=== PATIENT | female | born 1985 | race Caucasian/White ===

== ENCOUNTER → 2024-02-08 | Emergency (ER) | payer OTHER ==
[~2024-02-08] MED LIST: D10W 250 ML IV ONE; FUROSEMIDE 40 MG/4 ML VIAL ONE
--- OUTSIDE RECORDS SUMMARY | 2024-02-08 09:44 | XMS REPORT | Continuity of Care Document ---
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 20:00: 00 11-16 19:05 :54 No 1EA medication :reminder- vancomycin level MISC|dose: 1.0 EA|route:N OT APPLICABLE |frequency :ONE TIME [facility] ([facility]) vancomycin- NS IVPB 1 GM/250 ML SOLR vancomycin- NS IVPB 1 GM/250 ML SOLR 11-14 21:00: 00 11-16 07:25 :56 No 1g medication :vancomyci n-NS IVPB 1 GM/250 ML SOLR|dose: 1.0 g|route:IN TRAVENOUS| frequency: EVERY 24 HOURS [facility] ([facility]) vancomycin- NS IVPB 1 GM/250 ML SOLR vancomycin- NS IVPB 1 GM/250 ML SOLR 11-14 21:00: 00 11-16 07:25 :56 No 1g medication :vancomyci n-NS IVPB 1 GM/250 ML SOLR|dose: 1.0 g|route:IN TRAVENOUS| frequency: EVERY 24 HOURS [facility] vancomycin INJ 500 MG SOLR vancomycin INJ 500 MG SOLR 11-14 21:00: 00 11-14 21:00 :00 No 750mg medication :vancomyci n INJ 500 MG SOLR|dose: 750.0 mg|route:I NTRAVENOUS |frequency :EVERY 24 HOURS [facility] NS SOLN NS SOLN 11-14 21:00: 00 11-14 08:34 :24 No 250mL medication :NS SOLN|dose: 250.0 mL|route:I NTRAVENOUS |frequency :EVERY 24 HOURS [facility]) vancomycin INJ 500 MG SOLR vancomycin INJ 500 MG SOLR 11-14 21:00: 00 11-14 21:00 :00 No 750mg medication :vancomyci n INJ 500 MG SOLR|dose: 750.0 mg|route:I NTRAVENOUS |frequency :EVERY 24 HOURS [facility]) NS SOLN NS SOLN 11-14 21:00: 00 11-14 08:34 :24 No 250mL medication :NS SOLN|dose: 250.0 mL|route:I NTRAVENOUS |frequency :EVERY 24 HOURS [facility]) vancomycin- NS IVPB 1 GM/250 ML SOLR vancomycin- NS IVPB 1 GM/250 ML SOLR 11-14 09:00: 00 11-14 09:00 :00 No 1g medication :vancomyci n-NS IVPB 1 GM/250 ML SOLR|dose: 1.0 g|route:IN TRAVENOUS| frequency: EVERY 12 HOURS [facility] vancomycin- NS IVPB 1 GM/250 ML SOLR vancomycin- NS IVPB 1 GM/250 ML SOLR 11-14 09:00: 00 11-14 09:00 :00 No 1g medication :vancomyci n-NS IVPB 1 GM/250 ML SOLR|dose: 1.0 g|route:IN TRAVENOUS| frequency: EVERY 12 HOURS [facility]) NS SOLN NS SOLN 11-14 03:00: 00 12-13 03:00 :00 No 500mL medication :NS SOLN|dose: 500.0 mL|route:I NTRAVENOUS |frequency :EVERY 3 AM [facility]) NS SOLN NS SOLN 11-14 03:00: 00 11-23 14:40 :00 No 500mL medication :NS SOLN|dose: 500.0 mL|route:I NTRAVENOUS |frequency :EVERY 3 AM [facility]) CLARIFICATI ON: HT/WT/ALLER GY MISC CLARIFICATI ON: HT/WT/ALLER GY MISC 11-14 01:00: 00 11-14 02:23 :47 No 1EA medication :CLARIFICA TION: HT/WT/LUZ MARIA RGY MISC|dose: 1.0 EA|route:N OT APPLICABLE |frequency :EVERY 4 HOURS [facility] CLARIFICATI ON: HT/WT/ALLER GY MISC CLARIFICATI ON: HT/WT/ALLER GY MISC 11-14 01:00: 00 11-14 02:23 :47 No 1EA medication :CLARIFICA TION: HT/WT/LUZ MARIA RGY MISC|dose: 1.0 EA|route:N OT APPLICABLE |frequency :EVERY 4 HOURS [facility] LR SOLN LR SOLN 11-14 00:35: 00 11-16 21:51 :40 No 1000mL medication :LR SOLN|dose: 1000.0 mL|route:I NTRAVENOUS |frequency :CONT [facility]) LR SOLN LR SOLN 11-14 00:35: 00 11-16 21:51 :40 No 1000mL medication :LR SOLN|dose: 1000.0 mL|route:I NTRAVENOUS |frequency :CONT [facility] ([facility]) acetaminoph en 325 MG TABS acetaminoph en 325 MG TABS 11-14 00:33: 00 12-14 00:32 :00 No 650mg medication :acetamino phen 325 MG TABS|dose: 650.0 mg|route:O RAL|freque ncy:EVERY 4 HOURS NEEDED [facility] ([facility]) NS FLUSH SOLN NS FLUSH SOLN 11-14 00:33: 00 12-14 00:32 :00 No 10mL medication :NS FLUSH SOLN|dose: 10.0 mL|route:I NTRAVENOUS |frequency : NEEDED [facility] ([facility]) acetaminoph en 325 MG TABS acetaminoph en 325 MG TABS 11-14 00:33: 00 11-23 14:40 :00 No 650mg medication :acetamino phen 325 MG TABS|dose: 650.0 mg|route:O RAL|freque ncy:EVERY 4 HOURS NEEDED [facility]) NS FLUSH SOLN NS FLUSH SOLN 11-14 00:33: 00 11-23 14:40 :00 No 10mL medication :NS FLUSH SOLN|dose: 10.0 mL|route:I NTRAVENOUS |frequency : NEEDED [facility] ([facility]) LR SOLN LR SOLN 2020-11 22:17: 00 11-13 22:17 :00 No 1000mL medication :LR SOLN|dose: 1000.0 mL|route:I NTRAVENOUS |frequency :ONE TIME [facility] ([facility]) LR SOLN LR SOLN 2020-11 22:17: 00 11-13 22:17 :00 No 1000mL medication :LR SOLN|dose: 1000.0 mL|route:I NTRAVENOUS |frequency :ONE TIME [facility] ([facility]) vancomycin INJ 1 GM SOLR vancomycin INJ 1 GM SOLR 2020-11 22:00: 00 11-14 01:52 :42 No 1.25g medication :vancomyci n INJ 1 GM SOLR|dose: 1.25 g|route:IN TRAVENOUS| frequency: ONE TIME [facility] [facility] NS SOLN NS SOLN 2020-11 22:00: 00 11-14 01:52 :42 No 250mL medication :NS SOLN|dose: 250.0 mL|route:I NTRAVENOUS |frequency :ONE TIME [facility]) vancomycin INJ 1 GM SOLR vancomycin INJ 1 GM SOLR 2020-11 22:00: 00 11-14 01:52 :42 No 1.25g medication :vancomyci n INJ 1 GM SOLR|dose: 1.25 g|route:IN TRAVENOUS| frequency: ONE TIME [facility]) NS SOLN NS SOLN 2020-11 22:00: 00 11-14 01:52 :42 No 250mL medication :NS SOLN|dose: 250.0 mL|route:I NTRAVENOUS |frequency :ONE TIME [facility]) NS SOLN NS SOLN 2020-11 21:12: 00 11-13 21:12 :00 No 1000mL medication :NS SOLN|dose: 1000.0 mL|route:I NTRAVENOUS |frequency :ONE TIME [facility]) levoFLOXaci n-D5W IVPB 500 MG/100ML SOLN levoFLOXaci n-D5W IVPB 500 MG/100ML SOLN 2020-11 21:12: 00 11-13 21:12 :00 No 500mg medication :levoFLOXa staci-D5W IVPB 500 MG/100ML SOLN|dose: 500.0 mg|route:I NTRAVENOUS |frequency :ONE TIME [facility] [facility] NS SOLN NS SOLN 2020-11 21:12: 00 11-13 21:12 :00 No 1000mL medication :NS SOLN|dose: 1000.0 mL|route:I NTRAVENOUS |frequency :ONE TIME [facility] ([facility]) levoFLOXaci n-D5W IVPB 500 MG/100ML SOLN levoFLOXaci n-D5W IVPB 500 MG/100ML SOLN 2020-11 21:12: 00 11-13 21:12 :00 No 500mg medication :levoFLOXa staci-D5W IVPB 500 MG/100ML SOLN|dose: 500.0 mg|route:I NTRAVENOUS |frequency :ONE TIME [facility] ([facility]) NS SOLN NS SOLN 2020-11 19:31: 00 11-13 19:31 :00 No 1000mL medication :NS SOLN|dose: 1000.0 mL|route:I NTRAVENOUS |frequency :ONE TIME [facility] ([facility]) NS SOLN NS SOLN 2020-11 19:31: 00 11-13 19:31 :00 No 1000mL medication :NS SOLN|dose: 1000.0 mL|route:I NTRAVENOUS |frequency :ONE TIME [facility] ([facility]) HYDROcodone -acetaminop hen (NORCO 5) 5-325 mg tablet 1 tablet 07-10 16:57: 52 Yes 1{tbl} 1 tablet, Oral, Q6HPRN, Starting Tue07/10/20 at 1157, Until Discontinu ed, Routine, Pain (scale 4-6), Pain (scale 7-10) [facility] glycerin/mi neral oil (AGLO ENEMA) (COMPOUNDED ) Enem 225 mL 07-10 14:01: 05 Yes 225mL 225 mL, Rectal, Q8HPRN, Starting Tue07/10/20 at 0901, Until Discontinu ed, Routine, If no BM after suppositry , Q8 PRN [facility] bisacodyL (DULCOLAX) suppository 10 mg 07-10 14:00: 00 Yes 10mg 10 mg, Rectal, DAILY, First dose on Tue07/10/20 at 0900, Until Discontinu ed, Routine [facility] ondansetron (ZOFRAN) tablet 4 mg 07-10 13:39: 41 Yes 4mg 4 mg, Oral, Q8HPRN, Starting Rosie 07/10/20 at 0839, Until Discontinu ed, Routine, Nausea and Vomiting (N/V) [facility] -acetaminop hen 5-325 mg tablet 07-10 00:00: 07-18 04:59 :00 No 4647 1{tbl} Take 1 tablet by mouth every 6 (six) hours as needed for Pain (scale 7-10) for up to 7 days. Indication s: acute pain [facility] HYDROcodone -acetaminop hen 5-325 mg tablet 07-10 00:00: 00 07-18 04:59 :00 No 4647 1{tbl} Take 1 tablet by mouth every 6 (six) hours as needed for Pain (scale 7-10) for up to 7 days. Indication s: acute pain [facility] HYDROcodone -acetaminop hen (NORCO) 5-325 mg tablet 07-10 00:00: 07-18 04:59 :00 No 4647 1{tbl} Take 1 tablet by mouth every 6 (six) hours as needed for Pain (scale 7-10) for up to 7 days. Indication s: acute pain [facility] HYDROcodone -acetaminop hen 5-325 mg tablet 07-10 00:00: 07-18 04:59 :00 No 4647 1{tbl} Take 1 tablet by mouth every 6 (six) hours as needed for Pain (scale 7-10) for up to 7 days. Indication s: acute pain [facility] HYDROcodone -acetaminop hen (NORCO) 5-325 mg tablet 07-10 00:00: 00 07-18 04:59 :00 No 4647 1{tbl} Take 1 tablet by mouth every 6 (six) hours as needed for Pain (scale 7-10) for up to 7 days. Indication s: acute pain [facility] HYDROcodone -acetaminop hen (NORCO) 5-325 mg tablet 07-10 00:00: 07-18 04:59 :00 No 4647 1{tbl} Take 1 tablet by mouth every 6 (six) hours as needed for Pain (scale 7-10) for up to 7 days. Indication s: acute pain [facility] HYDROcodone -acetaminop hen 5-325 mg tablet 07-10 00:00: 00 07-18 04:59 :00 No 4647 1{tbl} Take 1 tablet by mouth every 6 (six) hours as needed for Pain (scale 7-10) for up to 7 days. Indication s: acute pain [facility] HYDROcodone -acetaminop hen (NORCO) 5-325 mg tablet 07-10 00:00: 07-18 04:59 :00 No 4647 1{tbl} Take 1 tablet by mouth every 6 (six) hours as needed for Pain (scale 7-10) for up to 7 days. Indication s: acute pain [facility] HYDROcodone -acetaminop hen 5-325 mg tablet 07-10 00:00: 07-18 04:59 :00 No 4647 1{tbl} Take 1 tablet by mouth every 6 (six) hours as needed for Pain (scale 7-10) for up to 7 days. Indication s: acute pain [facility] HYDROcodone -acetaminop hen (NORCO) 5-325 mg tablet 07-10 00:00: 07-18 04:59 :00 No 4647 1{tbl} Take 1 tablet by mouth every 6 (six) hours as needed for Pain (scale 7-10) for up to 7 days. Indication s: acute pain [facility] HYDROcodone -acetaminop hen 5-325 mg tablet 07-10 00:00: 07-18 04:59 :00 No 4647 1{tbl} Take 1 tablet by mouth every 6 (six) hours as needed for Pain (scale 7-10) for up to 7 days. Indication s: acute pain [facility] HYDROcodone -acetaminop hen (NORCO) 5-325 mg tablet 07-10 00:00: 07-18 04:59 :00 No 4647 1{tbl} Take 1 tablet by mouth every 6 (six) hours as needed for Pain (scale 7-10) for up to 7 days. Indication s: acute pain [facility] HYDROcodone -acetaminop hen 5-325 mg tablet 07-10 00:00: 00 07-18 04:59 :00 No 4647 1{tbl} Take 1 tablet by mouth every 6 (six) hours as needed for Pain (scale 7-10) for up to 7 days. Indication s: acute pain [facility] HYDROcodone -acetaminop hen (NORCO) 5-325 mg tablet 07-10 00:00: 00 07-18 04:59 :00 No 4647 1{tbl} Take 1 tablet by mouth every 6 (six) hours as needed for Pain (scale 7-10) for up to 7 days. Indication s: acute pain [facility] HYDROcodone -acetaminop hen 5-325 mg tablet 07-10 00:00: 07-18 04:59 :00 No 4647 1{tbl} Take 1 tablet by mouth every 6 (six) hours as needed for Pain (scale 7-10) for up to 7 days. Indication s: acute pain [facility] HYDROcodone -acetaminop hen (NORCO) 5-325 mg tablet 07-10 00:00: 07-18 04:59 :00 No 4647 1{tbl} Take 1 tablet by mouth every 6 (six) hours as needed for Pain (scale 7-10) for up to 7 days. Indication s: acute pain [facility] HYDROcodone -acetaminop hen 5-325 mg tablet 07-10 00:00: 07-18 04:59 :00 No 4647 1{tbl} Take 1 tablet by mouth every 6 (six) hours as needed for Pain (scale 7-10) for up to 7 days. Indication s: acute pain [facility] HYDROcodone -acetaminop hen (NORCO) 5-325 mg tablet 07-10 00:00: 07-18 04:59 :00 No 4647 1{tbl} Take 1 tablet by mouth every 6 (six) hours as needed for Pain (scale 7-10) for up to 7 days. Indication s: acute pain [facility] HYDROcodone -acetaminop hen 5-325 mg tablet 07-10 00:00: 00 07-18 04:59 :00 No 4647 1{tbl} Take 1 tablet by mouth every 6 (six) hours as needed for Pain (scale 7-10) for up to 7 days. Indication s: acute pain [facility] HYDROcodone -acetaminop hen (NORCO) 5-325 mg tablet 07-10 00:00: 00 07-18 04:59 :00 No 4647 1{tbl} Take 1 tablet by mouth every 6 (six) hours as needed for Pain (scale 7-10) for up to 7 days. Indication s: acute pain [facility] morpHINE injection 2 mg 07-09 14:03: 04 07-10 13:40 :12 No 2mg 2 mg, Slow IV Push, Q3HPRN, Starting Tue07/09/20 at 0903, Until Rosie 07/10/20 at 0840, Routine, Pain (scale 7-10), For breakthrou gh [facility] magnesium sulfate in water 2 gram/50 mL (4 %) infusion 2 g 07-08 13:00: 00 07-08 13:15 :00 No 2g 2 g, IV Piggyback, ONCE, 1 dose, Tue07/08/20 at 0800, Routine [facility] acetaminoph en (TYLENOL) tablet 1,000 mg 07-08 03:00: 00 Yes 1000mg 1,000 mg, Oral, Q8H, First dose (after last modificati on) on Tue07/07/20 at 2200, Until Discontinu ed, Routine [facility] enoxaparin (LOVENOX) injection 40 mg 07-08 02:00: 00 Yes 40mg 40 mg, Subcutaneo us, Q24H, First dose on Tue07/07/20 at 2100, Until Discontinu ed, Routine [facility] celecoxib (CELEBREX) capsule 100 mg 07-08 01:00: 00 Yes 100mg 100 mg, Oral, BID MEALS, First dose on Tue07/07/20 at 1999, Until Discontinu ed, Routine [facility] D5W 0.45% NaCl (1/2NS) 1 L + KCL 20 mEq 07-07 23:12: 00 07-10 13:57 :50 No IV Infusion, at 20 mL/hr, CONTINUOUS , Starting Tue07/07/20 at 1815, Until Rosie 07/10/20 at 0857, Routine [facility] HYDROcodone -acetaminop hen (NORCO 5) 5-325 mg tablet 1 tablet 07-07 18:45: 00 07-07 18:38 :00 No 1{tbl} 1 tablet, Oral, ONCE, 1 dose, Tue07/07/20 at 1345, Routine, PACU [facility] FENTanyl PF (SUBLIMAZE (PF)) injection 25 mcg 07-07 18:31: 41 07-07 18:54 :00 No 25ug 25 mcg, Slow IV Push, Q5MIN PRN, 4 doses, Starting Tue07/07/20 at 1331, Until Tue07/07/20 at 1354, Routine, Pain (scale 4-6), PACU [facility] KCL (KLOR-CON M20) tablet 40 mEq 07-07 01:00: 00 07-07 01:24 :00 No 40meq 40 mEq, Oral, BID, 1 dose, First dose (after last modificati on) on Tue07/06/20 at 1999, Routine [facility] KCL (KLOR-CON M20) tablet 40 mEq 07-05 01:00: 00 07-07 00:52 :02 No 40meq 40 mEq, Oral, BID, First dose on Tue07/04/20 at 1999, Until Discontinu ed, Routine [facility] magnesium sulfate in water 2 gram/50 mL (4 %) infusion 2 g 07-04 12:15: 00 07-04 14:52 :00 No 2g 2 g, IV Piggyback, ONCE, 1 dose, 07/04/20 at 0715, Routine [facility] morpHINE 30 mg/30 mL (fixed dose) MANAGER INTEL injection 07-03 21:15: 00 07-09 13:30 :57 No [facility] morpHINE 2 mg/mL LOAD & RESCUE INJECTION SYRG 07-03 20:07: 23 07-09 13:30 :57 No Slow IV Push, Routine [facility] iohexol (OMNIPAQUE 350 BULK-150 mL) injection 120 mL 07-03 17:55: 00 07-03 17:55 :00 No 120mL 120 mL, Intravenou s, ONCE, 1 dose, Rosie 07/03/20 at 1315, Routine [facility] ondansetron (ZOFRAN (PF)) injection 4 mg 07-03 00:55: 42 07-10 13:40 :12 No 4mg 4 mg, Slow IV Push, Q6HPRN, Starting Tue07/02/20 at 1955, Until Rosie 07/10/20 at 0840, Routine, Nausea and Vomiting (N/V) [facility] D5W 0.45% NaCl (1/2NS) IV infusion 1,000 mL 07-02 00:15: 00 07-07 22:54 :51 No 1000mL at 100 mL/hr, 1,000 mL, IV Infusion, CONTINUOUS , Starting Tue07/01/20 at 1915, Until Tue07/07/20 at 1754, Routine [facility] lidocaine 1% (PF) (XYLOCAINE) injection 20 mL 07-01 14:30: 00 07-01 14:30 :00 No 20mL 20 mL, Subcutaneo us, ONCE, 1 dose, Tue07/01/20 at 0930, Routine [facility] docusate (COLACE) capsule 100 mg 07-01 14:00: 00 Yes 100mg 100 mg, Oral, DAILY, First dose on Tue07/01/20 at 0900, Until Discontinu ed, Routine [facility] foLIC acid (FOLATE) tablet 1 mg 07-01 14:00: 00 07-01 20:31 :54 No 1mg 1 mg, Oral, DAILY, First dose on Tue07/01/20 at 0900, Until Discontinu ed, Routine [facility] thiamine (VITAMIN B1) tablet 100 mg 07-01 14:00: 00 07-01 20:31 :54 No 100mg 100 mg, Oral, DAILY, First dose on Tue07/01/20 at 0900, Until Discontinu ed, Routine [facility] FENTanyl PF (SUBLIMAZE (PF)) injection 25 mcg 07-01 09:15: 00 07-01 09:00 :00 No 25ug 25 mcg, Slow IV Push, ONCE, 1 dose, Tue07/01/20 at 0415, Routine [facility] morpHINE injection 2 mg 07-01 07:18: 39 07-03 20:09 :58 No 2mg 2 mg, Slow IV Push, Q4HPRN, Starting Tue07/01/20 at 0218, Until Tue07/03/20 at 1509, Routine, Pain (scale 7-10) [facility] HYDROcodone -acetaminop hen (NORCO 5) 5-325 mg tablet 1 tablet 07-01 07:18: 30 07-10 16:58 :27 No 1{tbl} 1 tablet, Oral, Q6HPRN, Starting Tue07/01/20 at 0218, Until Tue07/10/20 at 1158, Routine, Pain (scale 4-6) [facility] FENTanyl PF (SUBLIMAZE (PF)) injection 25 mcg 07-01 06:15: 00 07-01 06:30 :00 No 25ug 25 mcg, Slow IV Push, ONCE, 1 dose, Tue07/01/20 at 0115, Routine [facility] Gentamicin 12-13 08:34: 00 No 180mg Daily [facility] Oxacillin 12-13 08:34: 00 No 2g Every 6 Hours [facility] Rifampin 12-13 08:34: 00 No 300mg Daily [facility] Bupropion Hcl 07-20 13:42: 00 No 150mg Twice A Day [facility] BUPROPION HCL (WELLBUTRIN ORAL) 04-08 02:31: 51 Yes Take by mouth. [facility] TRAZODONE HCL (TRAZODONE ORAL) 04-08 02:31: 51 Yes Take by mouth. [facility] BUPROPION HCL (WELLBUTRIN ORAL) 04-08 02:31: 51 Yes Take by mouth. [facility] TRAZODONE HCL (TRAZODONE ORAL) 04-08 02:31: 51 Yes Take by mouth. [facility] BUPROPION HCL (WELLBUTRIN ORAL) 04-08 02:31: 51 Yes Take by mouth. [facility] TRAZODONE HCL (TRAZODONE ORAL) 04-08 02:31: 51 Yes Take by mouth. [facility] BUPROPION HCL (WELLBUTRIN ORAL) 04-08 02:31: 51 Yes Take by mouth. [facility] TRAZODONE HCL (TRAZODONE ORAL) 04-08 02:31: 51 Yes Take by mouth. [facility] BUPROPION HCL (WELLBUTRIN ORAL) 04-08 02:31: 51 Yes Take by mouth. [facility] TRAZODONE HCL (TRAZODONE ORAL) 04-08 02:31: 51 Yes Take by mouth. [facility] BUPROPION HCL (WELLBUTRIN ORAL) 04-08 02:31: 51 Yes Take by mouth. [facility] TRAZODONE HCL (TRAZODONE ORAL) 04-08 02:31: 51 Yes Take by mouth. [facility] [facility] BU[facility]ION HCL (WELLBUTRIN ORAL) 04-08 02:31: 51 Yes Take by mouth. [facility] TRAZODONE HCL (TRAZODONE ORAL) 04-08 02:31: 51 Yes Take by mouth. [facility] BUPROPION HCL (WELLBUTRIN ORAL) 04-07 21:31: 51 Yes Take by mouth. [facility] TRAZODONE HCL (TRAZODONE ORAL) 04-07 21:31: 51 Yes Take by mouth. [facility] BUPROPION HCL (WELLBUTRIN ORAL) 04-07 21:31: 51 Yes Take by mouth. [facility] TRAZODONE HCL (TRAZODONE ORAL) 04-07 21:31: 51 Yes Take by mouth. [facility] Cyclobenzap rine Oral Cyclobenzap rine Oral Yes 10mg 3xD orally 3 times per day as needed. (for muscle spasms) [facility] Vital Signs Vital Name Observation Time Observation Value Comments S ource Systolic blood pressure 2024-02-02 18:35:00 180 mm[Hg] Charisma Seybo ld - External Diastolic blood pressure 2024-02-02 18:35:00 90 mm[Hg] Charismabrooke Kramero ld - External Heart rate 2024-02-02 18:35:00 92 /min Alondra vega sohailrogers - External Body temperature 2024-02-02 18:35:00 36.28 Elizabeth Charismabrooke Howell - External Respiratory rate 2024-02-02 18:35:00 20 /min Charisma Kramerold - External Body height 2024-02-02 18:35:00 157.5 cm Silvana adorno Seybold - External Body weight 2024-02-02 18:35:00 67.586 kg Silvana tila Castleybold - External BMI 2024-02-02 18:35:00 27.25 kg/m2 Silvana tila Castleybold - External Oxygen saturation in Arterial blood by Pulse oximetry 2024-02-02 18:35:00 98 /min Charisma Williamso ld - External Systolic blood pressure 2024-01-19 01:00:00 133 mm[Hg] [facility] Diastolic blood pressure 2024-01-19 01:00:00 93 mm[Hg] [facility] Heart rate 2024-01-19 01:00:00 88 /min General acute hospital Respiratory rate 2024-01-19 01:00:00 18 /min [facility] Oxygen saturation in Arterial blood by Pulse oximetry 2024-01-19 01:00:00 98 /min [facility] Body temperature 2024-01-18 19:21:00 36.78 Elizabeth [facility] Diastolic blood pressure 2022-08-23 10:14:21 102 mm[Hg] [facility] Heart rate 2022-08-23 10:14:21 102 /min [facility] Respiratory rate 2022-08-23 10:14:21 20 /min [facility]) Systolic blood pressure 2022-08-23 10:14:21 174 mm[Hg] [facility] Diastolic blood pressure 2022-08-23 10:14:21 102 mm[Hg] [facility] Heart rate 2022-08-23 10:14:21 102 /min [facility] Respiratory rate 2022-08-23 10:14:21 20 /min [facility]) Systolic blood pressure 2022-08-23 10:14:21 174 mm[Hg] [facility] Diastolic blood pressure 2021-11-23 10:55:00 69 mm[Hg] [facility] Heart rate 2021-11-23 10:55:00 81 /min [facility] Oral temperature 2021-11-23 10:55:00 97.5 [degF] [facility]) Respiratory rate 2021-11-23 10:55:00 18 /min [facility]) Systolic blood pressure 2021-11-23 10:55:00 107 mm[Hg] [facility] Diastolic blood pressure 2021-11-20 04:11:00 93 mm[Hg] [facility] Heart rate 2021-11-20 04:11:00 95 /min [facility] Oral temperature 2021-11-20 04:11:00 98 [degF] [facility]) Respiratory rate 2021-11-20 04:11:00 18 /min [facility]) Systolic blood pressure 2021-11-20 04:11:00 135 mm[Hg] [facility] Body height 2021-11-14 02:02:08 157.48 cm [facility]) Body mass index (BMI) [Ratio] 2021-11-14 02:02:08 23.409 kg/m2 [facility] Body weight Measured 2021-11-14 02:02:08 58.06 kg [facility]) Diastolic blood pressure 2021-11-23 10:55:00 69 mm[Hg] [facility] Heart rate 2021-11-23 10:55:00 81 /min [facility]) Oral temperature 2021-11-23 10:55:00 97.5 [degF] [facility]) Respiratory rate 2021-11-23 10:55:00 18 /min [facility]) Systolic blood pressure 2021-11-23 10:55:00 107 mm[Hg] [facility] Diastolic blood pressure 2021-11-20 04:11:00 93 mm[Hg] [facility] Heart rate 2021-11-20 04:11:00 95 /min [facility]) Oral temperature 2021-11-20 04:11:00 98 [degF] [facility]) Respiratory rate 2021-11-20 04:11:00 18 /min [facility]) Systolic blood pressure 2021-11-20 04:11:00 135 mm[Hg] [facility] Body height 2021-11-14 02:02:08 157.48 cm [facility]) Body mass index (BMI) [Ratio] 2021-11-14 02:02:08 23.409 kg/m2 [facility]) Body weight Measured 2021-11-14 02:02:08 58.06 kg [facility]) Body temperature 2020-08-07 18:32:00 36.28 [facility] Body weight 2020-08-07 18:32:00 63.504 kg [facility] BMI 2020-08-07 18:32:00 24.03 kg/m2 [facility] Height 2020-07-14 05:45:00 137.16 CM Weight 2020-07-14 05:45:00 68.03 KG Systolic blood pressure 2020-07-10 12:55:00 133 mm[Hg] [facility] Diastolic blood pressure 2020-07-10 12:55:00 89 mm[Hg] [facility] Heart rate 2020-07-10 12:55:00 93 /min [facility] acute hospital Body temperature 2020-07-10 12:55:00 36.11 [facility] Respiratory rate 2020-07-10 12:55:00 16 /min [facility] Oxygen saturation in Arterial blood by Pulse oximetry 2020-07-10 12:55:00 97 /min [facility] Body height 2020-07-01 04:55:33 162.6 cm [facility] Body weight 2020-07-01 04:51:01 63.504 kg [facility] BMI 2020-07-01 04:51:01 24.03 kg/m2 [facility] Body Temperature 2020-07-14 05:45:00 97.3 [degF] [facility] (LUF/OMERO/SA) Pulse Rate 2020-07-14 05:45:00 78 /min [facility] [place] [facility] Respiratory Rate 2020-07-14 05:45:00 18 /min [facility] (LUF/OMERO/SA) O2% BldC Oximetry 2020-07-14 05:45:00 100 % [facility] (LUF/OMERO/SA) BP Systolic 2020-07-14 05:45:00 104 mm[Hg] [facility] (LUF/OMERO/SA) BP Diastolic 2020-07-14 05:45:00 70 mm[Hg] [facility] ([facility]OMERO/SA) Height 2020-07-14 05:45:00 54 [in_i] [facility] or[facility] ([facility]/SA) Weight 2020-07-14 05:45:00 150 [lb_av] [facility] ([facility]) BMI (Body Mass Index) 2020-07-14 05:45:00 36.2 kg/m2 [facility] ([facility]) Body Temperature 2019-09-25 17:16:00 98.0 [degF] [employer] Heart Rate 2019-09-25 17:16:00 78 /min [facility] Respiratory rate 2019-09-25 17:16:00 19 /min [employer] BP Systolic 2019-09-25 17:16:00 138 mm[Hg] [facility] Diastolic 2019-09-25 17:16:00 84 mm[Hg] [facility] [employer] Heart Rate 2019-09-25 14:33:00 80 /min [facility] Respiratory rate 2019-09-25 14:33:00 18 /min [employer] BP Systolic 2019-09-25 14:33:00 143 mm[Hg] [facility] Diastolic 2019-09-25 14:33:00 88 mm[Hg] [facility] [employer] Procedures Procedure Date / Time Performed Performing Clinician Source TROPONIN I 2024-01-18 23:22:00 Nadir Troncoso [facility] D-DIMER 2024-01-18 21:23:00 Nadir Troncoso [facility] XR CHEST 2 VW 2024-01-18 20:26:00 Nadir Troncoso [facility] POCT TEST 2024-01-18 20:07:00 Chase Troncoso [facility] MAGNESIUM 2024-01-18 20:01:00 Nadir Troncoso [facility] TROPONIN I 2024-01-18 20:01:00 Nadir Troncoso [facility] COMP. METABOLIC PANEL (70033) 2024-01-18 20:01:00 Nadir Troncoso [facility] CBC WITH DIFF 2024-01-18 20:01:00 Nadir Troncoso [facility] URINALYSIS 2024-01-18 20:01:00 Nadir Troncoso [facility] N-TERMINAL PRO-BNP 2024-01-18 20:01:00 Keke Troncoso [facility] CONSENT/REFUSAL FOR DIAGNOSIS AND TREATMENT 2024-01-18 19:07:21 Doctor Unassigned, [place] [facility] CONSENT/REFUSAL FOR DIAGNOSIS AND TREATMENT 2024-01-17 00:35:30 Doctor Unassigned, [place] [facility] CBC W Auto Differential panel - Blood 2021-11-21 03:00:00 [facility]) Comprehensive metabolic 2000 panel - Serum or P 2021-11-21 03:00:00 [facility]) Choriogonadotropin.beta subunit ( test 2021-11-20 09:22:00 [facility]) Choriogonadotropin [Moles/volume] in Semen 2021-11-20 07:52:00 [facility]) Basic metabolic 2000 panel - Serum or Plasma 2021-11-18 03:00:00 [facility]) CBC W Auto Differential panel - Blood 2021-11-18 03:00:00 [facility]) Bacteria identified in Blood by Culture 2021-11-18 03:00:00 [facility]) Bacteria identified in Blood by Culture 2021-11-17 12:44:00 [facility]) Basic metabolic 2000 panel - Serum or Plasma 2021-11-17 03:00:00 [facility]) CBC W Auto Differential panel - Blood 2021-11-17 03:00:00 [facility]) Bacteria identified in Blood by Culture 2021-11-16 16:06:00 [facility]) Basic metabolic 2000 panel - Serum or Plasma 2021-11-16 03:00:00 [facility]) Magnesium [Mass/volume] in Serum or Plasma 2021-11-16 03:00:00 [facility]) CBC W Auto Differential panel - Blood 2021-11-16 03:00:00 [facility]) XR ANKLE 3+ VW LEFT 2020-08-07 18:23:07 Carter Meredith Red [facility] XR PELVIS 3+ VW 2020-08-07 18:23:07 Rick Meredith on [facility] EXTERNAL PROVIDER RECORDS 2020-07-31 05:01:00 Do ctor Unassigned, [place] [facility] EXTERNAL PROVIDER RECORDS 2020-07-17 05:01:00 Do ctor Unassigned, [place] [facility] PHOSPHORUS 2020-07-10 10:38:00 Betarbet, [facility] MAGNESIUM 2020-07-10 10:38:00 Betarbet, [facility] BASIC METABOLIC PANEL (NA, K, CL, CO2, GLUCOSE, BUN, CREATININE, CA) 2020-07-10 10:38:00 Betaericet [facility] CBC WITH DIFF 2020-07-10 10:38:00 BetarbetErnestina [facility] PHOSPHORUS 2020-07-09 10:23:00 Betarbet [facility] MAGNESIUM 2020-07-09 10:23:00 Betarbet [facility] BASIC METABOLIC PANEL (NA, K, CL, CO2, GLUCOSE, BUN, CREATININE, CA) 2020-07-09 10:23[facility] 2020-07-09 10:23:00 BetarbetErnestina [facility] PHOSPHORUS 2020-07-08 09:56:00 Betarbet [facility] MAGNESIUM 2020-07-08 09:56:00 Betarbet [facility] BASIC METABOLIC PANEL (NA, K, CL, CO2, GLUCOSE, BUN, CREATININE, CA) 2020-07-08 09:56:00 Betachencho [facility] CBC WITH DIFF 2020-07-08 09:56:00 BetarbErnestina borja [facility] CT PELVIS WO CONTRAST 2020-07-08 01:18:16 Zuhair Guzmán [facility] BASIC METABOLIC PANEL (NA, K, CL, CO2, GLUCOSE, BUN, CREATININE, CA) 2020-07-07 23:00:00 Betachencho [facility] CBC WITHOUT DIFF 2020-07-07 22:59:00 Betachencho [facility] XR ANKLE 3+ VW LEFT 2020-07-07 21:12:00 Isael Guzmán [facility] XR PELVIS 3+ VW 2020-07-07 19:34:00 Rick Meredith [facility] FL TIME OR (NON-REPORTABLE) 2020-07-07 18:12:00 Carter Meredith [facility] PELVIS CLOSED REDUCTION WITH PERCUTANEOUS PINNING 2020-07-07 14:22:00 Oscar Doshi [facility] PHOSPHORUS 2020-07-07 11:34:00 Betarbet [facility] MAGNESIUM 2020-07-07 11:34:00 Betarbet [facility] BASIC METABOLIC PANEL (NA, K, CL, CO2, GLUCOSE, BUN, CREATININE, CA) 2020-07-07 11:34:00 Alex [facility] COVID-19 (ID NOW RAPID TESTING) 2020-07-06 19:08:00 Surekha Cuba [facility] PHOSPHORUS 2020-07-06 09:37:00 Betarbet [facility] MAGNESIUM 2020-07-06 09:37:00 Betarbet, [facility] BASIC METABOLIC PANEL (NA, K, CL, CO2, GLUCOSE, BUN, CREATININE, CA) 2020-07-06 09:37:00 Betachencho [facility] CBC WITH DIFF 2020-07-06 09:37:00 BetarbetErnsetina [facility] PHOSPHORUS 2020-07-05 09:47:00 Betarbet [facility] LIPASE 2020-07-05 09:47:00 Betarbet, [facility] MAGNESIUM 2020-07-05 09:47:00 Betarbet, [facility] BASIC METABOLIC PANEL (NA, K, CL, CO2, GLUCOSE, BUN, CREATININE, CA) 2020-07-05 09:47:00 Perone, Sheyla Rayo [facility] CBC WITH DIFF 2020-07-05 09:47:00 Perone, Nadia saldana [facility] CBC WITH DIFF 2020-07-04 09:02:00 Perone, Nadia saldana [facility] PHOSPHORUS 2020-07-04 09:00:00 Betarbet, [facility] LIPASE 2020-07-04 09:00:00 Betarbet, [facility] MAGNESIUM 2020-07-04 09:00:00 Betarbet, [facility] BASIC METABOLIC PANEL (NA, K, CL, CO2, GLUCOSE, BUN, CREATININE, CA) 2020-07-04 09:00:00 [facility] PEL[facility] W WO CONTRAST 2020-07-03 18:00:27 Luana Perales [facility] CBC WITH DIFF 2020-07-03 08:58:00 Perone, Nadia saldana [facility] LIPASE 2020-07-03 08:42:00 Betarbet, [facility] BASIC METABOLIC PANEL (NA, K, CL, CO2, GLUCOSE, BUN, CREATININE, CA) 2020-07-03 08:42:00 Sona, Sheyla Rayo [facility] TEST, URINE 2020-07-03 07:04:00 Dennis Bill [facility] ABORH CONFIRMATION 2020-07-03 04:05:00 Jameel Rodrigues [facility] ANTIGEN TYPING PATIENT 2020-07-03 03:40:00 Carter Haji [facility] PANEL IDENTIFICATION 2020-07-03 03:40:00 Carter Meredith [facility] ELUTION IDENTIFICATION 2020-07-03 03:40:00 Coffm an, Carter [facility] HB ABO GROUPING 2020-07-03 03:40:00 Rick Meredith [facility] SLIM POLYSPECIFIC RESULT 2020-07-03 03:40:00 Susu tomaCarter [facility] SLIM MONOSPECIFIC IGG RESULT 2020-07-03 03:40:00 Viri, Carter [facility] SLIM MONOSPECIFIC C3 RESULT 2020-07-03 03:40:00 C Carter mccloud [facility] LIPASE 2020-07-02 11:12:00 [facility]EL (NA, K, CL, CO2, GLUCOSE, BUN, CREATININE, CA) 2020-07-02 11:12:00 Sheyla Magallanes [facility] CBC WITH DIFF 2020-07-02 11:12:00 Nadia Magallanes [facility] CT LUMBAR SPINE WO CONTRAST 2020-07-01 23:53:00 Keira White [facility] CT PELVIS WO CONTRAST 2020-07-01 23:53:00 Prabhjot Chowdhury [facility] CT THORACIC SPINE WO CONTRAST 2020-07-01 23:53:00 Keira White [facility] CT ANKLE LEFT WO CONTRAST 2020-07-01 23:53:00 Will Otoole [facility] XR PELVIS 3+ VW 2020-07-01 23:41:14 Oscar Doshi [facility] CBC WITH DIFF 2020-07-01 20:21:00 Geetha red [facility] LIPASE 2020-07-01 20:17:00 Geetha red [facility] HEPATIC FUNCTION PANEL (77249) (ALB,T.PRO,BILI T,BU/BC,ALT,AST,ALK PHOS) 2020-07-01 20:17:00 Geetha Carrasquillo [facility] EXTRA TUBE LT. GREEN 2020-07-01 20:17:00 Violeta Hernández [facility] ECHO ROUTINE W/DOPPLER COLOR 2020-07-01 17:45:42 Mariah Geiger [facility] XR ANKLE 3+ VW LEFT 2020-07-01 17:31:00 Isael Guzmán [facility] XR FEMUR 2 VW LEFT 2020-07-01 15:30:00 Will Otoole [facility] HEPATIC FUNCTION PANEL (47316) (ALB,T.PRO,BILI T,BU/BC,ALT,AST,ALK PHOS) 2020-07-01 07:15:00 Sona, Sheyla [facility] BASIC METABOLIC PANEL (NA, K, CL, CO2, GLUCOSE, BUN, CREATININE, CA) 2020-07-01 07:15:00 Perone, Sheyla [facility] CBC WITH DIFF 2020-07-01 07:15:00 Perone, Nadia saldana [facility] PROTHROMBIN TIME / INR 2020-07-01 07:15:00 Sheyla Loredo [facility] XR PELVIS <3 VW 2020-07-01 06:43:00 Glory Chowdhury [facility] COVID-19 (ID NOW RAPID TESTING) 2020-07-01 06:29:00 Sheyla Magallanes [facility] XR CHEST 1 VW 2020-07-01 05:56:00 Tonny [facility] CT THORAX W CONTRAST 2020-07-01 05:55:53 [facility] HEAD WO CONTRAST 2020-07-01 05:55:47 Tonny [facility] CT CERVICAL SPINE WO CONTRAST 2020-07-01 05:55:[facility] PEL[facility] W CONTRAST 2020-07-01 05:55:36 [facility] CT MAXILLOFACIAL/MANDIBLE WO CONTRAST 2020-07-01 05:34:29 [facility] Encounters Start Date/Time End Date/Time Encounter Type Admission Type Attending Clinicians Care Facility Care Department Encounter ID Source 2021-10-12 13:03:01 Outpatient [email or web address].[email or web address] [facility] [id number] [facility] 2020-06-30 23:49:00 Inpatient EFRAIN AGUILAR [facility] STR [id number] [facility] 2020-03-31 18:45:00 Inpatient MARYAM FRANCISCO [id number] [facility] 2024-04-25 08:40:00 2024-04-25 08:40:00 Outpatient WEI CARROLL CHARISMA RODRIGES [id number] [facility] 2024-02-10 11:30:00 2024-02-10 11:30:00 Outpatient JON ALATORRE [facility] [id number] [facility] 2024-02-09 12:00:00 2024-02-09 12:00:00 Outpatient JESSIE RIVAS CHARISMA RODRIGES [id number] [facility] 2024-02-02 14:00:00 2024-02-02 14:00:00 Outpatient JONATHANRAQUEL [id number] [facility] 2024-01-18 13:24:00 2024-01-18 20:03:00 Emergency Nadir [facility]cos[facility] 1..840.114 350.1.13.10 4.2.7.2.686 [id number] [facility] 2024-01-18 13:24:00 2024-01-18 20:03:00 Emergency X JAMIA ODILIAJENNA [facility] ERT [id number] [facility] 2024-01-16 20:00:00 2024-01-16 20:01:00 Emergency X ZURDO LEA [facility] ERT [id number] [facility] 2024-01-16 20:00:00 2024-01-16 20:01:00 Emergency Lea Valentin [facility] 1..840.114 350.1.13.10 4.2.7.2.686 [id number] [facility] 2023-11-05 18:20:00 2023-11-06 02:02:00 Emergency Department Patient Visit [facility] 2.16.840.1. [id number] 2023-11-05 12:20:00 2023-11-05 20:02:00 Outpatient Encounter 1 DIANE [facility] [id number]. [id number] [facility] 2023-11-04 01:15:00 2023-11-04 02:06:00 Emergency Department Patient Visit [facility] 2.16.840.1. [id number] 2023-11-03 19:15:00 2023-11-03 20:06:00 Outpatient Encounter 1 SHAMEKA CANTRELLLIZ [facility] 2.16.840.1. [id number] [facility] 2022-08-23 15:13:00 2022-08-23 15:46:00 Emergency Department Patient Visit [facility] 2.16.840.1. [id number] 2022-08-23 10:13:00 2022-08-23 10:46:00 Outpatient Encounter 1 AUNDREA KOWALSKI [facility] 2.16.840.1. [id number] [facility] 2021-11-17 15:00:00 2021-11-23 20:40:00 Hospital Admission [facility] [id number] [facility] 2021-11-17 09:00:00 2021-11-23 14:40:00 Hospital Ad[facility] [id number] [facility] 2021-11-17 09:00:00 2021-11-23 14:40:00 Inpatient 1 CHRIS SOSA [facility] TEL [id number] [facility] 2021-11-13 19:19:00 2021-11-13 19:19:00 Emergency ARTHUR MATUTE QER [id number] [facility] 2021-05-15 09:27:00 2021-05-15 09:27:00 Emergency AKIN CANTRELL QER [id number] [facility] 2021-03-23 19:36:00 2021-03-23 19:36:00 Emergency ARTHUR MATUTE QER [id number] [facility] 2020-09-04 11:30:00 2020-09-04 11:30:00 Outpatient OSCAR HI [facility] [id number] [facility] 2020-09-02 00:00:00 2020-09-02 00:00:00 Abstract Guerda Charles [facility] 1.2.840.114 350.1.13.10 4.2.7.2.686 [id number] [facility] 2020-08-07 12:47:40 2020-08-18 18:50:47 Office Visit Oscar Doshi [facility] 1.2.840.114 350.1.13.10 4.2.7.2.686 [id number] [facility] 2020-08-07 12:56:20 2020-08-07 23:59:00 Hospital Encounter Oscar Doshi [facility] 1.2.840.114 350.1.13.10 4.2.7.2.686 [id number] [facility] 2020-08-07 08:40:00 2020-08-07 08:40:00 Outpatient OSCAR HI [facility] [id number] [facility] 2020-07-31 00:00:00 2020-07-31 00:00:00 Orders Only Doctor Unassigned, [place] [facility] 1.2.840.114 350.1.13.10 4.2.7.2.686 [id number] [facility] 2020-07-17 00:00:00 2020-07-17 00:00:00 Orders Only Doctor Unassigned, [place] [facility] 1.2.840.114 350.1.13.10 4.2.7.2.686 [id number] [facility] 2020-07-16 00:00:00 2020-07-16 00:00:00 Abstract ViriCarter [facility] 1.2.840.114 350.1.13.10 4.2.7.2.686 [id number] [facility] 2020-07-14 05:27:00 2020-07-14 08:43:00 PAIN IN RIGHT HIP 1 JOSEE PLUMMERER [facility], [address], [place] [address] [facility] [id number] [facility] (YEN/NEDRA V/SA) 2020-07-14 00:00:00 2020-07-14 00:00:00 Transition of Care Rosibel Garnicasilvia Gossza 1.2.840.114 350.1.13.10 4.2.7.2.686 [id number] [facility] 2020-07-14 00:00:00 2020-07-14 00:00:00 Telephone GiovanyOscar packer [facility] 1.2.840.114 350.1.13.10 4.2.7.2.686 [id number] [facility] 2020-07-11 00:00:00 2020-07-11 00:00:00 Transition of Care Rosibel Garnica [place] 1.2.840.114 350.1.13.10 4.2.7.2.686 [id number] [facility] 2020-06-30 23:49:00 2020-07-10 16:55:00 Inpatient T EFRAIN HERNÁNDEZ [facility] STR [id number] [facility] 2020-06-30 23:49:00 2020-07-10 16:55:00 Hospital Encounter Oscar Rodrigues Joshua Miranda [facility] 1.2.840.114 350.1.13.10 4.2.7.2.686 [id number] [facility] 2020-06-30 14:23:00 2020-06-30 14:23:00 Emergency GUERDA ORELLANA [facility] QER [id number] [facility] 2020-03-31 08:42:00 2020-03-31 08:42:00 Emergency [facility] [id number] [facility] 2020-03-25 12:30:00 2020-03-25 12:30:00 Emergency HOMERO PARRA [facility] QER [id number] [facility] 2020-01-03 13:57:00 2020-01-03 13:57:00 Emergency MEGHANA AUNDREA [facility] QER [id number] [facility] 2019-11-27 06:25:00 2019-11-27 06:25:00 Emergency ALLA LONNIE [facility] QER [id number] [facility] 2019-09-25 14:58:00 2019-09-25 17:36:00 Departed Emergency Room [facility] Elizabeth [id number] [address] [place] [address] 2013-04-07 21:19:36 2013-04-08 07:59:00 Emergency X [facility] ERT [id number] [facility] Results Test Description Test Time Test Comments Results Result Co mments Source [facility]MINAL DPT-RAN1032-14-06 21:49:34* Test Item Value Reference Range Interpretation Comme nts NT-proBNP (test code = 55513-0) 805 pg/mL <=125 H SYED (test code = SYED) Positive: Heart Failure Likely Lab Interpretation (test code = 31927-6) Abnormal [facility] CenterD-Wfmjt1205-16-16 21:49:13* Test Item Value Reference Range Interpretation Comments D-DIMER (test code = 3853625125) 0.42 See_Comment [Automated message] The system which generated this result transmitted reference range: <0.50 ?g/mL (FEU). The reference range was not used to interpret this result as normal/abnormal. SYED (test code = SYED) This test may be used in conjunction with a clinical pretest probability (PTP) assessment model to exclude venous thromboembolism (VTE) in patients suspected of deep venous thrombosis (DVT) and pulmonary embolism (PE) A D-Dimer value less than 0.50 ?g/ml (FEU) has a negative predicative value of 96 to 100% (95% CI)and 97 to 100% (95% CI) as an aid in the diagnosis of deep vein thrombosis (DVT) and pulmonary embolism when there is low or moderate pretest probability of PE or DVT. D-Dimer values are expressed in initial fibrinogen equivalent units (FEU)" The assay results should be used with other information, including the clinical context, in forming a diagnosis. Lab Interpretation (test code = 61435-3) Normal [facility] CenterTROPONIN [id number] 20:54:45* Test Item Value Reference Range Interpretation Comme nts TROPONIN I (test code = 2195529371) 0.004 ng/mL <=0.034 SYED (test code = SYED) Reference (Normal) Range (defined by the 99th percentile reference limit): <= 0.034 ng/mL Note: Cardiac troponin begins to rise 3-4 hours after the onset of ischemia. Repeat in 4-6 hours if the sample was drawn within 3-4 hours of the onset of the symptom and found normal. Diagnosis of myocardial injury is made with acute changes in cTn concentrations with at least one serial sample above the 99th percentile upper reference limit (URL), taken together with the patient's clinical presentation. Biotin has been reported to cause a negative bias, interpret results relative to patient's use of biotin. Lab Interpretation (test code = 54481-0) Normal [facility] CenterXR CHEST 2 [id number] 20:50:16PROCEDURE: XR CHEST 2 VW 01/18/2024 2:20 PM CLINICAL INDICATION: CP COMPARISON: Radiograph of 06/30/2020 TECHNIQUE: PA and lateral views of the chest FINDINGS: Left chest wall cardiac pacer leads overlying right atrium and rightventricle. Aortic valve prosthesis is again noted. There is no pleuraleffusion. ?No pneumothorax. The cardiac size is within normal limits. No aggressive osseous lesion.[facility] CenterMagnesium2024-03-06 20:42:42* Test Item Value Reference Range Interpretation Comme nts MAGNESIUM (test code = 6222378866) 1.9 mg/dL 1.7-2.4 Lab Interpretation (test cod e = 76624-4) Normal [facility] CenterCOMP. METABOLIC PANEL (27543)2024-01-18 20:42:42* Test Item Value Reference Range Interpretation Comme nts NA (test code = 5527723720) 138 mmol/L 135-145 K (test code = 7244897614) 4.5 mmol/L 3.5-5.0 Slight hemolysis CL (test code = 3127589047) 110 mmol/L 98-108 H CO2 TOTAL (test code = 2633507902) 19 mmol/L 23-31 L AGAP (test code = 4165392071) 9 2-16 BUN (test code = 9085308251) 17 mg/dL 7-23 Slight hemolysis GLUCOSE (test code = 2092383509) 101 mg/dL 70-110 CREATININE (test code = 2160-0) 0.92 mg/dL 0.50-1.04 TOTAL BILI (test code = 2270122276) 0.6 mg/dL 0.1-1.1 CALCIUM (test code = 3762545955) 9.0 mg/dL 8.6-10.6 T PROTEIN (test code = 1234107212) 8.1 g/dL 6.3-8.2 ALBUMIN (test code = 4886551552) 4.1 g/dL 3.5-5.0 ALK PHOS (test code = 4946177333) 123 U/L 34-122 H Slight hemolysis ALTv (test code = 1742-6) 104 U/L 5-35 H AST(SGOT) (test code = 2529155965) 105 U/L 13-40 H Slight hemolysis eGFR (test code = 60204-1) 81.4 mL/min/1.73m2 CKD-EPI eGFR (2020). Assuming creatinine has been stable day-to-day for at least three months, the eGFR indicates Category G2 (60 - 89 mL/min/1.73 m2) Lab Interpretation (test code = 80557-5) Abnormal [facility] WITH [id number] 20:18:18* Test Item Value Reference Range Interpretation Comme nts WBC (test code = 6690-2) 8.01 4.30-11.10 RBC (test code = 789-8) 4.46 3.93-5.25 HGB (test code = 718-7) 14.6 g/dL 11.6-15.0 HCT (test code = 4544-3) 44.4 % 35.7-45.2 MCV (test code = 787-2) 99.6 fL 80.6-95.5 H MCH (test code = 785-6) 32.7 pg 25.9-32.8 MCHC (test code = 786-4) 32.9 g/dL 31.6-35.1 RDW-SD (test code = 57144-4) 47.5 fL 39.0-49.9 RDW-CV (test code = 788-0) 12.8 % 12.0-15.5 PLT (test code = 777-3) 168 166-358 MPV (test code = 81135-2) 10.7 fL 9.5-12.9 NRBC/100 WBC (test code = 3383851018) 0.0 0.0-10.0 NRBC x10^3 (test code = 7279712879) See_Comment [Automated Send the Trenda ge] The system which generated this result transmitted reference range: 10*3/?L. The reference range was not used to interpret this result as normal/abnormal. GRAN MAT (NEUT) % (test code = 770-8) 52.5 % IMM GRAN % (test code = 5290294040) 0.10 % LYMPH % (test code = 736-9) 37.0 % MONO % (test code = 5905-5) 7.9 % EOS % (test code = 713-8) 2.1 % BASO % (test code = 706-2) 0.4 % GRAN MAT x10^3(ANC) (test code = 2766047889) 4.21 10*3/uL 1.88-7.09 IMM GRAN x10^3 (test code = 6352577525) 0.00-0.06 LYMPH x10^3 (test code = 731-0) 2.96 10*3/uL 1.32-3.29 MONO x10^3 (test code = 742-7) 0.63 10*3/uL 0.33-0.92 EOS x10^3 (test code = 711-2) 0.17 10*3/uL 0.03-0.39 BASO x10^3 (test code = 704-7) 0.03 10*3/uL 0.01-0.07 Lab Interpretation (test code = 73742-8) Abnormal [facility] CenterPOCT [id number] 20:07:00* Test Item Value Reference Range Interpretation Comme nts POCT PREG (test code = 1605) Negative On board controls acceptable with C Line (test code = 3574) Yes POCT PREG LOT # (test code = 3575) [id number] POCT PREG TEST DATE ( test code = 3576) 02/19/2025 Lab Interpretation (test cod e = 17232-6) [facility] [id number] 20:20:00 [facility] 1985 [facility] [place], [place] [address]KNSOXKPPPO IMAGING REPORTPatient Name: CRISTIAN FEBRUARY NDate of Service: 78-35-3827Dqa: 38 Sex: F Order #: [id number]: [facility] 1985 X-Ray Number: [id number] Record Number: [id number] Hospital Number: [id number] Physician: KAILASH CONTRERAS SOrdering Physician: KAILASH CONTRERAS SPROCEDURE: CTA CHESTINDICATIONS: DX STATES CHEST PAINCHART STATES C/P, WEAKNESS, SOB, SWEATS,NAUSEATED , RAPID HEARTBEATPMHX PACEMAKERPER PATIENT PROTOCAL ISOVUE [id number] 1.5PSV CAFEXAM: CT Angiography Chest With Intravenous Contrast MIPS post processingand 3D reconstruction was performed.COMPARISON: No relevant prior studies available.FINDINGS:PULMONARY ARTERIES: Unremarkable. No pulmonary embolism.AORTA: No acute findings. No thoracic aortic aneurysm.LUNGS AND PLEURAL SPACES: Calcified granuloma in the left lung. Small leftpleural effusion. Bilateral atelectasis with subtle tiny subcentimeterbilateral pulmonary nodules some of which are ill-defined with peripheralground-glass attenuation. Nodules measureup to 6 mm, for example in theright upper lobe series 7, image 107. Post sternotomy changes. Nopneumothorax.HEART: Unremarkable. No cardiomegaly. No significant pericardial effusion.No evidence of RVdysfunction.BONES/JOINTS: Age- indeterminate superior endplate compression deformitiesnoted at T3 and T4. No dislocation.SOFT TISSUES: Unremarkable.LYMPH NODES: Unremarkable. No enlarged lymph nodes.LIVER: Hepatic steatosis noted.GALLBLADDER AND BILE DUCTS: Post cholecystectomy. No significant biliaryductal dilatation.ADRENALS: Thickening of the adrenal gland.STOMACH AND BOWEL: Colonic diverticulosis.TUBES, LINES AND DEVICES: Left pectoral cardiac pacing device.IMPRESSION:1. No evidence of PE.2. Small left pleural effusion.3. Bilateral pulmonary ill-defined nodules, may reflectinfectious/inflammatory etiologies however neoplastic can not be entirelyexcluded. Recommend short attention on follow-up establish stabilityand/or ensure resolution.This document has been electronically signed by: Kali Baird MD on11/05/2023 20:19:33Legally authenticated by NICHELLE DRAKE 2023-11-05 15:18:00ISTAT CHEM [id number] 18:24:00* Test Item Value Reference Range Interpretation Comme nts ISTATNA (test code = ISTATNA) 144 MMOL/L 137-145 ISTATK (test code = ISTATK) 3.3 MMOL/L 3.6-5.0 L ISTATCL (test code = ISTATCL) 111 MMOL/L 98-107 H ISTIONCA (test code = ISTIONCA) 0.93 MMOL/L 1.12-1.32 L ISTCO2 (test code = ISTCO2) 16 MMOL/L 22-30 L ISTATGLU (test code = ISTATGLU) 76 MG/DL 65-110 ISTATBUN (test code = ISTATBUN) 34.0 MG/DL 7.0-20.0 H ISTCREA (test code = ISTCREA) 1.5 MG/DL 0.7-1.5 ISTATHCT (test code = ISTATHCT) 26 %PCV 37.0-52.0 L ISTATHGB (test code = ISTATHGB) 8.8 G/DL 12.0-18.0 L Notified Nurse/M D of results outside of Reference Ranges ISTANGAP (test code = ISTANGAP) 21 MMOL/L Notified Nurse/M D of results outside of Reference Ranges ISTAT CHEM [id number] 18:24:00* Test Item Value Reference Range Interpretation Comme nts Sodium [Moles/volume] in Art erial blood (test code = 91570-5) 144 MMOL/L 137.0-145.0 N Potassium [Moles/volume] in Arterial blood (test code = 31057-6) 3.3 MMOL/L 3.6-5.0 L Chloride [Moles/volume] in Arterial blood (test code = 92613-8) 111 MMOL/L 98.0-107.0 H Calcium.ionized [Mass/volume ] in Arterial blood (test code = 38521-9) 0.93 MMOL/L 1.12-1.32 L Carbon dioxide, total [Moles/volume] in Blood (test code = 17679-8) 16 MMOL/L 22.0-30.0 L Glucose [Mass/volume] in Art erial blood (test code = 38365-7) 76 MG/DL 65.0-110.0 N Urea nitrogen [Mass/volume] in Arterial blood (test code = 67864-2) 34.0 MG/DL 7.0-20.0 H Creatinine [Mass/volume] in Blood (test code = 48850-0) 1.5 MG/DL 0.7-1.5 N Hematocrit [Volume Fraction] of Arterial blood (test code = 35911-4) 26 %PCV 37.0-52.0 L Hemoglobin [Mass/volume] in Arterial cord blood (test code = 57926-9) 8.8 G/DL 12.0-18.0 L Anion gap in Blood (test cod e = 35536-7) 21 MMOL/L N [facility])TROPONIN [id number] 18:06:00* Test Item Value Reference Range Interpretation Comme [facility] TROPER (test code = TROPER) 0.01 NG/ML 0.0-0.08 INTERPRETIVE DATA A POC TROPONIN OF </= 0.08 NG/ML IS CONSIDERED NEGATIVE Troponin T.cardiac [Mass/volume] in [id number] 18:06:00* Test Item Value Reference Range Interpretation Comme [facility] Troponin T.cardiac [Mass/vol ume] in Blood (test code = 90062-3) 0.01 NG/ML 0.0-0.08 N [facility])CTA Chest [id number] 15:18:00ORDER 1500: CTA CHEST (LOINC: 80687-0)ORDER DATE: November 05, 2023 9:18:00 PM [facility])Fibrin D-dimer FEU [Mass/volume] in Platelet [id number] 15:05:00* Test Item Value Reference Range Interpretation Comme [facility] Fibrin D-dimer FEU [Mass/volume] in Platelet poor plasma (test code = 91350-4) 1015 ng/mL (FEU) 0.0-500.0 H [facility])PROBRAIN NATRIURETIC [id number] 15:04:00* Test Item Value Reference Range Interpretation Comme [facility] NT-PROBNP (test code = PROBNP) 1070 pg/mL Exclusion for he art failure for patients of all ages is 300 pg/mL. Inclusion for heart failure for patients age <50 is 450 pg/mL; for patients age 50-75 is 900 pg/mL; for patients age >75 is 1800 pg/mL. Natriuretic peptide B [Mass/volume] in Serum [id number] 15:04:00* Test Item Value Reference Range Interpretation Comme [facility] Natriuretic peptide B [Mass/volume] in Serum or Plasma (test code = 38228-9) 1070 pg/mL [facility])URINE DRUG [id number] 15:00:00* Test Item Value Reference Range Interpretation Comme [facility] AMPHET (test code = BAMP) POSITIVE NEGATIVE A This is an uncon firmed screening. Result are to be used for medical purposes (treatment) only. Not intended for non-medical purposes. Cut-off concentration for a positive result for each drug: Amphetamine - 1,000 ng/ml Barbiturate - 200 ng/ml Benzodiazepine - 200 ng/ml Cannabinoids - 50 ng/ml Cocaine - 300 ng/ml Opiates - 300 ng/ml PCP - 25 ng/ml BARBITURATES (test code = BBAR) NEGATIVE NEGATIVE BENZO (test code = BBENZ) NEGATIVE NEGATIVE CANNABS (test code = BCANN) NEGATIVE NEGATIVE COCAINE (test code = BCOC) NEGATIVE NEGATIVE OPIATES (test code = BOPI) NEGATIVE NEGATIVE PCP (test code = BMTPCP) NEGATIVE NEGATIVE [id number] 15:00:00* Test Item Value Reference Range Interpretation Comme [facility] LIPASE (test code = LIPA) 182 U/L 23-300 Drugs of abuse 5 panel - Urine by Screen [id number] 15:00:00 PositiveNegativeNegativeNegativeNegativeNegativeNegative[facility]ner [facility])Lipase [Enzymatic activity/volume] in Serum [id number] 15:00:00* Test Item Value Reference Range Interpretation Comme [facility] Lipase [Enzymatic activity/v olume] in Serum or Plasma (test code = 3040-3) 182 U/L 23.0-300.0 [facility])D-DIMER [id number] 14:58:00* Test Item Value Reference Range Interpretation Comme nts D-DIMER QUANTITATIVE (test code = DDIMER) 1015 ng/mL (FEU) 0-500 H VALUES OF QUANTITATIVE D-DIMER LESS THAN 499 ng/mL HAVE BEEN REPORTED TO BE ASSOCIATED WITH A LOW PROBABILITY OF DEEP VEIN THROMBOSIS/PULMONARY EMBOLISM. THIS TEST ALONE SHOULD NOT BE USED TO RULE OUT DVT/PE. [id number] 14:54:00* Test Item Value Reference Range Interpretation Comme nts MG (test code = MG) 1.4 mg/dL 1.6-2.3 L Magnesium [Mass/volume] in Serum or Tcuogj4331-43-97 14:53:00* Test Item Value Reference Range Interpretation Comme [facility] Magnesium [Mass/volume] in S vick or Plasma (test code = 11860-5) 1.4 mg/dL 1.6-2.3 L [facility])INFLUENZA [id number] 14:39:00* Test Item Value Reference Range Interpretation Comme [facility] FLU A (test code = FLU A) NEGATIVE NEGATIVE FLU B (test code = FLU B) NEGATIVE NEGATIVE FLU INTERNAL POSITIVE CNTRL (test code = FLU IPC) PASS PASS INFLUENZA LOT # (test code = FLULOT) [id number] INFLUENZA EXPIRATION DATE (t est code = FLUEXP) [id number] STREP A PCR (MOLECULAR)2023-11-05 14:39:00* Test Item Value Reference Range Interpretation Comme [facility] STREP GROUP A PCR (MOLECULAR ) (test code = STREPPCR) NEGATIVE NEGATIVE Influenza virus A+B Ag [Presence] in Nose by [id number] 14:39:00* Test Item Value Reference Range Interpretation Comme [facility] Reagent Lot number (test cod e = 78301-6) [id number] 1 N Expiration date (test code = 05026-5) [id number] 1 N [facility])Streptococcus pyogenes DNA [Presence] in Throat 2023-11-05 14:39:00NegativeSumner Regional Medical Center)[id number] 14:28:00* Test Item Value Reference Range Interpretation Comme [facility] WBC (test code = WBC) 4.9 K/UL 3.5-10.9 RBC (test code = RBC) 3.40 M/UL 4.0-5.0 L HGB (test code = HGB) 10.3 G/DL 11.5-15.5 L HCT (test code = HCT) 30.9 % 34-46 L MCV (test code = MCV) 90.9 FL 80-98 MCH (test code = MCH) 30.3 PG 28-32 MCHC (test code = MCHC) 33.3 G/DL 32.5-36.5 RDW (test code = RDW) 14.9 % 11.5-14.5 H PLT (test code = PLT) 137 K/UL 150-450 L MPV (test code = MPV) 11.3 FL 7.4-10.4 H MANDIFF (test code = MANDIFF) NO SCAN (test code = SCAN) NO NEUT% (test code = NEUT%) 70.9 % 40-75 LYMPH% (test code = LYMPH%) 10.1 % 24-44 L MONO% (test code = MONO%) 18.6 % 0-13 H EOS% (test code = EOS%) 0.0 % 0-4 BASO % (test code = BASO%) 0.0 % 0-2 IG (test code = IG) 0 % 0-1 IG% (test code = IG%) 0.4 % 0-1 IG% = Metamyeloc ytes, Myelocytes, and Promyelocytes. (Immature neutrophils not including "bands".) > 3% IG indicates risk of sepsis NRBC% (test code = NRBC%) 0 /100 WBC ABS NEUT (test code = NEUT) 3.5 K/UL 1.2-7.2 CBC W Auto Differential panel - [id number] 14:28:00* Test Item Value Reference Range Interpretation Comme nts Leukocytes other [Identifier ] in Blood by Automated count (test code = 67056-3) 4.9 K/UL 3.5-10.9 N Erythrocytes [#/volume] in B lood (test code = 47545-4) 3.4 M/UL 4.0-5.0 L Hemoglobin A/Hemoglobin.tota l in Blood (test code = 4546-8) 10.3 G/DL 11.5-15.5 L Hematocrit [Volume Fraction] of Blood (test code = 50034-6) 30.9 % 34.0-46.0 L Erythrocyte mean corpuscular volume [Entitic volume] (test code = 47394-3) 90.9 FL 80.0-98.0 N Erythrocyte mean corpuscular hemoglobin [Entitic mass] (test code = 11943-8) 30.3 PG 28.0-32.0 N Erythrocyte mean corpuscular hemoglobin concentration [Mass/volume] (test code = 15342-8) 33.3 G/DL 32.5-36.5 N Erythrocyte distribution wid th [Ratio] (test code = 91425-9) 14.9 % 11.5-14.5 H Platelets panel - Blood by Automated count (test code = 13032-5) 137 K/UL 150.0-450.0 L Platelet mean volume [Entiti c volume] in Blood by Automated count (test code = 31633-7) 11.3 FL 7.4-10.4 H Neutrophils.segmented/100 leukocytes in Blood (test code = 88228-8) 70.9 % 40.0-75.0 N Lymphocytes Variant/100 leuk ocytes in Blood (test code = 59196-1) 10.1 % 24.0-44.0 L Lymphocytes+Monocytes/100 leukocytes in Blood (test code = 4662-3) 18.6 % 0.0-13.0 H Eosinophils [#/volume] in Bl ood (test code = 61137-0) 0.0 % 0.0-4.0 N Basophils [#/volume] in Bloo d (test code = 91281-3) 0.0 % 0.0-2.0 N Immature granulocytes/100 leukocytes in Blood (test code = 85483-7) 0.4 % 0.0-1.0 N Nucleated erythrocytes [#/vo lume] in Blood (test code = 10730-3) 0 /100 WBC N Neutrophils [#/volume] in Bl ood (test code = 86837-8) 3.5 K/UL 1.2-7.2 N [facility] CenterIST[facility] [id number] 13:50:00* Test Item Value Reference Range Interpretation Comme nts ISTAT HCG (test code = ISHCG) <5.0 IU/L A value of less than or equal to <5 IU/L is considered NEGATIVE A value between 5 IU/L and 25 IU/L is considered INDETERMINATE A value of >25 IU/L is considered POSITIVE Choriogonadotropin.beta subunit [Presence] in W3234-48-54 13:50:00* Test Item Value Reference Range Interpretation Comme nts Choriogonadotropin.beta subu nit [Presence] in Specimen (test code = 74055-8) <5.0 N [facility] [id number] 13:32:00 [facility] : 1985 Sex: F[address] [address]RXZJRNFSZQ IMAGING REPORTPatient Name: CRISTIAN FEBRUARYDate of Service: 00-59-2528Uqv: 38 Sex: F Order #: [id number] Room: QERDOB: 1985 X-Ray Number: [id number] Record Number: [id number] Hospital Number: [id number] Physician: ,Ordering Physician: MARIANGEL TRINHHISTORY:Chest Pain without Trauma/InjuryEXAM:CHEST 1 VIEW PORTABLEFindings: Single view chest without comparison exam shows the cardiacsilhouette is normal in size. There is no pulmonaryvascular congestion. There are bibasilar reticular markings without focallung consolidation seen. There is no pleural effusionor pneumothorax seen. Visualized osseous structures show no acute findings.Surgical changes are seen of the mediastinumwith st ernotomy wires. Cardiac generator is seen with distal leads in theright atrium and ventricle.Impression:1. Chronic lung findings without superimposed focal infiltrate.2. No radiographically evident acute cardiopulmonary process. 1331 CTLegally authen ticated by BLANCA KONG 2023-11-05 12:32:00TRMANUEL HENDERSONFU9339-25-84 13:18:00* Test Item Value Reference Range Interpretation Comme nts TROPER (test code = TROPER) 0.00 NG/ML 0.0-0.08 INTERPRETIVE DATA A POC TROPONIN OF </= 0.08 NG/ML IS CONSIDERED NEGATIVE Troponin T.cardiac [Mass/volume] in [id number] 13:18:00* Test Item Value Reference Range Interpretation Comme nts Troponin T.cardiac [Mass/vol ume] in Blood (test code = 07972-7) 0.0 NG/ML 0.0-0.08 N [facility])Portable XR Chest Views [id number] 12:32:00ORDER 500: CHEST 1 VIEW PORTABLE (LOINC: 28010-6)ORDER DATE: November 05, 2023 6:32:00 PM [facility])CHEST 1 VIEW [id number] 21:31:00 [facility] 1985 Sex: F[address] [address]YZDLLIANSA IMAGING REPORTPatient Name: FebruaryDate of Service: 53-42-0822Hpm: 38 Sex: F Order #: [id number] Room: ERSDOB: 1985 X-Ray Number: [id number] Record Number: [id number] Hospital Number: [id number] Physician: ,Ordering Physician: KAILASH CONTRERASHISTORY:Chest Pain without Trauma/InjuryEXAM:CHEST 1 VIEW PORTABLEFindings: Single view chest without comparison exam shows the cardiacsilhouette is normal in size. There is no pulmonaryvascular congestion. There are bibasilar reticular markings without focallung consolidation seen. There is no pleural effusionor pneumothorax seen. Visualized osseous structures show no acute findings.Impression:1. Chronic lung findings without superimposed focal infiltrate.2. No radiographically evident acute cardiopulmonary process. 2128 CTLegally authenticated by BLANCA KONG 2023-11-03 19:27:00Portable XR Chest Views AP 2023-11-03 19:27:00ORDER 700: CHEST 1 VIEW PORTABLE (LOINC: 10039-6)ORDER DATE: November 04, 2023 1:27:00 AM [facility])WHOLE BLOOD GLUCOSE 2021-11-23 06:40:00* Test Item Value Reference Range Interpretation Comme [facility] WHOLE BLOOD GLUCOSE (test code = POC GLU) 125 MG/DL 70-99 H Fasting glucose normal <100 MG/DL- [employer] recommendation Glucose mean value [Mass/volume] in Blood Zrluw2708-09-45 06:40:00* Test Item Value Reference Range Interpretation Comme [facility] Glucose mean value [Mass/vol ume] in Blood Estimated from glycated hemoglobin (test code = 95030-3) 125 MG/DL 70.0-99.0 H [facility])[id number] 04:28:00* Test Item Value Reference Range Interpretation Comme nts SODIUM (test code = NA) 133 MMOL/L 137-145 L K+ (test code = KSERUM) 4.8 MMOL/L 3.5-5.1 CHLORIDE (test code = CL) 101 MMOL/L 98-107 CO2 (test code = CO2) 28 MMOL/L 22-30 BUN (test code = BUN) 25 MG/DL 7-17 H CREA (test code = CREA) 1.2 MG/DL 0.7-1.2 GLUCOSE (test code = GLUCOSE) 64 MG/DL 70-99 L Fasting glucos e normal <100 MG/DL- [employer] recommendation CALCIUM (test code = CABLOOD) 8.8 MG/DL 8.4-10.2 TOTPROT (test code = TOTPROT) 8.2 G/DL 6.3-8.2 ALBUMIN (test code = ALBSERUM) 3.5 G/DL 3.5-5.0 BILITOT (test code = BILITOT) 0.9 MG/DL 0.2-1.3 AST (test code = AST) 51 U/L 15-46 H PHOSALK (test code = PHOSALK) 167 U/L 38-126 H ALTV (test code = ALTV) 38 U/L 13-69 GFR (test code = GFR) 54 mL/min/1.73m2 A GFR of >90 mL/min/1.73m2 is considered normal. The GFR calculation on patients over 70 years of age is not validated by the manager battery and may not represent the patients true renal function. Comprehensive metabolic 2000 panel - Serum or [id number] 04:28:00* Test Item Value Reference Range Interpretation Comme nts Sodium [Moles/volume] in Blood (test code = 2947-0) 133 MMOL/L 137.0-145.0 L Potassium [Moles/volume] in Blood (test code = 6298-4) 4.8 MMOL/L 3.5-5.1 N Chloride [Moles/volume] in Blood (test code = 2069-3) 101 MMOL/L 98.0-107.0 N Carbon dioxide, total [Moles/volume] in Blood (test code = 23385-3) 28 MMOL/L 22.0-30.0 N Urea nitrogen [Mass/volume] in Serum or Plasma (test code = 3094-0) 25 MG/DL 7.0-17.0 H Creatinine [Mass/volume] in Blood (test code = 72845-9) 1.2 MG/DL 0.7-1.2 N Glucose [Mass/volume] in Blood (test code = 2339-0) 64 MG/DL 70.0-99.0 L Calcium [Mass/volume] in Serum or Plasma (test code = 54420-0) 8.8 MG/DL 8.4-10.2 N Protein [Mass/volume] in Serum or Plasma (test code = 2885-2) 8.2 G/DL 6.3-8.2 N Albumin [Presence] in Serum or Plasma (test code = 10061-1) 3.5 G/DL 3.5-5.0 N Bilirubin direct and total panel [Mass/volume] - Serum or Plasma (test code = 13726-1) 0.9 MG/DL 0.2-1.3 N Aspartate aminotransferase [Enzymatic activity/volume] in Serum or Plasma (test code = 1920-8) 51 U/L 15.0-46.0 H Alkaline phosphatase [Enzymatic activity/volume] in Serum or Plasma (test code = 6768-6) 167 U/L 38.0-126.0 H ALTV (test code = ALTV) 38 U/L 13.0-69.0 N Estimated or measured glomerular filtration rate less than 50 percent [- Reported] (test code = 48739-9) 54 mL/min/1.73m2 [id number]00* Test Item Value Reference Range Interpretation Comme nts WBC (test code = WBC) 10.7 K/UL 3.5-10.9 RBC (test code = RBC) 4.18 M/UL 4.0-5.0 HGB (test code = HGB) 13.1 G/DL 11.5-15.5 HCT (test code = HCT) 42.4 % 34-46 MCV (test code = MCV) 101.4 FL 80-98 H MCH (test code = MCH) 31.3 PG 28-32 MCHC (test code = MCHC) 30.9 G/DL 32.5-36.5 L RDW (test code = RDW) 13.6 % 11.5-14.5 PLT (test code = PLT) 408 K/UL 150-450 MPV (test code = MPV) 8.4 FL 7.4-10.4 MANDIFF (test code = MANDIFF) NO SCAN (test code = SCAN) NO NEUT% (test code = NEUT%) 53.9 % 40-75 LYMPH% (test code = LYMPH%) 36.8 % 24-44 MONO% (test code = MONO%) 5.4 % 0-13 EOS% (test code = EOS%) 1.9 % 0-4 BASO % (test code = BASO%) 0.6 % 0-2 IG (test code = IG) 0 % 0-1 IG% (test code = IG%) 1.4 % 0-1 H IG% = Metamyeloc ytes, Myelocytes, and Promyelocytes. (Immature neutrophils not including "bands".) > 3% IG indicates risk of sepsis NRBC% (test code = NRBC%) 0 /100 WBC ABS NEUT (test code = NEUT) 5.8 K/UL 1.2-7.2 CBC W Auto Differential panel - [id number] 04:06:00* Test Item Value Reference Range Interpretation Comme nts Leukocytes other [Identifier ] in Blood by Automated count (test code = 12868-5) 10.7 K/UL 3.5-10.9 N Erythrocytes [#/volume] in B lood (test code = 66943-3) 4.18 M/UL 4.0-5.0 N Hemoglobin A/Hemoglobin.tota l in Blood (test code = 4546-8) 13.1 G/DL 11.5-15.5 N Hematocrit [Volume Fraction] of Blood (test code = 93230-8) 42.4 % 34.0-46.0 N Erythrocyte mean corpuscular volume [Entitic volume] (test code = 96701-7) 101.4 FL 80.0-98.0 H Erythrocyte mean corpuscular hemoglobin [Entitic mass] (test code = 38443-4) 31.3 PG 28.0-32.0 N Erythrocyte mean corpuscular hemoglobin concentration [Mass/volume] (test code = 04513-6) 30.9 G/DL 32.5-36.5 L Erythrocyte distribution wid th [Ratio] (test code = 69964-9) 13.6 % 11.5-14.5 N Platelets panel - Blood by Automated count (test code = 92402-7) 408 K/UL 150.0-450.0 N Platelet mean volume [Entiti c volume] in Blood by Automated count (test code = 74116-5) 8.4 FL 7.4-10.4 N CBC W Reflex Manual Differen tial panel - Blood (test code = 86647-4) NO N Shirt Finisher review of resul ts (test code = 65216-6) NO N Neutrophils.segmented/100 leukocytes in Blood (test code = 34048-6) 53.9 % 40.0-75.0 N Lymphocytes Variant/100 leuk ocytes in Blood (test code = 19028-4) 36.8 % 24.0-44.0 N Lymphocytes+Monocytes/100 leukocytes in Blood (test code = 4662-3) 5.4 % 0.0-13.0 N Eosinophils [#/volume] in Bl ood (test code = 14034-8) 1.9 % 0.0-4.0 N Basophils [#/volume] in Bloo d (test code = 82664-3) 0.6 % 0.0-2.0 N IG (test code = IG) 0 % 0.0-1.0 N IG% (test code = IG%) 1.4 % 0.0-1.0 H NRBC% (test code = NRBC%) 0 /100 WBC N Neutrophils [#/volume] in Bl ood (test code = 54365-1) 5.8 K/UL 1.2-7.2 N [facility] ([place])BLOOD [id number] 07:57:00* Test Item Value Reference Range Interpretation Comme nts Report Text (test code = Report Text) CAT 2021-11-18 645 Report Text7 (test code = Report Text7) BLOOD CULTURES HELD FOR 5 DAYS BEFORE FINAL Report Text8 (test code = Report Text8) Report Text9 (test code = Report Text9) [employer] SUGGESTS THAT Report Text10 (test code = Report Text10) MOST CASES OF BACTEREMIA ARE DETECTED BY USING Report Text11 (test code = Report Text11) THREE SETS OF SEPARATELY COLLECTED BLOOD CULTURES. Report Text12 (test code = Report Text12) CAT 2021-11-18 646 Report Text13 (test code = Report Text13) CONVERSELY, A SINGLE BLOOD CULTURE MAY MISS Report Text14 (test code = Report Text14) INTERMITTENTLY OCCURRING BACTEREMIA AND MAKE Report Text15 (test code = Report Text15) IT DIFFICULT TO INTERPRET THE CLINICAL Report Text16 (test code = Report Text16) SIGNIFICANCE OF CERTAIN ISOLATED ORGANISMS. Report Text17 (test code = Report Text17) Report Text18 (test code = Report Text18) [facility] 2021-11-18 647 Report Text19 (test code = Report Text19) COLLECTION SITE UNSPECIFIED Report Text20 (test code = Report Text20) 2021-11-18 1324 Report Text21 (test code = Report Text21) NO GROWTH WITHIN 1 DAY Report Text22 (test code = Report Text22) PRELIMINARY REPORT Report Text23 (test code = Report Text23) Report Text24 (test code = Report Text24) 2021-11-19 1333 Report Text25 (test code = Report Text25) NO GROWTH WITHIN 2 DAYS Report Text26 (test code = Report Text26) PRELIMINARY REPORT Report Text27 (test code = Report Text27) Report Text28 (test code = Report Text28) [facility] 2021-11-22 757 Report Text29 (test code = Report Text29) NO GROWTH WITHIN 5 DAYS Report Text30 (test code = Report Text30) FINAL REPORT [id number] 04:30:00* Test Item Value Reference Range Interpretation Comme nts SODIUM (test code = NA) 136 MMOL/L 137-145 L K+ (test code = KSERUM) 4.6 MMOL/L 3.5-5.1 CHLORIDE (test code = CL) 105 MMOL/L 98-107 CO2 (test code = CO2) 27 MMOL/L 22-30 BUN (test code = BUN) 21 MG/DL 7-17 H CREA (test code = CREA) 0.9 MG/DL 0.7-1.2 GLUCOSE (test code = GLUCOSE) 99 MG/DL 70-99 Fasting glucos e normal <100 MG/DL- [employer] recommendation CALCIUM (test code = CABLOOD) 9.0 MG/DL 8.4-10.2 TOTPROT (test code = TOTPROT) 7.8 G/DL 6.3-8.2 ALBUMIN (test code = ALBSERUM) 3.3 G/DL 3.5-5.0 L BILITOT (test code = BILITOT) 0.9 MG/DL 0.2-1.3 AST (test code = AST) 43 U/L 15-46 PHOSALK (test code = PHOSALK) 181 U/L 38-126 H ALTV (test code = ALTV) 37 U/L 13-69 GFR (test code = GFR) 75 mL/min/1.73m2 A GFR of >90 mL/min/1.73m2 is considered normal. The GFR calculation on patients over 70 years of age is not validated by the manager battery and may not represent the patients true renal function. Comprehensive metabolic 2000 panel - Serum or [id number] 04:30:00* Test Item Value Reference Range Interpretation Comme nts Sodium [Moles/volume] in Blood (test code = 2947-0) 136 MMOL/L 137.0-145.0 L Potassium [Moles/volume] in Blood (test code = 6298-4) 4.6 MMOL/L 3.5-5.1 N Chloride [Moles/volume] in Blood (test code = 2069-3) 105 MMOL/L 98.0-107.0 N Carbon dioxide, total [Moles/volume] in Blood (test code = 11858-1) 27 MMOL/L 22.0-30.0 N Urea nitrogen [Mass/volume] in Serum or Plasma (test code = 3094-0) 21 MG/DL 7.0-17.0 H Creatinine [Mass/volume] in Blood (test code = 46928-6) 0.9 MG/DL 0.7-1.2 N Glucose [Mass/volume] in Blood (test code = 2339-0) 99 MG/DL 70.0-99.0 N Calcium [Mass/volume] in Serum or Plasma (test code = 54109-4) 9.0 MG/DL 8.4-10.2 N Protein [Mass/volume] in Serum or Plasma (test code = 2885-2) 7.8 G/DL 6.3-8.2 N Albumin [Presence] in Serum or Plasma (test code = 75259-2) 3.3 G/DL 3.5-5.0 L Bilirubin direct and total panel [Mass/volume] - Serum or Plasma (test code = 73160-2) 0.9 MG/DL 0.2-1.3 N Aspartate aminotransferase [Enzymatic activity/volume] in Serum or Plasma (test code = 1920-8) 43 U/L 15.0-46.0 N Alkaline phosphatase [Enzymatic activity/volume] in Serum or Plasma (test code = 6768-6) 181 U/L 38.0-126.0 H ALTV (test code = ALTV) 37 U/L 13.0-69.0 N Estimated or measured glomerular filtration rate less than 50 percent [- Reported] (test code = 16951-4) 75 mL/min/1.73m2 N [facility])[id number] 03:53:00* Test Item Value Reference Range Interpretation Comme nts WBC (test code = WBC) 8.2 K/UL 3.5-10.9 RBC (test code = RBC) 3.91 M/UL 4.0-5.0 L HGB (test code = HGB) 12.8 G/DL 11.5-15.5 HCT (test code = HCT) 41.1 % 34-46 MCV (test code = MCV) 105.1 FL 80-98 H MCH (test code = MCH) 32.7 PG 28-32 H MCHC (test code = MCHC) 31.1 G/DL 32.5-36.5 L RDW (test code = RDW) 13.6 % 11.5-14.5 PLT (test code = PLT) 327 K/UL 150-450 MPV (test code = MPV) 8.5 FL 7.4-10.4 MANDIFF (test code = MANDIFF) NO SCAN (test code = SCAN) NO NEUT% (test code = NEUT%) 50.3 % 40-75 LYMPH% (test code = LYMPH%) 37.6 % 24-44 MONO% (test code = MONO%) 7.8 % 0-13 EOS% (test code = EOS%) 2.1 % 0-4 BASO % (test code = BASO%) 0.7 % 0-2 IG (test code = IG) 0 % 0-1 IG% (test code = IG%) 1.5 % 0-1 H IG% = Metamyeloc ytes, Myelocytes, and Promyelocytes. (Immature neutrophils not including "bands".) > 3% IG indicates risk of sepsis NRBC% (test code = NRBC%) 0 /100 WBC ABS NEUT (test code = NEUT) 4.1 K/UL 1.2-7.2 CBC W Auto Differential panel - [id number] 03:53:00* Test Item Value Reference Range Interpretation Comme nts Leukocytes other [Identifier ] in Blood by Automated count (test code = 43765-6) 8.2 K/UL 3.5-10.9 N Erythrocytes [#/volume] in B lood (test code = 21076-7) 3.91 M/UL 4.0-5.0 L Hemoglobin A/Hemoglobin.tota l in Blood (test code = 4546-8) 12.8 G/DL 11.5-15.5 N Hematocrit [Volume Fraction] of Blood (test code = 25568-4) 41.1 % 34.0-46.0 N Erythrocyte mean corpuscular volume [Entitic volume] (test code = 54819-1) 105.1 FL 80.0-98.0 H Erythrocyte mean corpuscular hemoglobin [Entitic mass] (test code = 73420-4) 32.7 PG 28.0-32.0 H Erythrocyte mean corpuscular hemoglobin concentration [Mass/volume] (test code = 23254-4) 31.1 G/DL 32.5-36.5 L Erythrocyte distribution wid th [Ratio] (test code = 08472-8) 13.6 % 11.5-14.5 N Platelets panel - Blood by Automated count (test code = 98761-2) 327 K/UL 150.0-450.0 N Platelet mean volume [Entiti c volume] in Blood by Automated count (test code = 67205-9) 8.5 FL 7.4-10.4 N CBC W Reflex Manual Differen tial panel - Blood (test code = 91118-9) NO N Shirt Finisher review of resul ts (test code = 77719-8) NO N Neutrophils.segmented/100 leukocytes in Blood (test code = 58368-1) 50.3 % 40.0-75.0 N Lymphocytes Variant/100 leuk ocytes in Blood (test code = 00096-5) 37.6 % 24.0-44.0 N Lymphocytes+Monocytes/100 leukocytes in Blood (test code = 4662-3) 7.8 % 0.0-13.0 N Eosinophils [#/volume] in Bl ood (test code = 92552-2) 2.1 % 0.0-4.0 N Basophils [#/volume] in Bloo d (test code = 99217-4) 0.7 % 0.0-2.0 N IG (test code = IG) 0 % 0.0-1.0 N IG% (test code = IG%) 1.5 % 0.0-1.0 H NRBC% (test code = NRBC%) 0 /100 WBC N Neutrophils [#/volume] in Bl ood (test code = 91560-4) 4.1 K/UL 1.2-7.2 N [facility])TRANSESOPHAGEAL [id number] 16:16:00 [facility] 1985 [facility] REPORTName: February NStudy Date: 11/20/2021 01:55 PMMRN: [id number] Patient Location: 2NW\\S\\251\\S\\AHR: 95DOB: 1985 (M/d/yyyy) Gender: FemaleAge: 36 yrs Ethnicity: WHeight: 62 in Weight: 128 lbBSA: 1.6 [id number] For Study: R/O EndocarditisHistory: ProstheticTricuspid Valve, PPM, Fever, HypotensionProcedureA completetwo- dimensional transthoracic echocardiogram was performed (2D,M-mode, Doppler and color flow Doppler).Left VentricleThe left ventricle is normal in size. There is no thrombus. There is noventricularseptal defect visualized. There is mild concentric leftventricular hypertrophy. Ejection Fraction =55-60%. The transmitralspectral Doppler flow pattern is suggestive of restrictive physiology. Theleft ventricular wall motion is normal.Right VentricleThe right ventricle is normal size.AtriaThe interatrial septum is intact with no evidence for an atrial septaldefect. The left atrial size is normal.Mitral ValveThe mitral valve is normal in structure and function.Tricuspid ValveThere is a moderatesize vegetation or mass on the tricuspid valve. Rightventricular systolic pressure is 30-35mmHg. There is severe tricuspidregurgitation. 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 One of thebioprosthetic valve leaflets have degenerated and flailed associated withthe endocarditic vegetation with resul tant severe TR.Aortic ValveThe aortic valve is normal in structure and function.VesselsThe aortic root is normal size.PericardiumThere is no pericardial effusion.Interpretation SummaryThere is a bioprosthetic tricuspid valve.There is severe tricuspid regurgitation.There is a moderate size vegetation or mass on the tricuspid valve.One of the bioprosthetic valve leaflets have degenerated and flailedassociated with the endocarditic vegetationwith resultant severe TR. Reading Physician: Electronically signed Lisette Garcia MD 11/21/2021 04:16by: PMOrdering Physician: Lisette Garcia MDReferring Physician: Lisette Garcia MDPerformed By: ChinaPatti 2021-11-21 15:18:00* Test Item Value Reference Range Interpretation Comme nts EKG (test code = EKGW) HEART RATE: 92 bpm RR Interval: 652 ms Atrial Rate: 92 ms P-R Interval: 213 ms P Duration: 193 ms P Horizontal [place]: -20 deg P Front [place]: 38 deg Q Onset: 504 ms QRSD Interval: 154 ms QT Interval: 417 ms QTcB: 516 ms QTcF: 481 ms QRS Horizontal [place]: 236 deg QRS [place]: -60 deg I-40 Horizontal [place]: 144 deg I-40 Front [place]: -74 deg T-40 Horizontal [place]: 244 deg T-40 Front [place]: -58 deg T Horizontal [place]: 36 deg T Wave [place]: 114 deg S-T Horizontal [place]: 74 deg S-T Front [place]: 121 deg ECG Severity: - ABNORMAL ECG - ECG Impression: Atrial-sensed ventricular-paced rhythm [id number] 15:18:00 [facility] 1985 Sex: FHEART RATE: 92 bpmRR Interval: 652 msAtrial Rate: 92 msP-R Interval: 213 msP Duration: 193msP Horizontal [place]: -20 degP Front [place]: 38 degQ Onset: 504 msQRSD Interval: 154 msQT Interval: 417 msQTcB: 516 msQTcF: 481 msQRS Horizontal [place]: 236 degQRS [place]: -60 degI-40 Horizontal [place]: 144 degI-40 Front [place]: -74 degT-40 Horizontal [place]: 244 degT-40 Front [place]: -58 degT Horizontal [place]: 36degT Wave [place]: 114 degS-T Horizontal [place]: 74 degS-T Front [place]: 121 degECG Severity: - ABNORMAL ECG -ECG Impression: Atrial-sensed ventricular-[facility] rhythmB[facility] 2021-11-21 09:13:00* Test Item Value Reference Range Interpretation Comme nts WBC (test code = WBC) 7.6 K/UL 3.5-10.9 RBC (test code = RBC) 4.67 M/UL 4.0-5.0 HGB (test code = HGB) 15.0 G/DL 11.5-15.5 HCT (test code = HCT) 49.4 % 34-46 H MCV (test code = MCV) 105.8 FL 80-98 H MCH (test code = MCH) 32.1 PG 28-32 H MCHC (test code = MCHC) 30.4 G/DL 32.5-36.5 L RDW (test code = RDW) 13.5 % 11.5-14.5 PLT (test code = PLT) 295 K/UL 150-450 MPV (test code = MPV) 8.5 FL 7.4-10.4 MANDIFF (test code = MANDIFF) NO SCAN (test code = SCAN) NO NEUT% (test code = NEUT%) 52.2 % 40-75 LYMPH% (test code = LYMPH%) 36.8 % 24-44 MONO% (test code = MONO%) 7.1 % 0-13 EOS% (test code = EOS%) 1.8 % 0-4 BASO % (test code = BASO%) 0.9 % 0-2 IG (test code = IG) 0 % 0-1 IG% (test code = IG%) 1.2 % 0-1 H IG% = Metamyeloc ytes, Myelocytes, and Promyelocytes. (Immature neutrophils not including "bands".) > 3% IG indicates risk of sepsis NRBC% (test code = NRBC%) 0 /100 WBC ABS NEUT (test code = NEUT) 4.0 K/UL 1.2-7.2 CBC W Auto Differential panel - [id number] 09:13:00* Test Item Value Reference Range Interpretation Comme nts Leukocytes other [Identifier ] in Blood by Automated count (test code = 82816-4) 7.6 K/UL 3.5-10.9 N Erythrocytes [#/volume] in B lood (test code = 62955-2) 4.67 M/UL 4.0-5.0 N Hemoglobin A/Hemoglobin.tota l in Blood (test code = 4546-8) 15.0 G/DL 11.5-15.5 N Hematocrit [Volume Fraction] of Blood (test code = 56097-6) 49.4 % 34.0-46.0 H Erythrocyte mean corpuscular volume [Entitic volume] (test code = 66023-8) 105.8 FL 80.0-98.0 H Erythrocyte mean corpuscular hemoglobin [Entitic mass] (test code = 06771-3) 32.1 PG 28.0-32.0 H Erythrocyte mean corpuscular hemoglobin concentration [Mass/volume] (test code = 23897-3) 30.4 G/DL 32.5-36.5 L Erythrocyte distribution wid th [Ratio] (test code = 43027-2) 13.5 % 11.5-14.5 N Platelets panel - Blood by Automated count (test code = 41130-2) 295 K/UL 150.0-450.0 N Platelet mean volume [Entiti c volume] in Blood by Automated count (test code = 82980-0) 8.5 FL 7.4-10.4 N CBC W Reflex Manual Differen tial panel - Blood (test code = 87833-6) NO N Shirt Finisher review of resul ts (test code = 66826-7) NO N Neutrophils.segmented/100 leukocytes in Blood (test code = 23844-4) 52.2 % 40.0-75.0 N Lymphocytes Variant/100 leuk ocytes in Blood (test code = 92955-4) 36.8 % 24.0-44.0 N Lymphocytes+Monocytes/100 leukocytes in Blood (test code = 4662-3) 7.1 % 0.0-13.0 N Eosinophils [#/volume] in Bl ood (test code = 25186-0) 1.8 % 0.0-4.0 N Basophils [#/volume] in Bloo d (test code = 26853-3) 0.9 % 0.0-2.0 N IG (test code = IG) 0 % 0.0-1.0 N IG% (test code = IG%) 1.2 % 0.0-1.0 H NRBC% (test code = NRBC%) 0 /100 WBC N Neutrophils [#/volume] in Bl ood (test code = 44589-5) 4.0 K/UL 1.2-7.2 N [facility])[id number] 05:21:00* Test Item Value Reference Range Interpretation Comme nts SODIUM (test code = NA) 134 MMOL/L 137-145 L K+ (test code = KSERUM) 4.6 MMOL/L 3.5-5.1 CHLORIDE (test code = CL) 105 MMOL/L 98-107 CO2 (test code = CO2) 23 MMOL/L 22-30 BUN (test code = BUN) 22 MG/DL 7-17 H CREA (test code = CREA) 0.9 MG/DL 0.7-1.2 GLUCOSE (test code = GLUCOSE) 82 MG/DL 70-99 Fasting glucos e normal <100 MG/DL- [employer] recommendation CALCIUM (test code = CABLOOD) 8.1 MG/DL 8.4-10.2 L TOTPROT (test code = TOTPROT) 7.5 G/DL 6.3-8.2 ALBUMIN (test code = ALBSERUM) 3.2 G/DL 3.5-5.0 L BILITOT (test code = BILITOT) 1.1 MG/DL 0.2-1.3 AST (test code = AST) 48 U/L 15-46 H PHOSALK (test code = PHOSALK) 175 U/L 38-126 H ALTV (test code = ALTV) 38 U/L 13-69 GFR (test code = GFR) 75 mL/min/1.73m2 A GFR of >90 mL/min/1.73m2 is considered normal. The GFR calculation on patients over 70 years of age is not validated by the manager battery and may not represent the patients true renal function. Comprehensive metabolic 2000 panel - Serum or [id number] 05:21:00* Test Item Value Reference Range Interpretation Comme nts Sodium [Moles/volume] in Blood (test code = 2947-0) 134 MMOL/L 137.0-145.0 L Potassium [Moles/volume] in Blood (test code = 6298-4) 4.6 MMOL/L 3.5-5.1 N Chloride [Moles/volume] in Blood (test code = 2069-3) 105 MMOL/L 98.0-107.0 N Carbon dioxide, total [Moles/volume] in Blood (test code = 75702-3) 23 MMOL/L 22.0-30.0 N Urea nitrogen [Mass/volume] in Serum or Plasma (test code = 3094-0) 22 MG/DL 7.0-17.0 H Creatinine [Mass/volume] in Blood (test code = 19713-5) 0.9 MG/DL 0.7-1.2 N Glucose [Mass/volume] in Blood (test code = 2339-0) 82 MG/DL 70.0-99.0 N Calcium [Mass/volume] in Serum or Plasma (test code = 01993-0) 8.1 MG/DL 8.4-10.2 L Protein [Mass/volume] in Serum or Plasma (test code = 2885-2) 7.5 G/DL 6.3-8.2 N Albumin [Presence] in Serum or Plasma (test code = 52905-9) 3.2 G/DL 3.5-5.0 L Bilirubin direct and total panel [Mass/volume] - Serum or Plasma (test code = 92536-2) 1.1 MG/DL 0.2-1.3 N Aspartate aminotransferase [Enzymatic activity/volume] in Serum or Plasma (test code = 1920-8) 48 U/L 15.0-46.0 H Alkaline phosphatase [Enzymatic activity/volume] in Serum or Plasma (test code = 6768-6) 175 U/L 38.0-126.0 H ALTV (test code = ALTV) 38 U/L 13.0-69.0 N Estimated or measured glomerular filtration rate less than 50 percent [- Reported] (test code = 38278-1) 75 mL/min/1.73m2 N [facility] ([place])B-HCG, [id number] 10:23:00* Test Item Value Reference Range Interpretation Comme nts HCG (test code = HCG) <2.39 MIU/ML A value of less than or equal to </= 4.83 mIU/ml is considered NEGATIVE. A value between 4.84 mIU/ml and 24.99 mIU/ml is considered INDETERMINATE and should be repeated in 48 hours if necessary. A value of 25.0 mIU/ml or greater is considered POSITIVE. Updated: 03/21/2010 Choriogonadotropin [Moles/volume] in [id number] 10:23:00* Test Item Value Reference Range Interpretation Comme nts Choriogonadotropin [Moles/vo lume] in Semen (test code = 2105-5) <2.39 N [facility])COVID SYMPTOMATIC ER [id number] 08:36:00* Test Item Value Reference Range Interpretation Comme nts CORONAVIRUS (COVID-19)BY PCR (test code = MLX37QQA) NEGATIVE SARS-CoV-2 (COVID-19) N gene [Presence] in [id number] 08:36:00Negative [facility])BMP, BASIC METABOLIC [id number] 07:27:00* Test Item Value Reference Range Interpretation Comme nts SODIUM (test code = NA) 137 MMOL/L 137-145 K+ (test code = KSERUM) 4.3 MMOL/L 3.5-5.1 CHLORIDE (test code = CL) 105 MMOL/L 98-107 CO2 (test code = CO2) 24 MMOL/L 22-30 BUN (test code = BUN) 31 MG/DL 7-17 H CREA (test code = CREA) 1.1 MG/DL 0.7-1.2 GLUCOSE (test code = GLUCOSE) 104 MG/DL 70-99 H Fasting glucos e normal <100 MG/DL- [employer] recommendation CALCIUM (test code = CABLOOD) 8.5 MG/DL 8.4-10.2 GFR (test code = GFR) 59 mL/min/1.73m2 A GFR of >90 mL/min/1.73m2 is considered normal. The GFR calculation on patients over 70 years of age is not validated by the manager battery and may not represent the patients true renal function. [id number] 07:27:00* Test Item Value Reference Range Interpretation Comme nts MG (test code = MG) 2.1 mg/dL 1.6-2.3 Basic metabolic 2000 panel - Serum or [id number] 07:27:00* Test Item Value Reference Range Interpretation Comme nts Sodium [Moles/volume] in Blood (test code = 2947-0) 137 MMOL/L 137.0-145.0 N Potassium [Moles/volume] in Blood (test code = 6298-4) 4.3 MMOL/L 3.5-5.1 N Chloride [Moles/volume] in Blood (test code = 2069-3) 105 MMOL/L 98.0-107.0 N Carbon dioxide, total [Moles/volume] in Blood (test code = 01810-0) 24 MMOL/L 22.0-30.0 N Urea nitrogen [Mass/volume] in Serum or Plasma (test code = 3094-0) 31 MG/DL 7.0-17.0 H Creatinine [Mass/volume] in Blood (test code = 09751-2) 1.1 MG/DL 0.7-1.2 N Glucose [Mass/volume] in Blood (test code = 2339-0) 104 MG/DL 70.0-99.0 H Calcium [Mass/volume] in Serum or Plasma (test code = 95667-3) 8.5 MG/DL 8.4-10.2 N Estimated or measured glomerular filtration rate less than 50 percent [- Reported] (test code = 76003-5) 59 mL/min/1.73m2 N [facility])Magnesium [Mass/volume] in Serum or [id number] 07:27:00* Test Item Value Reference Range Interpretation Comme nts Magnesium [Mass/volume] in S vick or Plasma (test code = 14311-5) 2.1 mg/dL 1.6-2.3 N [facility])[id number] 07:05:00* Test Item Value Reference Range Interpretation Comme nts WBC (test code = WBC) 9.1 K/UL 3.5-10.9 RBC (test code = RBC) 4.39 M/UL 4.0-5.0 HGB (test code = HGB) 14.5 G/DL 11.5-15.5 HCT (test code = HCT) 45.8 % 34-46 MCV (test code = MCV) 104.3 FL 80-98 H MCH (test code = MCH) 33.0 PG 28-32 H MCHC (test code = MCHC) 31.7 G/DL 32.5-36.5 L RDW (test code = RDW) 13.0 % 11.5-14.5 PLT (test code = PLT) 312 K/UL 150-450 MPV (test code = MPV) 9.0 FL 7.4-10.4 MANDIFF (test code = MANDIFF) NO SCAN (test code = SCAN) NO NEUT% (test code = NEUT%) 54.8 % 40-75 LYMPH% (test code = LYMPH%) 31.3 % 24-44 MONO% (test code = MONO%) 8.5 % 0-13 EOS% (test code = EOS%) 3.5 % 0-4 BASO % (test code = BASO%) 0.8 % 0-2 IG (test code = IG) 0 % 0-1 IG% (test code = IG%) 1.1 % 0-1 H IG% = Metamyeloc ytes, Myelocytes, and Promyelocytes. (Immature neutrophils not including "bands".) > 3% IG indicates risk of sepsis NRBC% (test code = NRBC%) 0 /100 WBC ABS NEUT (test code = NEUT) 5.0 K/UL 1.2-7.2 CBC W Auto Differential panel - [id number] 07:05:00* Test Item Value Reference Range Interpretation Comme nts Leukocytes other [Identifier ] in Blood by Automated count (test code = 31287-8) 9.1 K/UL 3.5-10.9 N Erythrocytes [#/volume] in B lood (test code = 35389-4) 4.39 M/UL 4.0-5.0 N Hemoglobin A/Hemoglobin.tota l in Blood (test code = 4546-8) 14.5 G/DL 11.5-15.5 N Hematocrit [Volume Fraction] of Blood (test code = 85062-8) 45.8 % 34.0-46.0 N Erythrocyte mean corpuscular volume [Entitic volume] (test code = 03550-8) 104.3 FL 80.0-98.0 H Erythrocyte mean corpuscular hemoglobin [Entitic mass] (test code = 07574-5) 33.0 PG 28.0-32.0 H Erythrocyte mean corpuscular hemoglobin concentration [Mass/volume] (test code = 17508-9) 31.7 G/DL 32.5-36.5 L Erythrocyte distribution wid th [Ratio] (test code = 46844-9) 13.0 % 11.5-14.5 N Platelets panel - Blood by Automated count (test code = 91758-7) 312 K/UL 150.0-450.0 N Platelet mean volume [Entiti c volume] in Blood by Automated count (test code = 57412-2) 9.0 FL 7.4-10.4 N CBC W Reflex Manual Differen tial panel - Blood (test code = 35558-8) NO N Shirt Finisher review of resul ts (test code = 63254-2) NO N Neutrophils.segmented/100 leukocytes in Blood (test code = 22606-3) 54.8 % 40.0-75.0 N Lymphocytes Variant/100 leuk ocytes in Blood (test code = 65806-1) 31.3 % 24.0-44.0 N Lymphocytes+Monocytes/100 leukocytes in Blood (test code = 4662-3) 8.5 % 0.0-13.0 N Eosinophils [#/volume] in Bl ood (test code = 43749-0) 3.5 % 0.0-4.0 N Basophils [#/volume] in Bloo d (test code = 15001-4) 0.8 % 0.0-2.0 N IG (test code = IG) 0 % 0.0-1.0 N IG% (test code = IG%) 1.1 % 0.0-1.0 H NRBC% (test code = NRBC%) 0 /100 WBC N Neutrophils [#/volume] in Bl ood (test code = 31536-2) 5.0 K/UL 1.2-7.2 N [facility] ([place])FIBRINOGEN [id number] 05:50:00* Test Item Value Reference Range Interpretation Comme nts FIBRINOG (test code = FIBRINOG) 732 MG/DL 200-393 H Fibrinogen in Platelet poor [id number] 05:50:00* Test Item Value Reference Range Interpretation Comme nts Fibrinogen in Platelet poor plasma (test code = 89039-7) 732 MG/DL 200.0-393.0 H [facility] [id number] 03:05:00* Test Item Value Reference Range Interpretation Comme nts HIV 1/2 ANTIBODY (test code = AHIV) NEGATIVE NEGATIVE This test is used for SCREENING purposes only. All reactive results are prelimenary and confirmation results will follow. HIV 1+2 Ab [Units/volume] in [id number] 03:05:00NegativeSt[facility] Medical CenterBMP, BASIC METABOLIC [id number] 00:55:00* Test Item Value Reference Range Interpretation Comme nts SODIUM (test code = NA) 139 MMOL/L 137-145 K+ (test code = KSERUM) 4.2 MMOL/L 3.5-5.1 CHLORIDE (test code = CL) 104 MMOL/L 98-107 CO2 (test code = CO2) 27 MMOL/L 22-30 BUN (test code = BUN) 19 MG/DL 7-17 H CREA (test code = CREA) 1.0 MG/DL 0.7-1.2 GLUCOSE (test code = GLUCOSE) 98 MG/DL 70-99 Fasting glucos e normal <100 MG/DL- [employer] recommendation CALCIUM (test code = CABLOOD) 8.5 MG/DL 8.4-10.2 GFR (test code = GFR) 66 mL/min/1.73m2 A GFR of >90 mL/min/1.73m2 is considered normal. The GFR calculation on patients over 70 years of age is not validated by the manager battery and may not represent the patients true renal function. Basic metabolic 2000 panel - Serum or [id number] 00:55:00* Test Item Value Reference Range Interpretation Comme nts Sodium [Moles/volume] in Blood (test code = 2947-0) 139 MMOL/L 137.0-145.0 N Potassium [Moles/volume] in Blood (test code = 6298-4) 4.2 MMOL/L 3.5-5.1 N Chloride [Moles/volume] in Blood (test code = 2069-3) 104 MMOL/L 98.0-107.0 N Carbon dioxide, total [Moles/volume] in Blood (test code = 32951-8) 27 MMOL/L 22.0-30.0 N Urea nitrogen [Mass/volume] in Serum or Plasma (test code = 3094-0) 19 MG/DL 7.0-17.0 H Creatinine [Mass/volume] in Blood (test code = 04422-9) 1.0 MG/DL 0.7-1.2 N Glucose [Mass/volume] in Blood (test code = 2339-0) 98 MG/DL 70.0-99.0 N Calcium [Mass/volume] in Serum or Plasma (test code = 06593-2) 8.5 MG/DL 8.4-10.2 N Estimated or measured glomerular filtration rate less than 50 percent [- Reported] (test code = 37360-1) 66 mL/min/1.73m2 N [facility] CenterLIVER [id number] 00:46:00* Test Item Value Reference Range Interpretation Comme nts TOTPROT (test code = TOTPROT) 7.8 G/DL 6.3-8.2 ALBUMIN (test code = ALBSERUM) 3.5 G/DL 3.5-5.0 BILITOT (test code = BILITOT) 2.1 MG/DL 0.2-1.3 H BILIDIR (test code = BILIDIR) 1.7 MG/DL 0.0-0.4 H AST (test code = AST) 49 U/L 15-46 H PHOSALK (test code = PHOSALK) 220 U/L 38-126 H ALTV (test code = ALTV) 42 U/L 13-69 Hepatic function 2000 panel - Serum or [id number] 00:46:00* Test Item Value Reference Range Interpretation Comme nts Protein [Mass/volume] in Ser um or Plasma (test code = 2885-2) 7.8 G/DL 6.3-8.2 N Albumin [Presence] in Serum or Plasma (test code = 90237-9) 3.5 G/DL 3.5-5.0 N Bilirubin direct and total p jeanette [Mass/volume] - Serum or Plasma (test code = 32198-1) 2.1 MG/DL 0.2-1.3 H Bilirubin.direct [Mass/volum e] in Serum or Plasma (test code = 1968-7) 1.7 MG/DL 0.0-0.4 H Aspartate aminotransferase [Enzymatic activity/volume] in Serum or Plasma (test code = 1920-8) 49 U/L 15.0-46.0 H Alkaline phosphatase [Enzyma tic activity/volume] in Serum or Plasma (test code = 6768-6) 220 U/L 38.0-126.0 H ALTV (test code = ALTV) 42 U/L 13.0-69.0 N [facility])PROTHROMBIN TIME WITH [id number] 00:10:00* Test Item Value Reference Range Interpretation Comme nts PROTHROMBIN TIME (test code = PT) 11.1 SECONDS 10.1-12.7 INR Usual Range = 2 to 3 for prevention of deep vein thrombosis (DVT) INR (test code = INR) 0.9 INR in Platelet poor plasma or blood by [id number] 00:10:00* Test Item Value Reference Range Interpretation Comme nts INR in Platelet poor plasma or blood by Coagulation assay (test code = 68770-7) 11.1 SECONDS 10.1-12.7 N INR in Blood by Coagulation assay (test code = 57169-2) 0.9 1 N [facility])[id number] 23:15:00* Test Item Value Reference Range Interpretation Comme nts PTT (test code = PTT) 34.4 SECONDS 25.0-36.5 HEPARIN THERAPEU TIC RANGE 57-92 SECONDS Activated partial thromboplastin time (aPTT) [id number] 23:15:00* Test Item Value Reference Range Interpretation Comme nts Activated partial thrombopla stin time (aPTT) in Platelet poor plasma by Coagulation assay (test code = 63942-7) 34.4 SECONDS 25.0-36.5 [facility])[id number] 22:57:00* Test Item Value Reference Range Interpretation Comme nts WBC (test code = WBC) 8.1 K/UL 3.5-10.9 RBC (test code = RBC) 4.52 M/UL 4.0-5.0 HGB (test code = HGB) 14.6 G/DL 11.5-15.5 HCT (test code = HCT) 45.3 % 34-46 MCV (test code = MCV) 100.2 FL 80-98 H MCH (test code = MCH) 32.3 PG 28-32 H MCHC (test code = MCHC) 32.2 G/DL 32.5-36.5 L RDW (test code = RDW) 12.9 % 11.5-14.5 PLT (test code = PLT) 228 K/UL 150-450 MPV (test code = MPV) 9.1 FL 7.4-10.4 MANDIFF (test code = MANDIFF) NO SCAN (test code = SCAN) NO NEUT% (test code = NEUT%) 54.3 % 40-75 LYMPH% (test code = LYMPH%) 33.6 % 24-44 MONO% (test code = MONO%) 8.6 % 0-13 EOS% (test code = EOS%) 2.5 % 0-4 BASO % (test code = BASO%) 0.5 % 0-2 IG (test code = IG) 0 % 0-1 IG% (test code = IG%) 0.5 % 0-1 IG% = Metamyeloc ytes, Myelocytes, and Promyelocytes. (Immature neutrophils not including "bands".) > 3% IG indicates risk of sepsis NRBC% (test code = NRBC%) 0 /100 WBC ABS NEUT (test code = NEUT) 4.4 K/UL 1.2-7.2 CBC W Auto Differential panel - [id number] 22:57:00* Test Item Value Reference Range Interpretation Comme nts Leukocytes other [Identifier ] in Blood by Automated count (test code = 49696-1) 8.1 K/UL 3.5-10.9 N Erythrocytes [#/volume] in B lood (test code = 58446-6) 4.52 M/UL 4.0-5.0 N Hemoglobin A/Hemoglobin.tota l in Blood (test code = 4546-8) 14.6 G/DL 11.5-15.5 N Hematocrit [Volume Fraction] of Blood (test code = 71705-2) 45.3 % 34.0-46.0 N Erythrocyte mean corpuscular volume [Entitic volume] (test code = 98102-6) 100.2 FL 80.0-98.0 H Erythrocyte mean corpuscular hemoglobin [Entitic mass] (test code = 60084-0) 32.3 PG 28.0-32.0 H Erythrocyte mean corpuscular hemoglobin concentration [Mass/volume] (test code = 48059-4) 32.2 G/DL 32.5-36.5 L Erythrocyte distribution wid th [Ratio] (test code = 20820-1) 12.9 % 11.5-14.5 N Platelets panel - Blood by Automated count (test code = 29005-5) 228 K/UL 150.0-450.0 N Platelet mean volume [Entiti c volume] in Blood by Automated count (test code = 76447-7) 9.1 FL 7.4-10.4 N CBC W Reflex Manual Differen tial panel - Blood (test code = 02102-3) NO N Shirt Finisher review of resul ts (test code = 21978-7) NO N Neutrophils.segmented/100 leukocytes in Blood (test code = 32738-8) 54.3 % 40.0-75.0 N Lymphocytes Variant/100 leuk ocytes in Blood (test code = 82854-2) 33.6 % 24.0-44.0 N Lymphocytes+Monocytes/100 leukocytes in Blood (test code = 4662-3) 8.6 % 0.0-13.0 N Eosinophils [#/volume] in Bl ood (test code = 55270-3) 2.5 % 0.0-4.0 N Basophils [#/volume] in Bloo d (test code = 25166-5) 0.5 % 0.0-2.0 N IG (test code = IG) 0 % 0.0-1.0 N IG% (test code = IG%) 0.5 % 0.0-1.0 N NRBC% (test code = NRBC%) 0 /100 WBC N Neutrophils [#/volume] in Bl ood (test code = 87716-5) 4.4 K/UL 1.2-7.2 N [facility] ([place])US ABDOMEN [id number] 18:29:00 [facility] : 1985 Sex: F[address] [id number] IMAGING REPORTPatient Name: CRISTIAN FEBRUARY NDate of Service: 27-72-0198Wxz: 36 Sex: F Order #: [id number] [facility] 2NWDOB: 1985 X-Ray Number: [id number] Record Number: [id number] Hospital Number: [id number] Physician: CHRIS SOSA Physician: PUNEET LOGANAbdominal ultrasound 11/17/2021History: Abdominal pain, hypertension, elevated labsComparison: CT abdomen and pelvis of 06/30/2020The gallbladder has been removed.The liver, duplex imaging of main portal vein flow, pancreas, aorta, IVCand spleen are within normal limits.Common bile duct measures 5 mm in diameter. The spleen measures 12 cm inlength.Right kidney measures 9.6 cm in length and the left 10.3 cm. There isquestion of mild pelvocaliectasis on the right without overthydronephrosis. A focus of decreased echogenicity in the mid left kidneymeasures up to 1.8 cm and may be due to a cyst.Impression:Renal findingsas discussed.Prior cholecystectomy.No other acute process.Electronically Signed By: Timoteo Venegas M.D., 11/17/2021 6:27 PMLegally authenticated by RUBI VIEIRA 2021-11-17 18:27:35Abdomen [id number] 18:29:00ORDER 3500: US ABDOMEN COMPLETE (LOINC: 11058-5)ORDER DATE: November 17, 2021 1:57:00 PM [facility])Abdomen [id number] 18:29:00ORDER 3500: US ABDOMEN COMPLETE (LOINC: 95149-0)ORDER DATE: November 17, 2021 1:57:00 PM [facility]) BLOOD [id number] 10:24:00* Test Item Value Reference Range Interpretation Comme nts Report Text (test code = Report Text) [facility] 2021-11-132036 Report Text7 (test code = Report Text7) BLOOD CULTURES HELD FOR 5 DAYS BEFORE FINAL Report Text8 (test code = Report Text8) Report Text9 (test code = Report Text9) [employer] SUGGESTS THAT Report Text10 (test code = Report Text10) MOST CASES OF BACTEREMIA ARE DETECTED BY USING Report Text11 (test code = Report Text11) THREE SETS OF SEPARATELY COLLECTED BLOOD CULTURES. Report Text12 (test code = Report Text12) [facility] 2021-11-132037 Report Text13 (test code = Report Text13) CONVERSELY, A SINGLE BLOOD CULTURE MAY MISS Report Text14 (test code = Report Text14) INTERMITTENTLY OCCURRING BACTEREMIA AND MAKE Report Text15 (test code = Report Text15) IT DIFFICULT TO INTERPRET THE CLINICAL Report Text16 (test code = Report Text16) SIGNIFICANCE OF CERTAIN ISOLATED ORGANISMS. Report Text17 (test code = Report Text17) Report Text18 (test code = Report Text18) [facility] 2021-11-132038 Report Text19 (test code = Report Text19) COLLECTION SITE UNSPECIFIED Report Text20 (test code = Report Text20) [facility] 2021-11-14 647 Report Text21 (test code = Report Text21) NO GROWTH WITHIN 1 DAY Report Text22 (test code = Report Text22) PRELIMINARY REPORT Report Text23 (test code = Report Text23) Report Text24 (test code = Report Text24) 2021-11-14 1300 Report Text25 (test code = Report Text25) POSITIVE BLOOD CULTURE GRAM STAIN RESULT Report Text26 (test code = Report Text26) GRAM POSITIVE COCCI SEEN ON SMEAR Report Text27 (test code = Report Text27) PRELIMINARY REPORT; Report Text28 (test code = Report Text28) CALLED TO/READ BACK BY:bunny Report Text29 (test code = Report Text29) 2021-11-15 1123 Report Text30 (test code = Report Text30) Report Text31 (test code = Report Text31) 2 BLOOD CULTURE BOTTLES WERE COLLECTED. Report Text32 (test code = Report Text32) BOTH BOTTLES ARE POSITIVE FOR GROWTH Report Text33 (test code = Report Text33) Report Text34 (test code = Report Text34) 2021-11-15 1124 Report Text35 (test code = Report Text35) CATALASE POSITIVE Report Text36 (test code = Report Text36) COAGULASE POSITIVE Report Text37 (test code = Report Text37) GRAM POSITIVE COCCI ISOLATED Report Text38 (test code = Report Text38) (PROBABLE STAPHYLOCOCCUS AUREUS) Report Text39 (test code = Report Text39) PRELIMINARY REPORT Report Text40 (test code = Report Text40) [facility] 2021-11-16 1023 Report Text41 (test code = Report Text41) STAPHYLOCOCCUS AUREUS ISOLATED Report Text42 (test code = Report Text42) [facility] 2021-11-16 1024 Report Text43 (test code = Report Text43) SEE SENSITIVITY FOR BLOOD CULT #[id number] Report Text44 (test code = Report Text44) ORDER #300, COLLECTED 11/13/2021 Report Text45 (test code = Report Text45) FINAL REPORT Bacteria identified in Blood by [id number] 10:24:00* Test Item Value Reference Range Interpretation Comme nts Staphylococcus aureus (test code = 6637612) Antibiotic: Amox/K Clav | MARIA LUZ: <= 0.0 | Systemic: S | Comments: S Staphylococcus aureus (test code = 5330393) Antibiotic: Ampicillin | MARIA LUZ: > 8.0 | Systemic: R | Comments: R Staphylococcus aureus (test code = 3389408) Antibiotic: Amp/Sulbactam | MARIA LUZ: <= 0.0 | Systemic: S | Comments: S Staphylococcus aureus (test code = 3479101) Antibiotic: Azithromycin | MARIA LUZ: <= 2.0 | Systemic: S | Comments: S Staphylococcus aureus (test code = 9450172) Antibiotic: Cefoxitin Screen | MARIA LUZ: <= 4.0 | Systemic: NEG | Comments: Staphylococcus aureus (test code = 9143982) Antibiotic: Levofloxacin | MARIA LUZ: <= 1.0 | Systemic: S | Comments: S Staphylococcus aureus (test code = 3306614) Antibiotic: Linezolid | MARIA LUZ: <= 2.0 | Systemic: S | Comments: S Staphylococcus aureus (test code = 8207346) Antibiotic: Cefazolin | MARIA LUZ: <= 8.0 | Systemic: S | Comments: S Staphylococcus aureus (test code = 4808930) Antibiotic: Chloramphenicol | MARIA LUZ: <= 8.0 | Systemic: S | Comments: S Staphylococcus aureus (test code = 7257910) Antibiotic: Ciprofloxacin | MARIA LUZ: <= 1.0 | Systemic: S | Comments: S Staphylococcus aureus (test code = 2333501) Antibiotic: Clindamycin | MARIA LUZ: <= 0.25 | Systemic: S | Comments: S Staphylococcus aureus (test code = 1754795) Antibiotic: Erythromycin | MARIA LUZ: <= 0.5 | Systemic: S | Comments: S Staphylococcus aureus (test code = 1346695) Antibiotic: Gentamicin | MARIA LUZ: <= 4.0 | Systemic: S | Comments: S Staphylococcus aureus (test code = 8225387) Antibiotic: Oxacillin | MARIA LUZ: 1.0 | Systemic: S | Comments: S Staphylococcus aureus (test code = 5423499) Antibiotic: Penicillin | MARIA LUZ: > 8.0 | Systemic: R | Comments: R Staphylococcus aureus (test code = 4321608) Antibiotic: Tetracycline | MARIA LUZ: <= 4.0 | Systemic: S | Comments: S Staphylococcus aureus (test code = 7090424) Antibiotic: Trimeth/Sulfa | MARIA LUZ: 0.5 | Systemic: S | Comments: S Staphylococcus aureus (test code = 0721629) Antibiotic: Vancomycin | MARIA LUZ: 1.0 | Systemic: S | Comments: S [facility] [id number] 10:22:00* Test Item Value Reference Range Interpretation Comme nts CULTBLD1 (test code = CULTBLD1) CULTBLD1 (test code = [id number]) [facility] 2021-11-132036 BLOOD CULTURES HELD FOR 5 DAYS BEFORE FINAL [place] [employer] SUGGESTS THAT MOST CASES OF BACTEREMIA ARE DETECTED BY USING THREE SETS OF SEPARATELY COLLECTED BLOOD CULTURES. [facility] 2021-11-132037 CONVERSELY, A SINGLE BLOOD CULTURE MAY MISS INTERMITTENTLY OCCURRING BACTEREMIA AND MAKE IT DIFFICULT TO INTERPRET THECLINICAL SIGNIFICANCE OF CERTAIN ISOLATED ORGANISMS. [facility] 2021-11-132038 COLLECTION SITE UNSPECIFIED [facility] 2021-11-14 647 NO GROWTH WITHIN 1 DAY PRELIMINARY REPORT 2021-11-14 1211 POSITIVE BLOOD CULTURE GRAM STAIN RESULT GRAM POSITIVE COCCI SEEN ON SMEAR PRELIMINARY REPORT; CALLED TO/READ BACK BY:[place] [employer] 2021-11-14 1549 POSITIVE FOR STAPHYLOCOCCUS AUREUS BY VERIGENE NUCLEIC ACID TEST. CONVENTIONAL ID/MARIA LUZ TO FOLLOW. CALLED TO/READ BACK BY:RADHA Shaw 2NW 1549 2021-11-151121 2 BLOOD CULTURE BOTTLES WERE COLLECTED. BOTH BOTTLES ARE POSITIVE FOR GROWTH 2021-11-15 1123 CATALASE POSITIVE COAGULASE POSITIVE GRAM POSITIVE COCCI ISOLATED (PROBABLE STAPHYLOCOCCUS AUREUS) PRELIMINARY REPORT 2021-11-15 1124 ID AND/OR SENSITIVITY TO FOLLOW PRELIMINARY REPORT ECHO COMPLETE W/DOPPLER 2021-11-16 09:15:00 [facility] 1985 [facility]IO[facility] REPORTName: CRISTIAN February Study Date: 11/15/2021 10:38 AMN: [id number] Patient Location: 2NW\\S\\251\\S\\AHR: 100DOB:1985 (M/d/yyyy) Gender: FemaleAge: 36 yrsHeight: 62 in Weight: 150 lbBSA: 1.7 h0Yfarwu For Study: R/O EndocarditisHistory: HTN, Prosthetic Tricuspid Valve, PPM, Substance AbuseProceduresA complete two- dimensional transthoracic echocardiogram was performed (2D,M-mode, Doppler and color flow Doppler).MMode/2D Measurements & CalculationsRVDd: 2.1 cm LVIDd: 3.9 cmIVSd: 1.3 cm LVIDs: 2.9 cmIVSs: 1.4 cm LVPWd: 1.3 cmLVPWs: 1.5 cm FS: 25.5 % % IVS thick: 4.1 %EDV(Teich): 66.4 mlESV(Teich): 32.6 mlEF(Teich): 50.9 % CO(Teich): 3.4 l/min MV excursion: 1.5 cmSV(Teich): 33.8 ml MV E-F slope: 7.6 cm/sec Ao root diam: 2.8 cm LVOT diam: 2.0 cmAo root area: 6.3 cm2 LVOT area: 3.1 cm2ACS: 1.8 cmLA dimension: 3.4 cm LVLd ap4: 6.2 cm CO(MOD-sp4): 3.2 l/minEDV(MOD-sp4): 55.0 ml SV(MOD-sp4): 32.0 mlLVLs ap4: 5.5 cmESV(MOD-sp4): 23.0 mlEF(MOD-sp4): 58.2 %__ LAV(MOD-sp2): 27.0 mlLAV(MOD-sp4): 17.0 ml LA Area (A2C): 11.6 cm2 LA Volume: 22.0 mlLA Area (A4C): 9.8 cm2 LA Volume index: 16.0 ml/m2Time MeasurementsMM R-R int: 0.60 sec LVET: 0.25 secMM HR: 100.0 BPMDoppler Measurements & CalculationsMV E max rudy: 131.9 cm/sec MV P1/2t max rudy: 134.1 cm/secMV A max rudy: 41.8 cm/sec MV P1/2t: 46.9 msecMV E/A: 3.2MVA(P1/2t): 4.7 cm2MV dec slope: 837.3 cm/sec2MV dec time: 0.15 secLat Peak E' Rudy: 8.2 cm/secMed Peak E' Rudy: 6.2 cm/secLat E/e': 16.1Med E/e': 21.4 Ao V2 max: 149.2 cm/sec LV V1 max P.0 mmHgAo max P.9 mmHg LV V1 mean P.0 mmHgAo V2 mean: 98.0 cm/sec LV V1 max: 111.6 cm/secAo mean P.5 mmHg LV V1 mean: 63.0 cm/secAo V2 VTI: 23.8 cm LV V1 VTI: 19.3 cmAVA(I,D): 2.5 cm2AVA(V,D): 2.3 cm2AVA/BSA Index: 1.5 cm2/m2AV Dimensionless Index: 0.75 MR max rudy: 499.0 cm/sec SV(LVOT): 59.9 mlMR max P.6 mmHg TR max rudy: 230.8 cm/sec RAP systole: 10.0 mmHgTR max P.0 mmHgRVSP(TR): 32.0 mmHg MV P1/2t- pr_phl: 46.9 msecLeft VentricleThe left ventricle is normal in size. There is no thrombus. There is noventricular septal defect visualized. There is mild concentric leftventricular hypertrophy. Ejection Fraction = 55-60%. The transmitralspectral Doppler flow pattern is suggestive of restrictive physiology. Theleft ventricular wall motion is normal.Right VentricleThe right ventricle is normal size.AtriaThe left atrial size is normal. The interatrial septum is intact with noevidence for an atrial septal defect.Mitral ValveThe mitral valve is normal in structure and function.Tricuspid ValveA tricuspid valve vegetation cannot be excluded. Right ventricular systolicpressure is 30- 35mmHg. There is severe tricuspid regurgitation. There is abioprosthetic tricuspid valve.Aortic ValveThe aortic valve is normal in structure and function.Great VesselsThe aortic root is normal size.Pericardium/PleuralThere is no pericardial effusion.Interpretation SummaryWould consider a transesophageal echocardiogram if clinically indicated.There is mild concentric left ventricular hypertrophy.Ejection Fraction = 55-60%.The transmitral spectral Doppler flow pattern is suggestive of restrictivephysiology.There is a bioprosthetic tricuspid valve.A tricuspid valve vegetation cannot be excluded.There is severe tricuspid regurgitation.Right ventricular systolic pressure is 30-35mmHg. Reading Physician: Electronically signed Arsen Alvarez MD 11/16/2021y: 09:15 AMOrdering Physician: Arthur MatuteReferring Physician: Vilma Sosaformed By: Yulia Atkinson 2021-11-16 08:31:00* Test Item Value Reference Range Interpretation Comme nts WBC (test code = WBC) 7.7 K/UL 3.5-10.9 RBC (test code = RBC) 4.16 M/UL 4.0-5.0 HGB (test code = HGB) 13.3 G/DL 11.5-15.5 HCT (test code = HCT) 40.0 % 34-46 MCV (test code = MCV) 96.2 FL 80-98 MCH (test code = MCH) 32.0 PG 28-32 MCHC (test code = MCHC) 33.3 G/DL 32.5-36.5 RDW (test code = RDW) 12.8 % 11.5-14.5 PLT (test code = PLT) 141 K/UL 150-450 L MPV (test code = MPV) 10.1 FL 7.4-10.4 MANDIFF (test code = MANDIFF) NO SCAN (test code = SCAN) NO NEUT% (test code = NEUT%) 65.3 % 40-75 LYMPH% (test code = LYMPH%) 23.5 % 24-44 L MONO% (test code = MONO%) 8.1 % 0-13 EOS% (test code = EOS%) 1.7 % 0-4 BASO % (test code = BASO%) 0.4 % 0-2 IG (test code = IG) 0 % 0-1 IG% (test code = IG%) 1.0 % 0-1 IG% = Metamyeloc ytes, Myelocytes, and Promyelocytes. (Immature neutrophils not including "bands".) > 3% IG indicates risk of sepsis NRBC% (test code = NRBC%) 0 /100 WBC ABS NEUT (test code = NEUT) 5.1 K/UL 1.2-7.2 CBC W Auto Differential panel - [id number] 08:31:00* Test Item Value Reference Range Interpretation Comme nts Leukocytes other [Identifier ] in Blood by Automated count (test code = 95775-1) 7.7 K/UL 3.5-10.9 N Erythrocytes [#/volume] in B lood (test code = 83877-0) 4.16 M/UL 4.0-5.0 N Hemoglobin A/Hemoglobin.tota l in Blood (test code = 4546-8) 13.3 G/DL 11.5-15.5 N Hematocrit [Volume Fraction] of Blood (test code = 22447-9) 40.0 % 34.0-46.0 N Erythrocyte mean corpuscular volume [Entitic volume] (test code = 84583-2) 96.2 FL 80.0-98.0 N Erythrocyte mean corpuscular hemoglobin [Entitic mass] (test code = 90775-9) 32.0 PG 28.0-32.0 N Erythrocyte mean corpuscular hemoglobin concentration [Mass/volume] (test code = 85853-7) 33.3 G/DL 32.5-36.5 N Erythrocyte distribution wid th [Ratio] (test code = 08658-9) 12.8 % 11.5-14.5 N Platelets panel - Blood by Automated count (test code = 22532-9) 141 K/UL 150.0-450.0 L Platelet mean volume [Entiti c volume] in Blood by Automated count (test code = 82675-7) 10.1 FL 7.4-10.4 N CBC W Reflex Manual Differen tial panel - Blood (test code = 62683-7) NO N Shirt Finisher review of resul ts (test code = 95144-2) NO N Neutrophils.segmented/100 leukocytes in Blood (test code = 66555-7) 65.3 % 40.0-75.0 N Lymphocytes Variant/100 leuk ocytes in Blood (test code = 11334-0) 23.5 % 24.0-44.0 L Lymphocytes+Monocytes/100 leukocytes in Blood (test code = 4662-3) 8.1 % 0.0-13.0 N Eosinophils [#/volume] in Bl ood (test code = 34424-0) 1.7 % 0.0-4.0 N Basophils [#/volume] in Bloo d (test code = 85054-7) 0.4 % 0.0-2.0 N IG (test code = IG) 0 % 0.0-1.0 N IG% (test code = IG%) 1.0 % 0.0-1.0 N NRBC% (test code = NRBC%) 0 /100 WBC N Neutrophils [#/volume] in Bl ood (test code = 41166-2) 5.1 K/UL 1.2-7.2 N [facility])VANCOMYCIN [id number] 23:44:00* Test Item Value Reference Range Interpretation Comme nts VANCTROU (test code = VANCTROU) <5.00 UG/ML 10-20 L In very rare matias es heterophile antibodies may interfere with reagent causing erroneously low results. Any Vancomycin level result that is inconsistent with the clinical presentation should be confirmed with an alternate test method. Vancomycin [Mass/volume] in Serum or Plasma --[id number] 23:44:00* Test Item Value Reference Range Interpretation Comme nts Vancomycin [Mass/volume] in Serum or Plasma --trough (test code = 4092-3) <5.00 10.0-20.0 L [facility])CHEST 1 VIEW [id number] 11:56:00 [facility] 1985 [facility] [place] [address] [id number] IMAGING REPORTPatient Name: February NDate of Service: 01-49-1362Rml: 36 Sex: F Order #: [id number] [facility]: [facility] 2NWDOB: 1985 X-Ray Number: [id number] Record Number: [id number] Hospital Number: [id number] Physician: CHRIS SOSA Physician: KATHRYN VIDAL -CHEST 1 VIEW PORTABLE 11/15/2021 10:33 AM:History: repeat . Hypertension. Muscle weakness. Heart valve replacement.Cough.Comparison: 11/13/2021Technique: 1 view chestFindings:The cardiomediastinal silhouette is normal.Median sternotomy wires alongwith a heart valve prosthesis and left subclavian pacemaker unchanged.Thelungs are clear without infiltrate, effusion, or pneumothorax. The bonesare intact.Impression:No acute cardiopulmonary process.Electronically Signed By: Surekha Singleton M.D., 11/15/2021 11:53 AMLegally authenticated by ARELI IRBY 2021-11-15 11:53:58 Chest X-ray AP portable single [id number] 11:56:00ORDER 2700: CHEST 1 VIEW PORTABLE (LOINC: 84770-7)ORDER DATE: November 15, 2021 4:02:00 PM [facility])Chest X-ray AP portable single [id number] 11:56:00ORDER 2700: CHEST 1 VIEW PORTABLE (LOINC: 39502-2)ORDER DATE: November 15, 2021 4:02:00 PM [facility] [facility])CULTURE, [id number] 10:21:00* Test Item Value Reference Range Interpretation Comme nts Report Text (test code = Report Text) 2021-11-14 758 Report Text7 (test code = Report Text7) NO GROWTH WITHIN 24 HOURS Report Text8 (test code = Report Text8) PRELIMINARY REPORT Report Text9 (test code = Report Text9) Report Text10 (test code = Report Text10) 2021-11-15 1021 Report Text11 (test code = Report Text11) NO GROWTH WITHIN 48 HOURS Report Text12 (test code = Report Text12) FINAL REPORT [id number] 12:36:00* Test Item Value Reference Range Interpretation Comme nts CREA (test code = CREA) 1.0 MG/DL 0.7-1.2 GFR (test code = GFR) 66 mL/min/1.73m2 A GFR of >90 mL/min/1.73m2 is considered normal. The GFR calculation on patients over 70 years of age is not validated by the manager battery and may not represent the patients true renal function. Creatinine [Mass/volume] in [id number] 12:36:00* Test Item Value Reference Range Interpretation Comme nts Creatinine [Mass/volume] in Blood (test code = 93386-0) 1.0 MG/DL 0.7-1.2 N Estimated or measured glomerular filtration rate less than 50 percent [- Reported] (test code = 57605-2) 66 mL/min/1.73m2 N [facility] ([place])[id number] 23:24:00* Test Item Value Reference Range Interpretation Comme nts GLUCOSE (test code = URGLU) NEGATIVE MG/DL NEG-100 BILIRUBN (test code = URBILI) SMALL NEGATIVE KETONE (test code = URKET) TRACE MG/DL NEGATIVE BLOOD (test code = URBLD) SMALL UR PH (test code = URPH) 5.5 5.0-7.5 PROTEIN (test code = URPRO) 30 MG/DL NEGATIVE NITRITES (test code = URNIT) NEGATIVE NEGATIVE UROBILINGEN (test code = URURO) 4.0 EU/DL 0.2-1.0 H LEUKOCYT (test code = URLEU) MODERATE NEGATIVE UA COLOR (test code = UA COLOR) DARK YELLOW YELLOW CLARITY (test code = CLARITY) CLOUDY CLEAR SP GRAV (test code = URSPGRAV) 1.016 1.000-1.025 UAMICRO (test code = UAMICRO) YES WBC (test code = URWBC) 33 /HPF 0-5 H RBC (test code = URRBC) 2 /HPF 0-2 CASTS (test code = CAST) 10 /LPF 0-3 H UR EPI (test code = EPI) 8 /LPF BACTERIA (test code = BACTERIA) NONE NONE added microscopicUrinalysis panel - Urine by [id number] 23:02:00* Test Item Value Reference Range Interpretation Comme nts Bilirubin [Presence] in Urin e by Confirmatory method (test code = 28595-0) SMALL NEG N Ketones [Presence] in Urine (test code = 34655-1) TRACE NEG N Blood [Presence] in Urine by Visual (test code = 02903-1) SMALL N pH of Urine (test code = 2756-5) 5.5 1 5.0-7.5 N Protein [Presence] in Urine (test code = 2887-8) 30 MG/DL NEGATIVE N Urobilinogen [Presence] in U rine (test code = 56799-4) 4.0 EU/DL 0.2-1.0 H Leukocytes [#/volume] in Uri ne by Test strip (test code = 21620-5) MODERATE NEGATIVE N Color of Urine by Auto (test code = 91887-4) DARK YELLOW YELLOW N Clarity of Urine (test code = 11081-6) CLOUDY CLEAR N Specific gravity of Urine (t est code = 2965-2) 1.016 1 1.0-1.025 N Urinalysis dipstick W Reflex Microscopic panel - Urine (test code = 50610-2) YES N Leukocytes [Presence] in Uri ne sediment by Light microscopy (test code = 52710-5) 33 /HPF 0.0-5.0 H Erythrocytes [Presence] in U rine sediment by Light microscopy (test code = 53961-9) 2 /HPF 0.0-2.0 N Casts [Presence] in Urine by Automated (test code = 37547-9) 10 /LPF 0.0-3.0 H Epithelial cells [Presence] in Urine sediment by Light microscopy (test code = 15175-0) 8 /LPF N Bacteria [#/volume] in Urine by Automated count (test code = 86082-6) NONE NONE N [facility] ([place])[id number] 22:45:00* Test Item Value Reference Range Interpretation Comme [facility] PROCALCITONIN (test code = PROCAL) 9.35 ng/mL 0.0-0.5 H 0 - 0.5 ng/mL- L ow risk for progression to severe sepsis and/or septic shock. PCT >0.5 is considered elevated. 2.0 - 10 ng/mL- High risk for progression to severe sepsis and/or septic shock. >/= 10 ng/mL - Severe sepsis or septic shock. High risk of Mortality. PCT levels <0.5 ng/mL do not exclude an infection. Procalcitonin [Mass/volume] in Serum or [id number] 22:45:00* Test Item Value Reference Range Interpretation Comme nts Procalcitonin [Mass/volume] in Serum or Plasma (test code = 61555-9) 9.35 ng/mL 0.0-0.5 H [facility] [id number] 21:22:00 [facility] : 1985 Sex: F[address] [address]YUZFOUUNTR IMAGING REPORTPatient Name: FEBRUARY NDate of Service: [id number]: 36 Sex: F Order #: [id number] Room: QERDOB: 1985 X-Ray Number: [id number] Record Number: [id number] Hospital Number: [id number] Physician: Giacomo MATUTEing Physician: ARTHUR MATUTEPROCEDURE: CHEST 1 VIEW PORTABLEINDICATIONS: DX: Fever, Weakness, Hypotensive, HTNHX: HTN, SubstanceAbusePSV: SMN1 view chest x-ray.Comparison: CR - CHEST 1 VIEW PORTABLE - 08/21/2019 04:56 AM CDTFindings:Median sternotomy wires, valvuloplasty, and left chest wall bipolarpacemaker apparatus are again noted, similar to previous.Heart size is normal.Perihilar interstitial changes or pulmonary edema bilaterally.No peripheral consolidation.14 mm nodule projects over the right lung base. This is new compared toprevious exam.Old bilateral rib fractures. No acute rib fracture.Impression:Perihilar pneumonitis or pulmonary edema.Stable postoperative findings and pacemaker position.14 mm rounded density at the right lung base. This may reflect a nippleshadow or a long nodule. Recommend CT chest or repeat chest x-ray withnipple markers.This document has been electronically signed by: Lina Lara MD on11/13/2021 21:21:20Legally authenticated by MARCO MILLS 2021-11-13 19:20:00Chest X-ray AP portable single [id number] 21:22:00 ORDER 1100: CHEST 1 VIEW PORTABLE (LOINC: 18015-9)ORDER DATE: November 14, 2021 1:20:00 AM [facility])Chest X-ray AP portable single view 2021-11-13 21:22:00ORDER 1100: CHEST 1 VIEW PORTABLE (LOINC: 02029-7)ORDER DATE: November 14, 2021 1:20:00 AM [facility])[id number] 20:55:00 * Test Item Value Reference Range Interpretation Comme nts WBC (test code = WBC) 13.5 K/UL 3.5-10.9 H RBC (test code = RBC) 4.37 M/UL 4.0-5.0 HGB (test code = HGB) 14.2 G/DL 11.5-15.5 HCT (test code = HCT) 42.9 % 34-46 MCV (test code = MCV) 98.2 FL 80-98 H MCH (test code = MCH) 32.5 PG 28-32 H MCHC (test code = MCHC) 33.1 G/DL 32.5-36.5 RDW (test code = RDW) 12.9 % 11.5-14.5 PLT (test code = PLT) 112 K/UL 150-450 L MPV (test code = MPV) 9.9 FL 7.4-10.4 MANDIFF (test code = MANDIFF) NO SCAN (test code = SCAN) NO NEUT% (test code = NEUT%) 84.9 % 40-75 H LYMPH% (test code = LYMPH%) 9.5 % 24-44 L MONO% (test code = MONO%) 4.5 % 0-13 EOS% (test code = EOS%) 0.4 % 0-4 BASO % (test code = BASO%) 0.3 % 0-2 IG (test code = IG) 0 % 0-1 IG% (test code = IG%) 0.4 % 0-1 IG% = Metamyeloc ytes, Myelocytes, and Promyelocytes. (Immature neutrophils not including "bands".) > 3% IG indicates risk of sepsis NRBC% (test code = NRBC%) 0 /100 WBC ABS NEUT (test code = NEUT) 11.5 K/UL 1.2-7.2 H CBC W Auto Differential panel - [id number] 20:55:00* Test Item Value Reference Range Interpretation Comme nts Leukocytes other [Identifier ] in Blood by Automated count (test code = 16877-4) 13.5 K/UL 3.5-10.9 H Erythrocytes [#/volume] in B lood (test code = 08540-6) 4.37 M/UL 4.0-5.0 N Hemoglobin A/Hemoglobin.tota l in Blood (test code = 4546-8) 14.2 G/DL 11.5-15.5 N Hematocrit [Volume Fraction] of Blood (test code = 41153-3) 42.9 % 34.0-46.0 N Erythrocyte mean corpuscular volume [Entitic volume] (test code = 26569-9) 98.2 FL 80.0-98.0 H Erythrocyte mean corpuscular hemoglobin [Entitic mass] (test code = 90685-9) 32.5 PG 28.0-32.0 H Erythrocyte mean corpuscular hemoglobin concentration [Mass/volume] (test code = 73942-3) 33.1 G/DL 32.5-36.5 N Erythrocyte distribution wid th [Ratio] (test code = 26624-7) 12.9 % 11.5-14.5 N Platelets panel - Blood by Automated count (test code = 91852-2) 112 K/UL 150.0-450.0 L Platelet mean volume [Entiti c volume] in Blood by Automated count (test code = 52047-4) 9.9 FL 7.4-10.4 N CBC W Reflex Manual Differen tial panel - Blood (test code = 19331-9) NO N Shirt Finisher review of resul ts (test code = 80913-9) NO N Neutrophils.segmented/100 leukocytes in Blood (test code = 79575-6) 84.9 % 40.0-75.0 H Lymphocytes Variant/100 leuk ocytes in Blood (test code = 86710-6) 9.5 % 24.0-44.0 L Lymphocytes+Monocytes/100 leukocytes in Blood (test code = 4662-3) 4.5 % 0.0-13.0 N Eosinophils [#/volume] in Bl ood (test code = 45974-9) 0.4 % 0.0-4.0 N Basophils [#/volume] in Bloo d (test code = 23237-8) 0.3 % 0.0-2.0 N IG (test code = IG) 0 % 0.0-1.0 N IG% (test code = IG%) 0.4 % 0.0-1.0 N NRBC% (test code = NRBC%) 0 /100 WBC N Neutrophils [#/volume] in Bl ood (test code = 91516-8) 11.5 K/UL 1.2-7.2 H [facility])BLOOD GAS [id number] 20:24:00* Test Item Value Reference Range Interpretation Comme nts SITE (test code = SITE) RB See_Comment [Automated messa ge] The system which generated this result transmitted reference range: -SITE. The reference range was not used to interpret this result as normal/abnormal. ALLENS (test code = ALLENS) NA O2 EQUIP (test code = O2 EQUIP) NA O2-DEVICE L/M (test code = L/M) ROOM AIR L/M FIO2 (test code = FIO2) 21 % PH (test code = BGPH) 7.43 7.35-7.45 PCO2 (test code = PCO2) 28 MMHG 34.0-45.0 L PO2 (test code = PO2) 103 MMHG 92-100 H HCO3 (test code = HCO3) 18.6 mmol/L 22.0-26.0 L BE (test code = BE) -4.3 mmol/L -2.0-2.0 L THB (test code = THB) 14.5 G/DL 12-16 % 02 HB (test code = ABGSAT) 95.8 % 96.0-100.0 L %COHB (test code = BGCO) 2.5 % See_Comment H [Automated messa ge] The system which generated this result transmitted reference range: -1.5. The reference range was not used to interpret this result as normal/abnormal. % MET HB (test code = %MET HB) 1.3 % 0.4-1.5 CAO2 (test code = CAO2) 19.6 VOL% 15.7-21.6 PF/RATIO (test code = PF/RATIO) 490.0 BG LAB ARTERIAL [id number] 20:24:00* Test Item Value Reference Range Interpretation Comme [facility] SITE (test code = SITE) RB See_Comment [Automated messa ge] The system which generated this result transmitted reference range: -SITE. The reference range was not used to interpret this result as normal/abnormal. ALLENS (test code = ALLENS) NA BGLAC (test code = BGLAC) 7.0 mg/dL 5.0-18.0 BG LAB ARTERIAL [id number] 20:24:00* Test Item Value Reference Range Interpretation Comme [facility] SAMPLE SITE: (test code = SITE) RB N VIELKA TEST: (test code = ALLENS) NA N BG LAB ARTERIAL LACTATE (aureliano t code = BGLAC) 7.0 mg/dL 5.0-18.0 N [facility] ([place])BLOOD GAS [id number] 20:24:00* Test Item Value Reference Range Interpretation Comme [facility] SAMPLE SITE: (test code = SITE) RB N ALLENSemaj TEST: (test code = ALLENS) NA N O2 EQUIPMENT: (test code = O2 EQUIP) NA O2 N L/M (test code = L/M) ROOM AIR N FIO2 (test code = FIO2) 21 % N BLOOD GAS PH (test code = BGPH) 7.43 1 7.35-7.45 N PCO2 (test code = PCO2) 28 MMHG 34.0-45.0 L PO2 (test code = PO2) 103 MMHG 92.0-100.0 H HCO3 (test code = HCO3) 18.6 mmol/L 22.0-26.0 L BE (test code = BE) -4.3 mmol/L See_Comment L [Au tomated message] The system which generated this result transmitted reference range: -2.0. The reference range was not used to interpret this result as normal/abnormal. THB (test code = THB) 14.5 G/DL 12.0-16.0 N ABGSAT (test code = ABGSAT) 95.8 % 96.0-100.0 L CARBON MONOXIDE (test code = BGCO) 2.5 % H %MET HB (test code = %MET HB) 1.3 % 0.4-1.5 N CAO2 (test code = CAO2) 19.6 VOL% 15.7-21.6 N PF/RATIO (test code = PF/RATIO) 490.0 1 N [facility])INFLUENZA [id number] 20:16:00* Test Item Value Reference Range Interpretation Comme nts FLU A (test code = FLU A) NEGATIVE NEGATIVE FLU B (test code = FLU B) NEGATIVE NEGATIVE FLU INTERNAL POSITIVE CNTRL (test code = FLU IPC) PASS PASS INFLUENZA LOT # (test code = FLULOT) [id number] INFLUENZA EXPIRATION DATE (t est code = FLUEXP) 03-01-23 Influenza virus A+B Ag [Presence] in Nose by [id number] 20:16:00* Test Item Value Reference Range Interpretation Comme nts FLU INTERNAL POSITIVE CNTRL (test code = FLU IPC) PASS PASS N INFLUENZA LOT # (test code = FLULOT) [id number] 1 N INFLUENZA EXPIRATION DATE (t est code = FLUEXP) 03-01-23 [facility])ISTAT CHEM [id number] 20:15:00* Test Item Value Reference Range Interpretation Comme nts ISTATNA (test code = ISTATNA) 136 MMOL/L 137-145 L ISTATK (test code = ISTATK) 3.5 MMOL/L 3.6-5.0 L ISTATCL (test code = ISTATCL) 104 MMOL/L 98-107 ISTIONCA (test code = ISTIONCA) 1.00 MMOL/L 1.12-1.32 L ISTCO2 (test code = ISTCO2) 22 MMOL/L 22-30 ISTATGLU (test code = ISTATGLU) 80 MG/DL 65-110 ISTATBUN (test code = ISTATBUN) 31.0 MG/DL 7.0-20.0 H ISTCREA (test code = ISTCREA) 1.2 MG/DL 0.7-1.5 ISTATHCT (test code = ISTATHCT) 45 %PCV 37.0-52.0 ISTATHGB (test code = ISTATHGB) 15.3 G/DL 12.0-18.0 Notified Nurse/M D of results outside of Reference Ranges ISTANGAP (test code = ISTANGAP) 15 MMOL/L Notified Nurse/M D of results outside of Reference Ranges ISTAT CHEM [id number] 20:15:00* Test Item Value Reference Range Interpretation Comme nts Sodium [Moles/volume] in Art erial blood (test code = 70803-6) 136 MMOL/L 137.0-145.0 L Potassium [Moles/volume] in Arterial blood (test code = 13457-6) 3.5 MMOL/L 3.6-5.0 L Chloride [Moles/volume] in Arterial blood (test code = 21165-7) 104 MMOL/L 98.0-107.0 N Calcium.ionized [Mass/volume ] in Arterial blood (test code = 44836-7) 1.0 MMOL/L 1.12-1.32 L ISTCO2 (test code = ISTCO2) 22 MMOL/L 22.0-30.0 N Glucose [Mass/volume] in Art erial blood (test code = 83110-5) 80 MG/DL 65.0-110.0 N Urea nitrogen [Mass/volume] in Arterial blood (test code = 43079-2) 31.0 MG/DL 7.0-20.0 H Creatinine [Mass/volume] in Blood (test code = 34351-5) 1.2 MG/DL 0.7-1.5 N Hematocrit [Volume Fraction] of Arterial blood (test code = 12626-7) 45 %PCV 37.0-52.0 N Hemoglobin [Mass/volume] in Arterial cord blood (test code = 13842-8) 15.3 G/DL 12.0-18.0 N ISTANGAP (test code = ISTANGAP) 15 MMOL/L N [facility] ([place])COVID SYMPTOMATIC ER [id number] 19:50:00* Test Item Value Reference Range Interpretation Comme nts CORONAVIRUS (COVID-19)BY PCR (test code = UEE17QLL) NEGATIVE SARS-CoV-2 (COVID-19) N gene [Presence] in [id number] 19:50:00Negative [facility] ([place])XR ANKLE 3+ VW [id number] 18:46:25Stable ankle and pelvic fractures with bilateral sacroiliac joint screw andleft superior pubic ramus screw fixation. EXAM: XR ANKLE 3+ VW LEFT, EXAM: XR PELVIS 3+ VW HISTORY: need gravity stress viewout of splint, Also AP, Lateral, mortise COMPARISON: June 2020 FINDINGS: Imaging of the ankle demonstrates interval splint removal. There isredemonstration of a trimalleolar fracture with minimal resorption alongthe medial and lateral malleoli fracture margins. A lateral talar processavulsion fracture is seen. Calcaneal enthesophyte formation is seen. Soft tissue swelling and osteopenia are present. A small effusion is noted. Images of the pelvis demonstrate left superior pubic ramus and bilat eralsacroiliac joint screw fixation. Healing fractures through the left pubicrami and left hemisacrum are seen with a stable appearance and unchangedcortical fragment displacement at the superior pubic ramus fractures. Tuballigation clips are redemonstrated. [facility], Radiant Results Inft User - 08/07/2020 1:47 PM CDTEXAM:XR ANKLE 3+ VW LEFT,EXAM:XR PELVIS 3+ VWHISTORY:need gravity stress view out ofsplint, Also AP, Lateral, mortise COMPARISON:June 2020FINDINGS: Imaging of the ankle demonstratesinterval splint removal. There isredemonstration of a trimalleolar fracture with minimal resorptionalongthe medial and lateral malleoli fracture margins. A lateral talar processavulsion fracture is seen. Calcaneal enthesophyte formation is seen. Soft tissue swelling and osteopenia are present. A small effusion is noted.Images of the pelvis demonstrate left superior pubic ramus and bilateralsacroiliac joint screw fixation. Healing fractures through the left pubicrami and left hemisacrum are seen with a stable appearance and unchangedcortical fragment displacement at the superior pubic ramus fractures. Tuballigation clips are redemonstrated.IMPRESSIONStable ankle and pelvic fractures with bilateral sacroiliac joint screw andleft superior pubic ramus screw fixation.[facility] CenterXR [facility]+ [id number] 18:46:25Stable ankle and pelvic fractures with bilateral sacroiliac joint screw andleft superior pubic ramus screw fixation. EXAM: XR ANKLE 3+ VW LEFT, EXAM: XR PELVIS 3+ VW HISTORY: need gravity stress viewout of splint, Also AP, Lateral, mortise COMPARISON: June 2020 FINDINGS: Imaging of the ankle demonstrates interval splint removal. There isredemonstration of a trimalleolar fracture with minimal resorption alongthe medial and lateral malleoli fracture margins. A lateral talar processavulsion fracture is seen. Calcaneal enthesophyte formation is seen. Soft tissue swelling and osteopenia are present. A small effusion is noted. Images of the pelvis demonstrate left superior pubic ramus and bilateralsacroiliac joint screw fixation. Healing fractures through the left pubicrami and left hemisacrum are seen with a stable appearance and unchangedcortical fragment displacement at the superior pubic ramus fractures. Tuballigation clips are redemonstrated. [facility], Radiant Results Inft User - 08/07/2020 1:47 PM CDTEXAM:XR ANKLE 3+ VW LEFT,EXAM:XR PELVIS 3+ VWHISTORY:need gravity stress view out ofsplint, Also AP, Lateral, mortise COMPARISON:June 2020FINDINGS: Imaging of the ankle demonstratesinterval splint removal. There isredemonstration of a trimalleolar fracture with minimal resorptionalongthe medial and lateral malleoli fracture margins. A lateral talar processavulsion fracture is seen. Calcaneal enthesophyte formation is seen. Soft tissue swelling and osteopenia are present. A small effusion is noted.Images of the pelvis demonstrate left superior pubic ramus and bilateralsacroiliac joint screw fixation. Healing fractures through the left pubicrami and left hemisacrum are seen with a stable appearance and unchangedcortical fragment displacement at the superior pubic ramus fractures. Tuballigation clips are redemonstrated.IMPRESSIONStable ankle and pelvic fractures with bilateral sacroiliac joint screw andleft superior pubic ramus screw fixation.[facility] CenterCT PELVIS W/O CONTRAST 2020-07-14 07:38:26fall, h/o pelvic and hip fractureEXAM: CT Pelvis WITHOUT contrastINDICATION: Fracture of pelvisCOMPARISON: None.TECHNIQUE: Pelvis were scanned utilizing a multidetector helical scanner fromthe iliac crest to the pubic symphysis without administration of IV contrast.Coronal and sagittal reformations were obtained. Routine protocol was performed.IV CONTRAST: NoneORAL CONTRAST: WaterCOMPLICATIONS: NoneRADIATION DOSE:Total DLP: 307.6 mGy*cmEstimated effective dose: (DLP x 0.015 x size factor) mSvCTDIvol has been reviewed. It is below the limits set by the RadiationProtocol Committee (RPC).FINDINGS:Acute displaced fracture of theinferior pubic ramus. There is medial apexangulation with the tip lying positioned posterior to thepubic symphysis.Acute displaced and comminuted periprosthetic fracture of the left superiorpubic ramus with 1.6 cm fragment within the pelvis superior to the bladder andposterior to the left pubic body, within the left internal obturator muscle. Noevidence of hardware fracture.Acute comminuted and mildly displaced periprosthetic left sacral ala fracturewith fracture lucency extending into the second and third left sacral foramina.The two screws fusing the bilateral SI joints appear intact.Acuteminimally displaced fracture of the the median and bilateral lateralcrests at S1.Nondisplaced fracture of the left lateral S5 vertebral body extending into theleft transverse process.Urinary bladder is decompressed.Pubic symphysis is not widened. SI joints appear intact.Tubal ligation clips.IMPRESSION:1. Acute displaced comminuted periprosthetic fracture of the obturator ring.Medial apex angulation of the inferior pubic ramus into the pelvis with the tiplocated posterior to the pubic symphysis.CT cystogram is recommended to excludeurinary bladder injury. Trace fluid in the pelvis.2. Acute comminuted displaced left periprosthetic left sacral ala fractureextends into the second and third left sacral foramina.3. Additional minimally displaced and nondisplaced fractures of the sacrum asabove.4. No sizeable hematoma identified. Vascular injury not excluded by this exam.Results were discussed with Dr. Isaacs on 07/14/2020 at 7:15AM.This final report was electronically signed by Dr Lula Pink 07/14/2020 7:32 AMDictated By: LULA PINKDate: 07/14/2020 07:32 [id number] 11:19:00* Test Item Value Reference Range Interpretation Comme nts PHOSPHORUS (test code = 5366487450) 4.3 mg/dL 2.5-5 Lab Interpretation (test cod e = 63074-7) Normal [facility] CenterMAGNESIUM2020-08-27 11:19:00* Test Item Value Reference Range Interpretation Comme nts MAGNESIUM (test code = 1129538471) 1.8 mg/dL 1.7-2.4 Lab Interpretation (test cod e = 86510-5) Normal [facility] (NA, K, CL, CO2, GLUCOSE, BUN, CREATININE, CA)2020-07-10 11:19:00* Test Item Value Reference Range Interpretation Comme nts NA (test code = 8527153364) 135 mmol/L 135-145 K (test code = 6585138767) 4.0 mmol/L 3.5-5 CL (test code = 5577693205) 104 mmol/L 98-108 CO2 TOTAL (test code = 3847304241) 28 mmol/L 23-31 AGAP (test code = 3617637419) 2-16 BUN (test code = 8730500551) 16 mg/dL 7-23 GLUCOSE (test code = 6664121493) 68 mg/dL 70-110 L CREATININE (test code = 4520221097) 0.74 mg/dL 0.5-1.04 CALCIUM (test code = 0142034312) 8.3 mg/dL 8.6-10.6 L eGFR Calculation (Non-) (test code = 2629662408) mL/min/1.73m2 eGFR Calculation () (test code = 3689991298) mL/min/1.73m2 SYED (test code = SYED) Association of Glomerular Filtration Rate (GFR) and Staging of Kidney Disease* + --+ --+ ------+| GFR (mL/min/1.73 m2) ?| With Kidney Damage ?| ?Without Kidney Damage+ --------+ --------+ +| ?>90 ?| ?Stage one ?| ? Normal ?+ ---+ ---+ -------+| ?60-89 ?| ?Stage two ?| ? Decreased GFR ? + --+ --+ ------+| ?30-59 ?| ?Stage three ?| ? Stage three ? + --+ --+ ------+| ?15-29 ?| ?Stage four ? | ? Stage four ?+ ---+ ---+ -------+| ?<15 (or dialysis) ? ?| ?Stage five ? | ? Stage five ?+ ---+ ---+ -------+ *Each stage assumes the associated GFR level has been in effect for at least three months. ?Stages 1 to 5, with or without kidney disease, indicate chronic kidney disease. Notes: Determination of stages one and two (with eGFR >59mL/min/1.73 m2) requires estimation of kidney damage for at least three months as defined by structural or functional abnormalities of the kidney, manifested by either:Pathological abnormalities or Markers of kidney damage (including abnormalities in the composition of the blood or urine or abnormalities in imaging tests). Lab Interpretation (test code = 34623-5) Abnormal [facility] WITH [id number] 10:51:00* Test Item Value Reference Range Interpretation Comme nts WBC (test code = 6690-2) See_Comment [[employer]] The system which generated this result transmitted reference range: 4.30 - 11.10 10*3/?L. The reference range was not used to interpret this result as normal/abnormal. RBC (test code = 789-8) See_Comment L [[employer]] The system which generated this result transmitted reference range: 3.93 - 5.25 10*6/?L. The reference range was not used to interpret this result as normal/abnormal. HGB (test code = 718-7) 8.8 g/dL 11.6-15 L HCT (test code = 4544-3) 27.6 % 35.7-45.2 L MCV (test code = 787-2) 101.8 fL 80.6-95.5 H MCH (test code = 785-6) 32.5 pg 25.9-32.8 MCHC (test code = 786-4) 31.9 g/dL 31.6-35.1 RDW-SD (test code = 53729-8) 53.7 fL 39-49.9 H RDW-CV (test code = 788-0) 14.5 % 12-15.5 PLT (test code = 777-3) See_Comment [Automated messa ge] The system which generated this result transmitted reference range: 166 - 358 10*3/?L. The reference range was not used to interpret this result as normal/abnormal. MPV (test code = 87994-4) 8.5 fL 9.5-12.9 L NRBC/100 WBC (test code = 5482613726) See_Comment [Automated [employer] ssage] The system which generated this result transmitted reference range: 0.0 - 10.0 /100 WBCs. The reference range was not used to interpret this result as normal/abnormal. NRBC x10^3 (test code = 4332116881) <0.01 See_Comment [Automated messa ge] The system which generated this result transmitted reference range: 10*3/?L. The reference range was not used to interpret this result as normal/abnormal. GRAN MAT (NEUT) % (test code = 770-8) 57.4 % IMM GRAN % (test code = 6566397894) 0.40 % LYMPH % (test code = 736-9) 32.1 % MONO % (test code = 5905-5) 7.2 % EOS % (test code = 713-8) 2.5 % BASO % (test code = 706-2) 0.4 % GRAN MAT x10^3(ANC) (test code = 1925882266) 4.07 10*3/uL 1.88-7.09 IMM GRAN x10^3 (test code = 6431736586) 0.03 10*3/uL 0-0.06 LYMPH x10^3 (test code = 731-0) 2.28 10*3/uL 1.32-3.29 MONO x10^3 (test code = 742-7) 0.51 10*3/uL 0.33-0.92 EOS x10^3 (test code = 711-2) 0.18 10*3/uL 0.03-0.39 BASO x10^3 (test code = 704-7) 0.03 10*3/uL 0.01-0.07 Lab Interpretation (test code = 71427-3) [facility]* Test Item Value Reference Range Interpretation Comme nts MAGNESIUM (test code = 8062349575) 2.0 mg/dL 1.7-2.4 Lab Interpretation (test cod e = 36890-6) [facility] (NA, K, CL, CO2, GLUCOSE, BUN, CREATININE, CA)2020-07-09 11:23:00* Test Item Value Reference Range Interpretation Comme nts NA (test code = 0066690090) 137 mmol/L 135-145 K (test code = 3083804813) 3.6 mmol/L 3.5-5 CL (test code = 2728076719) 103 mmol/L 98-108 CO2 TOTAL (test code = 4703902947) 30 mmol/L 23-31 AGAP (test code = 5178978956) 2-16 BUN (test code = 0690100375) 16 mg/dL 7-23 GLUCOSE (test code = 8727570095) 81 mg/dL 70-110 CREATININE (test code = 7867728049) 0.84 mg/dL 0.5-1.04 CALCIUM (test code = 8916900264) 8.4 mg/dL 8.6-10.6 L eGFR Calculation (Non-) (test code = 9794560059) mL/min/1.73m2 eGFR Calculation () (test code = 1967092901) mL/min/1.73m2 SYED (test code = SYED) Association of Glomerular Filtration Rate (GFR) and Staging of Kidney Disease* + --+ --+ ------+| GFR (mL/min/1.73 m2) ?| With Kidney Damage ?| ?Without Kidney Damage+ --------+ --------+ +| ?>90 ?| ?Stage one ?| ? Normal ?+ ---+ ---+ -------+| ?60-89 ?| ?Stage two ?| ? Decreased GFR ? + --+ --+ ------+| ?30-59 ?| ?Stage three ?| ? Stage three ? + --+ --+ ------+| ?15-29 ?| ?Stage four ? | ? Stage four ?+ ---+ ---+ -------+| ?<15 (or dialysis) ? ?| ?Stage five ? | ? Stage five ?+ ---+ ---+ -------+ *Each stage assumes the associated GFR level has been in effect for at least three months. ?Stages 1 to 5, with or without kidney disease, indicate chronic kidney disease. Notes: Determination of stages one and two (with eGFR >59mL/min/1.73 m2) requires estimation of kidney damage for at least three months as defined by structural or functional abnormalities of the kidney, manifested by either:Pathological abnormalities or Markers of kidney damage (including abnormalities in the composition of the blood or urine or abnormalities in imaging tests). Lab Interpretation (test code = 82087-5) [facility] 11:23:00* Test Item Value Reference Range Interpretation Comme nts PHOSPHORUS (test code = 7883131067) 4.3 mg/dL 2.5-5 Lab Interpretation (test cod e = 32263-8) Normal [facility] WITH [id number] 10:52:00* Test Item Value Reference Range Interpretation Comme nts WBC (test code = 6690-2) See_Comment [[employer]ated [employer]] The system which generated this result transmitted reference range: 4.30 - 11.10 10*3/?L. The reference range was not used to interpret this result as normal/abnormal. RBC (test code = 789-8) See_Comment L [[employer]ated [employer]] The system which generated this result transmitted reference range: 3.93 - 5.25 10*6/?L. The reference range was not used to interpret this result as normal/abnormal. HGB (test code = 718-7) 8.1 g/dL 11.6-15 L HCT (test code = 4544-3) 25.1 % 35.7-45.2 L MCV (test code = 787-2) 102.0 fL 80.6-95.5 H MCH (test code = 785-6) 32.9 pg 25.9-32.8 H MCHC (test code = 786-4) 32.3 g/dL 31.6-35.1 RDW-SD (test code = 10457-3) 54.0 fL 39-49.9 H RDW-CV (test code = 788-0) 14.6 % 12-15.5 PLT (test code = 777-3) See_Comment [Automated messa ge] The system which generated this result transmitted reference range: 166 - 358 10*3/?L. The reference range was not used to interpret this result as normal/abnormal. MPV (test code = 15060-4) 8.8 fL 9.5-12.9 L NRBC/100 WBC (test code = 1198519880) See_Comment [Automated [employer] ssage] The system which generated this result transmitted reference range: 0.0 - 10.0 /100 WBCs. The reference range was not used to interpret this result as normal/abnormal. NRBC x10^3 (test code = 2258741294) <0.01 See_Comment [Automated [employer]] The system which generated this result transmitted reference range: 10*3/?L. The reference range was not used to interpret this result as normal/abnormal. GRAN MAT (NEUT) % (test code = 770-8) 60.7 % IMM GRAN % (test code = 0185792476) 0.40 % LYMPH % (test code = 736-9) 28.8 % MONO % (test code = 5905-5) 7.7 % EOS % (test code = 713-8) 2.1 % BASO % (test code = 706-2) 0.3 % GRAN MAT x10^3(ANC) (test code = 3584279049) 5.44 10*3/uL 1.88-7.09 IMM GRAN x10^3 (test code = 3990050359) 0.04 10*3/uL 0-0.06 LYMPH x10^3 (test code = 731-0) 2.58 10*3/uL 1.32-3.29 MONO x10^3 (test code = 742-7) 0.69 10*3/uL 0.33-0.92 EOS x10^3 (test code = 711-2) 0.19 10*3/uL 0.03-0.39 BASO x10^3 (test code = 704-7) 0.03 10*3/uL 0.01-0.07 Lab Interpretation (test code = 44110-8) [facility] VW [id number] 13:25:47 Unchanged bimalleolar fractures. EXAM: XR ANKLE 3+ VW LEFT HISTORY: post reduction COMPARISON: 07/01/2020 FINDINGS: The overlying splint obscures osseous and soft tissue detail. The medialand lateral malleolus fractures are unchanged in healing and alignment.Soft tissue swelling is noted. [facility], Radiant Results Inft User - 07/08/2020 8:26 AM CDTEXAM:XR ANKLE 3+ VW LEFTHISTORY:post reduction COMPARISON:07/01/2020FINDINGS: The overlying splint obscures osseous and soft tissue detail. The medialand lateral malleolus fractures are unchanged in healing and alignment.Soft tissue swelling is noted.IMPRESSIONUnchanged bimalleolar fractures.[facility] Center[facility] 2020-07-08 13:18:17Interval internal fixation of left-sided pelvic fractures without hardwarecomplication. EXAM: CT PELVIS WO CONTRAST HISTORY: Pelvic fx, known or suspected s/p surgery TECHNIQUE: Axial CT images of the pelvis were obtained without IV contrast. [place] coronal reformatted images were created. COMPARISON: Radiographs of 07/07/2020, CT 07/03/2020 FINDINGS: A comminuted fracture of the left sacral ala is unchanged. Screw fixationof the sacroiliac joints is seen without hardware complication.Uncomplicated screw fixation of the left superior pubic ramus andacetabulum is seen. There is unchanged alignment of the left inferior pubicramus fracture. Diffuse subcutaneous edema is noted. Perivesical hematoma is grossly unchanged. Pelvic free fluid is alsounchanged. Slight asymmetric enlargement of the left pelvic sidewall issuggestive of hematoma, grossly unchanged from the comparison exam. Tubal ligation clips are noted. A Muñoz catheter is in place. Foci of air in the pelvis and surrounding soft tissues are likelypostsurgical. [facility], Radiant Results Inft User - 07/08/2020 8:19 AM CDTEXAM:CT PELVIS WO CONTRASTHISTORY:Pelvic fx, known or suspected s/p surgery TECHNIQUE:Axial CT images of the pelvis were obtained without IV contrast. [place] coronal reformatted images were created.COMPARISON:Radiographs of 07/07/2020, CT 07/03/2020FINDINGS: A comminuted fracture of the left sacral ala isunchanged. Screw fixationof the sacroiliac joints is seen without hardware complication.Uncomplicated screw fixation of the left superior pubic ramus andacetabulum is seen. There is unchanged alignment of the left inferior pubicramus fracture.Diffuse subcutaneous edema is noted.Perivesical hematomais grossly unchanged. Pelvic free fluid is alsounchanged. Slight asymmetric enlargement of the leftpelvic sidewall issuggestive of hematoma, grossly unchanged from the comparison exam.Tubal ligationclips are noted. A Muñoz catheter is in place.Foci of air in the pelvis and surrounding soft tissues are likelypostsurgical.IMPRESSIONInterval internal fixation of left-sided pelvic fractures withouthardwarecomplication.[facility] [id number] 10:31:00* Test Item Value Reference Range Interpretation Comme nts PHOSPHORUS (test code = 4211644579) 4.5 mg/dL 2.5-5 Lab Interpretation (test cod e = 24335-7) [facility]2020-[facility]25 10:31:00* Test Item Value Reference Range Interpretation Comme nts MAGNESIUM (test code = 5391669909) 1.8 mg/dL 1.7-2.4 Lab Interpretation (test cod e = 86940-7) [facility] (NA, K, CL, CO2, GLUCOSE, BUN, CREATININE, CA)2020-07-08 10:31:00* Test Item Value Reference Range Interpretation Comme nts NA (test code = 9281733607) 133 mmol/L 135-145 L K (test code = 1415270748) 4.5 mmol/L 3.5-5 CL (test code = 9686600560) 100 mmol/L 98-108 CO2 TOTAL (test code = 1809361832) 31 mmol/L 23-31 AGAP (test code = 7896691984) 2-16 BUN (test code = 0171056024) 18 mg/dL 7-23 GLUCOSE (test code = 7030310926) 133 mg/dL 70-110 H CREATININE (test code = 9118145040) 0.82 mg/dL 0.5-1.04 CALCIUM (test code = 8506009984) 8.2 mg/dL 8.6-10.6 L eGFR Calculation (Non-) (test code = 3041480134) mL/min/1.73m2 eGFR Calculation () (test code = 3918910110) mL/min/1.73m2 SYED (test code = SYED) Association of Glomerular Filtration Rate (GFR) and Staging of Kidney Disease* + --+ --+ ------+| GFR (mL/min/1.73 m2) ?| With Kidney Damage ?| ?Without Kidney Damage+ --------+ --------+ +| ?>90 ?| ?Stage one ?| ? Normal ?+ ---+ ---+ -------+| ?60-89 ?| ?Stage two ?| ? Decreased GFR ? + --+ --+ ------+| ?30-59 ?| ?Stage three ?| ? Stage three ? + --+ --+ ------+| ?15-29 ?| ?Stage four ? | ? Stage four ?+ ---+ ---+ -------+| ?<15 (or dialysis) ? ?| ?Stage five ? | ? Stage five ?+ ---+ ---+ -------+ *Each stage assumes the associated GFR level has been in effect for at least three months. ?Stages 1 to 5, with or without kidney disease, indicate chronic kidney disease. Notes: Determination of stages one and two (with eGFR >59mL/min/1.73 m2) requires estimation of kidney damage for at least three months as defined by structural or functional abnormalities of the kidney, manifested by either:Pathological abnormalities or Markers of kidney damage (including abnormalities in the composition of the blood or urine or abnormalities in imaging tests). Lab Interpretation (test code = 27824-1) Abnormal [facility] WITH [id number] 10:07:00* Test Item Value Reference Range Interpretation Comme nts WBC (test code = 6690-2) See_Comment H [Automated [employer]] The system which generated this result transmitted reference range: 4.30 - 11.10 10*3/?L. The reference range was not used to interpret this result as normal/abnormal. RBC (test code = 789-8) See_Comment L [Automated [employer]] The system which generated this result transmitted reference range: 3.93 - 5.25 10*6/?L. The reference range was not used to interpret this result as normal/abnormal. HGB (test code = 718-7) 8.6 g/dL 11.6-15 L HCT (test code = 4544-3) 25.4 % 35.7-45.2 L MCV (test code = 787-2) 99.6 fL 80.6-95.5 H MCH (test code = 785-6) 33.7 pg 25.9-32.8 H MCHC (test code = 786-4) 33.9 g/dL 31.6-35.1 RDW-SD (test code = 31136-2) 51.5 fL 39-49.9 H RDW-CV (test code = 788-0) 14.4 % 12-15.5 PLT (test code = 777-3) See_Comment [Automated [employer]] The system which generated this result transmitted reference range: 166 - 358 10*3/?L. The reference range was not used to interpret this result as normal/abnormal. MPV (test code = 24084-0) 9.0 fL 9.5-12.9 L NRBC/100 WBC (test code = 1682653575) See_Comment [Automated [employer] ssage] The system which generated this result transmitted reference range: 0.0 - 10.0 /100 WBCs. The reference range was not used to interpret this result as normal/abnormal. NRBC x10^3 (test code = 4080057563) <0.01 See_Comment [Automated [employer]] The system which generated this result transmitted reference range: 10*3/?L. The reference range was not used to interpret this result as normal/abnormal. GRAN MAT (NEUT) % (test code = 770-8) 78.1 % IMM GRAN % (test code = 9831541020) 0.70 % LYMPH % (test code = 736-9) 13.7 % MONO % (test code = 5905-5) 7.2 % EOS % (test code = 713-8) 0.1 % BASO % (test code = 706-2) 0.2 % GRAN MAT x10^3(ANC) (test code = 9808611983) 9.50 10*3/uL 1.88-7.09 H IMM GRAN x10^3 (test code = 8410091664) 0.08 10*3/uL 0-0.06 H LYMPH x10^3 (test code = 731-0) 1.67 10*3/uL 1.32-3.29 MONO x10^3 (test code = 742-7) 0.88 10*3/uL 0.33-0.92 EOS x10^3 (test code = 711-2) <0.03 0.03-0.39 L BASO x10^3 (test code = 704-7) <0.03 0.01-0.07 Lab Interpretation (test code = 62863-4) Abnormal [facility] METABOLIC PANEL (NA, K, CL, CO2, GLUCOSE, BUN, CREATININE, CA)2020-07-07 23:21:00* Test Item Value Reference Range Interpretation Comme nts NA (test code = 4229703136) 131 mmol/L 135-145 L K (test code = 4058239311) 4.1 mmol/L 3.5-5 CL (test code = 4898070231) 99 mmol/L 98-108 CO2 TOTAL (test code = 8894867457) 29 mmol/L 23-31 AGAP (test code = 3704537554) 2-16 BUN (test code = 4473192187) 11 mg/dL 7-23 GLUCOSE (test code = 0802640591) 139 mg/dL 70-110 H CREATININE (test code = 4136090294) 0.74 mg/dL 0.5-1.04 CALCIUM (test code = 2104993925) 8.4 mg/dL 8.6-10.6 L eGFR Calculation (Non-) (test code = 8965795434) mL/min/1.73m2 eGFR Calculation () (test code = 6382234453) mL/min/1.73m2 SYED (test code = SYED) Association of Glomerular Filtration Rate (GFR) and Staging of Kidney Disease* + --+ --+ ------+| GFR (mL/min/1.73 m2) ?| With Kidney Damage ?| ?Without Kidney Damage+ --------+ --------+ +| ?>90 ?| ?Stage one ?| ? Normal ?+ ---+ ---+ -------+| ?60-89 ?| ?Stage two ?| ? Decreased GFR ? + --+ --+ ------+| ?30-59 ?| ?Stage three ?| ? Stage three ? + --+ --+ ------+| ?15-29 ?| ?Stage four ? | ? Stage four ?+ ---+ ---+ -------+| ?<15 (or dialysis) ? ?| ?Stage five ? | ? Stage five ?+ ---+ ---+ -------+ *Each stage assumes the associated GFR level has been in effect for at least three months. ?Stages 1 to 5, with or without kidney disease, indicate chronic kidney disease. Notes: Determination of stages one and two (with eGFR >59mL/min/1.73 m2) requires estimation of kidney damage for at least three months as defined by structural or functional abnormalities of the kidney, manifested by either:Pathological abnormalities or Markers of kidney damage (including abnormalities in the composition of the blood or urine or abnormalities in imaging tests). Lab Interpretation (test code = 51378-2) Abnormal [facility] WITHOUT [id number] 23:13:00* Test Item Value Reference Range Interpretation Comme nts WBC (test code = 6690-2) See_Comment H [Automated message] The system which generated this result transmitted reference range: 4.30 - 11.10 10*3/?L. The reference range was not used to interpret this result as normal/abnormal. RBC (test code = 789-8) See_Comment L [Automated message] The system which generated this result transmitted reference range: 3.93 - 5.25 10*6/?L. The reference range was not used to interpret this result as normal/abnormal. HGB (test code = 718-7) 9.3 g/dL 11.6-15 L HCT (test code = 4544-3) 28.5 % 35.7-45.2 L MCH (test code = 785-6) 32.9 pg 25.9-32.8 H MCV (test code = 787-2) 100.7 fL 80.6-95.5 H MCHC (test code = 786-4) 32.6 g/dL 31.6-35.1 PLT (test code = 777-3) See_Comment [Automated message] The system which generated this result transmitted reference range: 166 - 358 10*3/?L. The reference range was not used to interpret this result as normal/abnormal. MPV (test code = 99133-6) 9.2 fL 9.5-12.9 L RDW-CV (test code = 788-0) 14.3 % 12-15.5 RDW-SD (test code = 73127-3) 51.5 fL 39-49.9 H NRBC x10^3 (test code = 9712227340) <0.01 See_Comment [Automated [employer]] The system which generated this result transmitted reference range: 10*3/?L. The reference range was not used to interpret this result as normal/abnormal. NRBC/100 WBC (test code = 6950685837) See_Comment [Automated [employer]] The system which generated this result transmitted reference range: 0.0 - 10.0 /100 WBCs. The reference range was not used to interpret this result as normal/abnormal. IPF % (test code = 6692010419) Lab Interpretation (test code = 98878-1) [facility] ([facility]-RE[facility]2020-07-07 21:21:43 These images do not require a Radiology diagnostic report.[facility] [id number] 20:19:03Internal fixation of pelvic fractures without an acute hardwarecomplication. EXAM: XR PELVIS 3+ VW HISTORY: s/p surgery COMPARISON: 07/01/2020 FINDINGS: Interval screw fixation of the sacroiliac joints is seen with anatomicalignment. Screw fixation of the left superior pubic ramus and acetabulumis seen with improved alignment of the fracture. No hardware complicationis identified. Tubal ligation clips are noted. A Muñoz catheter is inplace. A staple projects over the left lateral hip soft tissues. [facility], Radiant Results Inft User - 07/07/2020 3:20 PM CDTEXAM:XR PELVIS 3+ VWHISTORY:s/p surgery COMPARISON:07/01/2020FINDINGS: Interval screw fixation of the sacroiliac joints is seen with anatomicalignment. Screw fixation of the left superior pubic ramus and acetabulumis seen with improved alignment of the fracture. No hardware complicationis identified. Tubal ligation clips are noted. A Muñoz catheter is inplace. A staple projects over the left lateral hip soft tissues.IMPRESSIONInternal fixation of pelvic fractures without an acute hardwarecomplication.[facility]US2020-[facility] 12:10:00* Test Item Value Reference Range Interpretation Comme nts PHOSPHORUS (test code = 3774388900) 3.9 mg/dL 2.5-5 Lab Interpretation (test cod e = 54460-8) [facility] 12:10:00* Test Item Value Reference Range Interpretation Comme nts MAGNESIUM (test code = 1542705235) 1.9 mg/dL 1.7-2.4 Lab Interpretation (test cod e = 85764-0) [facility] (NA, K, CL, CO2, GLUCOSE, BUN, CREATININE, CA)2020-07-07 12:10:00* Test Item Value Reference Range Interpretation Comme nts NA (test code = 1424027852) 133 mmol/L 135-145 L K (test code = 4907563813) 4.3 mmol/L 3.5-5 CL (test code = 6075598890) 99 mmol/L 98-108 CO2 TOTAL (test code = 9054412274) 26 mmol/L 23-31 AGAP (test code = 2932488598) 2-16 BUN (test code = 6722447226) 7 mg/dL 7-23 GLUCOSE (test code = 1598235482) 64 mg/dL 70-110 L CREATININE (test code = 2432035005) 0.71 mg/dL 0.5-1.04 CALCIUM (test code = 1024091190) 9.1 mg/dL 8.6-10.6 eGFR Calculation (Non-) (test code = 3806783611) mL/min/1.73m2 eGFR Calculation () (test code = 4175625586) mL/min/1.73m2 SYED (test code = SYED) Association of Glomerular Filtration Rate (GFR) and Staging of Kidney Disease* + --+ --+ ------+| GFR (mL/min/1.73 m2) ?| With Kidney Damage ?| ?Without Kidney Damage+ --------+ --------+ +| ?>90 ?| ?Stage one ?| ? Normal ?+ ---+ ---+ -------+| ?60-89 ?| ?Stage two ?| ? Decreased GFR ? + --+ --+ ------+| ?30-59 ?| ?Stage three ?| ? Stage three ? + --+ --+ ------+| ?15-29 ?| ?Stage four ? | ? Stage four ?+ ---+ ---+ -------+| ?<15 (or dialysis) ? ?| ?Stage five ? | ? Stage five ?+ ---+ ---+ -------+ *Each stage assumes the associated GFR level has been in effect for at least three months. ?Stages 1 to 5, with or without kidney disease, indicate chronic kidney disease. Notes: Determination of stages one and two (with eGFR >59mL/min/1.73 m2) requires estimation of kidney damage for at least three months as defined by structural or functional abnormalities of the kidney, manifested by either:Pathological abnormalities or Markers of kidney damage (including abnormalities in the composition of the blood or urine or abnormalities in imaging tests). Lab Interpretation (test code = 78766-6) [facility]normal [facility] CenterCOVID[facility] (ID NOW RAPID TESTING)2020-07-06 19:44:00* Test Item Value Reference Range Interpretation Comme nts SARS-CoV-2 Rapid ID NOW (test code = 43873-1) Not Detected Not Detected SYED (test code = SYED) ID NOW COVID-19 As say is an isothermal nucleic acid amplification test intended for the qualitative detection of nucleic acid from SARS-CoV-2 viral RNA in nasopharyngeal (ACCESS COORDINATOR) specimens. It is used under Emergency Use Authorization (EUA) by FDA. The limit of detection (LOD) of the assay is 125 Genome Equivalents/mL. A positive result is indicative of the presence of SARS-CoV-2 RNA. ?Clinical correlation with patient history and other diagnostic information is necessary to determine patient infection status. A negative (Not Detected) result does not preclude SARS-CoV-2 infection. In patients with clinical symptoms and other tests that are consistent with SARS-CoV-2 infection, negative results should be treated as presumptive negative and a new specimen should be tested with alternative PCR molecular test. Invalid: Please collect a new specimen for repeat patient testing if clinically indicated. Lab Interpretation (test code = 98088-6) Normal [facility]2020-08-23 11:07:00* Test Item Value Reference Range Interpretation Comme nts PHOSPHORUS (test code = 4497817532) 3.9 mg/dL 2.5-5 Lab Interpretation (test cod e = 61849-5) Normal [facility]2020-[facility]-23 11:07:00* Test Item Value Reference Range Interpretation Comme nts MAGNESIUM (test code = 7644302725) 1.8 mg/dL 1.7-2.4 Lab Interpretation (test cod e = 27424-3) Normal [facility] (NA, K, CL, CO2, GLUCOSE, BUN, CREATININE, CA)2020-07-06 11:07:00* Test Item Value Reference Range Interpretation Comme nts NA (test code = 2303137317) 132 mmol/L 135-145 L K (test code = 9012933654) 3.8 mmol/L 3.5-5 CL (test code = 3210750171) 100 mmol/L 98-108 CO2 TOTAL (test code = 0920469383) 27 mmol/L 23-31 AGAP (test code = 5469850052) 2-16 BUN (test code = 3022162760) 10 mg/dL 7-23 GLUCOSE (test code = 6380445280) 67 mg/dL 70-110 L CREATININE (test code = 3292608737) 0.66 mg/dL 0.5-1.04 CALCIUM (test code = 0904529317) 8.3 mg/dL 8.6-10.6 L eGFR Calculation (Non-) (test code = 8575482317) mL/min/1.73m2 eGFR Calculation () (test code = 4783472031) mL/min/1.73m2 SYED (test code = SYED) Association of Glomerular Filtration Rate (GFR) and Staging of Kidney Disease* + --+ --+ ------+| GFR (mL/min/1.73 m2) ?| With Kidney Damage ?| ?Without Kidney Damage+ --------+ --------+ +| ?>90 ?| ?Stage one ?| ? Normal ?+ ---+ ---+ -------+| ?60-89 ?| ?Stage two ?| ? Decreased GFR ? + --+ --+ ------+| ?30-59 ?| ?Stage three ?| ? Stage three ? + --+ --+ ------+| ?15-29 ?| ?Stage four ? | ? Stage four ?+ ---+ ---+ -------+| ?<15 (or dialysis) ? ?| ?Stage five ? | ? Stage five ?+ ---+ ---+ -------+ *Each stage assumes the associated GFR level has been in effect for at least three months. ?Stages 1 to 5, with or without kidney disease, indicate chronic kidney disease. Notes: Determination of stages one and two (with eGFR >59mL/min/1.73 m2) requires estimation of kidney damage for at least three months as defined by structural or functional abnormalities of the kidney, manifested by either:Pathological abnormalities or Markers of kidney damage (including abnormalities in the composition of the blood or urine or abnormalities in imaging tests). Lab Interpretation (test code = 62201-5) Abnormal [facility] WITH [id number] 10:37:00* Test Item Value Reference Range Interpretation Comme nts WBC (test code = 6690-2) See_Comment H [[employer]] The system which generated this result transmitted reference range: 4.30 - 11.10 10*3/?L. The reference range was not used to interpret this result as normal/abnormal. RBC (test code = 789-8) See_Comment L [[employer]] The system which generated this result transmitted reference range: 3.93 - 5.25 10*6/?L. The reference range was not used to interpret this result as normal/abnormal. HGB (test code = 718-7) 10.0 g/dL 11.6-15 L HCT (test code = 4544-3) 30.3 % 35.7-45.2 L MCV (test code = 787-2) 100.0 fL 80.6-95.5 H MCH (test code = 785-6) 33.0 pg 25.9-32.8 H MCHC (test code = 786-4) 33.0 g/dL 31.6-35.1 RDW-SD (test code = 47849-5) 49.5 fL 39-49.9 RDW-CV (test code = 788-0) 13.9 % 12-15.5 PLT (test code = 777-3) See_Comment [Automated messa ge] The system which generated this result transmitted reference range: 166 - 358 10*3/?L. The reference range was not used to interpret this result as normal/abnormal. MPV (test code = 27803-5) 9.5 fL 9.5-12.9 NRBC/100 WBC (test code = 2295735513) See_Comment [Automated [employer] ssage] The system which generated this result transmitted reference range: 0.0 - 10.0 /100 WBCs. The reference range was not used to interpret this result as normal/abnormal. NRBC x10^3 (test code = 1694791223) <0.01 See_Comment [Automated messa ge] The system which generated this result transmitted reference range: 10*3/?L. The reference range was not used to interpret this result as normal/abnormal. GRAN MAT (NEUT) % (test code = 770-8) 63.4 % IMM GRAN % (test code = 7231311529) 0.60 % LYMPH % (test code = 736-9) 23.0 % MONO % (test code = 5905-5) 10.2 % EOS % (test code = 713-8) 2.5 % BASO % (test code = 706-2) 0.3 % GRAN MAT x10^3(ANC) (test code = 8359117347) 7.41 10*3/uL 1.88-7.09 H IMM GRAN x10^3 (test code = 6315975501) 0.07 10*3/uL 0-0.06 H LYMPH x10^3 (test code = 731-0) 2.68 10*3/uL 1.32-3.29 MONO x10^3 (test code = 742-7) 1.19 10*3/uL 0.33-0.92 H EOS x10^3 (test code = 711-2) 0.29 10*3/uL 0.03-0.39 BASO x10^3 (test code = 704-7) 0.03 10*3/uL 0.01-0.07 Lab Interpretation (test code = 27482-4) Abnormal [facility] METABOLIC PANEL (NA, K, CL, CO2, GLUCOSE, BUN, CREATININE, CA)2020-07-05 10:29:00* Test Item Value Reference Range Interpretation Comme nts NA (test code = 1620663635) 131 mmol/L 135-145 L K (test code = 1334869375) 3.9 mmol/L 3.5-5 CL (test code = 4395698302) 99 mmol/L 98-108 CO2 TOTAL (test code = 5500661313) 27 mmol/L 23-31 AGAP (test code = 5634898013) 2-16 BUN (test code = 5659076634) 9 mg/dL 7-23 GLUCOSE (test code = 0699733279) 63 mg/dL 70-110 L CREATININE (test code = 6028518104) 0.67 mg/dL 0.5-1.04 CALCIUM (test code = 8594276602) 8.4 mg/dL 8.6-10.6 L eGFR Calculation (Non-) (test code = 8923690942) mL/min/1.73m2 eGFR Calculation () (test code = 1309501646) mL/min/1.73m2 SYED (test code = SYED) Association of Glomerular Filtration Rate (GFR) and Staging of Kidney Disease* + --+ --+ ------+| GFR (mL/min/1.73 m2) ?| With Kidney Damage ?| ?Without Kidney Damage+ --------+ --------+ +| ?>90 ?| ?Stage one ?| ? Normal ?+ ---+ ---+ -------+| ?60-89 ?| ?Stage two ?| ? Decreased GFR ? + --+ --+ ------+| ?30-59 ?| ?Stage three ?| ? Stage three ? + --+ --+ ------+| ?15-29 ?| ?Stage four ? | ? Stage four ?+ ---+ ---+ -------+| ?<15 (or dialysis) ? ?| ?Stage five ? | ? Stage five ?+ ---+ ---+ -------+ *Each stage assumes the associated GFR level has been in effect for at least three months. ?Stages 1 to 5, with or without kidney disease, indicate chronic kidney disease. Notes: Determination of stages one and two (with eGFR >59mL/min/1.73 m2) requires estimation of kidney damage for at least three months as defined by structural or functional abnormalities of the kidney, manifested by either:Pathological abnormalities or Markers of kidney damage (including abnormalities in the composition of the blood or urine or abnormalities in imaging tests). Lab Interpretation (test code = 87203-6) [facility]* Test Item Value Reference Range Interpretation Comme nts PHOSPHORUS (test code = 7897644413) 3.7 mg/dL 2.5-5 Lab Interpretation (test cod e = 21375-5) [facility] 10:29:00* Test Item Value Reference Range Interpretation Comme nts MAGNESIUM (test code = 6602172627) 1.8 mg/dL 1.7-2.4 Lab Interpretation (test cod e = 82626-1) [facility] 10:29:[facility]* Test Item Value Reference Range Interpretation Comme nts LIPASE (test code = 6782396903) 146 U/L 0-220 Lab Interpretation (test cod e = 85895-5) [facility] [id number] 10:00:00* Test Item Value Reference Range Interpretation Comme nts WBC (test code = 6690-2) See_Comment H [Automated messa ge] The system which generated this result transmitted reference range: 4.30 - 11.10 10*3/?L. The reference range was not used to interpret this result as normal/abnormal. RBC (test code = 789-8) See_Comment L [Automated messa ge] The system which generated this result transmitted reference range: 3.93 - 5.25 10*6/?L. The reference range was not used to interpret this result as normal/abnormal. HGB (test code = 718-7) 10.3 g/dL 11.6-15 L HCT (test code = 4544-3) 31.1 % 35.7-45.2 L MCV (test code = 787-2) 101.3 fL 80.6-95.5 H MCH (test code = 785-6) 33.6 pg 25.9-32.8 H MCHC (test code = 786-4) 33.1 g/dL 31.6-35.1 RDW-SD (test code = 99537-6) 49.5 fL 39-49.9 RDW-CV (test code = 788-0) 13.5 % 12-15.5 PLT (test code = 777-3) See_Comment L [Automated messa ge] The system which generated this result transmitted reference range: 166 - 358 10*3/?L. The reference range was not used to interpret this result as normal/abnormal. MPV (test code = 01298-5) 9.1 fL 9.5-12.9 L NRBC/100 WBC (test code = 5507575833) See_Comment [Automated [employer] ssage] The system which generated this result transmitted reference range: 0.0 - 10.0 /100 WBCs. The reference range was not used to interpret this result as normal/abnormal. NRBC x10^3 (test code = 1078525844) <0.01 See_Comment [Automated messa ge] The system which generated this result transmitted reference range: 10*3/?L. The reference range was not used to interpret this result as normal/abnormal. GRAN MAT (NEUT) % (test code = 770-8) 62.6 % IMM GRAN % (test code = 9233011285) 0.40 % LYMPH % (test code = 736-9) 24.8 % MONO % (test code = 5905-5) 9.6 % EOS % (test code = 713-8) 2.3 % BASO % (test code = 706-2) 0.3 % GRAN MAT x10^3(ANC) (test code = 3525265924) 7.00 10*3/uL 1.88-7.09 IMM GRAN x10^3 (test code = 8507104653) 0.05 10*3/uL 0-0.06 LYMPH x10^3 (test code = 731-0) 2.77 10*3/uL 1.32-3.29 MONO x10^3 (test code = 742-7) 1.07 10*3/uL 0.33-0.92 H EOS x10^3 (test code = 711-2) 0.26 10*3/uL 0.03-0.39 BASO x10^3 (test code = 704-7) 0.03 10*3/uL 0.01-0.07 Lab Interpretation (test code = 92141-3) [facility] WO [id number] 14:09:24Distal pancreatic body/proximal pancreatic tail laceration, lessconspicuous than prior examination.Involvement of the pancreatic ductcannot definitely be identified. Further evaluation with MRCP isrecommended to evaluate for pancreatic ductal injury. Left-sided pelvic fractures with enlarging space of Retzius and perivesicalhematoma. No findings to suggest bladder injury. If there is clinicalconcern, consider further evaluation with CT urogram. Preliminary Report Dictated by Resident: Tanya Santacruz MD., have reviewed this study and [facility].EXAM: CT ABDOMEN PELVIS W WO CONTRAST HISTORY: Traumatic laceration of the pancreas, concern for pancreaticinjury with duct involvement. COMPARISON: CT abdomen and pelvis CT thorax dated 06/30/2020. DOSE: DLP-639.81 mGy-cm TECHNIQUE AND FINDINGS: Contiguous axial imaging from the level of the lungbases through the pubic symphysis was performed before and after theuncomplicated administration of 120 mL of intravenous Omnipaque contrastmaterial. ?Coronal and sagittal reconstructions were obtained. Auto mA and/or iterative reconstruction were used to reduce radiationdose. FINDINGS: LOWER THORAX: Trace left pleural effusion Cardiomegaly with right atrialdilatation and concentric left ventricu lar hypertrophy. Pacemaker leadsterminate in the right atrium and right ventricle. Post atrial valverepair. LIVER: No focal hepatic lesions. ?Normal contour. GALLBLADDER AND BILIARY TREE: The CBD is dilated measuring up to 1 cm, maybe related to reservoir phenomenon from prior cholecystectomy. SPLEEN: No splenomegaly. PANCREAS: The distal body/proximal tail pancreatic lacerations isill-defined and and currently less conspicuous than prior examination. Nosignificant change adjacent hyperattenuating fluid within the anteriorpararenal space and lesser sac as well as adjacent to the gastrohepaticl igament. The pancreatic duct is visible in the body and neck however isnot well identified at the tail. Therefore, involvement of the pancreaticduct cannot definitely be identified. ADRENAL GLANDS: No adrenal nodules. KIDNEYS: Normal enhancement of the kidneys. No findings to suggest a renalinjury.No hydronephrosis, stones, or masses. PERITONEUM AND RETROPERITONEUM: No free air. Hemoperitoneum. LYMPH NODES: No lymphadenopathy. GI TRACT: No dilation or wall thickening. No findings to suggest bowelinjury. Normal appendix. PELVIS/BLADDER: Mild diffuse bladder wall thickening, likely reactive related tosurrounding hematoma. Perivesical hematoma is redemonstrated without interval in the space ofRetzius hematoma. Changes of bilateral tubal ligation VESSELS: No aortic injury. BONES AND SOFT TISSUES: No suspicious lytic or sclerotic bony lesions.Left-sided Anterior abdominal wall contusions areredemonstrated.Left- sided pelvic fractures involving the left sacral alar, pubic rami andparasymphys eal bone are redemonstrated. Nondisplaced right 11th ribposterior fracture. Displaced L2 left transverse process fracture. [facility], Radiant Results Inft User - 07/04/2020 9:10 AM CDTEXAM: CT ABDOMEN PELVIS W WO CONTRASTHISTORY: Traumatic laceration of the pancreas, concern for pancreaticinjury with duct involvement.COMPARISON: CT abdomen and pelvis CT thorax dated 06/30/2020.DOSE: DLP-639.81 mGy-cmTECHNIQUE AND FINDINGS: Contiguous axial imaging from the level of the lungbases through the pubic symphysis was performed before and after theuncomplicated administration of 120 mL of intravenous Omnipaque contrastmaterial. Coronal and sagittal reconstructions were obtained. Auto mA and/or iterative reconstruction were used to reduce radiationdose.FINDINGS:LOWER THORAX: Trace left pleural effusion Cardiomegaly with right atrialdilatation and concentric left ventricular hypertrophy. Pacemaker leadsterminate in the right atrium and right ventricle. Post atrial valverepair.LIVER: No focal hepatic l esions. Normal contour.GALLBLADDER AND BILIARY TREE: The CBD is dilated measuring up to 1 cm, mayberelated to reservoir phenomenon from prior cholecystectomy.SPLEEN: No splenomegaly.PANCREAS: The distal body/proximal tail pancreatic lacerations isill-defined and and currently less conspicuous than prior examination. Nosignificant change adjacent hyperattenuating fluid within the anteriorpararenal space and lesser sac as well as adjacent to the gastrohepaticligament. The pancreatic duct is visible in the body and neck however isnot well identified at the tail. Therefore, involvement of the gross creaticduct cannot definitely be identified. ADRENAL GLANDS: No adrenal nodules.KIDNEYS: Normal enhancement of the kidneys. No findings to suggest a renalinjury.No hydronephrosis, stones, or masses.PERITONEUM AND RETROPERITONEUM: No free air. Hemoperitoneum. LYMPH NODES: No lymphadenopathy.GI TRACT: No dilation or wall thickening. No findings to suggest bowelinjury. Normal appendix.PELVIS/BLADDER: Mild diffuse bladder wall thickening, likely reactive related tosurrounding hematoma.Perivesical hematoma is redemonstrated without interval in the space ofRetzius hematoma.Changes of bilateral tubal ligationVESSELS: No aortic injury.BONES AND SOFT TISSUES: No suspicious lytic or sclerotic bony lesions.Left-sided Anterior abdominal wall contusions are redemonstrated.Left-sided pelvic fractures involving the left sacral alar, pubic rami andparasymphyseal bone are redemonstrated. Nondisplaced right 11th ribposterior fracture. Displaced L2 left transverse process fracture.IMPRESSIONDistal pancreatic body/proximal pancreatic tail laceration, lessconspicuous than prior examination. Involvement of the pancreatic ductcannot definitely be identified. Further evaluation with MRCP isrecommended toevaluate for pancreatic ductal injury.Left-sided pelvic fractures with enlarging space of Retzius and perivesicalhematoma. No findings to suggest bladder injury. If there is clinicalconcern, considerfurther evaluation with CT urogram.Preliminary Report Dictated by Resident: Christiane Etienne, Tanya Pedro MD., have reviewed this study and agree with theabove report.[facility] (NA, K, CL, CO2, GLUCOSE, BUN, CREATININE, CA)2020-07-04 09:31:00* Test Item Value Reference Range Interpretation Comme nts NA (test code = 2673548466) 133 mmol/L 135-145 L K (test code = 2806016658) 3.2 mmol/L 3.5-5 L CL (test code = 0690301832) 105 mmol/L 98-108 CO2 TOTAL (test code = 2647389702) 23 mmol/L 23-31 AGAP (test code = 1643825097) 2-16 BUN (test code = 4444590392) 10 mg/dL 7-23 GLUCOSE (test code = 6732558008) 59 mg/dL 70-110 L CREATININE (test code = 4845439521) 0.67 mg/dL 0.5-1.04 CALCIUM (test code = 0469220696) 7.5 mg/dL 8.6-10.6 L eGFR Calculation (Non-) (test code = 6426748372) mL/min/1.73m2 eGFR Calculation () (test code = 6715849629) mL/min/1.73m2 SYED (test code = SYED) Association of Glomerular Filtration Rate (GFR) and Staging of Kidney Disease* + --+ --+ ------+| GFR (mL/min/1.73 m2) ?| With Kidney Damage ?| ?Without Kidney Damage+ --------+ --------+ +| ?>90 ?| ?Stage one ?| ? Normal ?+ ---+ ---+ -------+| ?60-89 ?| ?Stage two ?| ? Decreased GFR ? + --+ --+ ------+| ?30-59 ?| ?Stage three ?| ? Stage three ? + --+ --+ ------+| ?15-29 ?| ?Stage four ? | ? Stage four ?+ ---+ ---+ -------+| ?<15 (or dialysis) ? ?| ?Stage five ? | ? Stage five ?+ ---+ ---+ -------+ *Each stage assumes the associated GFR level has been in effect for at least three months. ?Stages 1 to 5, with or without kidney disease, indicate chronic kidney disease. Notes: Determination of stages one and two (with eGFR >59mL/min/1.73 m2) requires estimation of kidney damage for at least three months as defined by structural or functional abnormalities of the kidney, manifested by either:Pathological abnormalities or Markers of kidney damage (including abnormalities in the composition of the blood or urine or abnormalities in imaging tests). Lab Interpretation (test code = 28497-8) [facility]2020-[facility] 09:31:00* Test Item Value Reference Range Interpretation Comme nts PHOSPHORUS (test code = 6085709071) 3.4 mg/dL 2.5-5 Lab Interpretation (test cod e = 11146-5) [facility]2020-08[facility]21 09:31:00* Test Item Value Reference Range Interpretation Comme nts MAGNESIUM (test code = 3529274078) 1.5 mg/dL 1.7-2.4 L Lab Interpretation (test cod e = 82032-0) [facility]normal [facility] 09:31:00* Test Item Value Reference Range Interpretation Comme nts LIPASE (test code = 1062564367) 109 U/L 0-220 Lab Interpretation (test cod e = 60983-9) Normal [facility] WITH [id number] 09:14:00* Test Item Value Reference Range Interpretation Comme nts WBC (test code = 6690-2) See_Comment [Automated messa ge] The system which generated this result transmitted reference range: 4.30 - 11.10 10*3/?L. The reference range was not used to interpret this result as normal/abnormal. RBC (test code = 789-8) See_Comment L [Automated messa ge] The system which generated this result transmitted reference range: 3.93 - 5.25 10*6/?L. The reference range was not used to interpret this result as normal/abnormal. HGB (test code = 718-7) 10.2 g/dL 11.6-15 L HCT (test code = 4544-3) 31.4 % 35.7-45.2 L MCV (test code = 787-2) 101.3 fL 80.6-95.5 H MCH (test code = 785-6) 32.9 pg 25.9-32.8 H MCHC (test code = 786-4) 32.5 g/dL 31.6-35.1 RDW-SD (test code = 23705-8) 50.3 fL 39-49.9 H RDW-CV (test code = 788-0) 13.7 % 12-15.5 PLT (test code = 777-3) See_Comment L [Automated messa ge] The system which generated this result transmitted reference range: 166 - 358 10*3/?L. The reference range was not used to interpret this result as normal/abnormal. MPV (test code = 75343-6) 9.3 fL 9.5-12.9 L NRBC/100 WBC (test code = 4048084427) See_Comment [[employer]ated [employer]] The system which generated this result transmitted reference range: 0.0 - 10.0 /100 WBCs. The reference range was not used to interpret this result as normal/abnormal. NRBC x10^3 (test code = 8328847350) <0.01 See_Comment [Automated messa ge] The system which generated this result transmitted reference range: 10*3/?L. The reference range was not used to interpret this result as normal/abnormal. GRAN MAT (NEUT) % (test code = 770-8) 56.4 % IMM GRAN % (test code = 2363095638) 0.50 % LYMPH % (test code = 736-9) 30.2 % MONO % (test code = 5905-5) 8.6 % EOS % (test code = 713-8) 3.9 % BASO % (test code = 706-2) 0.4 % GRAN MAT x10^3(ANC) (test code = 5827138296) 4.65 10*3/uL 1.88-7.09 IMM GRAN x10^3 (test code = 0925576796) 0.04 10*3/uL 0-0.06 LYMPH x10^3 (test code = 731-0) 2.49 10*3/uL 1.32-3.29 MONO x10^3 (test code = 742-7) 0.71 10*3/uL 0.33-0.92 EOS x10^3 (test code = 711-2) 0.32 10*3/uL 0.03-0.39 BASO x10^3 (test code = 704-7) 0.03 10*3/uL 0.01-0.07 Lab Interpretation (test code = 79488-0) Abnormal [facility] CenterANTIGEN TYPING [id number] 11:30:47* Test Item Value Reference Range Interpretation Comme nts ANTIGEN ID (test code = 1688) Fya Antigen Negative Performed at [facility] Laboratory Services - [place] [address]Toll Free: [phone] No. [id number] [facility] [id number] 11:27:31* Test Item Value Reference Range Interpretation Comme nts ANTIBODY ID (test code = 245) Negative Eluate negative with all cells testedPerformed at [facility] - [place] [address]Toll Free: [phone] No. [id number] [facility] [id number] 11:27:30* Test Item Value Reference Range Interpretation Comme nts ANTIBODY ID (test code = 245) Negative Eluate negative with all cells testedPerformed at [facility] - [place] [address]Toll Free: [phone] No. [id number] [facility] MONOSPECIFIC C3 [id number] 11:24:22 * Test Item Value Reference Range Interpretation Comme nts SLIM C3 (test code = 1421) Negative Performed at [facility] Laboratory [facility] - [place] [address]Toll Free: [phone] No. [id number] [facility] POLYSPECIFIC [id number] 11:23:39* Test Item Value Reference Range Interpretation Comme nts SLIM POLY (test code = 1610) Positive 2+ Performed at [facility] Laboratory Services - [place] [address]Toll Free: [phone] No. [id number] [facility] MONOSPECIFIC IGG [id number] 11:23:39 * Test Item Value Reference Range Interpretation Comme nts SLIM IGG (test code = 1422) Positive 2+ Performed at [facility] Laboratory Services - [place] [address]Toll Free: [phone] No. [id number] [facility] CenterPANEL [id number] 11:22:46* Test Item Value Reference Range Interpretation Comme nts ANTIBODY ID (test code = 245) Anti-Fya Performed at [facility] Laboratory Services - [facility] Blood [address] Free: [phone] No. [id number] [facility] CenterLIPASE2020-08-[facility] 11:10:00* Test Item Value Reference Range Interpretation Comme nts LIPASE (test code = 3409623265) 71 U/L 0-220 Lab Interpretation (test cod e = 59901-5) Normal [facility] CenterType and Screen - ONCE [id number] 09:59:40* Test Item Value Reference Range Interpretation Comme nts ABO & RH (test code = 20) A POSITIVE Performed at [facility] Laboratory Services - [address] Free: [phone] No. [id number] IAT (test code = 1185) Positive Performed at [facility] Laboratory Services - [address] Free: [phone] No. [id number] [facility] CenterCBC WITH [id number] 09:10:00* Test Item Value Reference Range Interpretation Comme nts WBC (test code = 6690-2) See_Comment [Automated messa ge] The system which generated this result transmitted reference range: 4.30 - 11.10 10*3/?L. The reference range was not used to interpret this result as normal/abnormal. RBC (test code = 789-8) See_Comment L [Automated messa ge] The system which generated this result transmitted reference range: 3.93 - 5.25 10*6/?L. The reference range was not used to interpret this result as normal/abnormal. HGB (test code = 718-7) 10.8 g/dL 11.6-15 L HCT (test code = 4544-3) 33.7 % 35.7-45.2 L MCV (test code = 787-2) 101.5 fL 80.6-95.5 H MCH (test code = 785-6) 32.5 pg 25.9-32.8 MCHC (test code = 786-4) 32.0 g/dL 31.6-35.1 RDW-SD (test code = 97847-4) 51.6 fL 39-49.9 H RDW-CV (test code = 788-0) 13.7 % 12-15.5 PLT (test code = 777-3) See_Comment L [Automated messa ge] The system which generated this result transmitted reference range: 166 - 358 10*3/?L. The reference range was not used to interpret this result as normal/abnormal. MPV (test code = 29554-1) 9.3 fL 9.5-12.9 L NRBC/100 WBC (test code = 9604721859) See_Comment [Automated me ssage] The system which generated this result transmitted reference range: 0.0 - 10.0 /100 WBCs. The reference range was not used to interpret this result as normal/abnormal. NRBC x10^3 (test code = 2824149743) <0.01 See_Comment [Automated messa ge] The system which generated this result transmitted reference range: 10*3/?L. The reference range was not used to interpret this result as normal/abnormal. GRAN MAT (NEUT) % (test code = 770-8) 54.0 % IMM GRAN % (test code = 7449585158) 0.40 % LYMPH % (test code = 736-9) 34.9 % MONO % (test code = 5905-5) 7.4 % EOS % (test code = 713-8) 2.9 % BASO % (test code = 706-2) 0.4 % GRAN MAT x10^3(ANC) (test code = 2834817657) 5.43 10*3/uL 1.88-7.09 IMM GRAN x10^3 (test code = 2134269833) 0.04 10*3/uL 0-0.06 LYMPH x10^3 (test code = 731-0) 3.50 10*3/uL 1.32-3.29 H MONO x10^3 (test code = 742-7) 0.74 10*3/uL 0.33-0.92 EOS x10^3 (test code = 711-2) 0.29 10*3/uL 0.03-0.39 BASO x10^3 (test code = 704-7) 0.04 10*3/uL 0.01-0.07 Lab Interpretation (test code = 30232-7) Abnormal [facility] METABOLIC PANEL (NA, K, CL, CO2, GLUCOSE, BUN, CREATININE, CA)2020-07-03 09:09:00* Test Item Value Reference Range Interpretation Comme nts NA (test code = 3313097639) 133 mmol/L 135-145 L K (test code = 9441430813) 4.5 mmol/L 3.5-5 CL (test code = 2732435019) 103 mmol/L 98-108 CO2 TOTAL (test code = 7247369160) 27 mmol/L 23-31 AGAP (test code = 3978593880) 2-16 BUN (test code = 5522323294) 15 mg/dL 7-23 GLUCOSE (test code = 8762090505) 73 mg/dL 70-110 CREATININE (test code = 2428070150) 0.77 mg/dL 0.5-1.04 CALCIUM (test code = 9663254234) 8.5 mg/dL 8.6-10.6 L eGFR Calculation (Non-) (test code = 4373071866) mL/min/1.73m2 eGFR Calculation () (test code = 8800395850) mL/min/1.73m2 SYED (test code = SYED) Association of Glomerular Filtration Rate (GFR) and Staging of Kidney Disease* + --+ --+ ------+| GFR (mL/min/1.73 m2) ?| With Kidney Damage ?| ?Without Kidney Damage+ --------+ --------+ +| ?>90 ?| ?Stage one ?| ? Normal ?+ ---+ ---+ -------+| ?60-89 ?| ?Stage two ?| ? Decreased GFR ? + --+ --+ ------+| ?30-59 ?| ?Stage three ?| ? Stage three ? + --+ --+ ------+| ?15-29 ?| ?Stage four ? | ? Stage four ?+ ---+ ---+ -------+| ?<15 (or dialysis) ? ?| ?Stage five ? | ? Stage five ?+ ---+ ---+ -------+ *Each stage assumes the associated GFR level has been in effect for at least three months. ?Stages 1 to 5, with or without kidney disease, indicate chronic kidney disease. Notes: Determination of stages one and two (with eGFR >59mL/min/1.73 m2) requires estimation of kidney damage for at least three months as defined by structural or functional abnormalities of the kidney, manifested by either:Pathological abnormalities or Markers of kidney damage (including abnormalities in the composition of the blood or urine or abnormalities in imaging tests). Lab Interpretation (test code = 59305-5) [facility]normal [facility] [id number] 08:21:20* Test Item Value Reference Range Interpretation Comme nts ABO & RH (test code = 20) A Positive Performed at [facility] Laboratory Services - [facility] Blood [address] [address]Ayxq Free: [phone] No. [id number] [facility] TEST, [id number] 07:34:00* Test Item Value Reference Range Interpretation Comme nts PREG URINE (test code = 2077110990) Negative SYED (test code = SYED) Less than 20 IU/L. ?If low titer or ectopic is suspected, resubmit specimen in 48-72 hours. [facility] CenterCT [facility] WO [id number] 16:48:07 Bimalleolar fractures with questionable involvement of the posteriormalleolus with borderline widening of the medial clear space. 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 Preliminary Report Dictated by Resident: Barbara Rae MD., have reviewed this study and agree with the abovereport.CT ANKLE LEFT WO CONTRAST HISTORY: 35 years-old; Female; Fracture, ankle COMPARISON: Ankle radiograph 07/01/2020. TECHNIQUE: CT imaging of the left ankle is obtained in 1.25 mm intervalswithout IV contrast. Sagittal and coronal reconstructions are generated andreviewed. BONE: A nondisplaced comminuted fracture of the medial malleolus is seen. About 3mm depression of the medial tibial plafondis noted. A punctate osseousfragment is seen in the medial clear space, which is borderline widenedupto 5 mm. A lateral malleolar fracture is also noted with minimal lateraldisplacement. A punctate fracture fragment is seen just posterior to thelateral talar dome. A band of sclerosis is seen at the posterior malleolus. A well-corticated fracture fragment is seen at the lateral aspect of thetalus, likely a remote avulsion fragment. An approximately 2.5 cm lucency with ill-defined borders is present in thecalcaneus, demonstrating fat attenuation. Posterior and plantar calcanealenthesophytes are seen. The subtalar and midfoot joint spaces and alignment are normal. SOFT TISSUES: Prominent soft tissue edema is present about the ankle. Mild subcutaneoussoft tissue edema is noted in the distal lower leg. No large fluid collection is noted. No tendon entrapment is detected. No intramuscular hypodensity is seen. [facility], Radiant Results Inft User - 07/02/2020 11:49 AM CDTCT ANKLE LEFT WO CONTRASTHISTORY: 35 years-old; Female; Fracture, ankle COMPARISON: Ankle radiograph 07/01/2020.TECHNIQUE: CTimaging of the left ankle is obtained in 1.25 mm intervalswithout IV contrast. Sagittal and coronalreconstructions are generated andreviewed.BONE:A nondisplaced comminuted fracture of the medial malleolus is seen. About 3mm depression of the medial tibial plafond is noted. A punctate osseousfragment is seen in the medial clear space, which is borderline widened upto 5 mm. A lateral malleolar fracture is also noted with minimal lateraldisplacement. A punctate fracture fragment is seen just posterior to thelateral talar dome. A band of sclerosis is seen at the posterior malleolus.A well-corticated fracture fragment is seen at the lateral aspect of thetalus, likely a remote avulsion fragment.An approximately 2.5 cm lucency with ill- defined borders is present in thecalcaneus, demonstrating fat attenuation. Posterior and plantar calcanealenthesophytes are seen.The subtalar and midfoot joint spaces and alignment are normal.SOFT TISSUES:Prominent soft tissue edema is present about the ankle. Mild subcutaneoussoft tissue edema is noted in the distal lower leg. No large fluid collection isnoted.No tendon entrapment is detected. No intramuscular hypodensity is seen. IMPRESSIONBimalleolarfractures with questionable involvement of the posteriormalleolus with borderline widening of the medial clear space. 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 Space of Retzius hematoma, stable in size to slightly enlarged compared toprior. Unchanged pelvic free fluid in the right paracolic gutter. Preliminary Report Dictated by Resident: Barbara Velázquez MD., have reviewed this study and agree with the abovereport.CT PELVIS WO CONTRAST HISTORY: 35 years- old; Female; Pelvic fx, known or suspected Please [email or web address] recons COMPARISON: Pelvic radiographs 07/01/2020. TECHNIQUE: CT imaging of the pelvis is obtained in 2.5 mm intervals withoutIV contrast. Sagittal, coronal, and 3-D reconstructions are generated andreviewed. BONE: Multilevel comminuted left sacral alar fracture is noted, verticallyoriented. The fracture extends into the left S1 neural foramen. Mildlydisplaced left superior and inferior pubic rami fractures are seen,extending into the parasymphyseal region. No additional pelvic fracture isidentified. SOFT TISSUES: A hyperdense fluid collection is stable in size to slightly enlarged in thespace of Retzius. A smallamount of pelvic free fluid is similar to priorin the right paracolic gutter. Asymmetric edema is noted in the left obturator and piriformis musclebellies with scattered hypodensities, likely posttraumatic. Nonspecific scattered subcutaneous fat stranding is noted within thebilateral buttock areas.A punctate hyperdensity is noted in the umbilicus, likely a foreign body. [facility], Radiant Results Inft User - 07/02/2020 11:35 AM CDTCT PELVIS WO CONTRASTHISTORY: 35 years-old; Female; Pelvic fx, knownor suspected Please [id number] reconsCOMPARISON: Pelvic radiographs 07/01/2020.TECHNIQUE: CT imaging of the pelvis is obtained in 2.5 mm intervals withoutIV contrast. Sagittal, coronal, and 3-D reconstructions are generated andreviewed.BONE:Multilevel comminuted left sacral alar fracture is noted, vert icallyoriented. The fracture extends into the left S1 neural foramen. Mildlydisplaced left superiorand inferior pubic rami fractures are seen,extending into the parasymphyseal region. No additional pelvic fracture isidentified.SOFT TISSUES:A hyperdense fluid collection is stable in size to slightly enlarged in thespace of Retzius. A small amount of pelvic free fluid is similar to priorin the right paracolic gutter.Asymmetric edema is noted in the left obturator and piriformis musclebellies with scattered hypodensities, likely posttraumatic.Nonspecific scattered subcutaneous fat stranding is noted within thebilateral buttock areas.A punctate hyperdensity is noted in the umbilicus, likely a foreign body. IMPRESSIONComminuted left sacral ala, superior and inferior pubic rami fractures,unchanged compared to the prior.Space of Retzius hematoma, stable in size to slightly enlarged compared toprior. Unchanged pelvic free fluid in the right paracolic gutter.Preliminary Report Dictated by Resi dent: Barbara Velázquez MD., have reviewed this study and agree with the abovereport.[facility] CenterLIPASE2020-08-[facility] 14:24:00 * Test Item Value Reference Range Interpretation Comme nts LIPASE (test code = 0350313989) 64 U/L 0-220 Lab Interpretation (test cod e = 17820-9) Normal [facility] CenterXR PELVIS 3+ [id number] 13:08:08Left lateral compression pelvic ring fracture with intra-articularextension into the symphysis pubis. Preliminary Report Dictated by Resident: Barbara Gutierrez MD., have reviewed this study and agree with the abovereport.XR PELVIS 3+ VW HISTORY: 35 years-old Female unstable pelvic ring injury Inlet/outlet APfilms COMPARISON: Pelvic radiograph 07/01/2020 FINDINGS: Radiographs ofthe pelvis demonstrate fractures of the left hemisacrum andleft superior pubic ramus with intra-articular extension into the pubicsymphysis. No dislocation is identified. Bilateral SI joints are intact. Nosoft tissue abnormality is seen. Essure coils are noted. [facility], Radiant Results Inft User - 07/02/2020 8:09 AM CDTXR PELVIS 3+ VWHISTORY: 35 years-old Female unstable pelvic ring injury Inlet/outlet APfilmsCOMPARISON: Pelvic radiograph 07/01/2020FINDINGS:Radiographs of the pelvis demonstrate fractures of the left hemisacrum andleft superior pubic ramus with intra-articular extension into the pubicsymphysis. No dislocation is identified. Bilateral SI joints are intact. Nosoft tissue abnormality is seen. Essure coils are noted.IMPRESSIONLeft lateral compression pelvic ring fracture with intra-articularextension into the symphysis pubis.Preliminary Report Dictated by Resident: Barbara Piper MD., have reviewed this study and agree with the abovereport. [facility] (NA, K, CL, CO2, GLUCOSE, BUN, CREATININE, CA)2020-07-02 11:53:00* Test Item Value Reference Range Interpretation Comme nts NA (test code = 3988607767) 132 mmol/L 135-145 L K (test code = 3021306839) 3.9 mmol/L 3.5-5 CL (test code = 1939988488) 104 mmol/L 98-108 CO2 TOTAL (test code = 3536397675) 23 mmol/L 23-31 AGAP (test code = 2433439625) 2-16 BUN (test code = 8504834020) 12 mg/dL 7-23 GLUCOSE (test code = 9971247124) 87 mg/dL 70-110 CREATININE (test code = 4284376198) 0.72 mg/dL 0.5-1.04 CALCIUM (test code = 6259308328) 8.7 mg/dL 8.6-10.6 eGFR Calculation (Non-) (test code = 9866796810) mL/min/1.73m2 eGFR Calculation () (test code = 3586529123) mL/min/1.73m2 SYED (test code = SYED) Association of Glomerular Filtration Rate (GFR) and Staging of Kidney Disease* + --+ --+ ------+| GFR (mL/min/1.73 m2) ?| With Kidney Damage ?| ?Without Kidney Damage+ --------+ --------+ +| ?>90 ?| ?Stage one ?| ? Normal ?+ ---+ ---+ -------+| ?60-89 ?| ?Stage two ?| ? Decreased GFR ? + --+ --+ ------+| ?30-59 ?| ?Stage three ?| ? Stage three ? + --+ --+ ------+| ?15-29 ?| ?Stage four ? | ? Stage four ?+ ---+ ---+ -------+| ?<15 (or dialysis) ? ?| ?Stage five ? | ? Stage five ?+ ---+ ---+ -------+ *Each stage assumes the associated GFR level has been in effect for at least three months. ?Stages 1 to 5, with or without kidney disease, indicate chronic kidney disease. Notes: Determination of stages one and two (with eGFR >59mL/min/1.73 m2) requires estimation of kidney damage for at least three months as defined by structural or functional abnormalities of the kidney, manifested by either:Pathological abnormalities or Markers of kidney damage (including abnormalities in the composition of the blood or urine or abnormalities in imaging tests). Lab Interpretation (test code = 29509-4) Abnormal [facility] WITH [id number] 11:49:00* Test Item Value Reference Range Interpretation Comme nts WBC (test code = 6690-2) See_Comment [[employer]] The system which generated this result transmitted reference range: 4.30 - 11.10 10*3/?L. The reference range was not used to interpret this result as normal/abnormal. RBC (test code = 789-8) See_Comment L [[employer]] The system which generated this result transmitted reference range: 3.93 - 5.25 10*6/?L. The reference range was not used to interpret this result as normal/abnormal. HGB (test code = 718-7) 11.7 g/dL 11.6-15 HCT (test code = 4544-3) 35.5 % 35.7-45.2 L MCV (test code = 787-2) 99.4 fL 80.6-95.5 H MCH (test code = 785-6) 32.8 pg 25.9-32.8 MCHC (test code = 786-4) 33.0 g/dL 31.6-35.1 RDW-SD (test code = 99231-1) 51.8 fL 39-49.9 H RDW-CV (test code = 788-0) 14.0 % 12-15.5 PLT (test code = 777-3) See_Comment L [Automated [employer]] The system which generated this result transmitted reference range: 166 - 358 10*3/?L. The reference range was not used to interpret this result as normal/abnormal. MPV (test code = 22753-7) 9.6 fL 9.5-12.9 IPF % (test code = 1461525393) 2.4 % 1.3-7.7 Platelet count measured by fluorescence method. NRBC/100 WBC (test code = 0742693662) See_Comment [Automated [employer] ssage] The system which generated this result transmitted reference range: 0.0 - 10.0 /100 WBCs. The reference range was not used to interpret this result as normal/abnormal. NRBC x10^3 (test code = 3603260549) <0.01 See_Comment [Automated [employer]] The system which generated this result transmitted reference range: 10*3/?L. The reference range was not used to interpret this result as normal/abnormal. GRAN MAT (NEUT) % (test code = 770-8) 60.1 % IMM GRAN % (test code = 3110252271) 0.40 % LYMPH % (test code = 736-9) 29.4 % MONO % (test code = 5905-5) 7.1 % EOS % (test code = 713-8) 2.6 % BASO % (test code = 706-2) 0.4 % GRAN MAT x10^3(ANC) (test code = 9117468059) 5.62 10*3/uL 1.88-7.09 IMM GRAN x10^3 (test code = 3722028291) 0.04 10*3/uL 0-0.06 LYMPH x10^3 (test code = 731-0) 2.75 10*3/uL 1.32-3.29 MONO x10^3 (test code = 742-7) 0.66 10*3/uL 0.33-0.92 EOS x10^3 (test code = 711-2) 0.24 10*3/uL 0.03-0.39 BASO x10^3 (test code = 704-7) 0.04 10*3/uL 0.01-0.07 Lab Interpretation (test code = 80993-6) Abnormal [facility]CT L[facility]BAR SPINE WO [id number] 04:51:23 There is lumbarization of S1.Mild anterior L1 vertebral body compression deformity. Left L2 transverse process fracture.Comminuted fractures of the left anterior sacrum. CT LUMBAR SPINE WO CONTRAST HISTORY: trauma TECHNIQUE: ?Contiguous thin section axial images were obtained of thelumbar spine. ?Sa gittal and coronal reformatted images were generated.Images were reviewed in bone detail. COMPARISON: None. [facility], Radiant Results Inft User - 07/01/2020 11:52 PM CDTCT LUMBAR SPINE WO CONTRASTHISTORY: trauma TECHNIQUE: Contiguous thin section axial images were obtained of thelumbar spine. Sagittal and coronal reformatted images were generated.Images were reviewed in bone detail. COMPARISON: None.IMPRESSIONThere is lumbarization of S1.Mild anterior L1 vertebral body compression deformity. Left L2 transverse process fracture.Comminuted fractures of the left anterior sacrum.[facility] THORACIC SPINE WO [id number] 01:35:23No acute fracture or traumatic malalignment of the thoracic spine. CT THORACIC SPINE WO CONTRAST HISTORY: trauma TECHNIQUE: ? Contiguous thin section axial images were obtained of the thoracic spine.Sagittal and coronal reformatted images were generated. Images werereviewed in bone detail. ? COMPARISON: None. FINDINGS: Anatomic alignment of the thoracic spine. ?T4 and T5 vertebral body superior endplate Schmorl's nodes. ?No acute fracture or traumatic malalignment of the thoracic spine isidentified.Fracture of the left L2 transverse process.Right T11 rib fracture with callus formation. [facility],Radiant Results Inft User - 07/01/2020 8:36 PM CDTCT THORACIC SPINE WO CONTRASTHISTORY: trauma TECHNIQUE: Contiguous thin section axial images were obtained of the thoracic spine. Sagittal and coronal reformatted images were generated. Images werereviewed in bone detail. COMPARISON: None.FINDINGS: Anatomic alignment of the thoracic spine. T4 and T5 vertebral body superior endplate Schmorl's nodes. No acute fracture or traumatic malalignment of the thoracic spine isidentified.Fracture of the left L2 transverse process.Right T11 rib fracture with callus formation.IMPRESSIONNo acute fracture or traumatic malalignment of the thoracic spine.[facility] CenterLIPASE2020-[facility] 23:16:00* Test Item Value Reference Range Interpretation Comme nts LIPASE (test code = 3453552514) 103 U/L 0-220 Lab Interpretation (test cod e = 09732-5) Normal [facility] CenterHEPATIC FUNCTION PANEL (05182) (ALB,T.PRO,BILI T,BU/BC,ALT,AST,ALK PHOS)2020-07-01 23:16:00* Test Item Value Reference Range Interpretation Comme nts TOTAL BILI (test code = 1699367244) 2.0 mg/dL 0.1-1.1 H BILI UNCON (test code = 2566262973) 1.4 mg/dL 0.1-1.1 H BILI CONJ (test code = 0216473966) 0.0 mg/dL 0-0.3 T PROTEIN (test code = 1535234309) 7.7 g/dL 6.3-8.2 ALBUMIN (test code = 5521393469) 3.5 g/dL 3.5-5 ALK PHOS (test code = 8652936712) 175 U/L 34-122 H ALTv (test code = 1742-6) 152 U/L 5-35 H AST(SGOT) (test code = 6963766575) 197 U/L 13-40 H Lab Interpretation (test cod e = 55651-4) Abnormal [facility] CenterCBC WITH [id number] 20:54:00* Test Item Value Reference Range Interpretation Comme nts WBC (test code = 6690-2) See_Comment [Automated [employer]] The system which generated this result transmitted reference range: 4.30 - 11.10 10*3/?L. The reference range was not used to interpret this result as normal/abnormal. RBC (test code = 789-8) See_Comment L [Automated messa ge] The system which generated this result transmitted reference range: 3.93 - 5.25 10*6/?L. The reference range was not used to interpret this result as normal/abnormal. HGB (test code = 718-7) 11.8 g/dL 11.6-15 HCT (test code = 4544-3) 37.6 % 35.7-45.2 MCV (test code = 787-2) 101.1 fL 80.6-95.5 H MCH (test code = 785-6) 31.7 pg 25.9-32.8 MCHC (test code = 786-4) 31.4 g/dL 31.6-35.1 L RDW-SD (test code = 83061-5) 53.0 fL 39-49.9 H RDW-CV (test code = 788-0) 14.3 % 12-15.5 PLT (test code = 777-3) See_Comment L [Automated messa ge] The system which generated this result transmitted reference range: 166 - 358 10*3/?L. The reference range was not used to interpret this result as normal/abnormal. MPV (test code = 81306-6) 9.4 fL 9.5-12.9 L NRBC/100 WBC (test code = 7774547950) See_Comment [[employer]ated [employer] ssage] The system which generated this result transmitted reference range: 0.0 - 10.0 /100 WBCs. The reference range was not used to interpret this result as normal/abnormal. NRBC x10^3 (test code = 9952643345) <0.01 See_Comment [Automated messa ge] The system which generated this result transmitted reference range: 10*3/?L. The reference range was not used to interpret this result as normal/abnormal. GRAN MAT (NEUT) % (test code = 770-8) 62.6 % IMM GRAN % (test code = 7666282131) 0.40 % LYMPH % (test code = 736-9) 29.0 % MONO % (test code = 5905-5) 5.9 % EOS % (test code = 713-8) 1.8 % BASO % (test code = 706-2) 0.3 % GRAN MAT x10^3(ANC) (test code = 9993058111) 6.17 10*3/uL 1.88-7.09 IMM GRAN x10^3 (test code = 2306792169) 0.04 10*3/uL 0-0.06 LYMPH x10^3 (test code = 731-0) 2.86 10*3/uL 1.32-3.29 MONO x10^3 (test code = 742-7) 0.58 10*3/uL 0.33-0.92 EOS x10^3 (test code = 711-2) 0.18 10*3/uL 0.03-0.39 BASO x10^3 (test code = 704-7) 0.03 10*3/uL 0.01-0.07 Lab Interpretation (test code = 63140-9) Abnormal [facility] CenterXR [facility]LE 3+ VW [id number] 17:46:23 Trimalleolar fractures. Borderline medial clear space widening may suggest ligamentous injury. EXAM: XR ANKLE 3+ VW LEFT HISTORY: Ankle pain COMPARISON: None. FINDINGS: Minimally displaced fractures of the medial and lateral malleoli are seen.Additional avulsion fractures of the medial and lateral malleoli may beacute or chronic. A nondisplaced fracture of the posterior malleolus issuspected. Thedistal Achilles tendon is thickened with fragmentedenthesophytes. Soft tissue swelling is seen about the ankle. There isborderline medial clear space widening. [facility], Radiant Results Inft User - 07/01/2020 12:47 PM CDTEXAM:XR ANKLE 3+ VW LEFTHISTORY:Ankle pain COMPARISON:None.FINDINGS: Minimally displaced fractures of the medial and lateral malleoli are seen.Additional avulsion fractures of the medial and lateral malleoli may beacute or chronic. A nondisplaced fracture of the posterior malleolusissuspected. The distal Achilles tendon is thickened with fragmentedenthesophytes. Soft tissue swelling is seen about the ankle. There isborderline medial clear space widening.IMPRESSIONTrimalleolar f ractures.Borderline medial clear space widening may suggest ligamentous injury. [facility] P[facility] W [id number] 16:24:06Pancreatic lacerations involving the body and proximal tail with suspectedduct involvement concerning for AAST grade 3 injury. Moderate retroperitoneal hematoma extending to the peritoneal compartment. Moderate thickening of the distal duodenum/proximal jejunal wall isconcerning for potential bowelinjury. Normal bowel enhancement. Noevidence of active contrast extravasation. Comminuted fracturesof the left sacral area and left-sided pubic rami withassociated space of Retzius hematoma. No active contrast extravasation. Nodefinite bladder injury or rupture. Consider dedicated urogram ifclinically indicated. Displaced L2 transverse process fracture and nondisplaced fracture of [id number] rib. Indeterminate partially visualized 0.9 cm right breast nodularity abuttingthe chest wall,probably a lymph node. This is better visualized on CTchest. Consider breast ultrasound or mammography. Ventral abdominal wall bruising. Preliminary Report Dictated by Resident: Simba Santacruz MD., have reviewed this study and agree with theabove report.EXAM: CT ABDOMEN PELVIS W CONTRAST - ?OUTSIDE CONSULTATION HISTORY: trauma COMPARISON: None. TECHNIQUE: CT ofthe abdomen and pelvis with contrast acquired at [facility] on 06[facility]30[facility]2020. Submitted images are labeled withthe patients name age and MRN. Images were loaded to the PACS archive andreviewed on a PACS workstation. FINDINGS: LOWER THORAX: Pacer lead terminates in the right atrium and rightventricle. Partially visualized tricuspid prosthetic valve with sternotomychanges. Left pleural effusion. ?Bibasilar dependent subsegmentalatelectasis. See separately dictated CT chest reportfor thoracic findings. LIVER: No focal hepatic lesions identified. No evidence of liver injury.Normal contour. GALLBLADDER AND BILIARY TREE: Mild central intrahepatic and extra hepaticbiliary ductal dilatation can been expected finding in the postcholecystectomy setting. CBD measures approximately 8 cm in transversedimension at the artem hepatis. SPLEEN: No splenomegaly. No radiographically apparent splenic injury. PANCREAS: Pancreatic lacerations involving the body and proximal tail(3:30, 31) with possible duct involvement 3:28-31. Moderate amount ofhyperattenuating fluid seen in the retroperitoneum posterior to thepancreas and extending superiorly into the lesser sac and gastric hepaticligament (5:36). ADRENAL GLANDS: No adrenal nodules. KIDNEYS: A linear hypodensity in the posterior medial cortex of theinterpolar region of the left kidney probably represents some scarringrather than acute liver injury (3:34; 6:60). No subcapsular hematoma. Noextension to the collecting system is noted. No hydronephrosis, stones ormasses. Hyperattenuating fluid/hemoperitoneum extending along. Margin of theanterior perinephric fascia does not appear to extend into the perinephricspace. PERITONEUMAND RETROPERITONEUM: Hemoperitoneum with hyperdense fluidcollecting in the space of Retzius, bilateral retroperitoneum (especiallyon the left in the region of the pancreatic body/tail), right paracolicgutter and pouch of Marlon. Hazy ventral and left upper quadrantmesentery. No free air. LYMPH NODES: Prominent lymph nodes do not meet CT size criteria. GI TRACT: No dilation or abnormal wall thickening. Moderate thickening ofthe distal duodenum/proximal jejunal wall is concerning for potential bowelinjury. Normal bowel enhancement. Subtle haziness in the ventral mesentery.No definite mesenteric hematoma or active contrast extravasation. PELVIS/BLADDER: Urinary bladder is partially decompressed and containssmall amount of layering excreted contrast. No evidence of rupture. Bloodproducts areseen within the space of Retzius anterior to the bladder(likely related to pelvic fractures). No definite evidence of urinarybladder rupture. Changes of prior bilateral tubal ligation. Hyperdense fluid is noted within the pouch of Marlon VESSELS: No evidence of aortic injury. No active contrast ext ravasation. BONES AND SOFT TISSUES: Comminuted fracture of the left sacral alarextending to the left S2 foramen. Comminuted fracture of the left superiorand inferior pubic ramus extending to the leftparasymphyseal region.Thesacroiliac joints and pubic symphysis are intact. Displaced fracture of the left transverse process of L2. Nondisplacedfracture deformity of right 11th posterior rib. Indeterminate 0.9 cm right breast nodularity is partially visualized(possibly a lymph node on 3:1). Bruising within the left mid and lower quadrant subcutaneous tissues. Smallamount of stranding is also seenwithin the subcutaneous tissues overlyingbilateral hips. [facility], Radiant Results Inft User - 07/01/2020 11:25 AM CDTEXAM: CT ABDOMEN PELVIS W CONTRAST - OUTSIDE CONSULTATIONHISTORY: trauma COMPARISON: None.TECHNIQUE: CT of the abdomen and pelvis with contrast acquired at [facility] on 06/30/2020. Submitted images are labeled withthe patients name age and MRN. Images were loaded to the PACS archive andreviewed on a PACS workstation.FINDINGS:LOWER THORAX: Pacer lead terminates in the right atrium and rightventricle. Partially visualized tricuspid prosthetic valve with sternotomychanges. Left pleural effusion. Bibasilar dependent subsegmentalatelectasis. See separately dictated CT chest report for thoracic findings.LIVER: No focal hepatic lesions identified. No evidence of liver injury.Normal contour.GALLBLADDER AND BILIARY TREE: Mild central intrahepatic and extra hepaticbiliary ductal dilatation can been expected finding in the postcholecystectomy setting. CBD measures approximately 8 cm in transversedimension at the artem hepatis.SPLEEN: No splenomegaly. No radiographically apparent splenic injury. PANCREAS: Pancreatic lacerations involving the body and proximal tail(3:30, 31) with possible duct involvement 3:28-31. Moderate amount ofhyperattenuating fluid seenin the retroperitoneum posterior to thepancreas and extending superiorly into the lesser sac and gastric hepaticligament (5:36).ADRENAL GLANDS: No adrenal nodules.KIDNEYS: A linear hypodensity in theposterior medial cortex of theinterpolar region of the left kidney probably represents some scarringrather than acute liver injury (3:34; 6:60). No subcapsular hematoma. Noextension to the collectingsystem is noted. No hydronephrosis, stones ormasses.Hyperattenuating fluid/hemoperitoneum extendingalong. Margin of theanterior perinephric fascia does not appear to extend into the perinephricspace.PERITONEUM AND RETROPERITONEUM: Hemoperitoneum with hyperdense fluidcollecting in the space of Retzius, bilateral retroperitoneum (especiallyon the left in the region of the pancreatic body/tail), right paracolicgutter and pouch of Marlon. Hazy ventral and left upper quadrantmesentery. No free air. LYMPH NODES: Prominent lymph nodes do not meet CT size criteria.GI TRACT: No dilation or abnormal wall thickening. Moderate thickening ofthe distal duodenum/proximal jejunal wall is concerning for potential bowelinjury. Normal bowel enhancement. Subtle haziness in the ventral mesentery.No definite m esenteric hematoma or active contrast extravasation.PELVIS/BLADDER: Urinary bladder is partially decompressed and containssmall amount of layering excreted contrast. No evidence of rupture. Bloodproducts are seen within the space of Retzius anterior to the bladder(likely related to pelvic fractures). No definite evidence of urinarybladder rupture.Changes of prior bilateral tubal ligation.Hyperdense fluid is noted within the pouch of DouglasVESSELS: No evidence of aortic injury. No active contrast extravasation.BONES AND SOFT TISSUES: Comminuted fracture of the left sacral alarextending to theleft S2 foramen. Comminuted fracture of the left superiorand inferior pubic ramus extending to the left parasymphyseal region.Thesacroiliac joints and pubic symphysis are intact.Displaced fracture ofthe left transverse process of L2. Nondisplacedfracture deformity of right 11th posterior rib. Indeterminate 0.9 cm right breast nodularity is partially visualized(possibly a lymph node on 3:1). Bruising within the left mid and lower quadrant subcutaneous tissues. Smallamount of stranding is also seen within the subcutaneous tissues overlyingbilateral hips. IMPRESSIONPancreatic lacerations involving the body and proximal tail with suspectedduct involvement concerning for AAST grade 3 injury.Moderate retroperitoneal hematoma extending to the peritoneal compartment.Moderate thickening of the distal duodenum/proximal jejunal wall isconcerning for potential bowel injury. Normal bowel enhancement. Noevidence of active contrast extravasation.Comminuted fractures of the left sacral area and left-sided pubic rami withassociated space of Retzius hematoma. No active contrast extravasation. Nodefinite bladder injury or rupture. Consider dedicated urogram ifclinically indicated.Displaced L2 transverse process fracture and nondisplaced fracture of rightposterior 11th rib.Indeterminate partially v isualized 0.9 cm right breast nodularity abuttingthe chest wall, probably a lymph node. This is better visualized on CTchest. Consider breast ultrasound or mammography.Ventral abdominal wall bruising.Preliminary Report Dictated by Resident: Simba Pastor MD., havereviewed this study and agree with theabove report.[facility] 2 VW [id number] 16:07:22Traction pin placement in the distal femur. EXAM: XR FEMUR 2 VW LEFT HISTORY: s/p traction pin placement COMPARISON:None. FINDINGS: A traction pin has been placed in the distal femur. [facility], Radinora arrieta Inft User - 07/01/2020 11:08 AM CDTEXAM:XR FEMUR 2 VW LEFTHISTORY:s/p traction pin placement COMPARISON:None.FINDINGS: A traction pin has been placed in the distal femur.IMPRESSIONTraction pin placement in the distal femur. [facility] CenterCT CERV[facility] SPINE WO [id number] 14:11:291. No acute intracranial hemorrhage or mass effect. 2. Fracture of the anterior nasal septum noted.No other acute facial bonefracture identified. 3. No acute fracture or traumatic malalignment of the cervical spine. Preliminary Report Dictated by Resident: Carla Hunter MD., have reviewed this study and agree with the abovereport.CT MAXILLOFACIAL/MANDIBLE WO CONTRAST, CT HEADWO CONTRAST, CT CERVICAL SPINE WO CONTRAST HISTORY: trauma COMPARISON: None available. ? TECHNIQUE:Routine unenhanced brain CT. ?Routine CT of the maxillofacialbones was obtained. Routine unenhancedCT of the cervical spine. ? FINDINGS: CT HEAD The ventricles and sulci are normal in caliber and configuration. Nohydrocephalus, midline shift or pathological extra-axial fluid collectionis present. The basal cisterns are unremarkable. There is no acute intracranial hemorrhage or significant mass effect. Noparenchymal attenuation abnormality. The marshall-white matter differentiationis preserved. Themastoid air cells and paranasal air sinuses are clear. The calvariumand central skull base are unremarkable. CT FACE The nasal bones and frontal processes of the maxilla are intact. Fractureof the anterior nasal septum noted. The zygomatic arches, fitch of the maxillary sinuses and pterygoid platesare intact. Bony orbits are intact. The eye globes, extraocular muscles and opticsheath complexes are symmetric. Clear intraorbital fat planes. The mandible and temporomandibular joints are intact. Few missingmandibular molars are noted. The dentition is otherwise unremarkable. The paranasal sinusesand mastoid air cells are clear. CT CERVICAL SPINE Vertebral bodies are normal in height and alignment. No acute fracture orsubluxation. Normal alignment of atlantoaxial joint and craniocervical junction. Disc spaces are preserved. Bulky anteriorly bridging osteophytes are notedat C5-C6 and C6-C7. The prevertebral soft tissues are unremarkable. The visualized lungs are clear. [facility], Radiant Results Inft User - 07/01/2020 9:12 AM CDTCT MAXILLOFACIAL/MANDIBLE WO CONTRAST, CT HEAD WO CONTRAST, CT CERVICAL SPINE WO CONTRASTHISTORY: trauma COMPARISON: None available. TECHNIQUE: Routine unenhanced brain CT. Routine CT of the maxillofacialbones was obtained. Routine unenhanced CT of the cervical spine. FINDINGS:CT HEADThe ventricles and sulci are normal in caliber and configuration. Nohydrocephalus, midline shift or pathological extra-axial fluid collectionis present. The basal cisterns are unremarkable.There is no acute intracranial hemorrhage or significant mass effect. Noparenchymal attenuation abnormality. The marshall-white matter differentiationis preserved.The mastoid air cells and paranasal air sinuses are clear. The calvariumand central skull base are unremarkable.CT FACEThe nasal bones and frontal processes of the maxilla are intact. Fractureof the anterior nasal septum noted.The zygomatic arches, fitch of the maxillary sinuses and pterygoid platesare intact.Bony orbits are intact. The eye globes, extraocular muscles and opticsheath complexes are symmetric. Clear intraorbital fat planes.The mandible and temporomandibular joints are intact. Few missingmandibular molars are noted. The dentition is otherwise unremarkable.The paranasal sinuses and mastoid air cells are clear.CT CERVICAL SPINEVertebral bodies are normal in height and alignment. No acute fracture orsubluxation.Normal alignment of atlantoaxial joint and craniocervical junction.Disc spaces are preserved. Bulkyanteriorly bridging osteophytes are notedat C5-C6 and C6-C7.The prevertebral soft tissues are unremarkable.The visualized lungs are clear.IMPRESSION1. No acute intracranial hemorrhage or mass effect.2. Fracture of the anterior nasal septum noted. No other acute facial bonefracture identified. 3. No acute fracture or traumatic malalignment of the cervical spine.Preliminary Report Dictated by Resident: Carla Paulino MD., have reviewed this study and agree with the abovereport.[facility] CenterCT HEAD WO [id number] 14:11:291. No acute intracranial hemorrhage or mass effect. 2. Fracture of the anterior nasal septum noted.No other acute facial bonefracture identified. 3. No acute fracture or traumatic malalignment of the cervical spine. Preliminary Report Dictated by Resident: Carla Hunter MD., have reviewed this study and agree with the abovereport.CT MAXILLOFACIAL/MANDIBLE WO CONTRAST, CT HEADWO CONTRAST, CT CERVICAL SPINE WO CONTRAST HISTORY: trauma COMPARISON: None available. ? TECHNIQUE:Routine unenhanced brain CT. ?Routine CT of the maxillofacialbones was obtained. Routine unenhancedCT of the cervical spine. ? FINDINGS: CT HEAD The ventricles and sulci are normal in caliber and con figuration. Nohydrocephalus, midline shift or pathological extra-axial fluid collectionis present. The basal cisterns are unremarkable. There is no acute intracranial hemorrhage or significant mass effect. Noparenchymal attenuation abnormality. The marshall-white matter differentiationis preserved. Themastoid air cells and paranasal air sinuses are clear. The calvariumand central skull base are unremarkable. CT FACE The nasal bones and frontal processes of the maxilla are intact. Fractureof the anterior nasal septum noted. The zygomatic arches, fitch of the maxillary sinuses and pterygoid platesare intact. Bony orbits are intact. The eye globes, extraocular muscles and opticsheath complexes are symmetric. Clear intraorbital fat planes. The mandible and temporomandibular joints are intact. Few missingmandibular molars are noted. The dentition is otherwise unremarkable. The paranasal sinusesand mastoid air cells are clear. CT CERVICAL SPINE Vertebral bodies are normal in height and alignment. No acute fracture orsubluxation. Normal alignment of atlantoaxial joint and craniocervical junction. Disc spaces are preserved. Bulky anteriorly bridging osteophytes are notedat C5-C6 and C6-C7. The prevertebral soft tissues are unremarkable. The visualized lungs are clear. [facility], Radiant Results Inft User - 07/01/2020 9:12 AM CDTCT MAXILLOFACIAL/MANDIBLE WO CONTRAST, CT HEAD WO CONTRAST, CT CERVICAL SPINE WO CONTRASTHISTORY: trauma COMPARISON: None available. TECHNIQUE: Routine unenhanced brain CT. Routine CT of the maxillofacialbones was obtained. Routine unenhanced CT of the cervical spine. FINDINGS:CT HEADThe ventricles and sulci are normal in caliber and configuration. Nohydrocephalus, midline shift or pathological extra-axial fluid collectionis present. The basal cisterns are unremarkable.There is no acute intracranial hemorrhage or significant mass effect. Noparenchymal attenuation abnormality. The marshall-white matter differentiationis preserved.The mastoid air cells and paranasal air sinuses are clear. The calvariumand central skull base are unremarkable.CT FACEThe nasal bones and frontal processes of the maxilla are intact. Fractureof the anterior nasal septum noted.The zygomatic arches, fitch of the maxillary sinuses and pterygoid platesare intact.Bony orbits are intact. The eye globes, extraocular muscles and opticsheath complexes are symmetric. Clear intraorbital fat planes.The mandible and temporomandibular joints are intact. Few missingmandibular molars are noted. The dentition is otherwise unremarkable.The paranasal sinuses and mastoid air cells are clear.CT CERVICAL SPINEVertebral bodies are normal in height and alignment. No acute fracture orsubluxation.Normal alignment of atlantoaxial joint and craniocervical junction.Disc spaces are preserved. Bulkyanteriorly bridging osteophytes are notedat C5-C6 and C6-C7.The prevertebral soft tissues are unremarkable.The visualized lungs are clear.IMPRESSION1. No acute intracranial hemorrhage or mass effect.2. Fracture of the anterior nasal septum noted. No other acute facial bonefracture identified. 3. No acute fracture or traumatic malalignment of the cervical spine.Preliminary Report Dictated by Resident: Carla Paulino MD., have reviewed this study and agree with the abovereport.[facility] CenterCT MAXILLOFACIAL/MANDIBLE WO [id number] 14:11:29 1. No acute intracranial hemorrhage or mass effect. 2. Fracture of the anterior nasal septum noted.No other acute facial bonefracture identified. 3. No acute fracture or traumatic malalignment of the cervical spine. Preliminary Report Dictated by Resident: Carla Hunter MD., have reviewed this study and agree with the abovereport.CT MAXILLOFACIAL/MANDIBLE WO CONTRAST, CT HEADWO CONTRAST, CT CERVICAL SPINE WO CONTRAST HISTORY: trauma COMPARISON: None available. ? TECHNIQUE:Routine unenhanced brain CT. ?Routine CT of the maxillofacialbones was obtained. Routine unenhancedCT of the cervical spine. ? FINDINGS: CT HEAD The ventricles and sulci are normal in caliber and con figuration. Nohydrocephalus, midline shift or pathological extra-axial fluid collectionis present. The basal cisterns are unremarkable. There is no acute intracranial hemorrhage or significant mass effect. Noparenchymal attenuation abnormality. The marshall-white matter differentiationis preserved. Themastoid air cells and paranasal air sinuses are clear. The calvariumand central skull base are unremarkable. CT FACE The nasal bones and frontal processes of the maxilla are intact. Fractureof the anterior nasal septum noted. The zygomatic arches, fitch of the maxillary sinuses and pterygoid platesare intact. Bony orbits are intact. The eye globes, extraocular muscles and opticsheath complexes are symmetric. Clear intraorbital fat planes. The mandible and temporomandibular joints are intact. Few missingmandibular molars are noted. The dentition is otherwise unremarkable. The paranasal sinusesand mastoid air cells are clear. CT CERVICAL SPINE Vertebral bodies are normal in height and alignment. No acute fracture orsubluxation. Normal alignment of atlantoaxial joint and craniocervical junction. Disc spaces are preserved. Bulky anteriorly bridging osteophytes are notedat C5-C6 and C6-C7. The prevertebral soft tissues are unremarkable. The visualized lungs are clear. [facility], [facility]iant Results Inft User - 07/01/2020 9:12 AM CDTCT MAXILLOFACIAL/MANDIBLE WO CONTRAST, CT HEAD WO CONTRAST, CT CERVICAL SPINE WO CONTRASTHISTORY: trauma COMPARISON: None available. TECHNIQUE: Routine unenhanced brain CT. Routine CT of the maxillofacialbones was obtained. Routine unenhanced CT of the cervical spine. FINDINGS:CT HEADThe ventricles and sulci are normal in caliber and configuration. Nohydrocephalus, midline shift or pathological extra-axial fluid collectionis present. The basal cisterns are unremarkable.There is no acute intracranial hemorrhage or significant mass effect. Noparenchymal attenuation abnormality. The marshall-white matter differentiationis preserved.The mastoid air cells and paranasal air sinuses are clear. The calvariumand central skull base are unremarkable.CT FACEThe nasal bones and frontal processes of the maxilla are intact. Fractureof the anterior nasal septum noted.The zygomatic arches, fitch of the maxillary sinuses and pterygoid platesare intact.Bony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 12/03/2018History: Heart valve replacement, hypertensionComparison: 10/06/2017Left upper chest defibrillator remains in place. There is evidence of priorcardiac valve replacement.Cardiac, hilar, and mediastinal structures are within normal limits forsize. Lungs are well-aerated and clear. No acute bony or soft tissueabnormalitiesare identified.Impression:No acute process.Electronically Signed By: Timoteo Venegas M.D., 12/03/2018 1:52 PMLegally authenticated by RUBI VIEIRA 2018-12-03 13:52:52TROPONIN [id number] 13:35:00* Test Item Value Reference Range Interpretation Comme nts TROPER (test code = TROPER) 0.02 NG/ML 0.0-0.08 CULTURE, [id number] 07:22:00* Test Item Value Reference Range Interpretation Comme nts CULTURIN (test code = CULTURIN) CULTURIN (test code = [id number]) [facility] 2018-04-13 1007 >100,000 CFU/ML [facility] 2018-04-13 1008 OXIDASE NEGATIVE GRAM NEGATIVE BACILLI ISOLATED PRELIMINARY REPORT [facility] 2018-04-13 1009 ID AND/OR SENSITIVITY TO FOLLOW PRELIMINARY REPORT HEPATITIS C ANTIBODY [id number] 17:00:00* Test Item Value Reference Range Interpretation Comme nts SCRN HCV (test code = SCRN HCV) REACTIVE NEGATIVE Hepatitis C Anti body test is for screening purposes only. All reactives will be confirmed by additional testing. ER SCREEN FOR HIV 17:00:00* Test Item Value Reference Range Interpretation Comme nts HIV 1/2 AB (test code = SCRN HIV) NONREACTIVE NONREACTIVE This test is us ed for SCREENING purposes only. All reactive results are prelimenary and confirmation results will follow. URINE DRUG [id number] 14:13:00* Test Item Value Reference Range Interpretation Comme nts AMPHET (test code = BAMP) POSITIVE NEGATIVE A This is an uncon firmed screening. Result are to be used for medical purposes (treatment) only. Not intended for non-medical purposes. Cut-off concentration for a positive result for each drug: Amphetamine - 1,000 ng/ml Barbiturate - 200 ng/ml Benzodiazepine - 200 ng/ml Cannabinoids - 50 ng/ml Cocaine - 300 ng/ml Opiates - 300 ng/ml PCP - 25 ng/ml BARBITURATES (test code = BBAR) NEGATIVE NEGATIVE BENZO (test code = BBENZ) NEGATIVE NEGATIVE CANNABS (test code = BCANN) NEGATIVE NEGATIVE COCAINE (test code = BCOC) NEGATIVE NEGATIVE OPIATES (test code = BOPI) POSITIVE NEGATIVE A PCP (test code = BMTPCP) NEGATIVE NEGATIVE B-HCG QUAL (KIT)2018-04-12 14:08:00* Test Item Value Reference Range Interpretation Comme [facility] HCGQUAL (test code = HCGQUAL) NEGATIVE NEGATIVE URINE: NEGATIVE = < 20 mIU/ML; POSITIVE= >/= 20 mIU/ML SERUM: NEGATIVE = < 10 mIU/ML; POSITIVE= >/= 10 mIU/ML SOURCE (test code = SOURCE) URINE HCG INTERNAL POSITIVE CNTRL (test code = HCGIPC) PASS PASS HCG LOT # (test code = UHCGLOT) [id number] HCG EXPIRATION DATE (test code = UHCGEXP) 06-13-2019 [id number] 13:24:00* Test Item Value Reference Range Interpretation Comme nts GLUCOSE (test code = URGLU) NEGATIVE MG/DL NEG-100 BILIRUBN (test code = URBILI) NEGATIVE NEGATIVE KETONE (test code = URKET) NEGATIVE MG/DL NEGATIVE BLOOD (test code = URBLD) SMALL UR PH (test code = URPH) 6.0 5.0-7.5 PROTEIN (test code = URPRO) 30 MG/DL NEGATIVE NITRITES (test code = URNIT) POSITIVE NEGATIVE UROBILINGEN (test code = URURO) 0.2 EU/DL 0.2-1.0 LEUKOCYT (test code = URLEU) NEGATIVE NEGATIVE UA COLOR (test code = UA COLOR) YELLOW YELLOW CLARITY (test code = CLARITY) CLEAR CLEAR SP GRAV (test code = URSPGRAV) >=1.030 1.000-1.025 H UAMICRO (test code = UAMICRO) YES WBC (test code = URWBC) 29 /HPF 0-5 H RBC (test code = URRBC) 1 /HPF 0-2 CASTS (test code = CAST) 4 /LPF 0-3 H UR EPI (test code = EPI) >50 /LPF BACTERIA (test code = BACTERIA) TNTC NONE BLOOD ALCOHOL (ETOH)2018-04-12 12:45:00* Test Item Value Reference Range Interpretation Comme nts ALCOHOL BLOOD LEVEL (test code = ALC BLD) <10 MG/DL 0-10 Results ar e to be used for medical purposes (treatment) only. Not intended for non medical purposes. [id number] 12:45:00* Test Item Value Reference Range Interpretation Comme nts SODIUM (test code = NA) 138 MMOL/L 137-145 K+ (test code = KSERUM) 3.7 MMOL/L 3.5-5.1 PLEASE NOTE NEW REFERENCE RANGE(S) IN EFFECT EFFECTIVE 06/18/2010 - NEW ANALYZER (S5 [employer] 5600) CHLORIDE (test code = CL) 105 MMOL/L 98-107 CO2 (test code = CO2) 23 MMOL/L 22-30 BUN (test code = BUN) 20 MG/DL 7-17 H CREA (test code = CREA) 1.1 MG/DL 0.7-1.2 GLUCOSE (test code = GLUCOSE) 64 MG/DL 70-99 L Fasting glucos e normal <100 MG/DL- [employer] recommendation CALCIUM (test code = CABLOOD) 9.2 MG/DL 8.4-10.2 TOTPROT (test code = TOTPROT) 7.8 G/DL 6.3-8.2 ALBUMIN (test code = ALBSERUM) 3.7 G/DL 3.5-5.0 BILITOT (test code = BILITOT) 0.9 MG/DL 0.2-1.3 AST (test code = AST) 100 U/L 15-46 H PHOSALK (test code = PHOSALK) 155 U/L 38-126 H ALT (test code = ALT) 124 U/L 13-69 H GFR (test code = GFR) 60 mL/min/1.73m2 A GFR of >90 mL/min/1.73m2 is considered normal. CREATINE [id number] 12:45:00* Test Item Value Reference Range Interpretation Comme nts CK (test code = CK) 52 U/L 30-135 [id number] 12:24:00* Test Item Value Reference Range Interpretation Comme nts WBC (test code = WBC) 8.1 K/UL 3.5-10.9 RBC (test code = RBC) 3.88 M/UL 4.0-5.0 L HGB (test code = HGB) 12.2 G/DL 11.5-15.5 HCT (test code = HCT) 37.5 % 34-46 MCV (test code = MCV) 96.6 FL 80-98 MCH (test code = MCH) 31.4 PG 28-32 MCHC (test code = MCHC) 32.5 G/DL 32.5-36.5 RDW (test code = RDW) 12.8 % 11.5-14.5 PLT (test code = PLT) 141 K/UL 150-450 L MPV (test code = MPV) 8.9 FL 7.4-10.4 MANDIFF (test code = MANDIFF) NO SCAN (test code = SCAN) NO NEUT% (test code = NEUT%) 55.3 % 40-75 LYMPH% (test code = LYMPH%) 33.8 % 24-44 MONO% (test code = MONO%) 8.5 % 0-13 EOS% (test code = EOS%) 1.5 % 0-4 BASO % (test code = BASO%) 0.5 % 0-2 IG% (test code = IG%) 0.4 % 0-1 IG% = Metamyeloc ytes, Myelocytes, and Promyelocytes. (Immature neutrophils not including "bands".) > 3% IG indicates risk of sepsis NRBC% (test code = NRBC%) 0 /100 WBC ABS NEUT (test code = NEUT) 4.5 K/UL 1.2-7.2 Notes Date/Time Note Provider Source 2024-02-02 13:41:14 [id number] UFR4wsYsh885QQlNgoKEb3ch0m+929811-7 02-01T13:41:14 Chief ComplaintPatient [facility] referralJeri Hu Queenectronically signed by Kalina Queen LVN at 02/02/2024 2:49 PM KZL76294-7Sxgtr PcctHE5719-50-38L13:49:58Nurse NoteTXT1.2.840.360307.1.13.131.2.7. 2.254388|[id number] for patient fbfi18376-0Gytax NoteLNNARRATIVEFormatted C-CDA narrative [facility] [facility].GVLRRQZIZIZRSFGZBF7730726259ST TR4568-18-14S14:49:581.2.840.960505 .1.72.3.15|1.2.840.847300.1.13.131. 2.7.2.727879_[id number] [facility] 2024-01-18 20:02:10 RsK8ZdAXEuQ57UW6Tfo7/VH6w10TcZSrfWK IdWNqV0zBVktJDKwTOTR5YRSHuFPg9514-1 0:02:10 Pt given printed and verbal discharge instructions.Prescriptions provided.Discussed antibiotic therapy and to take until all completed unless adverse reaction occurs - if occurs, discontinue medication and follow up with pcp/seek medical attention.Pt verbalized understanding of instructions, pt awake alert oriented, resp reg unlabored, color appropriate for race, moves all ext well,pt encouraged to follow up with pcp.Advised to seek medical attention for new/prolonged/worsening of symptoms.No adverse reaction to meds given in ER noted upon discharge.PIV d'cd, dressing to site, catheter in tact.Awake, alert oriented, resp reg unlabored, pt leaving amb with steady gait, in no apparent distress. [address]-[address] DtqgBD7562-07-61O37:03:03[facility] department NoteTXT1.2.840.619145.1.13.104.2.7. 2.319505|[id number] for patient hgfz62575-1LbjrCTVNLFSUSXWXbkmtchge C-CDA narrative maqp953899144Expnsdepk L Lolley RN[address] StreetQwdt[id number] 5HKRJDFMEPLRRCGREHJUAMH1222-71-92I0 0:03:031.2.840.330360.1.72.3.15|1.2 .840.196545.1.13.104.2.7.2.727879_2 [id number] Cyn Abrams RN [facility] 2024-01-18 19:25:00 zJzhAxj8Ic4iVZfPc0GxxAI0kgxTdb4EuEu 4Mwe5AKjKyX49vbT55mjgKba3UapJ4839-9 06T19:25:00 Dr Blandon at bedside. [address]-6Wegnkrnwc[address] IiumEO7001-25-02S65:39:10[facility] NoteTXT1.2.840.992211.1.13.104.2.7. 2.956481|[id number] for patient euhw70478-8IwcuYWRCAFUBDYSTpjdegqfy C-CDA narrative text[id number] 9DIZNZYXMIXKOQOFKVLYTHW9564-76-10Y8 9:39:101.2.840.832152.1.72.3.15|1.2 .840.126748.1.13.104.2.7.2.727879_2 [id number] [facility] 2024-01-18 19:24:05 4QgyYbzi82lmselnX6oOfRVrGQ533szSXMK xV1pN1dZ2GnZFs7D8mI0aK0toc4MR5726-5 9:24:05 Introduced self to pt. Pt resting in stretcher with call light in reach. Bed in lowest locked position, side rails up x2. Pt has no complaints at this time. Pt A/O x4, RR e/u, NAD noted at this time.Pt pending provider reevaluation. 89841-1Dggsivqge department EaedUP1605-54-29F33:24:41Emergency department NoteTXT1.2.840.960140.1.13.104.2.7. 2.957762|[id number] for patient cckn93913-0JjuoCFQKVLRUPMXSruuawrwy C-CDA narrative text[id number] 2SLKQHXPNWSNHGAJNKFEGXL4932-09-66E0 9:24:411.2.840.970670.1.72.3.15|1.2 .840.213521.1.13.104.2.7.2.727879_2 [id number] [facility] 2024-01-18 19:10:37 LshUz1MuYegjcIZX2p8ryEjvp0YVeZkclPX X+dMpFIKpwc/gpoK4kNhj9Jpo8jpt6486-2 9:10:37 Received report from GITA Nolan.POC discussed. [address] PgmjDV8462-21-35D35:11:02[facility] NoteTXT1.2.840.303912.1.13.104.2.7. 2.789830|[id number] for patient hzde32304-8YewoLYLBXLMMKKNYiyyitsjh C-CDA [id number] 7WAQZEFBDGALZDQENIIMGWO3194-20-60D5 9:11:021.2.840.756531.1.72.3.15|1.2 .840.867179.1.13.104.2.7.2.727879_2 [id number] [facility] 2024-01-18 18:58:47 pf6Kt5F9SO/Qu1K+7oX9dPzBcA0RoQpvXOj CGwJwPzHt6iq2Ax9MAhEjX5IlxktF2436-2 8:58:47 Report to GITA [place] [address]-8Tyanoqsuu department FtpbNQ1400-39-67O25:58:54[facility] NoteTXT1.2.840.803610.1.13.104.2.7. 2.425821|[id number] for patient tklt11410-1ArmlTKFLIPNRWWDVuactqytj C-CDA narrative [id number] 8CYXBHSSOBYIDMTIQBINWRX0642-54-21X0 8:58:541.2.840.368583.1.72.3.15|1.2 .840.209300.1.13.104.2.7.2.727879_2 [id number] [facility] 2024-01-18 18:38:24 71O23LC4iSPE4ygpciwEaOeK9ShLrEmBKEQ qRGP25KM6HVsPrUOnx1szeHmgW13j6408-6 8:38:[address], placed on monitors. [address] department UaitTO0371-61-97X32:38:39[facility] NoteTXT1.2.840.056018.1.13.104.2.7. 2.898281|[id number] for patient higj79142-7AhfyWNBDMUOAFRRUkzswayxi C-CDA narrative [id number] 3IGWSGKWSQYERTWEELLYQMD6152-37-75K7 8:38:391.2.840.470784.1.72.3.15|1.2 .840.480793.1.13.104.2.7.2.727879_2 [id number] [facility] 2024-01-18 18:26:42 elJoUVysrzegvFcX0ii0EUS+UZKqMS7+La+ Gls2LjL+udYnauAmtOZnP0MAUo06P2508-0 8:26:42 [place] [address]-8Czmhjdafi department KfyeFU3818-78-44C36:26:50Emergency department NoteTXT1.2.840.862718.1.13.104.2.7. 2.259802|[id number] for patient neno23427-9BtxtQYMAAIUXTPOCsvheclqn C-CDA narrative [id number] 6TYNXKWUGBBNAEFULNVZIUK7428-43-50L5 8:26:501.2.840.758552.1.72.3.15|1.2 .840.515020.1.13.104.2.7.2.727879_2 [id number] [facility] 2024-01-18 14:08:01 cIApPifBTPBB8f28XxFkqYJkB4Y4W26rx/Z mW74ldZSFYrX0fAI49YVBlE5pO6m75987-3 4:08:01 Dr. Troncoso at bedside. 01317-0Uzizrnqzi department PxopSW2134-57-14X54:08:10[facility] NoteTXT1.2.840.969055.1.13.104.2.7. 2.072291|[id number] for patient pbbf62871-0WcwnYNZMVRTYOZWSzncwicin C-CDA narrative [id number] 3BARDBYYJDMNLLLAWPTZOUP5814-01-17N9 4:08:101.2.840.948209.1.72.3.15|1.2 .840.265771.1.13.104.2.7.2.727879_2 [id number] [facility] 2024-01-18 14:00:00 qJD+44W/5GTPFbj5wK2hc+eM4rkCuxvIDq0 E2My99FURLymJU2RtIUUCk6O7jkC28093-9 4:00:00 Pt ambulated to room 139 with this RN. Pt placed on monitors. Will continue with plan of care. 50983-0Wmjaigabm department MxizDJ4686-68-19W42:41:29[facility] NoteTXT1.2.840.590289.1.13.104.2.7. 2.424343|[id number] for patient lsjw76423-2BvvdDGBFTMBVSDPLhqkfyosd C-CDA narrative text[address] Na[id number] 6ZUGWXBJQCTDJCYHEJMLPYV0897-97-24R3 4:41:291.2.840.816291.1.72.3.15|1.2 .840.981677.1.13.104.2.7.2.727879_2 [id number] [facility] 2024-01-18 13:22:20 tRYz9IKSfyGoxQ9KyjG/lMOOASnyVhgAcg9 ouxLEaG+imgwWVeubJ/9kiXjC9nEm0819-8 3:22:20 Luz Marina Foster is a 38 year old female Patient arrives ambulatory via personal means with complaint of constant sharp chest pain that radiates to left shoulder, nausea, SOB and diaphoretic. 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 Patient is alert and oriented times x4, even and unlabored respirations visualized. Skin warm and dry, EKG in triage. Green pool due to saturation. 88169-8Fmleowkua department Triage meowEB9112-27-52L80:24:11[facility] Triage noteTXT1.2.840.724185.1.13.104.2.7. 2.534312|[id number] for patient uvly10410-2Ulzqjjmtl department NoteLNNARRATIVEFormatted C-CDA narrative [id number] H Wark RNUT[address] XblhM[id number] 5ZUGGZFFGXLSTZKSKQEKCEE4900-56-54M6 3:24:111.2.840.845252.1.72.3.15|1.2 .840.724218.1.13.104.2.7.2.727879_2 [id number] Thea Shaw Dalton RN [facility] 2024-01-18 13:06:00 9o1SdJKmHLPdH2XcSZDVIppQdMu/Jam/PqG YCw5jFsuECPIvY051/75tlEHPqJ308070-3 3:06:00 No signs of drainable abscess on CT scan and on exam.Dr. Troncoso prescribed Abx.Ok for discharge.Recent Results (from the past 24 hour(s))CBC WITH DIFFCollection Time: 01/18/24 2:01 PMResult Value Ref RangeWBC 8.01 4.30 - 11.10 10*3/?LRBC 4.46 3.93 - 5.25 10*6/?LHGB 14.6 11.6 - 15.0 g/dLHCT 44.4 35.7 - 45.2 %MCV 99.6 (H) 80.6 - 95.5 fLMCH 32.7 25.9 - 32.8 pgMCHC 32.9 31.6 - 35.1 g/dLRDW-SD 47.5 39.0 - 49.9 fLRDW-CV 12.8 12.0 - 15.5 %PLT 168 166 - 358 10*3/?LMPV 10.7 9.5 - 12.9 fLNRBC/100 WBC 0.0 0.0 - 10.0 /100 WBCsNRBC x10^3 <0.01 10*3/?LGRAN MAT (NEUT) % 52.5 %IMM GRAN % 0.10 %LYMPH % 37.0 %MONO % 7.9 %EOS % 2.1 %BASO % 0.4 %GRAN MAT x10^3(ANC) 4.21 1.88 - 7.09 10*3/uLIMM GRAN x10^3 <0.03 0.00 - 0.06 10*3/uLLYMPH x10^3 2.96 1.32 - 3.29 10*3/uLMONO x10^3 0.63 0.33 - 0.92 10*3/uLEOS x10^3 0.17 0.03 - 0.39 10*3/uLBASO x10^3 0.03 0.01 - 0.07 10*3/uLTROPONIN ICollection Time: 01/18/24 2:01 PMResult Value Ref RangeTROPONIN I 0.004 <=0.034 ng/mLMagnesiumCollection Time: 01/18/24 2:01 PMResult Value Ref RangeMAGNESIUM 1.9 1.7 - 2.4 mg/dLCOMP. METABOLIC PANEL (41335)Collection Time: 01/18/24 2:01 PMResult Value Ref RangeNA 138 135 - 145 mmol/LK 4.5 3.5 - 5.0 mmol/LCL 110 (H) 98 - 108 mmol/LCO2 TOTAL 19 (L) 23 - 31 mmol/LAGAP 9 2 - 16BUN 17 7 - 23 mg/dLGLUCOSE 101 70 - 110 mg/dLCREATININE 0.92 0.50 - 1.04 mg/dLTOTAL BILI 0.6 0.1 - 1.1 mg/dLCALCIUM 9.0 8.6 - 10.6 mg/Aric PROTEIN 8.1 6.3 - 8.2 g/dLALBUMIN 4.1 3.5 - 5.0 g/dLALK PHOS 123 (H) 34 - 122 U/LALTv 104 (H) 5 - 35 U/LAST(SGOT) 105 (H) 13 - 40 U/LeGFR 81.4 mL/min/1.28a5XGQGKMTCCBZqlrilmakt Time: 01/18/24 2:01 PMResult Value Ref RangeAPPEARANCE Clear ClearCOLOR Yellow YellowPH 5.0 4.8 - 8.0SP GRAVITY 1.016 1.003 - 1.030GLU U QUAL Normal NormalBLOOD 1+ (A) NegativeKETONES Negative NegativePROTEIN Negative NegativeUROBILIN 4.0 mg/dL (A) NormalBILIRUBIN Negative NegativeNITRITE Negative NegativeLEUK MERON 75/uL (A) NegativeRBC/HPF 3 0 - 3 HPFWBC/HPF 9 (H) 0 - 5 HPFBACTERIA Negative NegativeMUCOUS Slight (A) Negative LPFSQ EPITH 5 (H) <=2 HPFN-TERMINAL PRO-BNPCollection Time: 01/18/24 2:01 PMResult Value Ref RangeNT-proBNP 805 (H) <=125 pg/mLPOCT TESTCollection Time: 01/18/24 2:07 PMResult Value Ref RangePOCT PREG NegativeOn board controls acceptable with C Line YesPOCT PREG LOT # [id number] PREG TEST DATE 02/19/2025D-DimerCollection Time: 01/18/24 3:23 PMResult Value Ref RangeD-DIMER 0.42 <0.50 ?g/mL (FEU)TROPONIN ICollection Time: 01/18/24 5:22 PMResult Value Ref RangeTROPONIN I 0.016 <=0.034 ng/mLHospital Encounter on 01/18/24CT ABDOMEN PELVIS W CONTRASTNarrativeEXAM: CT ABDOMEN PELVIS W CONTRASTHISTORY: 38 years-old Female; Provided indication: Abdominal wall abscess.TECHNIQUE: Contiguous axial imaging from the level of the lung basesthrough the proximal thighs was performed with intravenous contrast.Coronal and sagittal reconstructions were obtained.COMPARISON: CT abdomen pelvis 07/03/2020FINDINGS:LOWER THORAX: Trace left pleural effusion. Prominent extrapleural fat isnoted on the left. Cardiomegaly with right atrial dilation Concentric leftventricular hypertrophy. Pacemaker leads terminate within the right atriumand right ventricle. Postsurgical changes of aortic valve repair.LIVER: The liver is normal in size. Diffusely hypoattenuating liverparenchyma. No focal hepatic lesion is seen.GALLBLADDER AND BILIARY TREE: Postsurgical changes of cholecystectomy areseen. Prominent common bile duct likely reflecting reservoir phenomenon insetting of prior cholecystectomy.SPLEEN: The spleen appears unremarkable.PANCREAS: The previously identified distal pancreatic laceration is nolonger identified. Interval resolution of adjacent peripancreatic fluid.ADRENAL GLANDS: No adrenal masses are seen.KIDNEYS: Symmetric cortical enhancement. No hydronephrosis, stones ormasses.PELVIS/BLADDER: The bladder is mildly distended but appears unremarkable.Bilateral tubal ligation clips are seen. Left-sided hydrosalpinx ispresent.GI TRACT: No dilation or bowel wall thickening is seen. The appendix is notdefinitively visualized, however, no secondary signs of appendicitis areseen.PERITONEUM AND RETROPERITONEUM: No free air or free fluid.LYMPH NODES: No lymphadenopathy.VESSELS: Mild atherosclerosis is seen.BONES AND SOFT TISSUES: Postsurgical changes of pelvic cause reduction withpercutaneous pinning. No aggressive osseous lesions.ImpressionTrace left pleural effusion.Stable cardiomegaly with cardiac postsurgical changes.No acute abdominopelvic findings. No abdominal wall abscess.Preliminary Report Dictated by Resident: Min EdgarXR CHEST 2 VWNarrativePROCEDURE: XR CHEST 2 VW 01/18/2024 2:20 PMCLINICAL INDICATION: CPCOMPARISON: Radiograph of 06/30/2020TECHNIQUE: PA and lateral views of the chestFINDINGS:Left chest wall cardiac pacer leads overlying right atrium and rightventricle. Aortic valve prosthesis is again noted. There is no pleuraleffusion. No pneumothorax.The cardiac size is within normal limits.No aggressive osseous lesion.ImpressionNo acute abnormality or interval change.Dx: Abdominal wall cellulitis.Xavier Blandon D.O.EM PhysicianRTI Billing ID #[id number] DO01/18/241951 04407-7Snbeqpxnd Emergency department TtmoUZ2166-26-06R64:52:34Physician Emergency department NoteTXT1.2.840.109102.1.13.104.2.7. 2.218270|[id number] for patient rkrq79152-1Nhbhbokna department NoteLNNARRATIVEFormatted C-CDA narrative textEMCARE EMERGENCY PHYSICIAN STAFFEMCARE EMERGENCY PHYSICIAN [address] CmkwT[id number] 9NMOOUWYQTEBZQQSOESNBAV3742-78-94Z6 9:52:341.2.840.962473.1.72.3.15|1.2 .840.630694.1.13.104.2.7.2.727879_2 [id number] [facility] STAFF [facility] 2024-01-16 19:30:00 hspboW8S6TJPnHNALcdSi1e9GIgmqvXuChP kzKjbCGjLlwQE3BuLUG7cvmbwxiFM8709-1 01-15T19:30:00 Patient not seen by triage, patient not roomed. No discharge instructions provided to patient. 47502-0Gljqnboey department RbjvPX1125-55-80W55:41:27Emergency department NoteTXT1.2.840.566228.1.13.104.2.7. 2.705136|[id number] for patient rfyd36137-9WohfYPZDKFOKHFAXfaxxhuoz C-CDA narrative aqcl692840094Yrfp McCreight RN[address] Ljmn[id number] 6EMDIEWJAMXIDWBOINBZNOJ7785-26-35C3 0:41:271.2.840.743428.1.72.3.15|1.2 .840.223254.1.13.104.2.7.2.727879_2 [id number] Keyana Santiago RN [facility] 2024-01-16 19:20:02 6F3oUjFOW1nLhxHFOVm85J7XCoZ8f1RzWgU 6uPyrzjsOa6wF2SgnDRc5kJSxm+Ny5191-3 01-15T19:20:02 Unable to locate patient for triage, told by registration, provider had seen patient, talked to provider said she is getting ready to discharge patient 35098-4Nomfplljj department ZxzzCD3002-37-04I37:21:46[facility] NoteTXT1.2.840.278737.1.13.104.2.7. 2.079796|[id number] for patient xkms36119-9HvbhNUEXFVPYNSBAasdewnbs C-CDA narrative [id number] 8KKUUMCCRAZFETCCVVWBHTA5350-63-40F3 9:21:461.2.840.164409.1.72.3.15|1.2 .840.310919.1.13.104.2.7.2.727879_2 [id number] [facility] 2024-01-16 19:02:00 LjN7uO2utoH/0nZma6yKAtld1RAfCJknkzG Uo3giDRvyYaLMaY+JEPc9bydSnbcW6780-7 01-15T19:02:00 Report received from Mariah PELAYO 00984-4Uhnipmgye department SeuzMQ9307-96-62B90:27:51[facility] NoteTXT1.2.840.311568.1.13.104.2.7. 2.329103|[id number] for patient uoaq75860-6PhbkLRKFNUXNZBOCzdqmtrlx C-CDA narrative [id number] 3DLXIKWQKRLXELINBTIUHUD3294-25-13L3 0:27:511.2.840.657488.1.72.3.15|1.2 .840.666588.1.13.104.2.7.2.727879_2 [id number] [facility] 2023-11-11 20:16:27 33651241oS1HEv74nEf+ZY8xDKpyvNqqgzx QwMi2irT/ZKoUAa0LUkGesSqR53tM1Luro5 I2538-75-62N70:16:27+ +--------+ +- -----+-------+ +-------+- ---------+ +| DISCHARGE MEDICATIONS | | | | | | | | || Status | RXNORM | Medication | Dose | Route | Frequency | Dates | Comments | Updated By |+ +======= =+ +======+=======+===== ======+=======+ +========= ===+| Patient discharge medication information is not available. | | | | | | | | |+ +------- -+ +------+-------+----- ------+-------+ +--------- ---++ +-------- + + +-------- -----+ + + --+ +| PATIENT OPEN ORDERS | | | | | | | | || Code | System | Description | Frequency | Occurrences | Priority | Start Date | Ordering Physician | Updated By |+ +========+== + + ==+ + + + ========+| 96022-3 | LOINC | EKG study | ONE TIME | 0 | Stat | November 05, 2023 6:32:00 PM [facility] | ASMITAOLE MARIANGEL | [id number] on November 05, 2023 6:32:00 PM UTC |+ +--------+-- + + --+ + + + --------++ + --------+ +--------+--- + +| SCHEDULED PROCEDURES | | | | | || Code | System | Description | Status | Scheduled Date | Updated By |+ +======== + +========+ =====+ +| Patient scheduled procedure information is not available. | | | | | |+ +-------- + +--------+ -----+ +21328-0Lfuw of TreatmentLNTREATMENT PLANTXT2.16.840.1.121383.3.1579.777 267041959.1.100|52489549|2.16.840.1 .749288.10.20.22.2.10AVAvailable for patient owxmOggqjkfEciiuxuerKZSMq28 Section NarrativeNARRATIVEFormatted C-CDA narrative textB[facility]IST [facility]+[phone])962-281-31146796-4379365249-80-22S9 0:16:27 [facility] 2023-11-11 20:16:27 6405924SfHOClnI9lTOb3Z3w3qdtzDFbHQq NqlpCXqp1xRChc4B+3EwUUi2RWZ6TV45B0z c3016-66-17T14:16:27CARE TEAM+ + ---+--------+ + + +| Member | Role on Team | Status | Start Date | End Date | Updated By |+ + +--------+ ---------+ ---------+ +| NO PCP | Referring | normal | November 05, 2023 7:34:39 PM UTC | November 06, 2023 2:02:00 AM UTC | [id number] on November 05, 2023 7:34:39 PM UTC |+ + +--------+ ---------+ ---------+ +| DIANE Roblero | Attending | normal | November 05, 2023 7:34:39 PM UTC | November 06, 2023 2:02:00 AM UTC | [id number] on November 05, 2023 7:34:39 PM UTC |+ + +--------+ ---------+ ---------+ +| CONTRERAS KAILASH Roblero | Admitting | normal | November 05, 2023 7:34:38 PM UTC | November 06, 2023 2:02:00 AM UTC | [id number] on November 05, 2023 7:34:39 PM UTC |+ + +--------+ ---------+ ---------+ +| NO PCP | PCP | normal | November 05, 2023 6:21:09 PM UTC | November 06, 2023 2:02:00 AM UTC | [id number] on November 05, 2023 7:34:39 PM UTC |+ + +--------+ ---------+ ---------+ +01777-8Giirpen Care team informationLNCARE TEAMTXT2.16.840.1.671544.3.1579.777 814814343.1.100|36204193|2.16.840.1 .037036.10.20.22.2.500AVAvailable for patient xicsMqiwxcxGuszoccoqPRKQx11 Section NarrativeNARRATIVEFormatted C-CDA narrative textBAPTIST HOSPITAL+[phone])[phone]9-24U6 0:16:27 [facility] 2023-11-08 21:05:03 24847860lQ4LHu67hEs+PK7jRDfkcGexxmj VyCo1jdQ/GOjYCm7QYsNecTwH83tH5Itfy1 T3476-62-45J06:05:03+ +--------+ +- -----+-------+ +-------+- ---------+ +| DISCHARGE MEDICATIONS | | | | | | | | || Status | RXNORM | Medication | Dose | Route | Frequency | Dates | Comments | Updated By |+ +======= =+ +======+=======+===== ======+=======+ +========= ===+| Patient discharge medication information is not available. | | | | | | | | |+ +------- -+ +------+-------+----- ------+-------+ +--------- ---++ +-------- + + +-------- -----+ + + --+ +| PATIENT OPEN ORDERS | | | | | | | | || Code | System | Description | Frequency | Occurrences | Priority | Start Date | Ordering Physician | Updated By |+ +========+== + + ==+ + + + ========+| 97798-0 | LOKM | EKG study | ONE TIME | 0 | Stat | November 05, 2023 6:32:00 PM [place] | ZIGGY AUGUST | [id number] on November 05, 2023 6:32:00 PM UTC |+ +--------+-- + + --+ + + + --------++ + --------+ +--------+--- + +| SCHEDULED PROCEDURES | | | | | || Code | System | Description | Status | Scheduled Date | Updated By |+ +======== + +========+ =====+ +| Patient scheduled procedure information is not available. | | | | | |+ +-------- + +--------+ -----+ +37407-7Lsiy of TreatmentLNTREATMENT PLANTXT2.16.840.1.389499.3.1579.777 333463390.1.100|21351031|2.16.840.1 .760172.10.20.22.2.10AVAvailable for patient uzbwHnrfwziWassaxxmkSREMs48 Section NarrativeNARRATIVEFormatted C-CDA narrative textHENRY J. CARTER SPECIALTY HOSPITAL AND NURSING FACILITYETM[facility]+[phone])[phone]1-17P5 1:05:03 [facility] 2023-11-08 21:05:03 3981935VvPMIisD6iSJw0W2c9ojrzYErQEs UfwpZSfv4gVUfu4L+3SnCXk4UFD3QB17W2c x2113-28-44R01:05:03CARE TEAM+ + ---+--------+ + + +| Member | Role on Team | Status | Start Date | End Date | Updated By |+ + +--------+ ---------+ ---------+ +| NO PCP | Referring | normal | November 05, 2023 7:34:39 PM UTC | November 06, 2023 2:02:00 AM UTC | [email or web address] on November 05, 2023 7:34:39 PM UTC |+ + +--------+ ---------+ ---------+ +| DIANE Roblero | Attending | normal | November 05, 2023 7:34:39 PM UTC | November 06, 2023 2:02:00 AM UTC | [email or web address] on November 05, 2023 7:34:39 PM UTC |+ + +--------+ ---------+ ---------+ +| DIANE Roblero | Admitting | normal | November 05, 2023 7:34:38 PM UTC | November 06, 2023 2:02:00 AM UTC | [email or web address] on November 05, 2023 7:34:39 PM UTC |+ + +--------+ ---------+ ---------+ +| NO PCP | PCP | normal | November 05, 2023 6:21:09 PM UTC | November 06, 2023 2:02:00 AM UTC | [email or web address] on November 05, 2023 7:34:39 PM UTC |+ + +--------+ ---------+ ---------+ +96935-3Jzyoqfd Care team informationLNCARE [id number]|2.16.840.1 .[id number]le for patient oevnCizxcijJpfxcapzmICSGu64 Section NarrativeNARRATIVEFormatted C-CDA narrative textHENRY J. CARTER SPECIALTY HOSPITAL AND NURSING FACILITYETM[facility]+[phone] 1:05:03 [facility] 2023-11-08 00:54:08 [id number]+QQv7sNA D6o7xeKrpIVpkpnCXgu0rHyC8Obr7X/O7ah b3612-17-86H07:54:08+ +--------+ +- -----+-------+ +-------+- ---------+ +| DISCHARGE MEDICATIONS | | | | | | | | || Status | RXNORM | Medication | Dose | Route | Frequency | Dates | Comments | Updated By |+ +======= =+ +======+=======+===== ======+=======+ +========= ===+| Patient discharge medication information is not available. | | | | | | | | |+ +------- -+ +------+-------+----- ------+-------+ +--------- ---++ +-------- + + +------- ------+ + + ---+ +| PATIENT OPEN ORDERS | | | | | | | | || Code | System | Description | Frequency | Occurrences | Priority | Start Date | Ordering Physician | Updated By |+ +========+== + + ===+ + + + +| 93465-5 | LOINC | Natriuretic peptide B [Mass/volume] in Serum or | ONE TIME | 0 | Stat | November 04, 2023 1:27:00 AM [facility] | DIANE Roblero | [email or web address] on November 04, 2023 1:27:00 AM [facility] |+ +--------+-- + + ---+ + + + +| 06918-4 | LOINC | CBC W Auto Differential panel - Blood | ONE TIME | 0 | Stat | November 04, 2023 1:27:00 AM UTC | DIANE LINDER S | [email or web address] on November 04, 2023 1:27:00 AM UTC |+ +--------+-- + + ---+ + + + +| 74856-7 | LOINC | Creatine kinase.MB [Mass/volume] in Serum or Pl | ONE TIME | 0 | Stat | November 04, 2023 1:27:00 AM UTC | DIANE LINDER S | [email or web address] on November 04, 2023 1:27:00 AM UTC |+ +--------+-- + + ---+ + + + +| 83000-0 | LOINC | Hepatitis C virus Ab [Presence] in Serum | ONE TIME | 0 | Stat | November 04, 2023 1:27:00 AM UTC | DIANE Roblero | [email or web address] on November 04, 2023 1:27:00 AM UTC |+ +--------+-- + + ---+ + + + +| 88583-8 | LOINC | HIV 1+2 Ab [Units/volume] in Serum | ONE TIME | 0 | Stat | November 04, 2023 1:27:00 AM UTC | DIANE LINDER S | [email or web address] on November 04, 2023 1:27:00 AM UTC |+ +--------+-- + + ---+ + + + +| 88626-3 | LOINC | Magnesium [Mass/volume] in Serum or Plasma | ONE TIME | 0 | Stat | November 04, 2023 1:27:00 AM [facility] | DIANE Roblero | [email or web address] on November 04, 2023 1:27:00 AM UTC |+ +--------+-- + + ---+ + + + ++ --+--------+ +--------+ + +| SCHEDULED PROCEDURES | | | | | || Code | System | Description | Status | Scheduled Date | Updated By |+ +======== + +========+ =====+ +| Patient scheduled procedure information is not available. | | | | | |+ +-------- + +--------+ -----+ +83280-0Zjcu of TreatmentLNTREATMENT [id number]|2.16.840.1 .887542.10.20.22.2.10AVAvailable for patient pdxlTztlkmfXlsrhaouvNUVCx67 Section NarrativeNARRATIVEFormatted C-CDA devonte Silvia [facility]+[id number] 0:54:08 [facility] 2023-11-08 00:54:08 [id number]o4VU G/IfHUcKt7w6E56chM9BqNW5sYxx0QWf/ep l2311-54-76S08:54:08CARE TEAM+ +------- -------+--------+ + + +| Member | Role on Team | Status | Start Date | End Date | Updated By |+ + ----+--------+ + + +| NO PCP | Referring | normal | November 03, 2023 6:00:00 AM UTC | November 04, 2023 2:06:00 AM UTC | [id number] on November 04, 2023 2:21:53 AM UTC |+ + ----+--------+ + + +| TAMIA HENDERSON | Attending | normal | November 03, 2023 6:00:00 AM UTC | November 04, 2023 2:06:00 AM UTC | [email or web address] on November 04, 2023 2:21:53 AM UTC |+ + ----+--------+ + + +| TAMIA HENDERSON | Admitting | normal | November 03, 2023 6:00:00 AM UTC | November 04, 2023 2:06:00 AM UTC | [id number] on November 04, 2023 2:21:53 AM UTC |+ + ----+--------+ + + +| NO PCP | PCP | normal | November 04, 2023 1:16:04 AM UTC | November 04, 2023 2:06:00 AM UTC | [id number] on November 04, 2023 2:21:53 AM UTC |+ + ----+--------+ + + +53506-4Jbg ie Care team informationLNCARE TEAMTXT2.16.840.1.425043.3.1579.777 [id number]|[id number]|2.16.840.1 .808034.10.20.22.2.500AVAvailable for patient tlnpDcflxyoQocxyjqnhOCUEk40 Section NarrativeNARRATIVEFormatted C-CDA narrative textBHYIMIETMUNSON HEALTHCARE [facility]+[phone])[id number]8-23R0 0:54:08 [facility] 2023-11-05 20:06:23 [id number]1EUYpPM+I bZ6sCzVRnLCyCqCj1jIrycl1BqjeHt2f/nL X8183-70-29S77:06:23+ +--------+ +- -----+-------+ +-------+- ---------+ +| DISCHARGE MEDICATIONS | | | | | | | | || Status | RXNORM | Medication | Dose | Route | Frequency | Dates | Comments | Updated By |+ +======= =+ +======+=======+===== ======+=======+ +========= ===+| Patient discharge medication information is not available. | | | | | | | | |+ +------- -+ +------+-------+----- ------+-------+ +--------- ---++ +-------- + + +-- + + + --------+ +| PATIENT OPEN ORDERS | | | | | | | | || Code | System | Description | Frequency | Occurrences | Priority | Start Date | Ordering Physician | Updated By |+ +========+== + +===== ========+ + + =====+ +| 38391-9 | LOINC | EKG study | ONE TIME | 0 | Stat | November 05, 2023 6:32:00 PM UTC | ZIGGY AUGUST | 09995 on November 05, 2023 6:32:00 PM UTC |+ +--------+-- + +----- --------+ + + -----+ +| 28624-2 | LOINC | CTA Chest vessels | ONE TIME | 0 | Stat | November 05, 2023 9:18:00 PM UTC | ZIGGY AUGUST | 74635 on November 05, 2023 9:18:00 PM UTC |+ +--------+-- + +----- --------+ + + -----+ ++ -----+--------+ +------ --+ + +| SCHEDULED PROCEDURES | | | | | || Code | System | Description | Status | Scheduled Date | Updated By |+ +======== + +========+ =====+ +| Patient scheduled procedure information is not available. | | | | | |+ +-------- + +--------+ -----+ +32151-8Qdxc of TreatmentLNTREATMENT PLANTXT2.16.840.1.600781.3.1579.777 217585675.1.100|93347706|2.16.840.1 .490339.10.20.22.2.10AVAvailable for patient dqnvUjelujmQauehjvzeKHBZd32 Section NarrativeNARRATIVEFormatted C-CDA narrative [facility]IST [facility]+[phone])[id number] 0:06:23 [facility] 2023-11-05 20:06:23 [id number]likAJeUZh VxnmFGcx5oHUfl1Y+9WdLBr6HAI8HD17B6v j3290-98-93Y19:06:23CARE TEAM+ + ---+--------+ + + +| Member | Role on Team | Status | Start Date | End Date | Updated By |+ + +--------+ ---------+ ---------+ +| NO PCP | Referring | normal | November 05, 2023 7:34:39 PM UTC | November 06, 2023 2:02:00 AM UTC | [id number] on November 05, 2023 7:34:39 PM UTC |+ + +--------+ ---------+ ---------+ +| DIANE Roblero | Attending | normal | November 05, 2023 7:34:39 PM UTC | November 06, 2023 2:02:00 AM UTC | [id number] on November 05, 2023 7:34:39 PM UTC |+ + +--------+ ---------+ ---------+ +| DIANE Roblero | Admitting | normal | November 05, 2023 7:34:38 PM UTC | November 06, 2023 2:02:00 AM UTC | ZKX1WXV on November 05, 2023 7:34:39 PM UTC |+ + +--------+ ---------+ ---------+ +| NO PCP | PCP | normal | November 05, 2023 6:21:09 PM UTC | November 06, 2023 2:02:00 AM UTC | [id number] on November 05, 2023 7:34:39 PM UTC |+ + +--------+ ---------+ ---------+ +83262-3Rayvakn Care team informationLNCARE TEAMTXT2.16.840.1.687302.3.1579.777 745463736.1.100|[id number]|2.16.840.1 .209706.10.20.22.2.500AVAvailable for patient pbhcWcyuvenHamsmyopkDHBBk52 Section NarrativeNARRATIVEFormatted C-CDA narrative textSSETMUNSON HEALTHCARE MANISTEE [facility]+[phone])[id number] 0:06:23 [facility] 2023-11-05 15:18:00 FHxfltejsvo045264E41cQEOG4CTQLpFHxD wkRzSHeH9y7SG/qHT4Lpifsp1nf5E9H+pTz Mq6hjlBHLBw1429-16-81F74:18:00[facility] [place] [address] DIAGNOSTIC IMAGING REPORT Patient Name: CRISTIAN Februaryate of Service: 25-78-1880Meu: 38 Sex: F Order #: [id number] [facility] 1985 [facility] Number: [id number] Record Number: [id number] Hospital Number: [id number] Physician: KAILASH CONTRERAS Physician: KAILASH CONTRERAS PROCEDURE: CTA CHEST INDICATIONS: DX STATES CHEST PAINCHART STATES C/P, WEAKNESS, SOB, SWEATS,NAUSEATED , RAPID HEARTBEATPMHX PACEMAKERPER PATIENT PROTOCAL ISOVUE 615929XBKMMU 1.5PSV CAF EXAM: CT Angiography Chest With Intravenous Contrast MIPS post processingand 3D reconstruction was performed.COMPARISON: No relevant prior studies available.FINDINGS:PULMONARY ARTERIES: Unremarkable. No pulmonary embolism.AORTA: No acute findings. No thoracic aortic aneurysm.LUNGS AND PLEURAL SPACES: Calcified granuloma in the left lung. Small leftpleural effusion. Bilateral atelectasis with subtle tiny subcentimeterbilateral pulmonary nodules some of which are ill-defined with peripheralground-glass attenuation. Nodules measure up to 6 mm, for example in theright upper lobe series 7, image 107. Post sternotomy changes. Nopneumothorax.HEART: Unremarkable. No cardiomegaly. No significant pericardial effusion.No evidence of RV dysfunction.BONES/JOINTS: Age-indeterminate superior endplate compression deformitiesnoted at T3 and T4. No dislocation.SOFT TISSUES: Unremarkable.LYMPH NODES: Unremarkable. No enlarged lymph nodes.LIVER: Hepatic steatosis noted.GALLBLADDER AND BILE DUCTS: Post cholecystectomy. No significant biliaryductal dilatation.ADRENALS: Thickening of the adrenal gland.STOMACH AND BOWEL: Colonic diverticulosis.TUBES, LINES AND DEVICES: Left pectoral cardiac pacing device.IMPRESSION:1. No evidence of PE.2. Small left pleural effusion.3. Bilateral pulmonary ill-defined nodules, may reflectinfectious/inflammatory etiologies however neoplastic can not be entirelyexcluded. Recommend short attention on follow-up establish stabilityand/or ensure resolution.This document has been electronically signed by: Kali Baird MD on11/05/2023 20:19:33 Legally authenticated by NICHELLE DRAKE 2023-11-05 15:18:70JAOsdoltxnykswjsnfh95684XYK SAUL FREIREDPBBNQRFKMTZYTJG1199-27-25S17:18:00 [id number] [id number], ZINNACWPIUNVSGRY1035-22-69M29:20:37 KALI BAIRD MIKE 2023-11-05 12:32:00 CRjxbnyvhgd098486l3gFARU1Bvk2jHMOxC Dg6PsdY60UZledwnA2uQ+reep4GKkpLMfdX 4oZiYRFSMcM9355-29-59I00:32:00[place] [address] DIAGNOSTIC IMAGING REPORT Patient Name: LUZ MARINA FOSTERDate of Service: 15-29-8980Mmh: 38 Sex: F Order #: [id number] Room: [facility]: 1985 X-Ray Number: [id number] Record Number: [id number] Hospital Number: [id number] Physician: ,Ordering Physician: MARIANGEL TRINH HISTORY:Chest Pain without Trauma/InjuryEXAM:CHEST 1 VIEW PORTABLE Findings: Single view chest without comparison exam shows the cardiacsilhouette is normal in size. There is no pulmonaryvascular congestion. There are bibasilar reticular markings without focallung consolidation seen. There is no pleural effusionor pneumothorax seen. Visualized osseous structures show no acute findings.Surgical changes are seen of the mediastinumwith sternotomy wires. Cardiac generator is seen with distal leads in theright atrium and ventricle.Impression:1. Chronic lung findings without superimposed focal infiltrate.2. No radiographically evident acute cardiopulmonary process. 133[address] CT Legally authenticated by BLANCA KONG 2023-11-05 12:32:82TTRsrycrrpisthbatnc14776HIH S, FCUPMYVNBLTG4778-83-93C65:32:00ER51 [id number] 9590555DAJTJTUX14128JYSE, NPBDQPJDLNDVGMLG5151-06-98Z75:32:12 DILAN SMITH MIKE 2023-11-04 01:24:57 6746406a+Hb3PA9RGgKuUElSvO9W7ZVtw7k hq33HQg7+AYGXixm9/QeEg0NZs1Phr57vtj t8351-72-26J07:24:57+ +--------+ +- -----+-------+ +-------+- ---------+ +| DISCHARGE MEDICATIONS | | | | | | | | || Status | RXNORM | Medication | Dose | Route | Frequency | Dates | Comments | Updated By |+ +======= =+ +======+=======+===== ======+=======+ +========= ===+| Patient discharge medication information is not available. | | | | | | | | |+ +------- -+ +------+-------+----- ------+-------+ +--------- ---++ +-------- + + +------- ------+ + + ---+ +| PATIENT OPEN ORDERS | | | | | | | | || Code | System | Description | Frequency | Occurrences | Priority | Start Date | Ordering Physician | Updated By |+ +========+== + + ===+ + + + +| 12315-9 | LOINC | Natriuretic peptide B [Mass/volume] in Serum or | ONE TIME | 0 | Stat | November 04, 2023 1:27:00 AM [facility] | DIANE Roblero | [id number] on November 04, 2023 1:27:00 AM UTC |+ +--------+-- + + ---+ + + + +| 23666-6 | LOINC | CBC W Auto Differential panel - Blood | ONE TIME | 0 | Stat | November 04, 2023 1:27:00 AM [facility] | DIANE Roblero | aki7jgb on November 04, 2023 1:27:00 AM UTC |+ +--------+-- + + ---+ + + + +| 41144-5 | LOINC | Creatine kinase.MB [Mass/volume] in Serum or Pl | ONE TIME | 0 | Stat | November 04, 2023 1:27:00 AM UTC | DIANE LINDER S | jrn3gtv on November 04, 2023 1:27:00 AM UTC |+ +--------+-- + + ---+ + + + +| 65950-9 | LOINC | Hepatitis C virus Ab [Presence] in Serum | ONE TIME | 0 | Stat | November 04, 2023 1:27:00 AM UTC | DIANE LINDER S | [email or web address] on November 04, 2023 1:27:00 AM UTC |+ +--------+-- + + ---+ + + + +| 13909-4 | LOINC | HIV 1+2 Ab [Units/volume] in Serum | ONE TIME | 0 | Stat | November 04, 2023 1:27:00 AM UTC | CONTRERAS IRMAFAWN S | huv0iak on November 04, 2023 1:27:00 AM UTC |+ +--------+-- + + ---+ + + + +| 39733-9 | LOINC | Magnesium [Mass/volume] in Serum or Plasma | ONE TIME | 0 | Stat | November 04, 2023 1:27:00 AM UTC | DIANE Roblero | ygd6hfh on November 04, 2023 1:27:00 AM UTC |+ +--------+-- + + ---+ + + + +| 09778-8 | LOINC | EKG study | ONE TIME | 0 | Stat | November 04, 2023 1:27:00 AM [place] | DIANE Roblero | jlc8ewt on November 04, 2023 1:27:00 AM UTC |+ +--------+-- + + ---+ + + + ++ --+--------+ +--------+ + +| SCHEDULED PROCEDURES | | | | | || Code | System | Description | Status | Scheduled Date | Updated By |+ +======== + +========+ =====+ +| Patient scheduled procedure information is not available. | | | | | |+ +-------- + +--------+ -----+ +64863-1Llwt of TreatmentLNTREATMENT PLANTXT2.16.840.1.458958.3.1579.777 847291774.1.100|62039099|2.16.840.1 .017101.10.20.22.2.10AVAvailable for patient xyweCyrgzgvIdmyxklyhPKFPw70 Section NarrativeNARRATIVEFormatted C-CDA narrative textSSETBAPTASCENSION ST. JO[facility]+[phone])[phone]2-48B9 1:24:57 [facility] 2023-11-04 01:24:57 4039892fDbrFhMry3KSYC2divFC82Y7e2RS G/KhFHoRi1m9N06auV8SsOC0iJcb2VPe/ i6921-24-15Q97:24:57CARE TEAM+ +------- -------+--------+ + + +| Member | Role on Team | Status | Start Date | End Date | Updated By |+ + ----+--------+ + + +| NO PCP | Referring | normal | November 03, 2023 6:00:00 AM UTC | November 04, 2023 2:06:00 AM UTC | [id number] on November 04, 2023 2:21:53 AM UTC |+ + ----+--------+ + + +| TAMIA HENDERSON | Attending | normal | November 03, 2023 6:00:00 AM UTC | November 04, 2023 2:06:00 AM UTC | [id number] on November 04, 2023 2:21:53 AM UTC |+ + ----+--------+ + + +| TAMIA HENDERSON | Admitting | normal | November 03, 2023 6:00:00 AM UTC | November 04, 2023 2:06:00 AM UTC | [id number] on November 04, 2023 2:21:53 AM UTC |+ + ----+--------+ + + +| NO PCP | PCP | normal | November 04, 2023 1:16:04 AM UTC | November 04, 2023 2:06:00 AM UTC | AJC7UNX on November 04, 2023 2:21:53 AM UTC |+ + ----+--------+ + + +62350-6Kwq ie Care team informationLNCARE TEAMTXT2.16.840.1.041213.3.1579.777 361856111.1.100|10565923|2.16.840.1 .906190.10.20.22.2.500AVAvailable for patient sjfuWhhmfbhSsmswlbsvNDWXc94 Section NarrativeNARRATIVEFormatted C-CDA narrative textBHSSETMUNSON HEALTHCARE [facility]+[phone])092-448-52915146-3174590074-06-91M1 1:24:57 [facility] 2023-11-03 19:27:00 LQlrqcggmjb0420882+A+cEcNYS2SzEfm6i 3nvilEAoXJAgTCFeAXamCrdfh2Jp5tLtK6j RGX2gcldFvm3320-95-13D76:27:[address] [address] DIAGNOSTIC IMAGING REPORT Patient Name: LUZ MARINA FOSTERDate of Service: 92-83-3372Num: 38 Sex: F Order #: [id number] [facility] 1985 [facility]-Ray Number: [id number] Record Number: [id number] Hospital Number: [id number] Physician: ,Ordering Physician: KAILASH CONTRERAS HISTORY:Chest Pain without Trauma/InjuryEXAM:CHEST 1 VIEW PORTABLE Findings: Single view chest without comparison exam shows the cardiacsilhouette is normal in size. There is no pulmonaryvascular congestion. There are bibasilar reticular markings without focallung consolidation seen. There is no pleural effusionor pneumothorax seen. Visualized osseous structures show no acute findings.Impression:1. Chronic lung findings without superimposed focal infiltrate.2. No radiographically evident acute cardiopulmonary process. [address] CT Legally authenticated by BLANCA KONG 2023-11-03 19:27:32SIAflwtcjfxnmnmljbn46519VON S, DORMZAGPELPZ9940-97-97H52:27:00ER51 [id number] 9098050BJIMXTDC41374SDDV, GCSARYUSPNWEEHLW5356-60-50T85:31:10 DILAN SMITH MIKE 2022-08-26 01:33:27 8037387DxuiYeYI1PEK807k/PqpN8FG95k7 WRAZE8U89Gi6ENHYe7dCm7iMecKUkrtcgTR K0199-39-79D20:33:27+ +--------+ +- -----+-------+ +-------+- ---------+ +| DISCHARGE MEDICATIONS | | | | | | | | || Status | RXNORM | Medication | Dose | Route | Frequency | Dates | Comments | Updated By |+ +======= =+ +======+=======+===== ======+=======+ +========= ===+| Patient discharge medication information is not available. | | | | | | | | |+ +------- -+ +------+-------+----- ------+-------+ +--------- ---++ +-------- + + +------- ------+ + + --+ +| PATIENT OPEN ORDERS | | | | | | | | || Code | System | Description | Frequency | Occurrences | Priority | Start Date | Ordering Physician | Updated By |+ +========+== + + ===+ + + + =======+| 39857-2 | LOINC | Natriuretic peptide B [Mass/volume] in Serum or | ONE TIME | 0 | Stat | August 23, 2022 3:24:00 PM [facility] | REYNA CROFT | 74878 on August 23, 2022 3:24:00 PM UTC |+ +--------+-- + + ---+ + + + -------+| 10500-9 | LOINC | CBC W Auto Differential panel - Blood | ONE TIME | 0 | Stat | August 23, 2022 3:24:00 PM UTC | REYNA CROFT | 64414 on August 23, 2022 3:24:00 PM UTC |+ +--------+-- + + ---+ + + + -------+| 25781-2 | LOINC | Creatine kinase.MB [Mass/volume] in Serum or Pl | ONE TIME | 0 | Stat | August 23, 2022 3:24:00 PM UTC | REYNA CROFT | 24492 on August 23, 2022 3:24:00 PM UTC |+ +--------+-- + + ---+ + + + -------+| 18285-2 | LOINC | Hepatitis C virus Ab [Presence] in Serum | ONE TIME | 0 | Stat | August 23, 2022 3:24:00 PM UTC | REYNA YEHON | 88075 on August 23, 2022 3:24:00 PM UTC |+ +--------+-- + + ---+ + + + -------+| 64323-3 | LOINC | HIV 1+2 Ab [Units/volume] in Serum | ONE TIME | 0 | Stat | August 23, 2022 3:24:00 PM UTC | REYNA CROFT | 28752 on August 23, 2022 3:24:00 PM UTC |+ +--------+-- + + ---+ + + + -------++ +- -------+ +--------+---- + +| SCHEDULED PROCEDURES | | | | | || Code | System | Description | Status | Scheduled Date | Updated By |+ +======== + +========+ =====+ +| Patient scheduled procedure information is not available. | | | | | |+ +-------- + +--------+ -----+ +60167-0Npyq of TreatmentLNTREATMENT PLANTXT2.16.840.1.286817.3.1579.777 052698262.1.100|31766793|2.16.840.1 .386488.10.20.22.2.10AVAvailable for patient vsdnAzqwmxkYlodqfbebFTMLx71 Section NarrativeNARRATIVEFormatted C-CDA [facility]+1(935)938-563-66562300-4126413093-10-24N4 1:33:27 [facility] 2022-08-23 11:19:03 59707875511sX7Pejh22YH98h0QTwuVs5rf HuQXD0cFWGsN7Ae2dnenWYiqHm4UFVFyuSb Y4999-64-39X94:19:03+ +--------+ +- -----+-------+ +-------+- ---------+ +| DISCHARGE MEDICATIONS | | | | | | | | || Status | RXNORM | Medication | Dose | Route | Frequency | Dates | Comments | Updated By |+ +======= =+ +======+=======+===== ======+=======+ +========= ===+| Patient discharge medication information is not available. | | | | | | | | |+ +------- -+ +------+-------+----- ------+-------+ +--------- ---++ +-------- -+ + +------ -------+ + + ---+ +| PATIENT OPEN ORDERS | | | | | | | | || Code | System | Description | Frequency | Occurrences | Priority | Start Date | Ordering Physician | Updated By |+ +=========+= + +========= ====+ + + + ========+| 31188-6 | LOINC | Natriuretic peptide B [Mass/volume] in Serum or | ONE TIME | 0 | Stat | August 23, 2022 3:24:00 PM [place] | ORELLANA GUERDA | 32586 on August 23, 2022 3:24:00 PM UT |+ +---------+- + +--------- ----+ + + + --------+| 34362-9 | LOINC | CBC W Auto Differential panel - Blood | ONE TIME | 0 | Stat | August 23, 2022 3:24:00 PM UTC | ORELLANA GUERDA | 61597 on August 23, 2022 3:24:00 PM UTC |+ +---------+- + +--------- ----+ + + + --------+| 33010-2 | LOINC | Creatine kinase.MB [Mass/volume] in Serum or Pl | ONE TIME | 0 | Stat | August 23, 2022 3:24:00 PM UTC | REYNA CROFT | 21823 on August 23, 2022 3:24:00 PM UTC |+ +---------+- + +--------- ----+ + + + --------+| 47702-1 | LOINC | Hepatitis C virus Ab [Presence] in Serum | ONE TIME | 0 | Stat | August 23, 2022 3:24:00 PM UTC | REYNA YEHON | 22249 on August 23, 2022 3:24:00 PM UTC |+ +---------+- + +--------- ----+ + + + --------+| 05162-8 | LOINC | HIV 1+2 Ab [Units/volume] in Serum | ONE TIME | 0 | Stat | August 23, 2022 3:24:00 PM UTC | ORELLANA GUERDA | 33514 on August 23, 2022 3:24:00 PM UTC |+ +---------+- + +--------- ----+ + + + --------+| EKGW | [facility] | EKG | ONE TIME | 0 | Stat | August 23, 2022 3:24:00 PM UTC | ORELLANA GUERDA | 35787 on August 23, 2022 3:24:00 PM UTC |+ +---------+- + +--------- ----+ + + + --------++ + --------+ +--------+--- + +| SCHEDULED PROCEDURES | | | | | || Code | System | Description | Status | Scheduled Date | Updated By |+ +======== + +========+ =====+ +| Patient scheduled procedure information is not available. | | | | | |+ +-------- + +--------+ -----+ +96113-8Slsc of TreatmentLNTREATMENT PLANTXT2.16.840.1.904711.3.1579.777 717898009.1.100|34073512|2.16.840.1 .363895.10.20.22.2.10AVAvailable for patient lkqiPhwugulCjpyhkibaKBOCf59 Section NarrativeNARRATIVEFormatted C-CDA narrative textBAPTIST [facility]+[phone])837-63878305-4752234091-66-61U3 1:19:03 [facility] 2021-12-29 19:14:31 KFsvihnlyig451527a9s3dhF0hoPuFgk2wc NRH070rzEn43azLiYmyyyl954lNGZiMzFLg rrz/gzJBotT7790-41-10W43:14:31 [place] [address] Patient Name: CRISTIAN, February Patient#: [id number] Date: 11/17/2021 Date: 11/23/2021 Age/Gender: 36/FDate [facility] : 1985[facility]BED: [place] [address]/AAdmitting Phys: Chris Sosa MD DISCHARGE SUMMARY DATE OF ADMISSION: 11/17/2021 DATE OF DISCHARGE: 11/23/2021 FINAL DIAGNOSES1. Infective endocarditis transesophageal echocardiogram showing positivevegetation.2. Methicillin-susceptible Staphylococcus aureus bacteremia.3. Intravenous drug use.4. Tobacco abuse. DISCHARGE MEDICATIONSPer discharge medication reconciliation. DISCHARGE INSTRUCTIONSTo be given by nursing staff, to include all followup appointments and any ornew changes made to medication during the course of the stay. CONSULTSDr. Radha, cardiology, Dr. Monaco, Cardiovascular Surgery, ,Infectious Disease. OPERATIONS AND PROCEDURESPatient underwent a NORRIS. No complications following that procedure. HOSPITAL COURSEThisemaj is a 36-year-old female who is a current IV drug use with a history ofmethuse with endocarditis. She presents to the emergency room complaining offeverand generalized weakness for approximately 2 days. Echocardiogram isperformed.Patient was started on IV vancomycin. Consult placed to Cardiology. Patientwas taken for a NORRIS which did which did show positive for vegetation. Consult to Infectious Disease for IV antibiotic management as well as to Cardio-Thoracic Surgery for possible valve replacement. Patient does have a historyofhaving a previous tricuspid valve replaced however continued using drugs.Priorto determination being made on further plan of care, the [facility]. She was instructed on the risksassociatedwith leaving the facility without treatment up to and including , as well as the importance of followup care once she leaves the facility. Sheverbalizedunderstanding of all instructions given, signed the AMA paperwork, and leftthefacility. For any additional information please see chart and orders. DICTATED BY: GITA Owens MD Legally authenticated by ELAINE PINTO 2021-12-30 07:17:17DD: 12/29/2021 14:06:23TT: 12/29/2021 19:14:31DAE/MODLJob #: [id number] Authenticated by:Millie Henry M.D. on 12/30/2021 07:17 AM LDR RN Legally authenticated by ELAINE PINTO 2021-12-30 07:17:17DSDischarge fqkrbdt98064DRWUHY, YFPXEFIYAVWYHZHP8990-38-37R04:14:31 [id number] [id number]Q, RLUTLEXQVFZHGPNUG5047-22-33E94:20:1 1 [facility] 2021-11-23 14:54:14 46185329ALo6Cc50kDN8vU4oZL/I8QQCPIk fNwDCl1DmAXSyAlGYM2EZsC4Dac3O3yLjG7 q4267-04-91L83:54:14Fever ; Weakness present ; Substance abuse ; 34481-7EqbwdguxszbSDNUGSLHQNBJYJAY7 .16.840.1.231881.3.1579.00982071409 5.1.100|47987677|2.16.840.1.511606. 10.20.22.2.8AVAvailable for patient dlovZolfbkaLwlpixatmJZKTg05 Section [facility]409063-81529533-4320487397-74-48F00: 54:[address] [facility] 2021-11-23 14:54:14 5674362SzTXhxQmyaHHkggTuWLOat9Mx9rf MBiIouDv0j3eIHMwiV51pBmIkiPm8yug2Aa u4362-22-64T43:54:14+ +--------+ +- -----+-------+ +-------+- ---------+ +| DISCHARGE MEDICATIONS | | | | | | | | || Status | RXNORM | Medication | Dose | Route | Frequency | Dates | Comments | Updated By |+ +======= =+ +======+=======+===== ======+=======+ +========= ===+| Patient discharge medication information is not available. | | | | | | | | |+ +------- -+ +------+-------+----- ------+-------+ +--------- ---++ +-------- -+ + +------ -------+ + + --------+ +| PATIENT OPEN ORDERS | | | | | | | | || Code | System | Description | Frequency | Occurrences | Priority | Start Date | Ordering Physician | Updated By |+ +=========+= + +========= ====+ + + =====+ +| OBSERVPT | [facility] | PLACE IN OBSERVATION STATUS | ONE TIME | 0 | Routine | November 14, 2021 5:59:00 AM [facility] | IAN WINTERS Semaj | |+ +---------+- + +--------- ----+ + + -----+ +| ADMITTO | [facility] | ADMITTING MD AND DIAGNOSIS | ONE TIME | 0 | Routine | November 14, 2021 6:33:00 AM [facility] | JUJU WHARTON | |+ +---------+- + +--------- ----+ + + -----+ +| LOWNA | [facility] | LOWSODIUM DIET | ONE TIME | 0 | Timed | November 14, 2021 6:33:00 AM [facility] | JUJU ARTHUR | |+ +---------+- + +--------- ----+ + + -----+ +| OTP | [facility] | O2 TO KEEP SPO2 > 90% | ONE TIME | 0 | Routine | November 14, 2021 6:33:00 AM [facility] | JUJU WHARTON | |+ +---------+- + +--------- ----+ + + -----+ +| VANCCON | [facility] | PHARMACY VANCOMYCIN CONSULT | ONE TIME | 0 | Routine | November 14, 2021 6:36:00 AM [facility] | JUJU BOOTHAAC | |+ +---------+- + +--------- ----+ + + -----+ +| PCSCREEN | [facility] | COIL MACHINE SUPERVISOR CONSULT | ONE TIME | 0 | Routine | November 14, 2021 8:03:00 AM [facility] | IAN WINTERS S | |+ +---------+- + +--------- ----+ + + -----+ +| [id number] | LOINC | Basic metabolic 2000 panel - Serum or Plasma | IN AM | 3 | Routine | November 16, 2021 9:00:00 AM [facility] | YOUNG BLAIRH - ACCESS COORDINATOR | |+ +---------+- + +--------- ----+ + + -----+ +| 16309-9 | LOINC | Basic metabolic 2000 panel - Serum or Plasma | IN AM | 0 | Routine | November 16, 2021 9:00:00 AM [facility] | YOUNG BLAIRH - ACCESS COORDINATOR | |+ +---------+- + +--------- ----+ + + -----+ +| 57529-8 | LOINC | Basic metabolic 2000 panel - Serum or Plasma | IN AM | 0 | Routine | November 17, 2021 9:00:00 AM [facility] | YOUNG PERALTA - ACCESS COORDINATOR | |+ +---------+- + +--------- ----+ + + -----+ +| 48733-9 | LOINC | Basic metabolic 2000 panel - Serum or Plasma | IN AM | 0 | Routine | November 18, 2021 9:00:00 AM [facility] | YOUNG PERALTA - ACCESS COORDINATOR | |+ +---------+- + +--------- ----+ + + -----+ +| 29618-7 | LOINC | Magnesium [Mass/volume] in Serum or Plasma | IN AM | 1 | Routine | November 16, 2021 9:00:00 AM [facility] | YOUNG PERALTA - ACCESS COORDINATOR | |+ +---------+- + +--------- ----+ + + -----+ +| 16554-8 | LOINC | CBC W Auto Differential panel - Blood | IN AM | 3 | Routine | November 16, 2021 9:00:00 AM UTC | YOUNG PERALTA - ACCESS COORDINATOR | |+ +---------+- + +--------- ----+ + + -----+ +| 99714-3 | LOINC | CBC W Auto Differential panel - Blood | IN AM | 0 | Routine | November 18, 2021 9:00:00 AM UTC | YOUNG IRVINGOAH - ACCESS COORDINATOR | |+ +---------+- + +--------- ----+ + + -----+ +| CONSULT3 | MEDHOST | CONSULT MD | ONE TIME | 0 | Routine | November 16, 2021 6:34:00 PM UTC | SANGEETA MULLER | |+ +---------+- + +--------- ----+ + + -----+ +| 600-7 | LOINC | Bacteria identified in Blood by Culture | ONE TIME | 0 | Routine | November 16, 2021 10:06:00 PM UTC | SANGEETA MULLER | |+ +---------+- + +--------- ----+ + + -----+ +| 600-7 | LOINC | Bacteria identified in Blood by Culture | ONE TIME | 0 | Routine | November 16, 2021 10:06:00 PM UTC | SANGEETA MULLER | |+ +---------+- + +--------- ----+ + + -----+ +| 03283-6 | LOINC | CBC W Auto Differential panel - Blood | IN AM | 1 | Routine | November 17, 2021 9:00:00 AM UTC | SANGEETA MULLER | |+ +---------+- + +--------- ----+ + + -----+ +| ADMINPT | MEDHOST | ADMIT TO INPATIENT STATUS | ONE TIME | 0 | Routine | November 17, 2021 3:05:00 PM UTC | IAN WINTERS S | |+ +---------+- + +--------- ----+ + + -----+ +| 600-7 | LOINC | Bacteria identified in Blood by Culture | ONE TIME | 0 | Routine | November 17, 2021 6:44:00 PM UTC | KATHIA LUCERO - RES | |+ +---------+- + +--------- ----+ + + -----+ +| CORONA3 | HUSSEIN | CORONA MOODY | ONE TIME | 0 | Routine | November 17, 2021 10:02:00 PM [facility] | SANGEETA MULLER | |+ +---------+- + +--------- ----+ + + -----+ +| 600-7 | LOINC | Bacteria identified in Blood by Culture | ONE TIME | 0 | Routine | November 18, 2021 9:00:00 AM [facility] | KATHIA LUCERO - RES | |+ +---------+- + +--------- ----+ + + -----+ +| 600-7 | LOINC | Bacteria identified in Blood by Culture | ONE TIME | 0 | Routine | November 18, 2021 9:00:00 AM UTC | KATHIA LUCERO - RES | |+ +---------+- + +--------- ----+ + + -----+ +| MIDLINE | MEDHOST | MIDLINE CATHETER | ONE TIME | 0 | Routine | November 18, 2021 3:00:00 PM UTC | IAN WINTERS S | |+ +---------+- + +--------- ----+ + + -----+ +| CONSENT | MEDHOST | PROCEDURE TO BE PERFORMED | ONE TIME | 0 | Routine | November 20, 2021 7:00:00 PM UTC | DERICK SMITHN ACCESS COORDINATOR | |+ +---------+- + +--------- ----+ + + -----+ +| 2111-1 | LOINC | Choriogonadotropin.beta subunit ( test | ONE TIME | 0 | DANIEL | November 20, 2021 3:22:00 PM UTC | RADHA KNOX | |+ +---------+- + +--------- ----+ + + -----+ +| CONSULT3 | HUSSEIN | CONSULT MD | ONE TIME | 0 | Routine | November 20, 2021 8:50:00 PM UTC | SAFIA BRADEN | |+ +---------+- + +--------- ----+ + + -----+ +| 06117-1 | LOINC | CBC W Auto Differential panel - Blood | IN AM | 3 | Routine | November 21, 2021 9:00:00 AM UTC | SAFIA BRADEN | |+ +---------+- + +--------- ----+ + + -----+ +| 42503-3 | LOINC | Comprehensive metabolic 2000 panel - Serum or P | IN AM | 3 | Routine | November 21, 2021 9:00:00 AM UTC | BOBSemaj BRADEN | |+ +---------+- + +--------- ----+ + + -----+ +| REG | MEDHOST | REGULAR DIET | ONE TIME | 0 | Timed | November 21, 2021 12:40:00 AM UTC | RADHA KNOX | |+ +---------+- + +--------- ----+ + + -----+ +| USGUIDIV | MEDHOST | US GUIDED PERIPHERAL IV | ONE TIME | 0 | Routine | November 22, 2021 3:55:00 PM UTC | IAN WINTERS S | |+ +---------+- + +--------- ----+ + + -----+ +| MIDLINE | MEDHOST | MIDLINE CATHETER | ONE TIME | 0 | Routine | November 22, 2021 7:32:00 PM UTC | CHIARA Jones ACCESS COORDINATOR | |+ +---------+- + +--------- ----+ + + -----+ +| CMCONS | MEDHOST | MUSEUM GUIDE CONSULT | ONE TIME | 0 | Routine | November 23, 2021 7:38:00 PM UTC | MANAV Ortiz | |+ +---------+- + +--------- ----+ + + -----+ ++ ---------+--------+ +-- ------+ + -+| SCHEDULED PROCEDURES | | | | | || Code | System | Description | Status | Scheduled Date | Updated By |+ +======== + +========+ =====+ +| Patient scheduled procedure information is not available. | | | | | |+ +-------- + +--------+ -----+ +00680-0Tffe of TreatmentLNTREATMENT PLANTXT2.16.840.1.795323.3.1579.777 [id number]|08041676|2.16.840.1 .278529.10.20.22.2.10AVAvailable for patient rscpPybrqpfUepqmbsbpSZNSk19 Section NarrativeNARRATIVEFormatted C-CDA narrative textLower [facility] HospitalWestern [id number]: 54:[address] [facility] 2021-11-23 14:54:14 [id number]/mv9H3jGfhxLsmcG2Gj fDSB2GMS4NwA354ycEnVZqDkivcPyQWahEu +4120-15-09Y48:54:14PATIENT GOALS+ + --+ +| Goal | Assigned Date | Updated By |+ + += +| ASSESS PATIENT CONDITION AND STATUS | November 14, 2021 | |+ + +- +| PATIENT OR SIGNIFICANT OTHER WILL CONVEY UNDERSTANDING ABOUT THEIR PLAN OF CARE | November 14, 2021 | || INCLUDING ILLNESS, MEDICAL CARE, IMPORTANCE OF MEDICATION THERAPY OR TREATMENT | | || REGIMEN PRESCRIBED. THEY KNOW WHERE TO SEEK ASSISTANCE AND RETURNS | | || DEMONSTRATION OF PROCEDURES WITHOUT DIFFICULTY. | | |+ + +- +86116-6YhkyfTFLRWUJZWA1 .16.[id number] 5.1.100|49352343|2.16.840.1.238271. 10.20.22.2.60AVAvailable for patient fjaxBtzntxaPycdifdcnBKCTd11 Section NarrativeNARRATIVEFormatted C-CDA narrative textSpringhill [facility] Center [phone]: 54:[address] [facility] 2021-11-23 13:54:43 UWqpwazpkco845370cgR21LPSbQXlZp6k6y O06UA04AxxiX1GH6lbNNjHOEzg0wUtPcnLK BUGBM79BE6L9434-71-02Q14:54:43 [facility] [place] [address] Patient Name: CRISTIAN February Patient#: [id number] Date: 11/17/2021 of : 1985 Age/Gender: 36/FHSSV/RM/BED: TEL/319/AAdmitting Phys: Chris Sosa MD CONSULTATION NOTE DATE OF CONSULTATION: 11/21/2021 ATTENDING PHYSICIAN: Chris Sosa MD REFERRING PHYSICIAN: PCP NO SUBJECTIVEMs. Cristian is a 36-year-old female with a history of IV drug abuse, now withrecurrent endocarditis. Initially developed vegetation on her tricuspid valvein 2016, which was [facility]. She now re-presentswith a bioprosthetic vegetation with significant resultant regurgitation.Currently resting comfortably. Does not appear to be in any distress.Hemodynamically and clinically stable, and afebrile. REVIEW OF SYSTEMSNegative other than what is mentioned above. ALLERGIESNO KNOWN DRUG ALLERGIES. CURRENT MEDICATIONSReviewed. PAST MEDICAL HISTORYIV drug use, tricuspid valve replacement, endocarditis, third-degree AVblockage, permanent pacemaker placement, cholecystectomy, tonsillectomy. SOCIAL HISTORYHomeless, IV methamphetamines. FAMILY HISTORYNoncontributory. PHYSICAL EXAMINATIONGENERAL: Awake, alert, resting comfortably.VITAL SIGNS: Stable, afebrile.HEENT: Benign.NECK: Supple. No masses.CARDIAC: Regular rhythm with holosystolic murmur and S4 gallop.LUNGS: Clear to auscultation bilaterally.ABDOMEN: Soft, nontender.LEAD ADVISOR: No focal deficits.SKIN: Multiple scarring throughout. LABORATORY DATA AND IMAGINGReviewed. ASSESSMENT/PLANA 36-year-old female with continued abuse of IV methamphetamine with a historyof surgical tricuspid valve replacement and permanent pacemaker implantationin 2016, was lost to follow up and noncompliant, recently re-presented withfever. Transesophageal echocardiogram confirms tricuspid vegetation withmethicillin-susceptible Staphylococcus aureus bacteremia. Currently receivingIV nafcillin. We will review images for consideration for redo tricuspidvalve replacement along with permanent pacemaker explantation svetlana-implantation, and she will also need Crepe Sole [employer]ourer consult as well. DICTATED BY: Erin Ackerman NPElectronically Signed By: MEKA ABBOTT 2021-11-23 14:48:00 Arsen Monaco MD TT: 11/23/2021 13:54:43LB/MODLJob #: [id number] Electronically Signed By: MEKA ABBOTT 2021-11-23 14:48:01AODfdvrmmogwhb47501SDUSQ, RRCOSYRIMVBMEAWNTXEVAXJTB6231-54-21 T13:54:[id number] [id number] WAYLONPAYAMYSBHJRYWTARDWGFUJHN3770-13-31B63:48 :14 ERIN ACKERMAN [facility] 2021-11-20 20:04:04 [id number]/Q9DMCQPc rAjFKr8UlQJKkOdVHQ9LIzD2Hod8I9fTzC6 n3109-98-38Q04:04:04Fever ; Weakness present ; Substance abuse ; 81649-3AbidpvlgmfyTPSTZCSAAEGJXCVN1 .16.840.1.234851.3.1579.29248476164 5.1.100|03398348|2.16.840.1.279146. 10.20.22.2.8AVAvailable for patient artpYoovnxeKmhnmmotxGFJIa66 Section [phone]70: 04:[address] [facility] 2021-11-20 20:04:04 11123027emXghkcKkl4YMV2FcwfNGnN2V/I EbX1JINa1jSJveO33/k8y3hz31b6vHZ7DC9 50087-82-87K03:04:04+ +--------+ +- -----+-------+ +-------+- ---------+ +| DISCHARGE MEDICATIONS | | | | | | | | || Status | RXNORM | Medication | Dose | Route | Frequency | Dates | Comments | Updated By |+ +======= =+ +======+=======+===== ======+=======+ +========= ===+| Patient discharge medication information is not available. | | | | | | | | |+ +------- -+ +------+-------+----- ------+-------+ +--------- ---++ +-------- -+ + +--------- ----+ + + ------+ +| PATIENT OPEN ORDERS | | | | | | | | || Code | System | Description | Frequency | Occurrences | Priority | Start Date | Ordering Physician | Updated By |+ +=========+= + + =+ + + ===+ +| OBSERVPT | MEDHOST | PLACE IN OBSERVATION STATUS | ONE TIME | 0 | Routine | November 14, 2021 5:59:00 AM [facility] | IAN WINTERS S | |+ +---------+- + + -+ + + ---+ +| ADMITTO | MEDHOST | ADMITTING MD AND DIAGNOSIS | ONE TIME | 0 | Routine | November 14, 2021 6:33:00 AM UTC | JUJU ARTHUR | |+ +---------+- + + -+ + + ---+ +| LOWNA | MEDHOST | LOWSODIUM DIET | ONE TIME | 0 | Timed | November 14, 2021 6:33:00 AM UTC | JUJU WHARTON | |+ +---------+- + + -+ + + ---+ +| OTP | MEDHOST | O2 TO KEEP SPO2 > 90% | ONE TIME | 0 | Routine | November 14, 2021 6:33:00 AM [facility] | JUJU WHARTON | |+ +---------+- + + -+ + + ---+ +| VANCCON | MEDHOST | PHARMACY VANCOMYCIN CONSULT | ONE TIME | 0 | Routine | November 14, 2021 6:36:00 AM [facility] | JUJU WHARTON | |+ +---------+- + + -+ + + ---+ +| PCSCREEN | CHRISTYST | CHAPLAIN JETER | ONE TIME | 0 | Routine | November 14, 2021 8:03:00 AM UTC | IAN WINTERS S | |+ +---------+- + + -+ + + ---+ +| 38648-2 | LOINC | Basic metabolic 2000 panel - Serum or Plasma | IN AM | 3 | Routine | November 16, 2021 9:00:00 AM UTC | YOUNG PERALTA - ACCESS COORDINATOR | |+ +---------+- + + -+ + + ---+ +| 41127-1 | LOINC | Basic metabolic 2000 panel - Serum or Plasma | IN AM | 0 | Routine | November 16, 2021 9:00:00 AM UTC | YOUNG PERALTA - ACCESS COORDINATOR | |+ +---------+- + + -+ + + ---+ +| 49075-2 | LOINC | Basic metabolic 2000 panel - Serum or Plasma | IN AM | 0 | Routine | November 17, 2021 9:00:00 AM UTC | YOUNG PERALTA - ACCESS COORDINATOR | |+ +---------+- + + -+ + + ---+ +| 26615-2 | LOINC | Basic metabolic 2000 panel - Serum or Plasma | IN AM | 0 | Routine | November 18, 2021 9:00:00 AM [facility] | YOUNG PERALTA - ACCESS COORDINATOR | |+ +---------+- + + -+ + + ---+ +| 28776-2 | LOINC | Magnesium [Mass/volume] in Serum or Plasma | IN AM | 1 | Routine | November 16, 2021 9:00:00 AM [facility] | YONUG BLAIRH - ACCESS COORDINATOR | |+ +---------+- + + -+ + + ---+ +| 80594-8 | LOINC | CBC W Auto Differential panel - Blood | IN AM | 3 | Routine | November 16, 2021 9:00:00 AM [facility] | YOUNG VILLATOROOAH - ACCESS COORDINATOR | |+ +---------+- + + -+ + + ---+ +| 38437-0 | LOINC | CBC W Auto Differential panel - Blood | IN AM | 0 | Routine | November 18, 2021 9:00:00 AM [facility] | YOUNG VILLATOROOAH - ACCESS COORDINATOR | |+ +---------+- + + -+ + + ---+ +| CONSULT3 | MEDHOST | CONSULT MD | ONE TIME | 0 | Routine | November 16, 2021 6:34:00 PM [place] | SANGEETA MULLER | |+ +---------+- + + -+ + + ---+ +| 600-7 | LOINC | Bacteria identified in Blood by Culture | ONE TIME | 0 | Routine | November 16, 2021 10:06:00 PM [place] | SANGEETA MULLER | |+ +---------+- + + -+ + + ---+ +| 600-7 | LOINC | Bacteria identified in Blood by Culture | ONE TIME | 0 | Routine | November 16, 2021 10:06:00 PM UTC | RUTHERFORDCOREY MULLER | |+ +---------+- + + -+ + + ---+ +| 39144-3 | LOINC | CBC W Auto Differential panel - Blood | IN AM | 1 | Routine | November 17, 2021 9:00:00 AM [place] | RUTHERFORDCOREY MULLER | |+ +---------+- + + -+ + + ---+ +| ADMINPT | MEDHOST | ADMIT TO INPATIENT STATUS | ONE TIME | 0 | Routine | November 17, 2021 3:05:00 PM UTC | IAN Roblero | |+ +---------+- + + -+ + + ---+ +| 600-7 | LOINC | Bacteria identified in Blood by Culture | ONE TIME | 0 | Routine | November 17, 2021 6:44:00 PM UTC | QAFITZR LUCERO - RES | |+ +---------+- + + -+ + + ---+ +| 600-7 | LOINC | Bacteria identified in Blood by Culture | ONE TIME | 0 | Routine | November 17, 2021 6:44:00 PM UTC | QAFITZR LUCERO - RES | |+ +---------+- + + -+ + + ---+ +| CORONA3 | HUSSEIN | CORONA MOODY | ONE TIME | 0 | Routine | November 17, 2021 10:02:00 PM [facility] | SANGEETA MULLER | |+ +---------+- + + -+ + + ---+ +| 600-7 | LOINC | Bacteria identified in Blood by Culture | ONE TIME | 0 | Routine | November 18, 2021 9:00:00 AM [facility] | KATHIA Jones RES | |+ +---------+- + + -+ + + ---+ +| 600-7 | LOINC | Bacteria identified in Blood by Culture | ONE TIME | 0 | Routine | November 18, 2021 9:00:00 AM UTC | KATHIA LUCERO - RES | |+ +---------+- + + -+ + + ---+ +| MIDLINE | MEDHOST | MIDLINE CATHETER | ONE TIME | 0 | Routine | November 18, 2021 3:00:00 PM UTC | IAN WINTERS S | |+ +---------+- + + -+ + + ---+ +| NPO | MEDHOST | NPO | ONE TIME | 0 | Timed | November 20, 2021 1:00:00 PM UTC | DERICK DINH ACCESS COORDINATOR | |+ +---------+- + + -+ + + ---+ +| CONSENT | MEDHOST | PROCEDURE TO BE PERFORMED | ONE TIME | 0 | Routine | November 20, 2021 7:00:00 PM UTC | DERICK SMITHN ACCESS COORDINATOR | |+ +---------+- + + -+ + + ---+ +| EKGW | MEDHOST | EKG | ONE TIME | 0 | DANIEL | November 19, 2021 11:46:00 PM UTC | RADHA LISETTE | |+ +---------+- + + -+ + + ---+ +| TEEW | MEDHOST | TRANSESOPHAGEAL ECHO | ONE TIME | 0 | Routine | November 20, 2021 1:50:00 PM UTC | RADHA LISETTE | |+ +---------+- + + -+ + + ---+ +| 2104-5 | LOINC | Choriogonadotropin [Moles/volume] in Semen | ONE TIME | 0 | DANIEL | November 20, 2021 1:52:00 PM [facility] | KENTON BARRIOS - ACCESS COORDINATOR | |+ +---------+- + + -+ + + ---+ ++ -------+--------+ +---- ----+ + + | SCHEDULED PROCEDURES | | | | | || Code | System | Description | Status | Scheduled Date | Updated By |+ +======== + +========+ =====+ +| Patient scheduled procedure information is not available. | | | | | |+ +-------- + +--------+ -----+ +05037-9Idod of TreatmentLNTREATMENT PLANTXT2.16.840.1.936876.3.1579.777 441521698.1.100|40039259|2.16.840.1 .375264.10.20.22.2.10AVAvailable for patient owwqVwxicaqNnegebjmrLIIUp28 Section NarrativeNARRATIVEFormatted C-CDA narrative textGenechillicothe hospital [facility](458)[phone]: 04:[address] [facility] 2021-11-20 20:04:04 [id number]/cc8R4dIjscFqqgD0Cr mMNG8NGA7MoF966gxGlWIeMutumXeMHzgMl +5502-90-68T09:04:04PATIENT GOALS+ + --+ +| Goal | Assigned Date | Updated By |+ + += +| ASSESS PATIENT CONDITION AND STATUS | November 14, 2021 | |+ + +- +| PATIENT OR SIGNIFICANT OTHER WILL CONVEY UNDERSTANDING ABOUT THEIR PLAN OF CARE | November 14, 2021 | || INCLUDING ILLNESS, MEDICAL CARE, IMPORTANCE OF MEDICATION THERAPY OR TREATMENT | | || REGIMEN PRESCRIBED. THEY KNOW WHERE TO SEEK ASSISTANCE AND RETURNS | | || DEMONSTRATION OF PROCEDURES WITHOUT DIFFICULTY. | | |+ + +- +59684-5UgqbgKFUZOGUBXK5 .16.840.1.543233.3.1579.33990554938 5.1.100|11457508|2.16.840.1.610395. 10.20.22.2.60AVAvailable for patient zwrdUlozrioXgkklvjwvPNPHf94 Section NarrativeNARRATIVEFormatted C-CDA narrative textGenechillicothe hospital [facility]([phone]4Q89: 04:[address] [facility] 2021-11-20 15:07:40 DFupwuffczb703628oxTVlaOUxVOy/5UQxc oeraG64LnMw1q+/1SXxJXXDbTDq6MhMFY06 da/G2aAT6E43984-00-15P27:07:[address] [address] Patient Name: CRISTIAN February Patient#: [id number] Date: 11/17/2021 of : 1985 Age/Gender: 36/FHSSV/RM/BED: [place] [address]/AAdmitting Phys: Chris Sosa MD OPERATIVE NOTE DATE OF SURGERY: 11/20/2021 SURGEON: LISETTE GARCIA DO PROCEDURE PERFORMEDTransesophageal echocardiogram. HISTORY OF PRESENTING ILLNESSMs. Cristian is a 36-year-old patient with a history of tricuspid valvereplacementsecondary to endocarditis, had complete heart block after that and had apermanent pacemaker implanted. The patient unfortunately was lost to followupand continued using IV drugs and presents with fever, weakness, andbacteremia.Her transthoracic echocardiogram showed possible vegetation. She wasrecommended for NORRIS for which she presented. PROCEDURE IN DETAILSFollowing informed consent, patient was brought to the catheterization holding suite. All appropriate hemodynamic and physiologic monitoring was in placeandinstituted. The oropharynx was then anesthetized with benzocaine spray andlidocaine. The patient then had the transesophageal echocardiographic probeadvanced after receiving Versed and fentanyl for adequate sedation. The probe passed with ease and images were captured in the mid and lower esophagus, aswell as in the transgastric views. 3D imaging, color Doppler and 2D imagingwasperformed. The probe was then pulled back and the patient tolerated theprocedure well. Observed complications. FINDINGSAs follows, the prosthetic tricuspid valve shows a flailing vegetation on theatrial surface with the degeneration of 1 of the valve leaflets causingsignificant tricuspid regurgitation. The right ventricle and left ventricleappear normal in size and function. The pulmonic valve and aortic valve andmitral valve are without any significant vegetation appreciated. The pacingleads, the RA and RV leads were visualized and do not show obvious vegetation. SUMMARYTricuspid valve replacement, bioprosthetic vegetation appreciated withsignificant resultant regurgitation. The RA and RV leads do not show obviousinfection, but will likely need to be explanted. The patient is pacerdependentand with a third-degree heart block and significant bradycardia. The devicewasinterrogated and demonstrates the same. RECOMMENDATIONSThe patient will need her valve replaced. She will also likely require explant and reimplantation of her pacer. These services of the explantation of thedevice will likely require transfer to [place]. We will consult theCardiovascular surgeons here for evaluation of the tricuspid valve andtemporarypacing catheters if this is able to be achieved at this institution.Legally authenticated by RADHA KNOX 2021-11-21 03:04:09 LISETTE GARCIA DO TT: 11/20/2021 15:07:40AM/MODLJob #: [id number] Authenticated by:Lisette Garcia D.O. on 11/21/2021 03:04 PM LDR RN Legally authenticated by RADHA KNOX 2021-11-21 03:04:09OPOperative tdqrob14035GZZOGT, YZRUFMQNXGTHIJZO2742-31-24X33:07:40 [id number], JLVUAROHLXGRJDXRL7817-52-33M43:05:5 3 LISETTE GARCIA MIKE 2021-11-19 18:15:25 MOnatgmsezq383588t3oU+9tJ2LSzddYrhT 5hmzaD6C0tvTPuJOnEeBaxpKgKPugaTPVG7 EdFnorY2n7W0074-18-76F86:15:[address] [place] [address] [place] [address] Patient Name: CRISTIAN February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
[2024-02-08 10:20] LABS: Absolute Basophils 0.1 K/uL (0-0.5); Absolute Eosinophils 0.3 K/uL (0-0.5); Absolute Lymphocytes (CBC) 3.5 K/uL (0.7-4.9); Absolute Monocytes 0.7 K/uL (0.1-1.3); Absolute Neutrophil 4.8 K/uL (1.8-8.0); Basophils % 1.3 % (0-1.3); Eosinophils % 3.2 % (0-4.4); Hematocrit 47.2 % (36.0-45.0); Hemoglobin 15.7 g/dL (12.0-15.0); Lymphocytes % 37.1 % (15.3-44.8); MCH 33.1 pg (27.0-35.0); MCHC 33.2 g/dL (32.0-36.0); MCV 99.5 fL (80-100); MPV 8.1 fL (7.6-11.3); Monocytes % 7.7 % (3.3-12.3); Neutrophils % 50.7 % (41.7-73.7); Nucleated Red Blood Cells % 0.1 % (0-0); Platelets 203 thou/uL (152-406); RBC Red Blood Cell Count 4.74 M/uL (3.86-4.86); Red Cell Distribution Width 13.6 % (12.1-15.2)
[2024-02-08 10:30] LABS: PT Prothrombin Time 11.4 SECONDS (9.5-12.5); Protime INR 1.04
[2024-02-08 10:44] LABS: Anion Gap 8.2 mEq/L (5.0-15.0); Potassium 4.2 mEq/L (3.5-5.1); Troponin High Sensitivity 4.1 pg/mL (<58.9)
--- NOTE | 2024-02-08 10:50 | RAD REPORT ---
EXAM DESCRIPTION: CT - Chest For Pe Angio - 02/08/2024 10:26 am CLINICAL HISTORY: Chest pain;Dyspnea COMPARISON: Chest Single View dated 02/08/2024 TECHNIQUE: Thin axial CT images of the chest were obtained following administration of 100 mL Isovue 370 IV contrast. Multiplanar reconstructions, and maximum intensity projection reconstructions were generated and reviewed. Exam utilizes a protocol for optimal evaluation of pulmonary arterial tree. All CT scans are performed using dose optimization technique as appropriate and may include automated exposure control or mA/KV adjustment according to patient size. FINDINGS: Pulmonary arteries are normal. No emboli or other suspicious finding. No acute or signific ant aorta findings. No mass or infiltrate in the lung parenchyma. Small left layering pleural effusion. No pneumothorax. Sequelae of median sternotomy. Left chest wall pacer in place. No abnormal mediastinal or hilar masses or lymphadenopathy seen. No chest wall mass or abnormal axill iary lymphadenopathy. IMPRESSION: No evidence of acute central pulmonary emboli. Small left layering pleural effusion.
--- NOTE | 2024-02-08 11:02 | RAD REPORT ---
EXAM DESCRIPTION: RADChest Single View02/08/2024 10:24 am CLINICAL HISTORY: Chest pain;Dyspnea COMPARISON: Chest For Pe Angio dated 02/08/2024 TECHNIQUE: Portable AP view of the chest. FINDINGS: The lungs are clear. No pneumothorax or effusion. The cardiomediastinal contours are unre markable apart from sequelae of median sternotomy and tricuspid valve replacement. Left chest wall pa cer in place. IMPRESSION: No acute cardiopulmonary process.
[2024-02-08 11:20] LABS: SARS-CoV-2 Antigen CONTROL BLUE LINE VIS/BG OK; SARS-CoV-2 Antigen Rapid Res Negative (Negative)
--- NOTE | 2024-02-08 13:03 | EDPHYS ---
Physician Documentation [facility] Young Name: Luz Marina Foster Age: 39 yrs Sex: Female : 1985 Arrival Date: 02/08/2024 Time: 09:35 Bed 7 Private MD: Mariela Estevez ED Physician Polo Dorman HPI: 02/07 11:59 This 39 yrs old Female presents to ER via Ambulatory with complaints of chest pain. rn 11:59 The patient or guardian reports chest pain that is located primarily in the anterior rn aspect of left upper chest. 12:00 Onset: last night. The pain does not radiate. The chest pain is described as sharp, rn stabbing. Duration: The patient or guardian reports multiple episodes, that are intermittent. Modifying factors: The symptoms are alleviated by nothing. the symptoms are aggravated by cough, deep breath. Severity of pain: At its worst the pain was moderate in the emergency department the pain is unchanged. The patient has not experienced similar symptoms in the past. The patient has not recently seen a physician. Patient reports left-sided chest pain, worse with deep inspiration. Also reports mild cough. No fever. No trauma.. 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 - Social history:: Smoking status: Patient reports the use of cigarette tobacco products, Patient/guardian denies using alcohol, street drugs. - Family history:: not pertinent. - Hospitalizations: : No recent hospitalization is reported. ROS: 12:01 Constitutional: Negative for fever, chills, and weight loss, Eyes: Negative for injury, rn pain, redness, and discharge, Cardiovascular: Positive for left sided chest pain Respiratory: Positive for cough, negative for shortness of breath Abdomen/GI: Negative for abdominal pain, nausea, vomiting, diarrhea, and constipation, Back: Negative for injury and pain, MS/Extremity: Negative for injury and deformity, Skin: Negative for injury, rash, and discoloration, Neuro: Negative for headache, weakness, numbness, tingling, and seizure, Exam: 12:01 Constitutional: This is a well developed, well nourished patient who is awake, alert, rn and in no acute distress. Cardiovascular: Regular rate and rhythm. No pulse deficits. Respiratory: Speaking full sentences, unlabored. No increased work of breathing, no retractions or nasal flaring. Abdomen/GI: Soft, nontender MS/ Extremity: Pulses equal, no cyanosis. Neuro: Awake and alert, GCS 15 Vital Signs: 09:43 BP 132 / 89; Pulse 67; Resp 19; Temp 97.8; Pulse Ox 100% ; Weight 67.59 kg; Height 5 jl7 ft. 2 in. ; Pain 9/10; 10:36 BP 134 / 86; Pulse 66; Resp 17; Pulse Ox 100% on R/A; nj1 11:58 BP 112 / 68; Pulse 65; Resp 15; Pulse Ox 100% ; nj1 13:11 BP 119 / 84; Pulse 65; Resp 19; Pulse Ox 100% on R/A; nj1 09:43 Body Mass Index 27.25 (67.59 kg, 157.48 cm) [facility] 09:43 Pain Scale: Adult jl7 MDM: 10:01 Patient medically screened. rn 12:01 Differential diagnosis: acute myocardial infarction, acute pericarditis, chest wall rn pain, costochondritis, pericarditis, pleurisy, pneumonia, pneumothorax, pulmonary embolus. HEART Score: History: Slightly Suspicious (0), ECG: Normal (0), Age: < or = 45 years (0), Risk Factors: 1 or 2 risk factors (1), Troponin: < or = 1 x Normal Limit (0), Total Score = 1. 13:01 Data reviewed: vital signs, nurses notes, lab test result(s), EKG, radiologic studies, rn CT scan, plain films, and as a result, I will discharge patient. Counseling: I had a detailed discussion with the patient and/or guardian regarding the historical points, exam findings, and any diagnostic results supporting the discharge/admit diagnosis, lab results, radiology results, the need for outpatient follow up, to return to the emergency department if symptoms worsen or persist or if there are any questions or concerns that arise at home. Special discussion: I discussed with the patient/guardian in detail that at this point there is no indication for admission to the hospital. It is understood, however, that if the symptoms persist or worsen the patient needs to return immediately for re-evaluation. ED course: Small left pleural effusion could explain her pleuritic left-sided chest pain. EKG without ischemic changes. Troponin negative. Patient states used to take Lasix and ran out of her medication. No indication for emergent admission at this time. Lasix IV given here and will discharge with Lasix for a few days. 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 02/07 09:50 Order name: Basic Metabolic Panel; Complete Time: :02/07 09:50 Order name: CBC with Diff; Complete Time: :02/07 09:50 Order name: NT PRO-BNP; Complete Time: :02/07 09:50 Order name: PT-INR; Complete Time: :02/07 09:50 Order name: Troponin HS; Complete Time: :02/07 09:50 Order name: SARS RAPID; Complete Time: :02/07 09:50 Order name: XRAY Chest (1 view); Complete Time: :02/07 09:50 Order name: CT Chest For PE Angio; Complete Time: :02/07 09:50 Order name: EKG; Complete Time: 09:51 02/07 09:50 Order name: Cardiac monitoring; Complete Time: 10:37 02/07 09:50 Order name: EKG - Nurse/Tech; Complete Time: 09:56 02/07 09:50 Order name: IV Saline Lock; Complete Time: 10:37 02/07 09:50 Order name: Labs collected and sent; Complete Time: 10:32 02/07 09:50 Order name: O2 Per Protocol; Complete Time: 10:37 02/07 09:50 Order name: O2 Sat Monitoring; Complete Time: 10:37 02/07 12:04 Order name: PO challenge; Complete Time: 12:15 rn Administered Medications: 12:15 Drug: Furosemide IVP 40 mg IVP once; give over 2 minutes Route: IVP; Site: right kd3 forearm; 13:25 Follow up: Response: No adverse reaction nj1 12:15 Drug: D10 in Water IVP 200 ml IVP once Route: IVP; Site: right forearm; kd3 13:25 Follow up: Response: No adverse reaction nj1 Disposition Summary: 02/08/24 13:02 Discharge Ordered Notes: Location: Home rn Problem: new rn Symptoms: have improved rn Condition: Stable rn Diagnosis - Chest pain, unspecified rn - Pleural effusion, not elsewhere classified rn Followup: rn - With: Private Physician - When: As needed - Reason: Recheck today's complaints, Re-evaluation by your physician Discharge Instructions: - Discharge Summary Sheet rn - Nonspecific Chest Pain, Adult rn - Pleural Effusion rn - Pleurisy rn Forms: - Medication Reconciliation Form rn - Thank You Letter rn - Antibiotic validation intern - Prescription Opioid Use rn - Patient Portal Instructions rn - Leadership Thank You Letter rn Prescriptions: - Lasix 40 mg Oral tablet - take 1 tablet ORAL route once daily for 7 days; 7 tablet; Refills: 0, Product rn Selection Permitted Signatures: Dispatcher [employer] EDPolo Allen MD MD rn Leal, Jahala RN RN jl7 An Garcia RN RN kd3 Ilene Harper RN nj1
--- NOTE | 2024-02-08 13:03 | ER ---
Nurse's Notes [facility] Young Name: Luz Marina Foster Age: 39 yrs Sex: Female : 1985 Arrival Date: 02/08/2024 Time: 09:35 Bed 7 Private MD: Mariela Estevez Diagnosis: Chest pain, unspecified;Pleural effusion, not elsewhere classified Presentation: 02/07 09:43 Chief complaint: Patient states: Worsening left side CP since 0200, rated 9/10 at this jl7 time, reports SOB, hx of pacemaker since 2017. 09:43 Method Of Arrival: Ambulatory jl7 09:43 Acuity: RAUL 2 jl7 09:48 Coronavirus screen: At this time, the client does not indicate any symptoms associated jl7 with coronavirus-19. Ebola Screen: No symptoms or risks identified at this time. Initial Sepsis Screen: Does the patient meet any 2 criteria? No. Patient's initial sepsis screen is negative. Does the patient have a suspected source of infection? No. Patient's initial sepsis screen is negative. Risk Assessment: Do you want to hurt yourself or someone else? Patient reports no desire to harm self or others. Onset of symptoms was February 08, 2024 at 02:00. Care prior to arrival: None. Triage Assessment: 09:45 General: Appears in no apparent distress. uncomfortable, Behavior is cooperative, jl7 appropriate for age, anxious. Pain: Complains of pain in anterior aspect of left upper chest Pain radiates to left arm Pain currently is 9 out of 10 on a pain scale. Quality of pain is described as heavy, sharp. Neuro: Level of Consciousness is awake, alert, obeys commands, Oriented to person, place, time, situation. Cardiovascular: Patient's skin is warm and dry. Respiratory: Reports shortness of breath. Derm: Skin is pink, warm \T\ dry. 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 - Social history:: Smoking status: Patient reports the use of cigarette tobacco products, Patient/guardian denies using alcohol, street drugs. - Family history:: not pertinent. - Hospitalizations: : No recent hospitalization is reported. Screenin:00 [facility] ED Fall Risk Assessment (Adult) History of falling in the last 3 months, nj1 including since admission No falls in past 3 months (0 pts) Confusion or Disorientation No (0 pts) Intoxicated or Sedated No (0 pts) Impaired Gait No (0 pts) Mobility Assist Device Used No (0 pt) Altered Elimination No (0 pt) Score/Fall Risk Level 0 - 2 = Low Risk Oriented to surroundings, Maintained a safe environment, Hourly rounding (assess needs \T\ fall precautionary measures) done. 12:00 Abuse screen: Denies threats or abuse. Denies injuries from another. Nutritional nj1 screening: On. Tuberculosis screening: No symptoms or risk factors identified. Assessment: 09:48 Reassessment: Dr. Dorman in triage assessing pt. jl7 12:00 Reassessment: Patient appears in no apparent distress at this time. Patient and/or nj1 family updated on plan of care and expected duration. Pain level reassessed. Patient is alert, oriented x 3, equal unlabored respirations, skin warm/dry/pink. 13:00 Reassessment: Patient appears in no apparent distress at this time. Patient and/or nj1 family updated on plan of care and expected duration. Pain level reassessed. Patient is alert, oriented x 3, equal unlabored respirations, skin warm/dry/pink. Patient states feeling better. Patient states symptoms have improved. 13:23 Reassessment: Patient appears in no apparent distress at this time. Patient is alert, nj1 oriented x 3, equal unlabored respirations, skin warm/dry/pink. Patient denies pain at this time. Patient states feeling better. Patient states symptoms have improved. Vital Signs: 09:43 BP 132 / 89; Pulse 67; Resp 19; Temp 97.8; Pulse Ox 100% ; Weight 67.59 kg; Height 5 jl7 ft. 2 in. ; Pain 9/10; 10:36 BP 134 / 86; Pulse 66; Resp 17; Pulse Ox 100% on R/A; nj1 11:58 BP 112 / 68; Pulse 65; Resp 15; Pulse Ox 100% ; nj1 13:11 BP 119 / 84; Pulse 65; Resp 19; Pulse Ox 100% on R/A; nj1 09:43 Body Mass Index 27.25 (67.59 kg, 157.48 cm) 7 09:43 Pain Scale: Adult [facility] ED Course: 09:38 Patient arrived in ED. mr 09:38 Mariela Estevez is Private Physician. mr 09:45 Triage completed. jl7 09:45 Arm band placed on right wrist. EKG done per protocol. Performed by ED Staff. Shown to [facility] ED physician. 09:49 Polo Dorman MD is Attending Physician. rn 09:49 Patient placed in waiting room, in view of staff members, Patient notified of wait time.jl7 10:10 Inserted saline lock: 22 gauge in right forearm, using aseptic technique. Blood hb collected. 10:10 Initial lab(s) drawn, by organic lab worker, sent to lab. hb 10:26 XRAY Chest (1 view) In Process Unspecified. EDMS 10:28 CT Chest For PE Angio In Process Unspecified. EDMS 10:32 Ilene Harper, GITA is Primary Nurse. nj1 12:00 Patient has correct armband on for positive identification. Placed in gown. Bed in low nj1 position. Call light in reach. Side rails up X 1. 12:00 Provided Education on: call light, fall precautions. nj1 13:23 No provider procedures requiring assistance completed. IV discontinued, intact, nj1 bleeding controlled, Pressure dressing applied. Administered Medications: 12:15 Drug: Furosemide IVP 40 mg IVP once; give over 2 minutes Route: IVP; Site: right kd3 forearm; 13:25 Follow up: Response: No adverse reaction nj1 12:15 Drug: D10 in Water IVP 200 ml IVP once Route: IVP; Site: right forearm; kd3 13:25 Follow up: Response: No adverse reaction nj1 Medication: 13:24 VIS not applicable for this client. nj1 Outcome: 13:02 Discharge ordered by . rn 13:24 Discharged to home ambulatory, nj1 13:24 Condition: stable 13:24 Discharge instructions given to patient, Instructed on discharge instructions, follow up and referral plans. medication usage, Demonstrated understanding of instructions, follow-up care, medications, Prescriptions given X 1, 13:25 Patient left the ED. nj1 Signatures: Dispatcher [employer] EDMS Bailey Sahni, Don Ochoa mr Lakia, MD HEIDY Cuellar rn Jason, Camelia, RN RN hb Charlie Ferris, RN RN jl7 An Garcia RN RN kd3 Ilene Harper RN RN nj1
[2024-02-08 13:54] VITALS: BP 119/84; TEMP 97.8; O2SAT 100
--- NOTE | 2024-02-09 14:02 | EKG ---
Test Date: 2024-02-08 Test Time: 09:31:31 E Commerce Director: NASIM MEASUREMENT RESULTS: Intervals: Rate: 68 TN: 240 QRSD: 188 QT: 476 QTc: 506 [place]: P: 43 TN: 240 QRS: -62 T: 117 INTERPRETIVE STATEMENTS: Atrial-sensed ventricular-paced rhythm with prolonged AV conduction Abnormal ECG No previous ECG available for comparison Electronically Signed On 02-09-24 13:59:56 CDT by Pedro Pablo Martinez
== END ==
LOC: ER 09:35
DX: J90 Pleural effusion, not elsewhere classified (principal); I10 Essential (primary) hypertension; Z95.0 Presence of cardiac pacemaker; Z11.52 Encounter for screening for COVID-19
CPT/HCPCS: 85025; 80048; 36415; 85610; 84484; 83880; 71275; 71045; 87811; Q9967; J1940; 93005

== ENCOUNTER 2024-02-09 11:37 | Emergency (ER) | payer OTHER ==
--- OUTSIDE RECORDS SUMMARY | 2024-02-09 11:45 | XMS REPORT | Continuity of Care Document ---
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 GM/250 ML SOLR vancomycin- NS IVPB 1 GM/250 ML SOLR 11-14 09:00: 00 11-14 09:00 :00 No 1g medication :vancomyci n-NS IVPB 1 GM/250 ML SOLR|dose: 1.0 g|route:IN TRAVENOUS| frequency: EVERY 12 HOURS [facility] ([facility]) vancomycin- NS IVPB 1 GM/250 ML SOLR vancomycin- NS IVPB 1 GM/250 ML SOLR 11-14 09:00: 00 11-14 09:00 :00 No 1g medication :vancomyci n-NS IVPB 1 GM/250 ML SOLR|dose: 1.0 g|route:IN TRAVENOUS| frequency: EVERY 12 HOURS [facility] ([facility]) NS SOLN NS SOLN 11-14 03:00: 00 12-13 03:00 :00 No 500mL medication :NS SOLN|dose: 500.0 mL|route:I NTRAVENOUS |frequency :EVERY 3 AM [facility] ([facility]) NS SOLN NS SOLN 11-14 03:00: 00 11-23 14:40 :00 No 500mL medication :NS SOLN|dose: 500.0 mL|route:I NTRAVENOUS |frequency :EVERY 3 AM [facility] ([facility]) CLARIFICATI ON: HT/WT/ALLER GY MISC CLARIFICATI ON: HT/WT/ALLER GY MISC 11-14 01:00: 00 11-14 02:23 :47 No 1EA medication :CLARIFICA TION: HT/WT/LUZ MARIA RGY MISC|dose: 1.0 EA|route:N OT APPLICABLE |frequency :EVERY 4 HOURS [facility] ([facility]) CLARIFICATI ON: HT/WT/ALLER GY MISC CLARIFICATI ON: HT/WT/ALLER GY MISC 11-14 01:00: 00 11-14 02:23 :47 No 1EA medication :CLARIFICA TION: HT/WT/LUZ MARIA RGY MISC|dose: 1.0 EA|route:N OT APPLICABLE |frequency :EVERY 4 HOURS [facility] ([facility]) LR SOLN LR SOLN 11-14 00:35: 00 11-16 21:51 :40 No 1000mL medication :LR SOLN|dose: 1000.0 mL|route:I NTRAVENOUS |frequency :CONT [facility] ([facility]) LR SOLN LR SOLN 11-14 00:35: 00 11-16 21:51 :40 No 1000mL medication :LR SOLN|dose: 1000.0 mL|route:I NTRAVENOUS |frequency :CONT [facility] ([facility]) acetaminoph en 325 MG TABS acetaminoph en 325 MG TABS 11-14 00:33: 00 12-14 00:32 :00 No 650mg medication :acetamino phen 325 MG TABS|dose: 650.0 mg|route:O RAL|freque ncy:EVERY 4 HOURS NEEDED [facility] ([facility]) NS FLUSH SOLN NS FLUSH SOLN 11-14 00:33: 00 12-14 00:32 :00 No 10mL medication :NS FLUSH SOLN|dose: 10.0 mL|route:I NTRAVENOUS |frequency : NEEDED [facility] ([facility]) acetaminoph en 325 MG TABS acetaminoph en 325 MG TABS 11-14 00:33: 00 11-23 14:40 :00 No 650mg medication :acetamino phen 325 MG TABS|dose: 650.0 mg|route:O RAL|freque ncy:EVERY 4 HOURS NEEDED [facility] ([facility]) NS FLUSH SOLN NS FLUSH SOLN 11-14 00:33: 00 11-23 14:40 :00 No 10mL medication :NS FLUSH SOLN|dose: 10.0 mL|route:I NTRAVENOUS |frequency : NEEDED [facility] ([facility]) LR SOLN LR SOLN 2020-11 22:17: 00 11-13 22:17 :00 No 1000mL medication :LR SOLN|dose: 1000.0 mL|route:I NTRAVENOUS |frequency :ONE TIME [facility] ([facility]) LR SOLN LR SOLN 2020-11 22:17: 00 11-13 22:17 :00 No 1000mL medication :LR SOLN|dose: 1000.0 mL|route:I NTRAVENOUS |frequency :ONE TIME [facility] ([facility]) vancomycin INJ 1 GM SOLR vancomycin INJ 1 GM SOLR 2020-11 22:00: 00 11-14 01:52 :42 No 1.25g medication :vancomyci n INJ 1 GM SOLR|dose: 1.25 g|route:IN TRAVENOUS| frequency: ONE TIME [facility] ([facility]) NS SOLN NS SOLN 2020-11 22:00: 00 11-14 01:52 :42 No 250mL medication :NS SOLN|dose: 250.0 mL|route:I NTRAVENOUS |frequency :ONE TIME [facility]) vancomycin INJ 1 GM SOLR vancomycin INJ 1 GM SOLR 2020-11 22:00: 00 11-14 01:52 :42 No 1.25g medication :vancomyci n INJ 1 GM SOLR|dose: 1.25 g|route:IN TRAVENOUS| frequency: ONE TIME [facility] ([facility]) NS SOLN NS SOLN 2020-11 22:00: 00 11-14 01:52 :42 No 250mL medication :NS SOLN|dose: 250.0 mL|route:I NTRAVENOUS |frequency :ONE TIME [facility] ([facility]) NS SOLN NS SOLN 2020-11 21:12: 00 11-13 21:12 :00 No 1000mL medication :NS SOLN|dose: 1000.0 mL|route:I NTRAVENOUS |frequency :ONE TIME [facility] ([facility]) levoFLOXaci n-D5W IVPB 500 MG/100ML SOLN levoFLOXaci n-D5W IVPB 500 MG/100ML SOLN 2020-11 21:12: 00 11-13 21:12 :00 No 500mg medication :levoFLOXa staci-D5W IVPB 500 MG/100ML SOLN|dose: 500.0 mg|route:I NTRAVENOUS |frequency :ONE TIME [facility] NS SOLN NS SOLN 2020-11 21:12: 00 11-13 21:12 :00 No 1000mL medication :NS SOLN|dose: 1000.0 mL|route:I NTRAVENOUS |frequency :ONE TIME [facility] ([facility]) levoFLOXaci n-D5W IVPB 500 MG/100ML SOLN levoFLOXaci n-D5W IVPB 500 MG/100ML SOLN 2020-11 21:12: 00 11-13 21:12 :00 No 500mg medication :levoFLOXa staci-D5W IVPB 500 MG/100ML SOLN|dose: 500.0 mg|route:I NTRAVENOUS |frequency :ONE TIME [facility] ([facility]) NS SOLN NS SOLN 2020-11 19:31: 00 11-13 19:31 :00 No 1000mL medication :NS SOLN|dose: 1000.0 mL|route:I NTRAVENOUS |frequency :ONE TIME [facility] ([facility]) NS SOLN NS SOLN 2020-11 19:31: 00 11-13 19:31 :00 No 1000mL medication :NS SOLN|dose: 1000.0 mL|route:I NTRAVENOUS |frequency :ONE TIME [facility] ([facility]) HYDROcodone -acetaminop hen (NORCO 5) 5-325 mg tablet 1 tablet 07-10 16:57: 52 Yes 1{tbl} 1 tablet, Oral, Q6HPRN, Starting Tue07/10/20 at 1157, Until Discontinu ed, Routine, Pain (scale 4-6), Pain (scale 7-10) [facility] glycerin/mi neral oil (AGLO ENEMA) (COMPOUNDED ) Enem 225 mL 07-10 14:01: 05 Yes 225mL 225 mL, Rectal, Q8HPRN, Starting Tue07/10/20 at 0901, Until Discontinu ed, Routine, If no BM after suppositry , Q8 PRN [facility] bisacodyL (DULCOLAX) suppository 10 mg 07-10 14:00: 00 Yes 10mg 10 mg, Rectal, DAILY, First dose on Tue07/10/20 at 0900, Until Discontinu ed, Routine [facility] ondansetron (ZOFRAN) tablet 4 mg 07-10 13:39: 41 Yes 4mg 4 mg, Oral, Q8HPRN, Starting Rosie 07/10/20 at 0839, Until Discontinu ed, Routine, Nausea and Vomiting (N/V) [facility] -acetaminop hen 5-325 mg tablet 07-10 00:00: 07-18 04:59 :00 No 4647 1{tbl} Take 1 tablet by mouth every 6 (six) hours as needed for Pain (scale 7-10) for up to 7 days. Indication s: acute pain [facility] HYDR[facility]one -acetaminop hen 5-325 mg tablet 07-10 00:00: 00 07-18 04:59 :00 No 4647 1{tbl} Take 1 tablet by mouth every 6 (six) hours as needed for Pain (scale 7-10) for up to 7 days. Indication s: acute pain [facility] HYDROcodone -acetaminop hen (NORCO) 5-325 mg tablet 07-10 00:00: 07-18 04:59 :00 No 4647 1{tbl} Take 1 tablet by mouth every 6 (six) hours as needed for Pain (scale 7-10) for up to 7 days. Indication s: acute pain [facility] HYDROcodone -acetaminop hen 5-325 mg tablet 07-10 00:00: 07-18 04:59 :00 No 4647 1{tbl} Take 1 tablet by mouth every 6 (six) hours as needed for Pain (scale 7-10) for up to 7 days. Indication s: acute pain [facility] HYDRO[facility]one -acetaminop hen (NORCO) 5-325 mg tablet 07-10 00:00: 00 07-18 04:59 :00 No 4647 1{tbl} Take 1 tablet by mouth every 6 (six) hours as needed for Pain (scale 7-10) for up to 7 days. Indication s: acute pain [facility] HYDROcodone -acetaminop hen (NORCO) 5-325 mg tablet 07-10 00:00: 07-18 04:59 :00 No 4647 1{tbl} Take 1 tablet by mouth every 6 (six) hours as needed for Pain (scale 7-10) for up to 7 days. Indication s: acute pain [facility] HYDROcodone -acetaminop hen 5-325 mg tablet 07-10 00:00: 00 07-18 04:59 :00 No 4647 1{tbl} Take 1 tablet by mouth every 6 (six) hours as needed for Pain (scale 7-10) for up to 7 days. Indication s: acute pain [facility] HYDROcodone -acetaminop hen (NORCO) 5-325 mg tablet 07-10 00:00: 07-18 04:59 :00 No 4647 1{tbl} Take 1 tablet by mouth every 6 (six) hours as needed for Pain (scale 7-10) for up to 7 days. Indication s: acute pain [facility] HYDROcodone -acetaminop hen 5-325 mg tablet 07-10 00:00: 07-18 04:59 :00 No 4647 1{tbl} Take 1 tablet by mouth every 6 (six) hours as needed for Pain (scale 7-10) for up to 7 days. Indication s: acute pain [facility] HYDROcodone -acetaminop hen (NORCO) 5-325 mg tablet 07-10 00:00: 07-18 04:59 :00 No 4647 1{tbl} Take 1 tablet by mouth every 6 (six) hours as needed for Pain (scale 7-10) for up to 7 days. Indication s: acute pain [facility] HYDROcodone -acetaminop hen 5-325 mg tablet 07-10 00:00: 07-18 04:59 :00 No 4647 1{tbl} Take 1 tablet by mouth every 6 (six) hours as needed for Pain (scale 7-10) for up to 7 days. Indication s: acute pain [facility] HYDROcodone -acetaminop hen (NORCO) 5-325 mg tablet 07-10 00:00: 07-18 04:59 :00 No 4647 1{tbl} Take 1 tablet by mouth every 6 (six) hours as needed for Pain (scale 7-10) for up to 7 days. Indication s: acute pain [facility] HYDROcodone -acetaminop hen 5-325 mg tablet 07-10 00:00: 00 07-18 04:59 :00 No 4647 1{tbl} Take 1 tablet by mouth every 6 (six) hours as needed for Pain (scale 7-10) for up to 7 days. Indication s: acute pain [facility] HYDROcodone -acetaminop hen (NORCO) 5-325 mg tablet 07-10 00:00: 00 07-18 04:59 :00 No 4647 1{tbl} Take 1 tablet by mouth every 6 (six) hours as needed for Pain (scale 7-10) for up to 7 days. Indication s: acute pain [facility] HYDROcodone -acetaminop hen 5-325 mg tablet 07-10 00:00: 07-18 04:59 :00 No 4647 1{tbl} Take 1 tablet by mouth every 6 (six) hours as needed for Pain (scale 7-10) for up to 7 days. Indication s: acute pain [facility] HYDROcodone -acetaminop hen (NORCO) 5-325 mg tablet 07-10 00:00: 07-18 04:59 :00 No 4647 1{tbl} Take 1 tablet by mouth every 6 (six) hours as needed for Pain (scale 7-10) for up to 7 days. Indication s: acute pain [facility] HYDROcodone -acetaminop hen 5-325 mg tablet 07-10 00:00: 07-18 04:59 :00 No 4647 1{tbl} Take 1 tablet by mouth every 6 (six) hours as needed for Pain (scale 7-10) for up to 7 days. Indication s: acute pain [facility] HYDROcodone -acetaminop hen (NORCO) 5-325 mg tablet 07-10 00:00: 07-18 04:59 :00 No 4647 1{tbl} Take 1 tablet by mouth every 6 (six) hours as needed for Pain (scale 7-10) for up to 7 days. Indication s: acute pain [facility] HYDROcodone -acetaminop hen 5-325 mg tablet 07-10 00:00: 00 07-18 04:59 :00 No 4647 1{tbl} Take 1 tablet by mouth every 6 (six) hours as needed for Pain (scale 7-10) for up to 7 days. Indication s: acute pain [facility] HYDROcodone -acetaminop hen (NORCO) 5-325 mg tablet 07-10 00:00: 00 07-18 04:59 :00 No 4647 1{tbl} Take 1 tablet by mouth every 6 (six) hours as needed for Pain (scale 7-10) for up to 7 days. Indication s: acute pain [facility] morpHINE injection 2 mg 07-09 14:03: 04 07-10 13:40 :12 No 2mg 2 mg, Slow IV Push, Q3HPRN, Starting Tue07/09/20 at 0903, Until Rosie 07/10/20 at 0840, Routine, Pain (scale 7-10), For breakthrou gh [facility] magnesium sulfate in water 2 gram/50 mL (4 %) infusion 2 g 07-08 13:00: 00 07-08 13:15 :00 No 2g 2 g, IV Piggyback, ONCE, 1 dose, Tue07/08/20 at 0800, Routine [facility] acetaminoph en (TYLENOL) tablet 1,000 mg 07-08 03:00: 00 Yes 1000mg 1,000 mg, Oral, Q8H, First dose (after last modificati on) on Tue07/07/20 at 2200, Until Discontinu ed, Routine [facility] enoxaparin (LOVENOX) injection 40 mg 07-08 02:00: 00 Yes 40mg 40 mg, Subcutaneo us, Q24H, First dose on Tue07/07/20 at 2100, Until Discontinu ed, Routine [facility] celecoxib (CELEBREX) capsule 100 mg 07-08 01:00: 00 Yes 100mg 100 mg, Oral, BID MEALS, First dose on Tue07/07/20 at 1999, Until Discontinu ed, Routine [facility] D5W 0.45% NaCl (1/2NS) 1 L + KCL 20 mEq 07-07 23:12: 00 07-10 13:57 :50 No IV Infusion, at 20 mL/hr, CONTINUOUS , Starting Tue07/07/20 at 1815, Until Rosie 07/10/20 at 0857, Routine [facility] HYDROcodone -acetaminop hen (NORCO 5) 5-325 mg tablet 1 tablet 07-07 18:45: 00 07-07 18:38 :00 No 1{tbl} 1 tablet, Oral, ONCE, 1 dose, Tue07/07/20 at 1345, Routine, PACU [facility] FENTanyl PF (SUBLIMAZE (PF)) injection 25 mcg 07-07 18:31: 41 07-07 18:54 :00 No 25ug 25 mcg, Slow IV Push, Q5MIN PRN, 4 doses, Starting Tue07/07/20 at 1331, Until Tue07/07/20 at 1354, Routine, Pain (scale 4-6), PACU [facility] KCL (KLOR-CON M20) tablet 40 mEq 07-07 01:00: 00 07-07 01:24 :00 No 40meq 40 mEq, Oral, BID, 1 dose, First dose (after last modificati on) on Tue07/06/20 at 1999, Routine [facility] KCL (KLOR-CON M20) tablet 40 mEq 07-05 01:00: 00 07-07 00:52 :02 No 40meq 40 mEq, Oral, BID, First dose on Tue07/04/20 at 1999, Until Discontinu ed, Routine [facility] magnesium sulfate in water 2 gram/50 mL (4 %) infusion 2 g 07-04 12:15: 00 07-04 14:52 :00 No 2g 2 g, IV Piggyback, ONCE, 1 dose, 07/04/20 at 0715, Routine [facility] morpHINE 30 mg/30 mL (fixed dose) [employer] injection 07-03 21:15: 00 07-09 13:30 :57 No [facility] morpHINE 2 mg/mL LOAD & RESCUE INJECTION SYRG 07-03 20:07: 23 07-09 13:30 :57 No Slow IV Push, Routine [facility] iohexol (OMNIPAQUE 350 BULK-150 mL) injection 120 mL 07-03 17:55: 00 07-03 17:55 :00 No 120mL 120 mL, Intravenou s, ONCE, 1 dose, Rosie 07/03/20 at 1315, Routine [facility] ondansetron (ZOFRAN (PF)) injection 4 mg 07-03 00:55: 42 07-10 13:40 :12 No 4mg 4 mg, Slow IV Push, Q6HPRN, Starting Tue07/02/20 at 1955, Until Rosie 07/10/20 at 0840, Routine, Nausea and Vomiting (N/V) [facility] D5W 0.45% NaCl (1/2NS) IV infusion 1,000 mL 07-02 00:15: 00 07-07 22:54 :51 No 1000mL at 100 mL/hr, 1,000 mL, IV Infusion, CONTINUOUS , Starting Tue07/01/20 at 1915, Until Tue07/07/20 at 1754, Routine [facility] lidocaine 1% (PF) (XYLOCAINE) injection 20 mL 07-01 14:30: 00 07-01 14:30 :00 No 20mL 20 mL, Subcutaneo us, ONCE, 1 dose, Tue07/01/20 at 0930, Routine [facility] docusate (COLACE) capsule 100 mg 07-01 14:00: 00 Yes 100mg 100 mg, Oral, DAILY, First dose on Tue07/01/20 at 0900, Until Discontinu ed, Routine [facility] foLIC acid (FOLATE) tablet 1 mg 07-01 14:00: 00 07-01 20:31 :54 No 1mg 1 mg, Oral, DAILY, First dose on Tue07/01/20 at 0900, Until Discontinu ed, Routine [facility] thiamine (VITAMIN B1) tablet 100 mg 07-01 14:00: 00 07-01 20:31 :54 No 100mg 100 mg, Oral, DAILY, First dose on Tue07/01/20 at 0900, Until Discontinu ed, Routine [facility] FENTanyl PF (SUBLIMAZE (PF)) injection 25 mcg 07-01 09:15: 00 07-01 09:00 :00 No 25ug 25 mcg, Slow IV Push, ONCE, 1 dose, Tue07/01/20 at 0415, Routine [facility] morpHINE injection 2 mg 07-01 07:18: 39 07-03 20:09 :58 No 2mg 2 mg, Slow IV Push, Q4HPRN, Starting Tue07/01/20 at 0218, Until Tue07/03/20 at 1509, Routine, Pain (scale 7-10) [facility] HYDROcodone -acetaminop hen (NORCO 5) 5-325 mg tablet 1 tablet 07-01 07:18: 30 07-10 16:58 :27 No 1{tbl} 1 tablet, Oral, Q6HPRN, Starting Tue07/01/20 at 0218, Until Tue07/10/20 at 1158, Routine, Pain (scale 4-6) [facility] FENTanyl PF (SUBLIMAZE (PF)) injection 25 mcg 07-01 06:15: 00 07-01 06:30 :00 No 25ug 25 mcg, Slow IV Push, ONCE, 1 dose, Tue07/01/20 at 0115, Routine [facility] Gentamicin 12-13 08:34: 00 No 180mg Daily [facility] Oxacillin 12-13 08:34: 00 No 2g Every 6 Hours [facility] Rifampin 12-13 08:34: 00 No 300mg Daily [facility] Bupropion Hcl 07-20 13:42: 00 No 150mg Twice A Day [facility] BUPROPION HCL (WELLBUTRIN ORAL) 04-08 02:31: 51 Yes Take by mouth. [facility] TRAZODONE HCL (TRAZODONE ORAL) 04-08 02:31: 51 Yes Take by mouth. [facility] BUPROPION HCL (WELLBUTRIN ORAL) 04-08 02:31: 51 Yes Take by mouth. [facility] TRAZODONE HCL (TRAZODONE ORAL) 04-08 02:31: 51 Yes Take by mouth. [facility] BUPROPION HCL (WELLBUTRIN ORAL) 04-08 02:31: 51 Yes Take by mouth. [facility] TRAZODONE HCL (TRAZODONE ORAL) 04-08 02:31: 51 Yes Take by mouth. [facility] BUPROPION HCL (WELLBUTRIN ORAL) 04-08 02:31: 51 Yes Take by mouth. [facility] TRAZODONE HCL (TRAZODONE ORAL) 04-08 02:31: 51 Yes Take by mouth. [facility] BUPROPION HCL (WELLBUTRIN ORAL) 04-08 02:31: 51 Yes Take by mouth. [facility] TRAZODONE HCL (TRAZODONE ORAL) 04-08 02:31: 51 Yes Take by mouth. [facility] BUPROPION HCL (WELLBUTRIN ORAL) 04-08 02:31: 51 Yes Take by mouth. [facility] TRAZODONE HCL (TRAZODONE ORAL) 04-08 02:31: 51 Yes Take by mouth. [facility] BUPROPION HCL (WELLBUTRIN ORAL) 04-08 02:31: 51 Yes Take by mouth. [facility] TRAZODONE HCL (TRAZODONE ORAL) 04-08 02:31: 51 Yes Take by mouth. [facility] BUPROPION HCL (WELLBUTRIN ORAL) 04-07 21:31: 50 Yes Take by mouth. [facility] TRAZODONE HCL (TRAZODONE ORAL) 04-07 21:31: 50 Yes Take by mouth. [facility] BUPROPION HCL (WELLBUTRIN ORAL) 04-07 21:31: 50 Yes Take by mouth. [facility] TRAZODONE HCL (TRAZODONE ORAL) 04-07 21:31: 50 Yes Take by mouth. [facility] Cyclobenzap rine Oral Cyclobenzap rine Oral Yes 10mg 3xD orally 3 times per day as needed. (for muscle spasms) [facility] Vital Signs Vital Name [...] Systolic blood pressure 2024-01-19 01:00:00 133 mm[Hg] [facility] Diastolic blood pressure 2024-01-19 01:00:00 93 mm[Hg] [facility] Heart rate 2024-01-19 01:00:00 88 /min [facility] [facility] Respiratory rate 2024-01-19 01:00:00 18 /min [facility] Oxygen saturation in Arterial blood by Pulse oximetry 2024-01-19 01:00:00 98 /min [facility] Body temperature 2024-01-18 19:21:00 36.78 [facility] Diastolic blood pressure 2022-08-23 10:14:21 102 mm[Hg] [facility] Heart rate 2022-08-23 10:14:21 102 /min [facility] ([place]) Respiratory rate 2022-08-23 10:14:21 20 /min [facility]) Systolic blood pressure 2022-08-23 10:14:21 174 mm[Hg] [facility] Diastolic blood pressure 2022-08-23 10:14:21 102 mm[Hg] [facility] Heart rate 2022-08-23 10:14:21 102 /min [facility] ([place] Respiratory rate 2022-08-23 10:14:21 20 /min [facility]) Systolic blood pressure 2022-08-23 10:14:21 174 mm[Hg] [facility] Diastolic blood pressure 2021-11-23 10:55:00 69 mm[Hg] [facility] ([place] Heart rate 2021-11-23 10:55:00 81 /min [facility] Oral temperature 2021-11-23 10:55:00 97.5 [degF] [facility]) Respiratory rate 2021-11-23 10:55:00 18 /min [facility]) Systolic blood pressure 2021-11-23 10:55:00 107 mm[Hg] [facility] Diastolic blood pressure 2021-11-20 04:11:00 93 mm[Hg] [facility] ([place] Heart rate 2021-11-20 04:11:00 95 /min [facility] ([place] Oral temperature 2021-11-20 04:11:00 98 [degF] [facility]) Respiratory rate 2021-11-20 04:11:00 18 /min [facility]) Systolic blood pressure 2021-11-20 04:11:00 135 mm[Hg] [facility] ([place] Body height 2021-11-14 02:02:08 157.48 cm [facility]) Body mass index (BMI) [Ratio] 2021-11-14 02:02:08 23.409 kg/m2 [facility] ([place] Body weight Measured 2021-11-14 02:02:08 58.06 kg [facility]) Diastolic blood pressure 2021-11-23 10:55:00 69 mm[Hg] [facility] Heart rate 2021-11-23 10:55:00 81 /min [facility]) Oral temperature 2021-11-23 10:55:00 97.5 [degF] [facility]) Respiratory rate 2021-11-23 10:55:00 18 /min [facility]) Systolic blood pressure 2021-11-23 10:55:00 107 mm[Hg] [facility] Diastolic blood pressure 2021-11-20 04:11:00 93 mm[Hg] [facility] Heart rate 2021-11-20 04:11:00 95 /min [facility]) Oral temperature 2021-11-20 04:11:00 98 [degF] [facility]) Respiratory rate 2021-11-20 04:11:00 18 /min [facility]) Systolic blood pressure 2021-11-20 04:11:00 135 mm[Hg] [facility] Body height 2021-11-14 02:02:08 157.48 cm [facility]) Body mass index (BMI) [Ratio] 2021-11-14 02:02:08 23.409 kg/m2 [facility]) Body weight Measured 2021-11-14 02:02:08 58.06 kg [facility]) Body temperature 2020-08-07 18:32:00 36.28 [facility] Body weight 2020-08-07 18:32:00 63.504 kg [facility] BMI 2020-08-07 18:32:00 24.03 kg/m2 [facility] Height 2020-07-14 05:45:00 137.16 CM Weight 2020-07-14 05:45:00 68.03 KG Systolic blood pressure 2020-07-10 12:55:00 133 mm[Hg] [facility] Diastolic blood pressure 2020-07-10 12:55:00 89 mm[Hg] [facility] Heart rate 2020-07-10 12:55:00 93 /min [facility] Body temperature 2020-07-10 12:55:00 36.11 [facility] Respiratory rate 2020-07-10 12:55:00 16 /min [facility] Oxygen saturation in Arterial blood by Pulse oximetry 2020-07-10 12:55:00 97 /min [facility] Body height 2020-07-01 04:55:33 162.6 cm [facility] Body weight 2020-07-01 04:51:01 63.504 kg [facility] BMI 2020-07-01 04:51:01 24.03 kg/m2 [facility] Body Temperature 2020-07-14 05:45:00 97.3 [degF] [facility] ([facility]/[place]) Pulse Rate 2020-07-14 05:45:00 78 /min [facility] Respiratory Rate 2020-07-14 05:45:00 18 /min [facility] ([facility]/[place]) O2% BldC Oximetry 2020-07-14 05:45:00 100 % [facility] ([facility]/[place]) BP Systolic 2020-07-14 05:45:00 104 mm[Hg] [facility] ([facility]F/[facility]/[place]) BP Diastolic 2020-07-14 05:45:00 70 mm[Hg] [facility]) Height 2020-07-14 05:45:00 54 [in_i] Annika ortiz [facility] ([facility]) Weight 2020-07-14 05:45:00 150 [lb_av] [facility]) BMI (Body Mass Index) 2020-07-14 05:45:00 36.2 kg/m2 [facility]) Body Temperature 2019-09-25 17:16:00 98.0 [degF] [employer] Heart Rate 2019-09-25 17:16:00 78 /min [employer] Respiratory rate 2019-09-25 17:16:00 19 /min [employer] BP Systolic 2019-09-25 17:16:00 138 mm[Hg] [facility] Diastolic 2019-09-25 17:16:00 84 mm[Hg] [facility] CM [employer] Heart Rate 2019-09-25 14:33:00 80 /min [employer] Respiratory rate 2019-09-25 14:33:00 18 /min [employer] BP Systolic 2019-09-25 14:33:00 143 mm[Hg] [facility] BP Diastolic 2019-09-25 14:33:00 88 mm[Hg] [facility] CM [employer] Procedures Procedure Date / Time Performed Performing Clinician Source TROPONIN I 2024-01-18 23:22:00 Nadir Troncoso [facility] D-DIMER 2024-01-18 21:23:00 Nadir Troncoso [facility] XR CHEST 2 VW 2024-01-18 20:26:00 Nadir Troncoso [facility] POCT TEST 2024-01-18 20:07:00 Chase Troncoso [facility] MAGNESIUM 2024-01-18 20:01:00 Nadir Troncoso [facility] TROPONIN I 2024-01-18 20:01:00 Nadir Troncoso [facility] COMP. METABOLIC PANEL (45010) 2024-01-18 20:01:00 Nadir Troncoso [facility] CBC WITH DIFF 2024-01-18 20:01:00 Nadir Troncoso [facility] URINALYSIS 2024-01-18 20:01:00 Nadir Troncoso [facility] N-TERMINAL PRO-BNP 2024-01-18 20:01:00 Keke Troncoso [facility] CONSENT/REFUSAL FOR DIAGNOSIS AND TREATMENT 2024-01-18 19:07:21 Doctor Unassigned, [place] [facility] CONSENT/REFUSAL FOR DIAGNOSIS AND TREATMENT 2024-01-17 00:35:30 Doctor Unassigned, [place] [facility] CBC W Auto Differential panel - Blood 2021-11-21 03:00:00 [facility]) Comprehensive metabolic 2000 panel - Serum or P 2021-11-21 03:00:00 [facility]) Choriogonadotropin.beta subunit ( test 2021-11-20 09:22:00 [facility]) Choriogonadotropin [Moles/volume] in Semen 2021-11-20 07:52:00 [facility]) Basic metabolic 2000 panel - Serum or Plasma 2021-11-18 03:00:00 [facility]) CBC W Auto Differential panel - Blood 2021-11-18 03:00:00 [facility]) Bacteria identified in Blood by Culture 2021-11-18 03:00:00 [facility]) Bacteria identified in Blood by Culture 2021-11-17 12:44:00 [facility]) Basic metabolic 2000 panel - Serum or Plasma 2021-11-17 03:00:00 [facility]) CBC W Auto Differential panel - Blood 2021-11-17 03:00:00 [facility]) Bacteria identified in Blood by Culture 2021-11-16 16:06:00 [facility]) Basic metabolic 2000 panel - Serum or Plasma 2021-11-16 03:00:00 [facility]) Magnesium [Mass/volume] in Serum or Plasma 2021-11-16 03:00:00 [facility]) CBC W Auto Differential panel - Blood 2021-11-16 03:00:00 [facility]) XR ANKLE 3+ VW LEFT 2020-08-07 18:23:07 Carter Meredith Red [facility] XR PELVIS 3+ VW 2020-08-07 18:23:07 Rick Meredith on [facility] EXTERNAL PROVIDER RECORDS 2020-07-31 05:01:00 Do ctor Unassigned, [place] [facility] EXTERNAL PROVIDER RECORDS 2020-07-17 05:01:00 Do ctor Unassigned, [place] [facility] PHOSPHORUS 2020-07-10 10:38:00 Betarbet, [facility] MAGNESIUM 2020-07-10 10:38:00 Betarbet, [facility] BASIC METABOLIC PANEL (NA, K, CL, CO2, GLUCOSE, BUN, CREATININE, CA) 2020-07-10 10:38:00 [facility] CBC WITH DIFF 2020-07-10 10:38:00 BetarbetErnestina [facility] PHOSPHORUS 2020-07-09 10:23:00 Betarbet [facility] MAGNESIUM 2020-07-09 10:23:00 Betarbet [facility] BASIC METABOLIC PANEL (NA, K, CL, CO2, GLUCOSE, BUN, CREATININE, CA) 2020-07-09 10:23[facility] 2020-07-09 10:23:00 BetarbetErnestina [facility] PHOSPHORUS 2020-07-08 09:56:00 Betarbet [facility] MAGNESIUM 2020-07-08 09:56:00 Betarbet [facility] BASIC METABOLIC PANEL (NA, K, CL, CO2, GLUCOSE, BUN, CREATININE, CA) 2020-07-08 09:56:00 [facility] CBC WITH DIFF 2020-07-08 09:56:00 BetarbErnestina borja [facility] CT PELVIS WO CONTRAST 2020-07-08 01:18:16 Zuhair Guzmán [facility] BASIC METABOLIC PANEL (NA, K, CL, CO2, GLUCOSE, BUN, CREATININE, CA) 2020-07-07 23:00:00 [facility] CBC WITHOUT DIFF 2020-07-07 22:59:00 [facility] XR ANKLE 3+ VW LEFT 2020-07-07 21:12:00 Isael Guzmán [facility] XR PELVIS 3+ VW 2020-07-07 19:34:00 Rick Meredith [facility] FL TIME OR (NON-REPORTABLE) 2020-07-07 18:12:00 Carter Meredith [facility] PELVIS CLOSED REDUCTION WITH PERCUTANEOUS PINNING 2020-07-07 14:22:00 Oscar Doshi [facility] PHOSPHORUS 2020-07-07 11:34:00 Betarbet [facility] MAGNESIUM 2020-07-07 11:34:00 Betarbet [facility] BASIC METABOLIC PANEL (NA, K, CL, CO2, GLUCOSE, BUN, CREATININE, CA) 2020-07-07 11:34:00 [facility] COVID-19 (ID NOW RAPID TESTING) 2020-07-06 19:08:00 Surekha Cuba [facility] PHOSPHORUS 2020-07-06 09:37:00 Betarbet [facility] MAGNESIUM 2020-07-06 09:37:00 Betarbet, [facility] BASIC METABOLIC PANEL (NA, K, CL, CO2, GLUCOSE, BUN, CREATININE, CA) 2020-07-06 09:37:00 [facility] CBC WITH DIFF 2020-07-06 09:37:00 BetarbetErnestina [facility] PHOSPHORUS 2020-07-05 09:47:00 Betarbet [facility] LIPASE 2020-07-05 09:47:00 Betarbet, [facility] MAGNESIUM 2020-07-05 09:47:00 Betarbet, [facility] BASIC METABOLIC PANEL (NA, K, CL, CO2, GLUCOSE, BUN, CREATININE, CA) 2020-07-05 09:47:00 Perone, Sheyla Rayo [facility] CBC WITH DIFF 2020-07-05 09:47:00 Perone, Nadia saldana [facility] CBC WITH DIFF 2020-07-04 09:02:00 Perone, Nadia saldana [facility] PHOSPHORUS 2020-07-04 09:00:00 Betarbet, [facility] LIPASE 2020-07-04 09:00:00 Betarbet, [facility] MAGNESIUM 2020-07-04 09:00:00 Betarbet, [facility] BASIC METABOLIC PANEL (NA, K, CL, CO2, GLUCOSE, BUN, CREATININE, CA) 2020-07-04 09:00:00 [facility] PELVIS W WO CONTRAST 2020-07-03 18:00:27 Luana Perales [facility] CBC WITH DIFF 2020-07-03 08:58:00 Perone, Nadia saldana [facility] LIPASE 2020-07-03 08:42:00 Betarbet, [facility] BASIC METABOLIC PANEL (NA, K, CL, CO2, GLUCOSE, BUN, CREATININE, CA) 2020-07-03 08:42:00 Sona, Sheyla Rayo [facility] TEST, URINE 2020-07-03 07:04:00 Dennis Bill [facility] ABORH CONFIRMATION 2020-07-03 04:05:00 Jameel Rodrigues [facility] ANTIGEN TYPING PATIENT 2020-07-03 03:40:00 Carter Haji [facility] PANEL IDENTIFICATION 2020-07-03 03:40:00 Carter Meredith [facility] ELUTION IDENTIFICATION 2020-07-03 03:40:00 Coffm an, Carter [facility] HB ABO GROUPING 2020-07-03 03:40:00 Rick Meredith [facility] SLIM POLYSPECIFIC RESULT 2020-07-03 03:40:00 Susu tomaCarter [facility] SLIM MONOSPECIFIC IGG RESULT 2020-07-03 03:40:00 Viri, Carter [facility] SLIM MONOSPECIFIC C3 RESULT 2020-07-03 03:40:00 C Carter mccloud [facility] LIPASE 2020-07-02 11:12:00 [facility]OLIC PANEL (NA, K, CL, CO2, GLUCOSE, BUN, CREATININE, CA) 2020-07-02 11:12:00 Sheyla Magallanes [facility] CBC WITH DIFF 2020-07-02 11:12:00 Nadia Magallanes [facility] CT LUMBAR SPINE WO CONTRAST 2020-07-01 23:53:00 Keira White [facility] CT PELVIS WO CONTRAST 2020-07-01 23:53:00 Prabhjot Chowdhury [facility] CT THORACIC SPINE WO CONTRAST 2020-07-01 23:53:00 Keira White [facility] CT ANKLE LEFT WO CONTRAST 2020-07-01 23:53:00 Will Otoole [facility] XR PELVIS 3+ VW 2020-07-01 23:41:14 Oscar Doshi [facility] CBC WITH DIFF 2020-07-01 20:21:00 Geetha red [facility] LIPASE 2020-07-01 20:17:00 Geetha red [facility] HEPATIC FUNCTION PANEL (08871) (ALB,T.PRO,BILI T,BU/BC,ALT,AST,ALK PHOS) 2020-07-01 20:17:00 Geetha Carrasquillo [facility] EXTRA TUBE LT. GREEN 2020-07-01 20:17:00 Violeta Hernández [facility] ECHO ROUTINE W/DOPPLER COLOR 2020-07-01 17:45:42 Mariah Geiger [facility] XR ANKLE 3+ VW LEFT 2020-07-01 17:31:00 Isael Guzmán [facility] XR FEMUR 2 VW LEFT 2020-07-01 15:30:00 Will Otoole [facility] HEPATIC FUNCTION PANEL (22608) (ALB,T.PRO,BILI T,BU/BC,ALT,AST,ALK PHOS) 2020-07-01 07:15:00 Sona, Sheyla [facility] BASIC METABOLIC PANEL (NA, K, CL, CO2, GLUCOSE, BUN, CREATININE, CA) 2020-07-01 07:15:00 Perone, Sheyla [facility] CBC WITH DIFF 2020-07-01 07:15:00 Perone, Nadia saldana [facility] PROTHROMBIN TIME / INR 2020-07-01 07:15:00 Sheyla Loredo [facility] XR PELVIS <3 VW 2020-07-01 06:43:00 Glory Chowdhury [facility] COVID-19 (ID NOW RAPID TESTING) 2020-07-01 06:29:00 Sheyla Magallanes [facility] XR CHEST 1 VW 2020-07-01 05:56:00 Tonny [facility] CT THORAX W CONTRAST 2020-07-01 05:55:53 [facility] CT HEAD WO CONTRAST 2020-07-01 05:55:47 Tonny [facility] CT CERVICAL SPINE WO CONTRAST 2020-07-01 05:55[facility] PEL[facility] W CONTRAST 2020-07-01 05:55:36 [facility] CT MAXILLOFACIAL/MANDIBLE WO CONTRAST 2020-07-01 05:34:29 [facility] Encounters Start Date/Time End Date/Time Encounter Type Admission Type Attending Clinicians Care Facility Care Department Encounter ID Source 2021-10-12 13:03:01 Outpatient lc.nyarp [facility] [id number] [facility] 2020-06-30 23:49:00 Inpatient EFRAIN AGUILAR [facility] STR [id number] [facility] 2020-03-31 18:45:00 Inpatient MARYAM FRANCISCO [id number] [facility] 2024-04-25 08:40:00 2024-04-25 08:40:00 Outpatient WEI CARROLL CHARISMA RODRIGES [id number] [facility] 2024-02-10 11:30:00 2024-02-10 11:30:[address] [facility] [id number] [facility] 2024-02-09 12:00:00 2024-02-09 12:00:00 Outpatient JESSIE RIVAS CHARISMA RODRIGES [id number] [facility] 2024-02-02 14:00:00 2024-02-02 14:00:00 Outpatient JONATHANRAQUEL [id number] [facility] 2024-01-18 13:24:00 2024-01-18 20:03:00 Emergency Nadir Troncoso [facility] 1..840.114 350.1.13.10 4.2.7.2.686 [id number] [facility] 2024-01-18 13:24:00 2024-01-18 20:03:00 Emergency X JAMIA ODILIAJENNA [facility] ERT [id number] [facility] 2024-01-16 20:00:00 2024-01-16 20:01:00 Emergency X ZURDO LEA [facility] ERT [id number] [facility] 2024-01-16 20:00:00 2024-01-16 20:01:00 Emergency Lea Valentin [facility] 1..840.114 350.1.13.10 4.2.7.2.686 [id number] [facility] 2023-11-05 18:20:00 2023-11-06 02:02:00 Emergency Department Patient Visit [facility] [id number]. [id number] 2023-11-05 12:20:00 2023-11-05 20:02:00 Outpatient Encounter 1 [facility] [id number]. [id number] [facility] ([facility] 2023-11-04 01:15:00 2023-11-04 02:06:00 Emergency Department Patient Visit [facility] 2.16.840.1. [id number] 2023-11-03 19:15:00 2023-11-03 20:06:00 Outpatient Encounter 1 SHAMEKA CANTRELLLIZ [facility] 2.16.840.1. [id number] [facility] ([facility]) 2022-08-23 15:13:00 2022-08-23 15:46:00 Emergency Department Patient Visit [facility] 2.16.840.1. [id number] 2022-08-23 10:13:00 2022-08-23 10:46:00 Outpatient Encounter 1 AUNDREA KOWALSKI [facility] 2.16.840.1. [id number] [facility] ([facility]) 2021-11-17 15:00:00 2021-11-23 20:40:00 Hospital Admission [facility] [id number] [facility] 2021-11-17 09:00:00 2021-11-23 14:40:00 Hospital Admission [facility] [id number] [facility] 2021-11-17 09:00:00 2021-11-23 14:40:00 Inpatient 1 CHRIS SOSA [facility] TEL [id number] [facility] 2021-11-13 19:19:00 2021-11-13 19:19:00 Emergency ARTHUR MATUTE QER [id number] [facility] 2021-05-15 09:27:00 2021-05-15 09:27:00 Emergency AKIN CANTRELL QER [id number] [facility] 2021-03-23 19:36:00 2021-03-23 19:36:00 Emergency ARTHUR MATUTE QER [id number] [facility] 2020-09-04 11:30:00 2020-09-04 11:30:[address] HI [facility] [id number] [facility] 2020-09-02 00:00:00 2020-09-02 00:00:00 Abstract Guerda Charles [facility] 1.2.840.114 350.1.13.10 4.2.7.2.686 [id number] [facility] 2020-08-07 12:47:40 2020-08-18 18:50:47 Office Visit Oscar Doshi [facility] 1.2.840.114 350.1.13.10 4.2.7.2.686 [id number] [facility] 2020-08-07 12:56:20 2020-08-07 23:59:00 Hospital Encounter Oscar Doshi [facility] 1.2.840.114 350.1.13.10 4.2.7.2.686 [id number] [facility] 2020-08-07 08:40:00 2020-08-07 08:40:[address] [facility] [id number] [facility] 2020-07-31 00:00:00 2020-07-31 00:00:00 Orders Only Doctor Unassigned, [place] [facility] 1.2.840.114 350.1.13.10 4.2.7.2.686 [id number] [facility] 2020-07-17 00:00:00 2020-07-17 00:00:00 Orders Only Doctor Unassigned, [place] [facility] 1.2.840.114 350.1.13.10 4.2.7.2.686 [id number] [facility] 2020-07-16 00:00:00 2020-07-16 00:00:00 Abstract ViriCarter [facility] 1.2.840.114 350.1.13.10 4.2.7.2.686 [id number] [facility] 2020-07-14 05:27:00 2020-07-14 08:43:00 PAIN IN RIGHT HIP 1 JOSEE PLUMMERER [facility], [address] [place] [address] [facility] [id number] [facility] (YEN/NEDRA V/SA) 2020-07-14 00:00:00 2020-07-14 00:00:00 Transition of Care Rosibel Garnicasilvia Gossza 1.2.840.114 350.1.13.10 4.2.7.2.686 [id number] [facility] 2020-07-14 00:00:00 2020-07-14 00:00:00 Telephone GiovanyOscar packer [facility] 1.2.840.114 350.1.13.10 4.2.7.2.686 [id number] [facility] 2020-07-11 00:00:00 2020-07-11 00:00:00 Transition of Care Rosibel Garnica [place] 1.2.840.114 350.1.13.10 4.2.7.2.686 [id number] [facility] 2020-06-30 23:49:00 2020-07-10 16:55:00 Inpatient T EFRAIN HERNÁNDEZ [facility] STR [id number] [facility] 2020-06-30 23:49:00 2020-07-10 16:55:00 Hospital Encounter Oscar Rodrigues Joshua Miranda [facility] 1.2.840.114 350.1.13.10 4.2.7.2.686 [id number] [facility] 2020-06-30 14:23:00 2020-06-30 14:23:00 Emergency GUERDA ORELLANA SSET QER [id number] [facility] 2020-03-31 08:42:00 2020-03-31 08:42:00 Emergency [facility] [id number] [facility] 2020-03-25 12:30:00 2020-03-25 12:30:00 Emergency HOMERO PARRA SSET QER [id number] [facility] 2020-01-03 13:57:00 2020-01-03 13:57:00 Emergency MEGHANA AUNDREA SSET QER [id number] [facility] 2019-11-27 06:25:00 2019-11-27 06:25:00 Emergency ALLA LONNIE SSET QER [id number] [facility] 2019-09-25 14:58:00 2019-09-25 17:36:00 Departed Emergency Room [facility] Elizabeth [id number] [address] [place] [address] 2013-04-07 21:19:36 2013-04-08 07:59:00 Emergency X [facility] ERT [id number] [facility] Results Test Description Test Time Test Comments Results Result Co mments Source [facility] [id number] 21:49:34* Test Item Value Reference Range Interpretation Comme nts NT-proBNP (test code = 41293-3) 805 pg/mL <=125 H SYED (test code = SYED) Positive: Heart Failure Likely Lab Interpretation (test code = 83581-6) Abnormal [facility][id number] 21:49:13* Test Item Value Reference Range Interpretation Comments D-DIMER (test code = 2565870840) 0.42 See_Comment [Automated message] The system which [...] a diagnosis. Lab Interpretation (test code = 84474-2) Normal [facility] [id number] 20:54:45* Test Item Value Reference Range Interpretation Comme nts TROPONIN I (test code = 2079848779) 0.004 ng/mL <=0.034 SYED (test code = [...] of biotin. Lab Interpretation (test code = 89991-5) Normal [facility] 2 [id number] 20:50:16PROCEDURE: XR CHEST 2 VW 01/18/2024 2:20 PM CLINICAL INDICATION: CP COMPARISON: Radiograph of 06/30/2020 TECHNIQUE: PA and lateral views of the chest FINDINGS: Left chest wall cardiac pacer leads overlying right atrium and rightventricle. Aortic valve prosthesis is again noted. There is no pleuraleffusion. ?No pneumothorax. The cardiac size is within normal limits. No aggressive osseous lesion.[facility]:42:42* Test Item Value Reference Range Interpretation Comme nts MAGNESIUM (test code = 2607544772) 1.9 mg/dL 1.7-2.4 Lab Interpretation (test cod e = 67271-1) [facility] (48541)2024-01-18 20:42:42* Test Item Value Reference Range Interpretation Comme nts NA (test code = 9985271838) 138 mmol/L 135-145 K (test code = 8479651740) 4.5 mmol/L 3.5-5.0 Slight hemolysis CL (test code = 6051242197) 110 mmol/L 98-108 H CO2 TOTAL (test code = 6694762118) 19 mmol/L 23-31 L AGAP (test code = 4389001399) 9 2-16 BUN (test code = 3506676038) 17 mg/dL 7-23 Slight hemolysis GLUCOSE (test code = 9491822167) 101 mg/dL 70-110 CREATININE (test code = 2160-0) 0.92 mg/dL 0.50-1.04 TOTAL BILI (test code = 5355060234) 0.6 mg/dL 0.1-1.1 CALCIUM (test code = 7820105131) 9.0 mg/dL 8.6-10.6 T PROTEIN (test code = 1904269833) 8.1 g/dL 6.3-8.2 ALBUMIN (test code = 0407505490) 4.1 g/dL 3.5-5.0 ALK PHOS (test code = 1242632803) 123 U/L 34-122 H Slight hemolysis ALTv (test code = 1742-6) 104 U/L 5-35 H AST(SGOT) (test code = 6745654657) 105 U/L 13-40 H Slight hemolysis eGFR (test code = 75337-7) 81.4 mL/min/1.73m2 CKD-EPI eGFR (2020). Assuming creatinine has been stable day-to-day for at least three months, the eGFR indicates Category G2 (60 - 89 mL/min/1.73 m2) Lab Interpretation (test code = 24960-2) Abnormal [facility] WITH [id number] 20:18:18* Test Item Value Reference Range Interpretation [...] 32.9 g/dL 31.6-35.1 RDW-SD (test code = 92366-6) 47.5 fL 39.0-49.9 RDW-CV (test code = 788-0) 12.8 % 12.0-15.5 PLT (test code = 777-3) 168 166-358 MPV (test code = 61544-9) 10.7 fL 9.5-12.9 NRBC/100 WBC (test code = 6775303287) 0.0 0.0-10.0 NRBC x10^3 (test code = 3553490826) See_Comment [Automated [place] [employer] Championship[employer] ge] The system which generated this result transmitted reference range: 10*3/?L. The reference range was not used to interpret this result as normal/abnormal. GRAN MAT (NEUT) % (test code = 770-8) 52.5 % IMM GRAN % (test code = 5504709716) 0.10 % LYMPH % (test code = 736-9) 37.0 % MONO % (test code = 5905-5) 7.9 % EOS % (test code = 713-8) 2.1 % BASO % (test code = 706-2) 0.4 % GRAN MAT x10^3(ANC) (test code = 5456524212) 4.21 10*3/uL 1.88-7.09 IMM GRAN x10^3 (test code = 9764626986) 0.00-0.06 LYMPH x10^3 (test code = 731-0) 2.96 10*3/uL 1.32-3.29 MONO x10^3 (test code = 742-7) 0.63 10*3/uL 0.33-0.92 EOS x10^3 (test code = 711-2) 0.17 10*3/uL 0.03-0.39 BASO x10^3 (test code = 704-7) 0.03 10*3/uL 0.01-0.07 Lab Interpretation (test code = 68625-6) [id number] 20:07:00* Test Item Value Reference Range Interpretation Comme nts POCT PREG (test code = 1605) Negative On board controls acceptable with C Line (test code = 3574) Yes POCT PREG LOT # (test code = 3575) [id number] POCT PREG TEST DATE ( test code = 3576) 02/19/2025 Lab Interpretation (test cod e = 14206-3) [id number] 20:20:00 [facility] 1985 [facility] [place], [place] [address]MGJEJRTQNV IMAGING REPORTPatient Name: CRISTIAN FEBRUARY NDate of Service: 18-16-7820Ann: 38 Sex: F Order #: [id number][facility] 1985 X-[facility] Number: [id number] Record Number: [id number] Hospital Number: [id number] Physician: KAILASH CONTRERAS SOrdering Physician: KAILASH CONTRERAS SPROCEDURE: CTA CHESTINDICATIONS: DX STATES CHEST PAINCHART STATES C/P, WEAKNESS, SOB, SWEATS,NAUSEATED , RAPID HEARTBEATPMHX PACEMAKERPER PATIENT PROTOCAL ISOVUE [id number] 1.5PSV CAFEXAM: CT Angiography Chest With Intravenous [...] authenticated by NICHELLE DRAKE 2023-11-05 15:18:00ISTAT CHEM [id number] 18:24:00* Test Item Value Reference Range Interpretation [...] results outside of Reference Ranges ISTAT CHEM [id number] 18:24:00* Test Item Value Reference Range Interpretation Comme nts Sodium [Moles/volume] in Art erial blood (test code = 77078-9) 144 MMOL/L 137.0-145.0 N Potassium [Moles/volume] in Arterial blood (test code = 03477-8) 3.3 MMOL/L 3.6-5.0 L Chloride [Moles/volume] in Arterial blood (test code = 44951-5) 111 MMOL/L 98.0-107.0 H Calcium.ionized [Mass/volume ] in Arterial blood (test code = 23312-8) 0.93 MMOL/L 1.12-1.32 L Carbon dioxide, total [Moles/volume] in Blood (test code = 40157-8) 16 MMOL/L 22.0-30.0 L Glucose [Mass/volume] in Art erial blood (test code = 34452-7) 76 MG/DL 65.0-110.0 N Urea nitrogen [Mass/volume] in Arterial blood (test code = 51812-9) 34.0 MG/DL 7.0-20.0 H Creatinine [Mass/volume] in Blood (test code = 32691-7) 1.5 MG/DL 0.7-1.5 N Hematocrit [Volume Fraction] of Arterial blood (test code = 89609-6) 26 %PCV 37.0-52.0 L Hemoglobin [Mass/volume] in Arterial cord blood (test code = 99931-7) 8.8 G/DL 12.0-18.0 L Anion gap in Blood (test cod e = 80826-0) 21 MMOL/L N [facility])TROPONIN [id number] 18:06:00* Test Item Value Reference Range Interpretation Comme [facility] TROPER (test code = TROPER) 0.01 NG/ML 0.0-0.08 INTERPRETIVE DATA A POC TROPONIN OF </= 0.08 NG/ML IS CONSIDERED NEGATIVE Troponin T.cardiac [Mass/volume] in Gkhph9455-65-66 18:06:00* Test Item Value Reference Range Interpretation Comme [facility] Troponin T.cardiac [Mass/vol ume] in Blood (test code = 80575-3) 0.01 NG/ML 0.0-0.08 N [facility])CTA Chest [id number] 15:18:00ORDER 1500: CTA CHEST (LOINC: 36274-8)ORDER DATE: November 05, 2023 9:18:00 PM [facility])Fibrin D-dimer FEU [Mass/volume] in Platelet [id number] 15:05:00* Test Item Value Reference Range Interpretation Comme [facility] Fibrin D-dimer FEU [Mass/volume] in Platelet poor plasma (test code = 51961-3) 1015 ng/mL (FEU) 0.0-500.0 H [facility])PROBRAIN NATRIURETIC [id number] 15:04:00* Test Item Value Reference Range Interpretation Comme [facility] NT-PROBNP (test code = PROBNP) 1070 pg/mL Exclusion for he art failure for patients of all ages is 300 pg/mL. Inclusion for heart failure for patients age <50 is 450 pg/mL; for patients age 50-75 is 900 pg/mL; for patients age >75 is 1800 pg/mL. Natriuretic peptide B [Mass/volume] in Serum [id number] 15:04:00* Test Item Value Reference Range Interpretation Comme [facility] Natriuretic peptide B [Mass/volume] in Serum or Plasma (test code = 77407-5) 1070 pg/mL [facility])URINE DRUG [id number] 15:00:00* Test Item Value Reference Range Interpretation Comme [facility] AMPHET (test code = BAMP) POSITIVE [...] PCP (test code = BMTPCP) NEGATIVE NEGATIVE [id number] 15:00:00* Test Item Value Reference Range Interpretation Comme [facility] LIPASE (test code = LIPA) 182 U/L 23-300 Drugs of abuse 5 panel - Urine by Screen htagvr1305-19-78 15:00:00 PositiveNegativeNegativeNegativeNegativeNegativeNegative[facility])Lipase [Enzymatic activity/volume] in Serum [id number] 15:00:00* Test Item Value Reference Range Interpretation Comme [facility] Lipase [Enzymatic activity/v olume] in Serum or Plasma (test code = 3040-3) 182 U/L 23.0-300.0 [facility])D-DIMER [id number] 14:58:00* Test Item Value Reference Range Interpretation Comme nts D-DIMER QUANTITATIVE (test code = DDIMER) 1015 ng/mL (FEU) 0-500 H VALUES OF QUANTITATIVE D-DIMER LESS THAN 499 ng/mL HAVE BEEN REPORTED TO BE ASSOCIATED WITH A LOW PROBABILITY OF DEEP VEIN THROMBOSIS/PULMONARY EMBOLISM. THIS TEST ALONE SHOULD NOT BE USED TO RULE OUT DVT/PE. [id number] 14:54:00* Test Item Value Reference Range Interpretation Comme nts MG (test code = MG) 1.4 mg/dL 1.6-2.3 L Magnesium [Mass/volume] in Serum or Dlggef3716-35-23 14:53:00* Test Item Value Reference Range Interpretation Comme [facility] Magnesium [Mass/volume] in S vick or Plasma (test code = 54209-7) 1.4 mg/dL 1.6-2.3 L [facility])INFLUENZA [id number] 14:39:00* Test Item Value Reference Range Interpretation Comme [facility] FLU A (test code = FLU A) NEGATIVE NEGATIVE FLU B (test code = FLU B) NEGATIVE NEGATIVE FLU INTERNAL POSITIVE CNTRL (test code = FLU IPC) PASS PASS INFLUENZA LOT # (test code = FLULOT) [id number] INFLUENZA EXPIRATION DATE (t est code = FLUEXP) [id number] STREP A PCR (MOLECULAR)2023-11-05 14:39:00* Test Item Value Reference Range Interpretation Comme [facility] STREP GROUP A PCR (MOLECULAR ) (test code = STREPPCR) NEGATIVE NEGATIVE Influenza virus A+B Ag [Presence] in Nose by [id number] 14:39:00* Test Item Value Reference Range Interpretation Comme [facility] Reagent Lot number (test cod e = 46108-7) [id number] 1 N Expiration date (test code = 07435-6) [id number] 1 N [facility])Streptococcus pyogenes DNA [Presence] in Throat 2023-11-05 14:39:00NegativeTr[facility]dale Medical Center)[id number] 14:28:00* Test Item Value Reference Range Interpretation Comme [facility] WBC (test code = WBC) 4.9 [...] 1.2-7.2 CBC W Auto Differential panel - Crdqj2658-25-57 14:28:00* Test Item Value Reference Range Interpretation Comme nts Leukocytes other [Identifier ] in Blood by Automated count (test code = 06400-9) 4.9 K/UL 3.5-10.9 N Erythrocytes [#/volume] in B lood (test code = 17330-7) 3.4 M/UL 4.0-5.0 L Hemoglobin A/Hemoglobin.tota l in Blood (test code = 4546-8) 10.3 G/DL 11.5-15.5 L Hematocrit [Volume Fraction] of Blood (test code = 84319-9) 30.9 % 34.0-46.0 L Erythrocyte mean corpuscular volume [Entitic volume] (test code = 31949-6) 90.9 FL 80.0-98.0 N Erythrocyte mean corpuscular hemoglobin [Entitic mass] (test code = 53691-1) 30.3 PG 28.0-32.0 N Erythrocyte mean corpuscular hemoglobin concentration [Mass/volume] (test code = 40639-1) 33.3 G/DL 32.5-36.5 N Erythrocyte distribution wid th [Ratio] (test code = 53597-3) 14.9 % 11.5-14.5 H Platelets panel - Blood by Automated count (test code = 11718-3) 137 K/UL 150.0-450.0 L Platelet mean volume [Entiti c volume] in Blood by Automated count (test code = 20139-5) 11.3 FL 7.4-10.4 H Neutrophils.segmented/100 leukocytes in Blood (test code = 07744-2) 70.9 % 40.0-75.0 N Lymphocytes Variant/100 leuk ocytes in Blood (test code = 82846-3) 10.1 % 24.0-44.0 L Lymphocytes+Monocytes/100 leukocytes in Blood (test code = 4662-3) 18.6 % 0.0-13.0 H Eosinophils [#/volume] in Bl ood (test code = 41791-0) 0.0 % 0.0-4.0 N Basophils [#/volume] in Bloo d (test code = 60177-0) 0.0 % 0.0-2.0 N Immature granulocytes/100 leukocytes in Blood (test code = 24625-5) 0.4 % 0.0-1.0 N Nucleated erythrocytes [#/vo lume] in Blood (test code = 51217-9) 0 /100 WBC N Neutrophils [#/volume] in Bl ood (test code = 93194-7) 3.5 K/UL 1.2-7.2 N [facility] [id number] 13:50:00* Test Item Value Reference Range Interpretation Comme nts ISTAT HCG (test code = ISHCG) <5.0 IU/L A value of less than or equal to <5 IU/L is considered NEGATIVE A value between 5 IU/L and 25 IU/L is considered INDETERMINATE A value of >25 IU/L is considered POSITIVE Choriogonadotropin.beta subunit [Presence] in [id number] 13:50:00* Test Item Value Reference Range Interpretation Comme nts Choriogonadotropin.beta subu nit [Presence] in Specimen (test code = 66925-0) <5.0 N [facility] [id number] 13:32:00 [facility] February : 1985 Sex: F[address] [address]XFQADAUHIN IMAGING REPORTPatient Name: CRISTIAN FEBRUARYDate of Service: 09-56-1974Mco: 38 Sex: F Order #: [id number] Room: QERDOB: 1985 X-Ray Number: [id number] Record Number: [id number] Hospital Number: [id number] Physician: ,Ordering Physician: ISA TRINHTORY:Chest Pain without Trauma/InjuryEXAM:CHEST 1 VIEW PORTABLEFindings: Single view chest without comparison exam shows the cardiacsilhouette is normal in size. There is no pulmonaryvascular congestion. There are bibasilar reticularmarkings without focallung consolidation seen. There is no pleural effusionor pneumothorax seen. Visualized osseous structures show no acute findings.Surgical changes are seen of the mediastinumwith s ternotomy wires. Cardiac generator is seen with distal leads in theright atrium and ventricle.Impression:1. Chronic lung findings without superimposed focal infiltrate.2. No radiographically evident acute cardiopulmonary process. 1331 CTLegally authe nticated by BLANCA KONG 2023-11-05 12:32:00TROPOJIM HENDERSONNI7746-13-30 13:18:00* Test Item Value Reference Range Interpretation Comme nts TROPER (test code = TROPER) 0.00 NG/ML 0.0-0.08 INTERPRETIVE DATA A POC TROPONIN OF </= 0.08 NG/ML IS CONSIDERED NEGATIVE Troponin T.cardiac [Mass/volume] in [id number] 13:18:00* Test Item Value Reference Range Interpretation Comme nts Troponin T.cardiac [Mass/vol ume] in Blood (test code = 36091-2) 0.0 NG/ML 0.0-0.08 N [facility])Portable XR Chest Views [id number] 12:32:00ORDER 500: CHEST 1 VIEW PORTABLE (LOINC: 89921-9)ORDER DATE: November 05, 2023 6:32:00 PM [facility])CHEST 1 VIEW [id number] 21:31:00 [facility] : 1985 Sex: F[address] [address]OPYLSDOTGK IMAGING REPORTPatient Name: FebruaryDate of Service: 96-63-9836Ukh: 38 Sex: F Order #: [id number] Room: ERSDOB: 1985 X-Ray Number: [id number] Record Number: [id number] Hospital Number: [id number] Physician: ,Ordering Physician: KAILASH CONTRERASHISTORY:Chest Pain without [...] 19:27:00ORDER 700: CHEST 1 VIEW PORTABLE (LOINC: 09386-6)ORDER DATE: November 04, 2023 1:27:00 AM [facility])WHOLE BLOOD GLUCOSE 2021-11-23 06:40:00* Test Item Value Reference Range Interpretation Comme [facility] WHOLE BLOOD GLUCOSE (test code = POC GLU) 125 MG/DL 70-99 H Fasting glucose normal <100 MG/DL- [employer] [employer] recommendation Glucose mean value [Mass/volume] in Blood [id number] 06:40:00* Test Item Value Reference Range Interpretation Comme nts Glucose mean value [Mass/vol ume] in Blood Estimated from glycated hemoglobin (test code = 66346-5) 125 MG/DL 70.0-99.0 H [facility])[id number] 04:28:00* Test Item Value Reference Range Interpretation [...] L Fasting glucos e normal <100 MG/DL- [place] [employer] recommendation CALCIUM (test code = [...] of age is not validated by the kennel worker and may not represent the patients true renal function. Comprehensive metabolic 2000 panel - Serum or [id number] 04:28:00* Test Item Value Reference Range Interpretation Comme nts Sodium [Moles/volume] in Blood (test code = 2947-0) 133 MMOL/L 137.0-145.0 L Potassium [Moles/volume] in Blood (test code = 6298-4) 4.8 MMOL/L 3.5-5.1 N Chloride [Moles/volume] in Blood (test code = 2069-3) 101 MMOL/L 98.0-107.0 N Carbon dioxide, total [Moles/volume] in Blood (test code = 72688-0) 28 MMOL/L 22.0-30.0 N Urea nitrogen [Mass/volume] in Serum or Plasma (test code = 3094-0) 25 MG/DL 7.0-17.0 H Creatinine [Mass/volume] in Blood (test code = 08533-8) 1.2 MG/DL 0.7-1.2 N Glucose [Mass/volume] in Blood (test code = 2339-0) 64 MG/DL 70.0-99.0 L Calcium [Mass/volume] in Serum or Plasma (test code = 70822-8) 8.8 MG/DL 8.4-10.2 N Protein [Mass/volume] in Serum or Plasma (test code = 2885-2) 8.2 G/DL 6.3-8.2 N Albumin [Presence] in Serum or Plasma (test code = 40724-9) 3.5 G/DL 3.5-5.0 N Bilirubin direct and total panel [Mass/volume] - Serum or Plasma (test code = 40924-8) 0.9 MG/DL 0.2-1.3 N Aspartate aminotransferase [Enzymatic activity/volume] in Serum or Plasma (test code = 1920-8) 51 U/L 15.0-46.0 H Alkaline phosphatase [Enzymatic activity/volume] in Serum or Plasma (test code = 6768-6) 167 U/L 38.0-126.0 H ALTV (test code = ALTV) 38 U/L 13.0-69.0 N Estimated or measured glomerular filtration rate less than 50 percent [- Reported] (test code = 98894-4) 54 mL/min/1.73m2 N [facility] HospitalTDG2718-12-15 04:06:00* Test Item Value Reference Range Interpretation [...] 1.2-7.2 CBC W Auto Differential panel - [id number] 04:06:00* Test Item Value Reference Range Interpretation Comme nts Leukocytes other [Identifier ] in Blood by Automated count (test code = 35917-1) 10.7 K/UL 3.5-10.9 N Erythrocytes [#/volume] in B lood (test code = 95088-4) 4.18 M/UL 4.0-5.0 N Hemoglobin A/Hemoglobin.tota l in Blood (test code = 4546-8) 13.1 G/DL 11.5-15.5 N Hematocrit [Volume Fraction] of Blood (test code = 91372-2) 42.4 % 34.0-46.0 N Erythrocyte mean corpuscular volume [Entitic volume] (test code = 30703-0) 101.4 FL 80.0-98.0 H Erythrocyte mean corpuscular hemoglobin [Entitic mass] (test code = 81753-0) 31.3 PG 28.0-32.0 N Erythrocyte mean corpuscular hemoglobin concentration [Mass/volume] (test code = 64993-8) 30.9 G/DL 32.5-36.5 L Erythrocyte distribution wid th [Ratio] (test code = 02551-9) 13.6 % 11.5-14.5 N Platelets panel - Blood by Automated count (test code = 79794-9) 408 K/UL 150.0-450.0 N Platelet mean volume [Entiti c volume] in Blood by Automated count (test code = 19033-9) 8.4 FL 7.4-10.4 N CBC W Reflex Manual Differen tial panel - Blood (test code = 92716-8) NO N Nurse Midwife review of resul ts (test code = 50551-8) NO N Neutrophils.segmented/100 leukocytes in Blood (test code = 08627-6) 53.9 % 40.0-75.0 N Lymphocytes Variant/100 leuk ocytes in Blood (test code = 82258-7) 36.8 % 24.0-44.0 N Lymphocytes+Monocytes/100 leukocytes in Blood (test code = 4662-3) 5.4 % 0.0-13.0 N Eosinophils [#/volume] in Bl ood (test code = 94226-1) 1.9 % 0.0-4.0 N Basophils [#/volume] in Bloo d (test code = 66838-3) 0.6 % 0.0-2.0 N IG (test code = IG) 0 % 0.0-1.0 N IG% (test code = IG%) 1.4 % 0.0-1.0 H NRBC% (test code = NRBC%) 0 /100 WBC N Neutrophils [#/volume] in Bl ood (test code = 60058-1) 5.8 K/UL 1.2-7.2 N [facility] ([place])BLOOD BRLAWKZ8933-00-14 07:57:00* Test Item Value Reference Range Interpretation Comme nts Report Text (test code = Report Text) CAT 2021-11-18 645 Report Text7 (test code = Report Text7) BLOOD CULTURES HELD FOR 5 DAYS BEFORE FINAL Report Text8 (test code = Report Text8) Report Text9 (test code = Report Text9) [place] [employer] SUGGESTS THAT Report Text10 [...] Report Text18 (test code = Report Text18) [facility] 2021-11-18 647 Report Text19 (test code = [...] Report Text28 (test code = Report Text28) [facility] 2021-11-22 757 Report Text29 (test code = Report Text29) NO GROWTH WITHIN 5 DAYS Report Text30 (test code = Report Text30) FINAL REPORT [id number] 04:30:00* Test Item Value Reference Range Interpretation [...] 70-99 Fasting glucos e normal <100 MG/DL- [place] [employer] recommendation CALCIUM (test code = [...] of age is not validated by the kennel worker and may not represent the patients true renal function. Comprehensive metabolic 2000 panel - Serum or [id number] 04:30:00* Test Item Value Reference Range Interpretation Comme nts Sodium [Moles/volume] in Blood (test code = 2947-0) 136 MMOL/L 137.0-145.0 L Potassium [Moles/volume] in Blood (test code = 6298-4) 4.6 MMOL/L 3.5-5.1 N Chloride [Moles/volume] in Blood (test code = 2069-3) 105 MMOL/L 98.0-107.0 N Carbon dioxide, total [Moles/volume] in Blood (test code = 11073-4) 27 MMOL/L 22.0-30.0 N Urea nitrogen [Mass/volume] in Serum or Plasma (test code = 3094-0) 21 MG/DL 7.0-17.0 H Creatinine [Mass/volume] in Blood (test code = 84014-4) 0.9 MG/DL 0.7-1.2 N Glucose [Mass/volume] in Blood (test code = 2339-0) 99 MG/DL 70.0-99.0 N Calcium [Mass/volume] in Serum or Plasma (test code = 24502-1) 9.0 MG/DL 8.4-10.2 N Protein [Mass/volume] in Serum or Plasma (test code = 2885-2) 7.8 G/DL 6.3-8.2 N Albumin [Presence] in Serum or Plasma (test code = 11707-0) 3.3 G/DL 3.5-5.0 L Bilirubin direct and total panel [Mass/volume] - Serum or Plasma (test code = 25977-8) 0.9 MG/DL 0.2-1.3 N Aspartate aminotransferase [Enzymatic activity/volume] in Serum or Plasma (test code = 1920-8) 43 U/L 15.0-46.0 N Alkaline phosphatase [Enzymatic activity/volume] in Serum or Plasma (test code = 6768-6) 181 U/L 38.0-126.0 H ALTV (test code = ALTV) 37 U/L 13.0-69.0 N Estimated or measured glomerular filtration rate less than 50 percent [- Reported] (test code = 49573-7) 75 mL/min/1.73m2 N [facility])[id number] 03:53:00* Test Item Value Reference Range Interpretation [...] 1.2-7.2 CBC W Auto Differential panel - Tluer8565-93-94 03:53:00* Test Item Value Reference Range Interpretation Comme nts Leukocytes other [Identifier ] in Blood by Automated count (test code = 64066-9) 8.2 K/UL 3.5-10.9 N Erythrocytes [#/volume] in B lood (test code = 87839-4) 3.91 M/UL 4.0-5.0 L Hemoglobin A/Hemoglobin.tota l in Blood (test code = 4546-8) 12.8 G/DL 11.5-15.5 N Hematocrit [Volume Fraction] of Blood (test code = 96792-0) 41.1 % 34.0-46.0 N Erythrocyte mean corpuscular volume [Entitic volume] (test code = 45367-0) 105.1 FL 80.0-98.0 H Erythrocyte mean corpuscular hemoglobin [Entitic mass] (test code = 42883-3) 32.7 PG 28.0-32.0 H Erythrocyte mean corpuscular hemoglobin concentration [Mass/volume] (test code = 02806-7) 31.1 G/DL 32.5-36.5 L Erythrocyte distribution wid th [Ratio] (test code = 83634-2) 13.6 % 11.5-14.5 N Platelets panel - Blood by Automated count (test code = 97251-1) 327 K/UL 150.0-450.0 N Platelet mean volume [Entiti c volume] in Blood by Automated count (test code = 22016-9) 8.5 FL 7.4-10.4 N CBC W Reflex Manual Differen tial panel - Blood (test code = 98965-4) NO N Nurse Midwife review of resul ts (test code = 18162-1) NO N Neutrophils.segmented/100 leukocytes in Blood (test code = 98625-5) 50.3 % 40.0-75.0 N Lymphocytes Variant/100 leuk ocytes in Blood (test code = 42270-2) 37.6 % 24.0-44.0 N Lymphocytes+Monocytes/100 leukocytes in Blood (test code = 4662-3) 7.8 % 0.0-13.0 N Eosinophils [#/volume] in Bl ood (test code = 39410-1) 2.1 % 0.0-4.0 N Basophils [#/volume] in Bloo d (test code = 71681-9) 0.7 % 0.0-2.0 N IG (test code = IG) 0 % 0.0-1.0 N IG% (test code = IG%) 1.5 % 0.0-1.0 H NRBC% (test code = NRBC%) 0 /100 WBC N Neutrophils [#/volume] in Bl ood (test code = 24046-8) 4.1 K/UL 1.2-7.2 N [facility])TRANSESOPHAGEAL ZQTG4434-50-45 16:16:00 [facility] : 1985 [facility]APTASP[facility]TE[facility] REPORTName: February NStudy Date: 11/20/2021 01:55 PMMRN: [id number] Patient Location: 2NW\\S\\251\\S\\AHR: 95DOB: 1985 (M/d/yyyy) Gender: FemaleAge: 36 yrs Ethnicity: WHeight: 62 in Weight: 128 lbBSA: 1.6 t2Ujikvg For Study: R/O EndocarditisHistory: ProstheticTricuspid Valve, PPM, [...] Garcia MDReferring Physician: Lisette Garcia MDPerformed By: SargentPatti 2021-11-21 15:18:00* Test Item Value Reference Range Interpretation Comme nts EKG (test code = EKGW) HEART RATE: 92 bpm RR Interval: 652 ms Atrial Rate: 92 ms P-R Interval: 213 ms P Duration: 193 ms P Horizontal [place]: -20 deg P Front [place]: 38 deg Q Onset: 504 ms QRSD Interval: 154 ms QT Interval: 417 ms QTcB: 516 ms QTcF: 481 ms QRS Horizontal [place]: 236 deg QRS [place]: -60 deg I-40 Horizontal [place]: 144 deg I-40 Front [place]: -74 deg T-40 Horizontal [place]: 244 deg T-40 Front [place]: -58 deg T Horizontal [place]: 36 deg T Wave [place]: 114 deg S-T Horizontal [place]: 74 deg S-T Front [place]: 121 deg ECG Severity: - ABNORMAL ECG - ECG Impression: Atrial-sensed ventricular-paced rhythm [facility] [id number] 15:18:00 [facility] : 1985 Sex: FHEART RATE: 92 bpmRR Interval: 652 msAtrial Rate: 92 msP-R Interval: 213 msP Duration: 193msP Horizontal [place]: -20 degP Front [place]: 38 degQ Onset: 504 msQRSD Interval: 154 msQT Interval: 417 msQTcB: 516 msQTcF: 481 msQRS Horizontal [place]: 236 degQRS [place]: -60 degI-40 Horizontal [place]: 144 degI-40 Front [place]: -74 degT-40 Horizontal [place]: 244 degT-40 Front [place]: -58 degT Horizontal [place]: 36degT Wave [place]: 114 degS-T Horizontal [place]: 74 degS-T Front [place]: 121 degECG Severity: - ABNORMAL ECG -ECG Impression: Atrial-sensed ventricular-[facility] 2021-11-21 09:13:00* Test Item Value Reference Range [...] 1.2-7.2 CBC W Auto Differential panel - [id number] 09:13:00* Test Item Value Reference Range Interpretation Comme nts Leukocytes other [Identifier ] in Blood by Automated count (test code = 59466-9) 7.6 K/UL 3.5-10.9 N Erythrocytes [#/volume] in B lood (test code = 55811-7) 4.67 M/UL 4.0-5.0 N Hemoglobin A/Hemoglobin.tota l in Blood (test code = 4546-8) 15.0 G/DL 11.5-15.5 N Hematocrit [Volume Fraction] of Blood (test code = 67751-4) 49.4 % 34.0-46.0 H Erythrocyte mean corpuscular volume [Entitic volume] (test code = 23611-2) 105.8 FL 80.0-98.0 H Erythrocyte mean corpuscular hemoglobin [Entitic mass] (test code = 65908-3) 32.1 PG 28.0-32.0 H Erythrocyte mean corpuscular hemoglobin concentration [Mass/volume] (test code = 70384-4) 30.4 G/DL 32.5-36.5 L Erythrocyte distribution wid th [Ratio] (test code = 89431-7) 13.5 % 11.5-14.5 N Platelets panel - Blood by Automated count (test code = 66442-4) 295 K/UL 150.0-450.0 N Platelet mean volume [Entiti c volume] in Blood by Automated count (test code = 20503-7) 8.5 FL 7.4-10.4 N CBC W Reflex Manual Differen tial panel - Blood (test code = 07054-4) NO N Nurse Midwife review of resul ts (test code = 93172-8) NO N Neutrophils.segmented/100 leukocytes in Blood (test code = 77865-8) 52.2 % 40.0-75.0 N Lymphocytes Variant/100 leuk ocytes in Blood (test code = 49293-3) 36.8 % 24.0-44.0 N Lymphocytes+Monocytes/100 leukocytes in Blood (test code = 4662-3) 7.1 % 0.0-13.0 N Eosinophils [#/volume] in Bl ood (test code = 15315-6) 1.8 % 0.0-4.0 N Basophils [#/volume] in Bloo d (test code = 94181-8) 0.9 % 0.0-2.0 N IG (test code = IG) 0 % 0.0-1.0 N IG% (test code = IG%) 1.2 % 0.0-1.0 H NRBC% (test code = NRBC%) 0 /100 WBC N Neutrophils [#/volume] in Bl ood (test code = 45753-9) 4.0 K/UL 1.2-7.2 N [facility])[id number] 05:21:00* Test Item Value Reference Range Interpretation [...] 70-99 Fasting glucos e normal <100 MG/DL- [place] [employer] recommendation CALCIUM (test code = [...] of age is not validated by the kennel worker and may not represent the patients true renal function. Comprehensive metabolic 2000 panel - Serum or [id number] 05:21:00* Test Item Value Reference Range Interpretation Comme nts Sodium [Moles/volume] in Blood (test code = 2947-0) 134 MMOL/L 137.0-145.0 L Potassium [Moles/volume] in Blood (test code = 6298-4) 4.6 MMOL/L 3.5-5.1 N Chloride [Moles/volume] in Blood (test code = 2069-3) 105 MMOL/L 98.0-107.0 N Carbon dioxide, total [Moles/volume] in Blood (test code = 48579-9) 23 MMOL/L 22.0-30.0 N Urea nitrogen [Mass/volume] in Serum or Plasma (test code = 3094-0) 22 MG/DL 7.0-17.0 H Creatinine [Mass/volume] in Blood (test code = 05731-6) 0.9 MG/DL 0.7-1.2 N Glucose [Mass/volume] in Blood (test code = 2339-0) 82 MG/DL 70.0-99.0 N Calcium [Mass/volume] in Serum or Plasma (test code = 36816-8) 8.1 MG/DL 8.4-10.2 L Protein [Mass/volume] in Serum or Plasma (test code = 2885-2) 7.5 G/DL 6.3-8.2 N Albumin [Presence] in Serum or Plasma (test code = 68541-9) 3.2 G/DL 3.5-5.0 L Bilirubin direct and total panel [Mass/volume] - Serum or Plasma (test code = 62508-2) 1.1 MG/DL 0.2-1.3 N Aspartate aminotransferase [Enzymatic activity/volume] in Serum or Plasma (test code = 1920-8) 48 U/L 15.0-46.0 H Alkaline phosphatase [Enzymatic activity/volume] in Serum or Plasma (test code = 6768-6) 175 U/L 38.0-126.0 H ALTV (test code = ALTV) 38 U/L 13.0-69.0 N Estimated or measured glomerular filtration rate less than 50 percent [- Reported] (test code = 30951-8) 75 mL/min/1.73m2 N [facility]B-HCG, [id number] 10:23:00* Test Item Value Reference Range Interpretation [...] considered POSITIVE. Updated: 03/21/2010 Choriogonadotropin [Moles/volume] in [id number] 10:23:00* Test Item Value Reference Range Interpretation Comme nts Choriogonadotropin [Moles/vo lume] in Semen (test code = 2105-5) <2.39 N [facility])COVID SYMPTOMATIC ER [id number] 08:36:00* Test Item Value Reference Range Interpretation Comme nts CORONAVIRUS (COVID-19)BY PCR (test code = FUA01ZYC) NEGATIVE SARS-CoV-2 (COVID-19) N gene [Presence] in Eymu2250-96-16 08:36:00Negative [facility])BMP, BASIC METABOLIC [id number] 07:27:00* Test Item Value Reference Range Interpretation [...] H Fasting glucos e normal <100 MG/DL- [place] [employer] recommendation CALCIUM (test code = CABLOOD) 8.5 MG/DL 8.4-10.2 GFR (test code = GFR) 59 mL/min/1.73m2 A GFR of >90 mL/min/1.73m2 is considered normal. The GFR calculation on patients over 70 years of age is not validated by the kennel worker and may not represent the patients true renal function. [id number] 07:27:00* Test Item Value Reference Range Interpretation Comme nts MG (test code = MG) 2.1 mg/dL 1.6-2.3 Basic metabolic 2000 panel - Serum or Xjiyqc0095-60-66 07:27:00* Test Item Value Reference Range Interpretation Comme nts Sodium [Moles/volume] in Blood (test code = 2947-0) 137 MMOL/L 137.0-145.0 N Potassium [Moles/volume] in Blood (test code = 6298-4) 4.3 MMOL/L 3.5-5.1 N Chloride [Moles/volume] in Blood (test code = 2069-3) 105 MMOL/L 98.0-107.0 N Carbon dioxide, total [Moles/volume] in Blood (test code = 89114-4) 24 MMOL/L 22.0-30.0 N Urea nitrogen [Mass/volume] in Serum or Plasma (test code = 3094-0) 31 MG/DL 7.0-17.0 H Creatinine [Mass/volume] in Blood (test code = 81453-6) 1.1 MG/DL 0.7-1.2 N Glucose [Mass/volume] in Blood (test code = 2339-0) 104 MG/DL 70.0-99.0 H Calcium [Mass/volume] in Serum or Plasma (test code = 50009-2) 8.5 MG/DL 8.4-10.2 N Estimated or measured glomerular filtration rate less than 50 percent [- Reported] (test code = 08890-6) 59 mL/min/1.73m2 N [facility])Magnesium [Mass/volume] in Serum or [id number] 07:27:00* Test Item Value Reference Range Interpretation Comme nts Magnesium [Mass/volume] in S vick or Plasma (test code = 93409-8) 2.1 mg/dL 1.6-2.3 N [facility])[id number] 07:05:00* Test Item Value Reference Range Interpretation [...] 1.2-7.2 CBC W Auto Differential panel - [id number] 07:05:00* Test Item Value Reference Range Interpretation Comme nts Leukocytes other [Identifier ] in Blood by Automated count (test code = 54189-3) 9.1 K/UL 3.5-10.9 N Erythrocytes [#/volume] in B lood (test code = 24096-4) 4.39 M/UL 4.0-5.0 N Hemoglobin A/Hemoglobin.tota l in Blood (test code = 4546-8) 14.5 G/DL 11.5-15.5 N Hematocrit [Volume Fraction] of Blood (test code = 44288-9) 45.8 % 34.0-46.0 N Erythrocyte mean corpuscular volume [Entitic volume] (test code = 21866-1) 104.3 FL 80.0-98.0 H Erythrocyte mean corpuscular hemoglobin [Entitic mass] (test code = 72207-9) 33.0 PG 28.0-32.0 H Erythrocyte mean corpuscular hemoglobin concentration [Mass/volume] (test code = 62930-1) 31.7 G/DL 32.5-36.5 L Erythrocyte distribution wid th [Ratio] (test code = 00727-9) 13.0 % 11.5-14.5 N Platelets panel - Blood by Automated count (test code = 85532-4) 312 K/UL 150.0-450.0 N Platelet mean volume [Entiti c volume] in Blood by Automated count (test code = 24457-8) 9.0 FL 7.4-10.4 N CBC W Reflex Manual Differen tial panel - Blood (test code = 84429-1) NO N Nurse Midwife review of resul ts (test code = 88517-6) NO N Neutrophils.segmented/100 leukocytes in Blood (test code = 27274-8) 54.8 % 40.0-75.0 N Lymphocytes Variant/100 leuk ocytes in Blood (test code = 88265-9) 31.3 % 24.0-44.0 N Lymphocytes+Monocytes/100 leukocytes in Blood (test code = 4662-3) 8.5 % 0.0-13.0 N Eosinophils [#/volume] in Bl ood (test code = 44174-3) 3.5 % 0.0-4.0 N Basophils [#/volume] in Bloo d (test code = 92627-3) 0.8 % 0.0-2.0 N IG (test code = IG) 0 % 0.0-1.0 N IG% (test code = IG%) 1.1 % 0.0-1.0 H NRBC% (test code = NRBC%) 0 /100 WBC N Neutrophils [#/volume] in Bl ood (test code = 31488-9) 5.0 K/UL 1.2-7.2 N [facility])FIBRINOGEN [id number] 05:50:00* Test Item Value Reference Range Interpretation Comme nts FIBRINOG (test code = FIBRINOG) 732 MG/DL 200-393 H Fibrinogen in Platelet poor tdtmep5492-39-52 05:50:00* Test Item Value Reference Range Interpretation Comme nts Fibrinogen in Platelet poor plasma (test code = 48525-7) 732 MG/DL 200.0-393.0 [facility] [id number] 03:05:00* Test Item Value Reference Range Interpretation Comme nts HIV 1/2 ANTIBODY (test code = AHIV) NEGATIVE NEGATIVE This test is used for SCREENING purposes only. All reactive results are prelimenary and confirmation results will follow. HIV 1+2 Ab [Units/volume] in Xoowc2132-29-16 03:05:00NegativeJeff[facility] HospitalBMP, BASIC METABOLIC [id number] 00:55:00* Test Item Value Reference Range Interpretation [...] 70-99 Fasting glucos e normal <100 MG/DL- [place] [employer] recommendation CALCIUM (test code = CABLOOD) 8.5 MG/DL 8.4-10.2 GFR (test code = GFR) 66 mL/min/1.73m2 A GFR of >90 mL/min/1.73m2 is considered normal. The GFR calculation on patients over 70 years of age is not validated by the kennel worker and may not represent the patients true renal function. Basic metabolic 2000 panel - Serum or Gooywm0440-58-66 00:55:00* Test Item Value Reference Range Interpretation Comme nts Sodium [Moles/volume] in Blood (test code = 2947-0) 139 MMOL/L 137.0-145.0 N Potassium [Moles/volume] in Blood (test code = 6298-4) 4.2 MMOL/L 3.5-5.1 N Chloride [Moles/volume] in Blood (test code = 2069-3) 104 MMOL/L 98.0-107.0 N Carbon dioxide, total [Moles/volume] in Blood (test code = 14312-6) 27 MMOL/L 22.0-30.0 N Urea nitrogen [Mass/volume] in Serum or Plasma (test code = 3094-0) 19 MG/DL 7.0-17.0 H Creatinine [Mass/volume] in Blood (test code = 72177-4) 1.0 MG/DL 0.7-1.2 N Glucose [Mass/volume] in Blood (test code = 2339-0) 98 MG/DL 70.0-99.0 N Calcium [Mass/volume] in Serum or Plasma (test code = 40416-3) 8.5 MG/DL 8.4-10.2 N Estimated or measured glomerular filtration rate less than 50 percent [- Reported] (test code = 80154-1) 66 mL/min/1.73m2 N [facility] HospitalLIVER [id number] 00:46:00* Test Item Value Reference Range Interpretation [...] Hepatic function 2000 panel - Serum or [id number] 00:46:00* Test Item Value Reference Range Interpretation Comme nts Protein [Mass/volume] in Ser um or Plasma (test code = 2885-2) 7.8 G/DL 6.3-8.2 N Albumin [Presence] in Serum or Plasma (test code = 66210-2) 3.5 G/DL 3.5-5.0 N Bilirubin direct and total p jeanette [Mass/volume] - Serum or Plasma (test code = 61516-3) 2.1 MG/DL 0.2-1.3 H Bilirubin.direct [Mass/volum e] in Serum or Plasma (test code = 1968-7) 1.7 MG/DL 0.0-0.4 H Aspartate aminotransferase [Enzymatic activity/volume] in Serum or Plasma (test code = 1920-8) 49 U/L 15.0-46.0 H Alkaline phosphatase [Enzyma tic activity/volume] in Serum or Plasma (test code = 6768-6) 220 U/L 38.0-126.0 H ALTV (test code = ALTV) 42 U/L 13.0-69.0 N [facility])PROTHROMBIN TIME WITH [id number] 00:10:00* Test Item Value Reference Range Interpretation Comme nts PROTHROMBIN TIME (test code = PT) 11.1 SECONDS 10.1-12.7 INR Usual Range = 2 to 3 for prevention of deep vein thrombosis (DVT) INR (test code = INR) 0.9 INR in Platelet poor plasma or blood by Hphijqr9846-76-30 00:10:00* Test Item Value Reference Range Interpretation Comme nts INR in Platelet poor plasma or blood by Coagulation assay (test code = 12973-8) 11.1 SECONDS 10.1-12.7 N INR in Blood by Coagulation assay (test code = 82265-7) 0.9 1 N [facility])[id number] 23:15:00* Test Item Value Reference Range Interpretation Comme nts PTT (test code = PTT) 34.4 SECONDS 25.0-36.5 HEPARIN THERAPEU TIC RANGE 57-92 SECONDS Activated partial thromboplastin time (aPTT) [id number] 23:15:00* Test Item Value Reference Range Interpretation Comme nts Activated partial thrombopla stin time (aPTT) in Platelet poor plasma by Coagulation assay (test code = 85660-0) 34.4 SECONDS 25.0-36.5 [facility])[id number] 22:57:00* Test Item Value Reference Range Interpretation [...] 1.2-7.2 CBC W Auto Differential panel - [id number] 22:57:00* Test Item Value Reference Range Interpretation Comme nts Leukocytes other [Identifier ] in Blood by Automated count (test code = 40024-4) 8.1 K/UL 3.5-10.9 N Erythrocytes [#/volume] in B lood (test code = 10192-8) 4.52 M/UL 4.0-5.0 N Hemoglobin A/Hemoglobin.tota l in Blood (test code = 4546-8) 14.6 G/DL 11.5-15.5 N Hematocrit [Volume Fraction] of Blood (test code = 30995-9) 45.3 % 34.0-46.0 N Erythrocyte mean corpuscular volume [Entitic volume] (test code = 13119-5) 100.2 FL 80.0-98.0 H Erythrocyte mean corpuscular hemoglobin [Entitic mass] (test code = 24144-8) 32.3 PG 28.0-32.0 H Erythrocyte mean corpuscular hemoglobin concentration [Mass/volume] (test code = 64985-2) 32.2 G/DL 32.5-36.5 L Erythrocyte distribution wid th [Ratio] (test code = 98286-3) 12.9 % 11.5-14.5 N Platelets panel - Blood by Automated count (test code = 43487-3) 228 K/UL 150.0-450.0 N Platelet mean volume [Entiti c volume] in Blood by Automated count (test code = 23406-2) 9.1 FL 7.4-10.4 N CBC W Reflex Manual Differen tial panel - Blood (test code = 69571-8) NO N Nurse Midwife review of resul ts (test code = 13926-5) NO N Neutrophils.segmented/100 leukocytes in Blood (test code = 02600-7) 54.3 % 40.0-75.0 N Lymphocytes Variant/100 leuk ocytes in Blood (test code = 78852-2) 33.6 % 24.0-44.0 N Lymphocytes+Monocytes/100 leukocytes in Blood (test code = 4662-3) 8.6 % 0.0-13.0 N Eosinophils [#/volume] in Bl ood (test code = 31663-3) 2.5 % 0.0-4.0 N Basophils [#/volume] in Bloo d (test code = 03062-2) 0.5 % 0.0-2.0 N IG (test code = IG) 0 % 0.0-1.0 N IG% (test code = IG%) 0.5 % 0.0-1.0 N NRBC% (test code = NRBC%) 0 /100 WBC N Neutrophils [#/volume] in Bl ood (test code = 10198-6) 4.4 K/UL 1.2-7.2 N [facility])US ABDOMEN [id number] 18:29:00 [facility] February : 1985 Sex: F[address] [address]XBUTYGDFAP IMAGING REPORTPatient Name: CRISTIAN FEBRUARY NDate of Service: [id number]: 36 Sex: F Order #: [id number] Room: [facility] 2NWDOB: 1985 X-Ray Number: [id number] Record Number: [id number] Hospital Number: [id number] Physician: CHRIS SOSA Physician: PUNEET LOGANAbdominal ultrasound [...] PMLegally authenticated by RUBI VIEIRA 2021-11-17 18:27:35Abdomen [id number] 18:29:00ORDER 3500: US ABDOMEN COMPLETE (LOINC: 52232-2)ORDER DATE: November 17, 2021 1:57:00 PM [facility])Abdomen [id number] 18:29:00ORDER 3500: US ABDOMEN COMPLETE (LOINC: 14613-9)ORDER DATE: November 17, 2021 1:57:00 PM [facility]) BLOOD [id number] 10:24:00* Test Item Value Reference Range Interpretation Comme nts Report Text (test code = Report Text) [facility] 2021-11-132036 Report Text7 (test code = Report Text7) BLOOD CULTURES HELD FOR 5 DAYS BEFORE FINAL Report Text8 (test code = Report Text8) Report Text9 (test code = Report Text9) [place] [employer] SUGGESTS THAT Report Text10 (test code = Report Text10) MOST CASES OF BACTEREMIA ARE DETECTED BY USING Report Text11 (test code = Report Text11) THREE SETS OF SEPARATELY COLLECTED BLOOD CULTURES. Report Text12 (test code = Report Text12) [facility] 2021-11-132037 Report Text13 (test code = [...] Report Text18 (test code = Report Text18) [facility] 2021-11-132038 Report Text19 (test code = Report Text19) COLLECTION SITE UNSPECIFIED Report Text20 (test code = Report Text20) [facility] 2021-11-14 647 Report Text21 (test code [...] Report Text40 (test code = Report Text40) [facility] 2021-11-16 1023 Report Text41 (test code = Report Text41) STAPHYLOCOCCUS AUREUS ISOLATED Report Text42 (test code = Report Text42) [facility] 2021-11-16 1024 Report Text43 (test code = Report Text43) SEE SENSITIVITY FOR BLOOD CULT #[id number] Report Text44 (test code = Report Text44) ORDER #300, COLLECTED 11/13/2021 Report Text45 (test code = Report Text45) FINAL REPORT Bacteria identified in Blood by [id number] 10:24:00* Test Item Value Reference Range Interpretation Comme nts Staphylococcus aureus (test code = 4720009) Antibiotic: Amox/K Clav | MARIA LUZ: <= 0.0 | Systemic: S | Comments: S Staphylococcus aureus (test code = 6367940) Antibiotic: Ampicillin | MARIA LUZ: > 8.0 | Systemic: R | Comments: R Staphylococcus aureus (test code = 5746431) Antibiotic: Amp/Sulbactam | MARIA LUZ: <= 0.0 | Systemic: S | Comments: S Staphylococcus aureus (test code = 8153901) Antibiotic: Azithromycin | MARIA LUZ: <= 2.0 | Systemic: S | Comments: S Staphylococcus aureus (test code = 8619708) Antibiotic: Cefoxitin Screen | MARIA LUZ: <= 4.0 | Systemic: NEG | Comments: Staphylococcus aureus (test code = 6686825) Antibiotic: Levofloxacin | MARIA LUZ: <= 1.0 | Systemic: S | Comments: S Staphylococcus aureus (test code = 7479099) Antibiotic: Linezolid | MARIA LUZ: <= 2.0 | Systemic: S | Comments: S Staphylococcus aureus (test code = 2220532) Antibiotic: Cefazolin | MARIA LUZ: <= 8.0 | Systemic: S | Comments: S Staphylococcus aureus (test code = 4485136) Antibiotic: Chloramphenicol | MARIA LUZ: <= 8.0 | Systemic: S | Comments: S Staphylococcus aureus (test code = 0312460) Antibiotic: Ciprofloxacin | MARIA LUZ: <= 1.0 | Systemic: S | Comments: S Staphylococcus aureus (test code = 2980707) Antibiotic: Clindamycin | MARIA LUZ: <= 0.25 | Systemic: S | Comments: S Staphylococcus aureus (test code = 5891890) Antibiotic: Erythromycin | MARIA LUZ: <= 0.5 | Systemic: S | Comments: S Staphylococcus aureus (test code = 7538443) Antibiotic: Gentamicin | MARIA LUZ: <= 4.0 | Systemic: S | Comments: S Staphylococcus aureus (test code = 2650671) Antibiotic: Oxacillin | MARIA LUZ: 1.0 | Systemic: S | Comments: S Staphylococcus aureus (test code = 0284289) Antibiotic: Penicillin | MARIA LUZ: > 8.0 | Systemic: R | Comments: R Staphylococcus aureus (test code = 4508360) Antibiotic: Tetracycline | MARIA LUZ: <= 4.0 | Systemic: S | Comments: S Staphylococcus aureus (test code = 5823927) Antibiotic: Trimeth/Sulfa | MARIA LUZ: 0.5 | Systemic: S | Comments: S Staphylococcus aureus (test code = 7516655) Antibiotic: Vancomycin | MARIA LUZ: 1.0 | Systemic: S | Comments: S [facility] [id number] 10:22:00* Test Item Value Reference Range Interpretation Comme nts CULTBLD1 (test code = CULTBLD1) CULTBLD1 (test code = [id number]) [facility] 2021-11-132036 BLOOD CULTURES HELD FOR 5 DAYS BEFORE FINAL [place] [employer] SUGGESTS THAT MOST CASES OF BACTEREMIA ARE DETECTED BY USING THREE SETS OF SEPARATELY COLLECTED BLOOD CULTURES. [facility] 2021-11-132037 CONVERSELY, A SINGLE BLOOD CULTURE MAY MISS INTERMITTENTLY OCCURRING BACTEREMIA AND MAKE IT DIFFICULT TO INTERPRET THECLINICAL SIGNIFICANCE OF CERTAIN ISOLATED ORGANISMS. [facility] 2021-11-132038 COLLECTION SITE UNSPECIFIED [facility] 2021-11-14 647 NO GROWTH WITHIN 1 [...] PRELIMINARY REPORT ECHO COMPLETE W/DOPPLER 2021-11-16 09:15:00 [facility] : 1985 [facility] REPORTName: CRISTIAN February Study Date: 11/15/2021 10:38 AMN: [id number] Patient Location: 2NW\\S\\251\\S\\AHR: 100DOB: 1985 (M/d/yyyy) Gender: FemaleAge: 36 yrsHeight: 62 in Weight: 150 lbBSA: 1.7 e1Eoovtc For Study: R/O EndocarditisHistory: HTN, Prosthetic Tricuspid [...] area: 3.1 cm2ACS: 1.8 cmLA dimension: 3.4 c m LVLd ap4: 6.2 cm CO(MOD-sp4): 3.2 l/minEDV(MOD-sp4): 55.0 ml SV(MOD-sp4): 32.0 mlLVLs ap4: 5.5 cmESV(MOD-sp4): 23.0 mlEF(MOD-sp4): 58.2 %_ LAV(MOD-sp2): 27.0 mlLAV(MOD-sp4): 17.0ml LA Area (A2C): 11.6 cm2 LA Volume: [...] 1.2-7.2 CBC W Auto Differential panel - [id number] 08:31:00* Test Item Value Reference Range Interpretation Comme nts Leukocytes other [Identifier ] in Blood by Automated count (test code = 62006-5) 7.7 K/UL 3.5-10.9 N Erythrocytes [#/volume] in B lood (test code = 19110-9) 4.16 M/UL 4.0-5.0 N Hemoglobin A/Hemoglobin.tota l in Blood (test code = 4546-8) 13.3 G/DL 11.5-15.5 N Hematocrit [Volume Fraction] of Blood (test code = 21155-3) 40.0 % 34.0-46.0 N Erythrocyte mean corpuscular volume [Entitic volume] (test code = 91443-2) 96.2 FL 80.0-98.0 N Erythrocyte mean corpuscular hemoglobin [Entitic mass] (test code = 76387-8) 32.0 PG 28.0-32.0 N Erythrocyte mean corpuscular hemoglobin concentration [Mass/volume] (test code = 20833-4) 33.3 G/DL 32.5-36.5 N Erythrocyte distribution wid th [Ratio] (test code = 78525-7) 12.8 % 11.5-14.5 N Platelets panel - Blood by Automated count (test code = 54689-2) 141 K/UL 150.0-450.0 L Platelet mean volume [Entiti c volume] in Blood by Automated count (test code = 17468-6) 10.1 FL 7.4-10.4 N CBC W Reflex Manual Differen tial panel - Blood (test code = 25819-3) NO N Nurse Midwife review of resul ts (test code = 95066-6) NO N Neutrophils.segmented/100 leukocytes in Blood (test code = 31771-6) 65.3 % 40.0-75.0 N Lymphocytes Variant/100 leuk ocytes in Blood (test code = 74351-1) 23.5 % 24.0-44.0 L Lymphocytes+Monocytes/100 leukocytes in Blood (test code = 4662-3) 8.1 % 0.0-13.0 N Eosinophils [#/volume] in Bl ood (test code = 00554-2) 1.7 % 0.0-4.0 N Basophils [#/volume] in Bloo d (test code = 89798-3) 0.4 % 0.0-2.0 N IG (test code = IG) 0 % 0.0-1.0 N IG% (test code = IG%) 1.0 % 0.0-1.0 N NRBC% (test code = NRBC%) 0 /100 WBC N Neutrophils [#/volume] in Bl ood (test code = 89020-7) 5.1 K/UL 1.2-7.2 N [facility])VANCOMYCIN [id number] 23:44:00* Test Item Value Reference Range Interpretation Comme nts VANCTROU (test code = VANCTROU) <5.00 UG/ML 10-20 L In very rare matias es heterophile antibodies may interfere with reagent causing erroneously low results. Any Vancomycin level result that is inconsistent with the clinical presentation should be confirmed with an alternate test method. Vancomycin [Mass/volume] in Serum or Plasma --[id number] 23:44:00* Test Item Value Reference Range Interpretation Comme nts Vancomycin [Mass/volume] in Serum or Plasma --trough (test code = 4092-3) <5.00 10.0-20.0 L [facility])CHEST 1 VIEW [id number] 11:56:00 [facility] : 1985 Sex: F[address] [id number] IMAGING REPORTPatient Name: February NDate of Service: 51-87-7101Mmq: 36 Sex: F Order #: [id number] Room: [facility] 2NWDOB: 1985 X-Ray Number: [id number] Record Number: [id number] Hospital Number: [id number] Physician: CHRIS SOSA Physician: KATHRYN VIDAL -CHEST [...] 11:53 AMLegally authenticated by ARELI IRBY 2021-11-15 11:53:58Chest X-ray AP portable single [id number] 11:56:00ORDER 2700: CHEST 1 VIEW PORTABLE (LOINC: 61109-6)ORDER DATE: November 15, 2021 4:02:00 PM [facility])Chest X-ray AP portable single [id number] 11:56:00ORDER 2700: CHEST 1 VIEW PORTABLE (LOINC: 77629-5)ORDER DATE: November 15, 2021 4:02:00 PM [facility])CULTURE, [id number] 10:21:00 * Test Item Value Reference Range Interpretation [...] (test code = Report Text12) FINAL REPORT [id number] 12:36:00* Test Item Value Reference Range Interpretation Comme nts CREA (test code = CREA) 1.0 MG/DL 0.7-1.2 GFR (test code = GFR) 66 mL/min/1.73m2 A GFR of >90 mL/min/1.73m2 is considered normal. The GFR calculation on patients over 70 years of age is not validated by the kennel worker and may not represent the patients true renal function. Creatinine [Mass/volume] in [id number] 12:36:00* Test Item Value Reference Range Interpretation Comme nts Creatinine [Mass/volume] in Blood (test code = 51268-7) 1.0 MG/DL 0.7-1.2 N Estimated or measured glomerular filtration rate less than 50 percent [- Reported] (test code = 79108-0) 66 mL/min/1.73m2 N [facility] ([place])[id number] 23:24:00* Test Item Value Reference Range Interpretation [...] NONE added microscopicUrinalysis panel - Urine by [id number] 23:02:00* Test Item Value Reference Range Interpretation Comme nts Bilirubin [Presence] in Urin e by Confirmatory method (test code = 87091-8) SMALL NEG N Ketones [Presence] in Urine (test code = 87010-0) TRACE NEG N Blood [Presence] in Urine by Visual (test code = 32304-1) SMALL N pH of Urine (test code = 2756-5) 5.5 1 5.0-7.5 N Protein [Presence] in Urine (test code = 2887-8) 30 MG/DL NEGATIVE N Urobilinogen [Presence] in U rine (test code = 75563-8) 4.0 EU/DL 0.2-1.0 H Leukocytes [#/volume] in Uri ne by Test strip (test code = 12737-3) MODERATE NEGATIVE N Color of Urine by Auto (test code = 46849-6) DARK YELLOW YELLOW N Clarity of Urine (test code = 74151-7) CLOUDY CLEAR N Specific gravity of Urine (t est code = 2965-2) 1.016 1 1.0-1.025 N Urinalysis dipstick W Reflex Microscopic panel - Urine (test code = 55129-7) YES N Leukocytes [Presence] in Uri ne sediment by Light microscopy (test code = 96850-3) 33 /HPF 0.0-5.0 H Erythrocytes [Presence] in U rine sediment by Light microscopy (test code = 05166-8) 2 /HPF 0.0-2.0 N Casts [Presence] in Urine by Automated (test code = 16470-9) 10 /LPF 0.0-3.0 H Epithelial cells [Presence] in Urine sediment by Light microscopy (test code = 07530-4) 8 /LPF N Bacteria [#/volume] in Urine by Automated count (test code = 34309-3) NONE NONE N [facility][id number] 22:45:00* Test Item Value Reference Range Interpretation Comme nts PROCALCITONIN (test code = PROCAL) 9.35 ng/mL [...] an infection. Procalcitonin [Mass/volume] in Serum or Tquzva9682-74-53 22:45:00* Test Item Value Reference Range Interpretation Comme nts Procalcitonin [Mass/volume] in Serum or Plasma (test code = 88150-8) 9.35 ng/mL 0.0-0.5 H [facility]CHEST 1 VIEW [id number] 21:22:00 [facility] February : 1985 Sex: F[address] [id number] IMAGING REPORTPatient Name: CRISTIAN FEBRUARY NDate of Service: [id number]: 37 Sex: F Order #: [id number] Room: ERDOB: 1985 X-Ray Number: [id number] Record Number: [id number] Hospital Number: [id number] Physician: Adriana MATUTE Physician: ARTHUR MATUTEPROCEDURE: CHEST 1 VIEW PORTABLEINDICATIONS: [...] MILLS 2021-11-13 19:20:00Chest X-ray AP portable single [id number] 21:22:00 ORDER 1100: CHEST 1 VIEW PORTABLE (LOINC: 98073-3)ORDER DATE: November 14, 2021 1:20:00 AM [facility])Chest X-ray AP portable single view 2021-11-13 21:22:00ORDER 1100: CHEST 1 VIEW PORTABLE (LOINC: 72271-0)ORDER DATE: November 14, 2021 1:20:00 AM [facility])[id number] 20:55:00 * Test Item Value Reference Range [...] H CBC W Auto Differential panel - Notst1378-29-08 20:55:00* Test Item Value Reference Range Interpretation Comme nts Leukocytes other [Identifier ] in Blood by Automated count (test code = 62505-0) 13.5 K/UL 3.5-10.9 H Erythrocytes [#/volume] in B lood (test code = 79150-4) 4.37 M/UL 4.0-5.0 N Hemoglobin A/Hemoglobin.tota l in Blood (test code = 4546-8) 14.2 G/DL 11.5-15.5 N Hematocrit [Volume Fraction] of Blood (test code = 20702-9) 42.9 % 34.0-46.0 N Erythrocyte mean corpuscular volume [Entitic volume] (test code = 65463-9) 98.2 FL 80.0-98.0 H Erythrocyte mean corpuscular hemoglobin [Entitic mass] (test code = 62774-1) 32.5 PG 28.0-32.0 H Erythrocyte mean corpuscular hemoglobin concentration [Mass/volume] (test code = 12907-7) 33.1 G/DL 32.5-36.5 N Erythrocyte distribution wid th [Ratio] (test code = 96979-2) 12.9 % 11.5-14.5 N Platelets panel - Blood by Automated count (test code = 15765-6) 112 K/UL 150.0-450.0 L Platelet mean volume [Entiti c volume] in Blood by Automated count (test code = 52233-9) 9.9 FL 7.4-10.4 N CBC W Reflex Manual Differen tial panel - Blood (test code = 40228-1) NO N Nurse Midwife review of resul ts (test code = 14924-3) NO N Neutrophils.segmented/100 leukocytes in Blood (test code = 60302-8) 84.9 % 40.0-75.0 H Lymphocytes Variant/100 leuk ocytes in Blood (test code = 39665-5) 9.5 % 24.0-44.0 L Lymphocytes+Monocytes/100 leukocytes in Blood (test code = 4662-3) 4.5 % 0.0-13.0 N Eosinophils [#/volume] in Bl ood (test code = 55875-2) 0.4 % 0.0-4.0 N Basophils [#/volume] in Bloo d (test code = 89166-6) 0.3 % 0.0-2.0 N IG (test code = IG) 0 % 0.0-1.0 N IG% (test code = IG%) 0.4 % 0.0-1.0 N NRBC% (test code = NRBC%) 0 /100 WBC N Neutrophils [#/volume] in Bl ood (test code = 36183-0) 11.5 K/UL 1.2-7.2 H [facility])BLOOD GAS [id number] 20:24:00* Test Item Value Reference Range Interpretation Comme nts SITE (test code = SITE) RB See_Comment [Automated [place] [employer]] The system which generated this result transmitted [...] code = PF/RATIO) 490.0 BG LAB ARTERIAL [id number] 20:24:00* Test Item Value Reference Range Interpretation Comme [facility] SITE (test code = SITE) RB See_Comment [Automated messa ge] The system which generated this result transmitted reference range: -SITE. The reference range was not used to interpret this result as normal/abnormal. ALLENS (test code = ALLENS) NA BGLAC (test code = BGLAC) 7.0 mg/dL 5.0-18.0 BG LAB ARTERIAL [id number] 20:24:00* Test Item Value Reference Range Interpretation Comme [facility] SAMPLE SITE: (test code = SITE) RB N ALLENS TEST: (test code = ALLENS) NA N BG LAB ARTERIAL LACTATE (aureliano t code = BGLAC) 7.0 mg/dL 5.0-18.0 N [facility]BLOOD GAS [id number] 20:24:00* Test Item Value Reference Range [facility]ation [facility] (test code = SITE) RB N ALLENS TEST: (test code = ALLENS) NA N [...] (test code = PF/RATIO) 490.0 1 N [facility])INFLUENZA [id number] 20:16:00* Test Item Value Reference Range Interpretation Comme nts FLU A (test code = FLU A) NEGATIVE NEGATIVE FLU B (test code = FLU B) NEGATIVE NEGATIVE FLU INTERNAL POSITIVE CNTRL (test code = FLU IPC) PASS PASS INFLUENZA LOT # (test code = FLULOT) [id number] INFLUENZA EXPIRATION DATE (t est code = FLUEXP) 03-01-23 Influenza virus A+B Ag [Presence] in Nose by [id number] 20:16:00* Test Item Value Reference Range Interpretation Comme nts FLU INTERNAL POSITIVE CNTRL (test code = FLU IPC) PASS PASS N INFLUENZA LOT # (test code = FLULOT) [id number] 1 N INFLUENZA EXPIRATION DATE (t est code = FLUEXP) 03-01-23 N [facility])ISTAT CHEM [id number] 20:15:00* Test Item Value Reference Range Interpretation [...] results outside of Reference Ranges ISTAT CHEM [id number] 20:15:00* Test Item Value Reference Range Interpretation Comme nts Sodium [Moles/volume] in Art erial blood (test code = 92267-4) 136 MMOL/L 137.0-145.0 L Potassium [Moles/volume] in Arterial blood (test code = 45195-2) 3.5 MMOL/L 3.6-5.0 L Chloride [Moles/volume] in Arterial blood (test code = 83953-8) 104 MMOL/L 98.0-107.0 N Calcium.ionized [Mass/volume ] in Arterial blood (test code = 78397-0) 1.0 MMOL/L 1.12-1.32 L ISTCO2 (test code = ISTCO2) 22 MMOL/L 22.0-30.0 N Glucose [Mass/volume] in Art erial blood (test code = 44211-6) 80 MG/DL 65.0-110.0 N Urea nitrogen [Mass/volume] in Arterial blood (test code = 16506-2) 31.0 MG/DL 7.0-20.0 H Creatinine [Mass/volume] in Blood (test code = 44198-5) 1.2 MG/DL 0.7-1.5 N Hematocrit [Volume Fraction] of Arterial blood (test code = 36674-8) 45 %PCV 37.0-52.0 N Hemoglobin [Mass/volume] in Arterial cord blood (test code = 54849-1) 15.3 G/DL 12.0-18.0 N ISTANGAP (test code = ISTANGAP) 15 MMOL/L N [facility])COVID SYMPTOMATIC ER [id number] 19:50:00* Test Item Value Reference Range Interpretation Comme nts CORONAVIRUS (COVID-19)BY PCR (test code = TLG29PIS) NEGATIVE SARS-CoV-2 (COVID-19) N gene [Presence] in [id number] 19:50:00Negative [facility]XR ANKLE 3+ VW [id number] 18:46:25Stable ankle and pelvic fractures with bilateral [...] joint screw andleft superior pubic ramus screw fixation.[facility] [id number] 18:46:25Stable ankle and pelvic fractures with bilateral [...] pubic ramus fractures. Tuballigation clips are redemonstrated. [facility], Radiant Results Inft User - 08/07/2020 1:47 [...] joint screw andleft superior pubic ramus screw fixation.[facility] CONTRAST 2020-07-14 07:38:26fall, h/o pelvic [...] 7:32 AMDictated By: LULA PINKDate: 07/14/2020 07:32 [facility] [id number] 11:19:00* Test Item Value Reference Range Interpretation Comme nts PHOSPHORUS (test code = 1169835510) 4.3 mg/dL 2.5-5 Lab Interpretation (test cod e = 23529-5) Normal [facility]2020-08-27 11:19:00* Test Item Value Reference Range Interpretation Comme nts MAGNESIUM (test code = 6103654817) 1.8 mg/dL 1.7-2.4 Lab Interpretation (test cod e = 25484-0) Normal [facility] (NA, K, CL, CO2, GLUCOSE, BUN, CREATININE, CA)2020-07-10 11:19:00* Test Item Value Reference Range Interpretation Comme nts NA (test code = 0623536212) 135 mmol/L 135-145 K (test code = 9302578932) 4.0 mmol/L 3.5-5 CL (test code = 4291096663) 104 mmol/L 98-108 CO2 TOTAL (test code = 2592192461) 28 mmol/L 23-31 AGAP (test code = 6138919721) 2-16 BUN (test code = 1842804551) 16 mg/dL 7-23 GLUCOSE (test code = 6975470452) 68 mg/dL 70-110 L CREATININE (test code = 4092587172) 0.74 mg/dL 0.5-1.04 CALCIUM (test code = 9030584334) 8.3 mg/dL 8.6-10.6 L eGFR Calculation (Non-) (test code = 7892497191) mL/min/1.73m2 eGFR Calculation () (test code = 2933027886) mL/min/1.73m2 SYED (test code = SYED) Association [...] imaging tests). Lab Interpretation (test code = 13704-8) Abnormal [facility] WITH [id number] 10:51:00* Test Item Value Reference Range Interpretation Comme nts WBC (test code = 6690-2) See_Comment [Automated [employer]] The system which generated this result transmitted reference range: 4.30 - 11.10 10*3/?L. The reference range was not used to interpret this result as normal/abnormal. RBC (test code = 789-8) See_Comment L [Automated [employer]] The system which generated this result transmitted [...] 31.9 g/dL 31.6-35.1 RDW-SD (test code = 56498-0) 53.7 fL 39-49.9 H RDW-CV (test code = 788-0) 14.5 % 12-15.5 PLT (test code = 777-3) See_Comment [Automated messa ge] The system which generated this result transmitted reference range: 166 - 358 10*3/?L. The reference range was not used to interpret this result as normal/abnormal. MPV (test code = 45378-8) 8.5 fL 9.5-12.9 L NRBC/100 WBC (test code = 4428465474) See_Comment [Automated [employer] ssage] The system which generated this result transmitted reference range: 0.0 - 10.0 /100 WBCs. The reference range was not used to interpret this result as normal/abnormal. NRBC x10^3 (test code = 2583370152) <0.01 See_Comment [Automated messa ge] The system which generated this result transmitted reference range: 10*3/?L. The reference range was not used to interpret this result as normal/abnormal. GRAN MAT (NEUT) % (test code = 770-8) 57.4 % IMM GRAN % (test code = 4171651379) 0.40 % LYMPH % (test code = 736-9) 32.1 % MONO % (test code = 5905-5) 7.2 % EOS % (test code = 713-8) 2.5 % BASO % (test code = 706-2) 0.4 % GRAN MAT x10^3(ANC) (test code = 7386252432) 4.07 10*3/uL 1.88-7.09 IMM GRAN x10^3 (test code = 8172681943) 0.03 10*3/uL 0-0.06 LYMPH x10^3 (test code = 731-0) 2.28 10*3/uL 1.32-3.29 MONO x10^3 (test code = 742-7) 0.51 10*3/uL 0.33-0.92 EOS x10^3 (test code = 711-2) 0.18 10*3/uL 0.03-0.39 BASO x10^3 (test code = 704-7) 0.03 10*3/uL 0.01-0.07 Lab Interpretation (test code = 96857-6) Abnormal [facility]2020-08-26 11:23:00* Test Item Value Reference Range Interpretation Comme nts MAGNESIUM (test code = 2393273257) 2.0 mg/dL 1.7-2.4 Lab Interpretation (test cod e = 52858-5) Normal [facility] (NA, K, CL, CO2, GLUCOSE, BUN, CREATININE, CA)2020-07-09 11:23:00* Test Item Value Reference Range Interpretation Comme nts NA (test code = 3581394424) 137 mmol/L 135-145 K (test code = 5913120968) 3.6 mmol/L 3.5-5 CL (test code = 3276269722) 103 mmol/L 98-108 CO2 TOTAL (test code = 4245881533) 30 mmol/L 23-31 AGAP (test code = 1806525709) 2-16 BUN (test code = 3370143978) 16 mg/dL 7-23 GLUCOSE (test code = 0368254616) 81 mg/dL 70-110 CREATININE (test code = 9527055760) 0.84 mg/dL 0.5-1.04 CALCIUM (test code = 7837015881) 8.4 mg/dL 8.6-10.6 L eGFR Calculation (Non-) (test code = 5417780774) mL/min/1.73m2 eGFR Calculation () (test code = 1242686009) mL/min/1.73m2 SYED (test code = SYED) Association [...] imaging tests). Lab Interpretation (test code = 67149-9) Abnormal [facility]2020-08-26 11:23:00* Test Item Value Reference Range Interpretation Comme nts PHOSPHORUS (test code = 1628566243) 4.3 mg/dL 2.5-5 Lab Interpretation (test cod e = 42578-8) Normal [facility] WITH [id number] 10:52:00* Test Item Value Reference Range Interpretation Comme nts WBC (test code = 6690-2) See_Comment [Automated [employer]] The system which generated this result transmitted reference range: 4.30 - 11.10 10*3/?L. The reference range was not used to interpret this result as normal/abnormal. RBC (test code = 789-8) See_Comment L [Automated [employer]] The system which generated this result transmitted [...] 32.3 g/dL 31.6-35.1 RDW-SD (test code = 01049-5) 54.0 fL 39-49.9 H RDW-CV (test code = 788-0) 14.6 % 12-15.5 PLT (test code = 777-3) See_Comment [Automated messa ge] The system which generated this result transmitted reference range: 166 - 358 10*3/?L. The reference range was not used to interpret this result as normal/abnormal. MPV (test code = 03503-6) 8.8 fL 9.5-12.9 L NRBC/100 WBC (test code = 7981653741) See_Comment [Automated [employer] ssage] The system which generated this result transmitted reference range: 0.0 - 10.0 /100 WBCs. The reference range was not used to interpret this result as normal/abnormal. NRBC x10^3 (test code = 1358244735) <0.01 See_Comment [Automated messa ge] The system which generated this result transmitted reference range: 10*3/?L. The reference range was not used to interpret this result as normal/abnormal. GRAN MAT (NEUT) % (test code = 770-8) 60.7 % IMM GRAN % (test code = 1920072769) 0.40 % LYMPH % (test code = 736-9) 28.8 % MONO % (test code = 5905-5) 7.7 % EOS % (test code = 713-8) 2.1 % BASO % (test code = 706-2) 0.3 % GRAN MAT x10^3(ANC) (test code = 2394078524) 5.44 10*3/uL 1.88-7.09 IMM GRAN x10^3 (test code = 5570566663) 0.04 10*3/uL 0-0.06 LYMPH x10^3 (test code = 731-0) 2.58 10*3/uL 1.32-3.29 MONO x10^3 (test code = 742-7) 0.69 10*3/uL 0.33-0.92 EOS x10^3 (test code = 711-2) 0.19 10*3/uL 0.03-0.39 BASO x10^3 (test code = 704-7) 0.03 10*3/uL 0.01-0.07 Lab Interpretation (test code = 28121-5) Abnormal [facility] VW [id number] 13:25:47 Unchanged bimalleolar fractures. EXAM: XR ANKLE [...] and alignment.Soft tissue swelling is noted.IMPRESSIONUnchanged bimalleolar fractures.[facility] PELVIS WO CONTRAST 2020-07-08 13:18:17Interval internal fixation [...] likelypostsurgical.IMPRESSIONInterval internal fixation of left-sided pelvic fractures withouthardwarecomplication.[facility] [id number] 10:31:00* Test Item Value Reference Range Interpretation Comme nts PHOSPHORUS (test code = 4978642225) 4.5 mg/dL 2.5-5 Lab Interpretation (test cod e = 89005-9) Normal [facility]2020-08-25 10:31:00* Test Item Value Reference Range Interpretation Comme nts MAGNESIUM (test code = 9000402754) 1.8 mg/dL 1.7-2.4 Lab Interpretation (test cod e = 03299-3) Normal [facility]OL[facility] PAN[facility] (NA, K, CL, CO2, GLUCOSE, BUN, CREATININE, CA)2020-07-08 10:31:00* Test Item Value Reference Range Interpretation Comme nts NA (test code = 3925582253) 133 mmol/L 135-145 L K (test code = 7109047276) 4.5 mmol/L 3.5-5 CL (test code = 1504356723) 100 mmol/L 98-108 CO2 TOTAL (test code = 2465648934) 31 mmol/L 23-31 AGAP (test code = 0769056535) 2-16 BUN (test code = 7275721961) 18 mg/dL 7-23 GLUCOSE (test code = 7870196944) 133 mg/dL 70-110 H CREATININE (test code = 6233103654) 0.82 mg/dL 0.5-1.04 CALCIUM (test code = 6962150011) 8.2 mg/dL 8.6-10.6 L eGFR Calculation (Non-) (test code = 8537982371) mL/min/1.73m2 eGFR Calculation () (test code = 0848537678) mL/min/1.73m2 SYED (test code = SYED) Association [...] imaging tests). Lab Interpretation (test code = 85980-7) Abnormal [facility] WITH [id number] 10:07:00* Test Item Value Reference Range Interpretation Comme nts WBC (test code = 6690-2) See_Comment H [Automated [place] [employer]] The system which generated this result transmitted reference range: 4.30 - 11.10 10*3/?L. The reference range was not used to interpret this result as normal/abnormal. RBC (test code = 789-8) See_Comment L [Automated [place] [employer] ge] The system which generated this result [...] 33.9 g/dL 31.6-35.1 RDW-SD (test code = 16500-7) 51.5 fL 39-49.9 H RDW-CV (test code = 788-0) 14.4 % 12-15.5 PLT (test code = 777-3) See_Comment [Automated [place] [employer] ge] The system which generated this result transmitted reference range: 166 - 358 10*3/?L. The reference range was not used to interpret this result as normal/abnormal. MPV (test code = 96981-2) 9.0 fL 9.5-12.9 L NRBC/100 WBC (test code = 5615245368) See_Comment [Automated [employer]age] The system which generated this result transmitted reference range: 0.0 - 10.0 /100 WBCs. The reference range was not used to interpret this result as normal/abnormal. NRBC x10^3 (test code = 6666180570) <0.01 See_Comment [Automated [place] [employer] ge] The system which generated this result transmitted reference range: 10*3/?L. The reference range was not used to interpret this result as normal/abnormal. GRAN MAT (NEUT) % (test code = 770-8) 78.1 % IMM GRAN % (test code = 3990192356) 0.70 % LYMPH % (test code = 736-9) 13.7 % MONO % (test code = 5905-5) 7.2 % EOS % (test code = 713-8) 0.1 % BASO % (test code = 706-2) 0.2 % GRAN MAT x10^3(ANC) (test code = 9175788973) 9.50 10*3/uL 1.88-7.09 H IMM GRAN x10^3 (test code = 8782350870) 0.08 10*3/uL 0-0.06 H LYMPH x10^3 (test code = 731-0) 1.67 10*3/uL 1.32-3.29 MONO x10^3 (test code = 742-7) 0.88 10*3/uL 0.33-0.92 EOS x10^3 (test code = 711-2) <0.03 0.03-0.39 L BASO x10^3 (test code = 704-7) <0.03 0.01-0.07 Lab Interpretation (test code = 81226-6) Abnormal [facility] METABOLIC PANEL (NA, K, CL, CO2, GLUCOSE, BUN, CREATININE, CA)2020-07-07 23:21:00* Test Item Value Reference Range Interpretation Comme nts NA (test code = 7988627095) 131 mmol/L 135-145 L K (test code = 2289384151) 4.1 mmol/L 3.5-5 CL (test code = 0894291464) 99 mmol/L 98-108 CO2 TOTAL (test code = 6926289237) 29 mmol/L 23-31 AGAP (test code = 6523118551) 2-16 BUN (test code = 9863051301) 11 mg/dL 7-23 GLUCOSE (test code = 1224489812) 139 mg/dL 70-110 H CREATININE (test code = 8367048408) 0.74 mg/dL 0.5-1.04 CALCIUM (test code = 6697581631) 8.4 mg/dL 8.6-10.6 L eGFR Calculation (Non-) (test code = 2177273455) mL/min/1.73m2 eGFR Calculation () (test code = 7556907217) mL/min/1.73m2 SYED (test code = SYED) Association [...] imaging tests). Lab Interpretation (test code = 65791-0) Abnormal [facility] WITHOUT [id number] 23:13:00* Test Item Value Reference Range Interpretation [...] result as normal/abnormal. MPV (test code = 28619-8) 9.2 fL 9.5-12.9 L RDW-CV (test code = 788-0) 14.3 % 12-15.5 RDW-SD (test code = 19534-0) 51.5 fL 39-49.9 H NRBC x10^3 (test code = 0282591645) <0.01 See_Comment [Automated [place] [employer]] The system which generated this result transmitted reference range: 10*3/?L. The reference range was not used to interpret this result as normal/abnormal. NRBC/100 WBC (test code = 1956569945) See_Comment [Automated [place] [employer]] The system which generated this result transmitted reference range: 0.0 - 10.0 /100 WBCs. The reference range was not used to interpret this result as normal/abnormal. IPF % (test code = 2241818619) Lab Interpretation (test code = 44767-2) Abnormal [facility] (NON-REPORTABLE)2020-07-07 21:21:43 These images do not require a Radiology diagnostic report.[facility] P[facility]+ [id number] 20:19:03Internal fixation of pelvic fractures without an [...] fixation of pelvic fractures without an acute hardwarecomplication.[facility]OS[facility]US2020-08-24 12:10:00* Test Item Value Reference Range Interpretation Comme nts PHOSPHORUS (test code = 5302815742) 3.9 mg/dL 2.5-5 Lab Interpretation (test cod e = 75373-4) Normal [facility]2020-08-24 12:10:00* Test Item Value Reference Range Interpretation Comme nts MAGNESIUM (test code = 4275521719) 1.9 mg/dL 1.7-2.4 Lab Interpretation (test cod e = 89547-6) Normal [facility] (NA, K, CL, CO2, GLUCOSE, BUN, CREATININE, CA)2020-07-07 12:10:00* Test Item Value Reference Range Interpretation Comme nts NA (test code = 5774026661) 133 mmol/L 135-145 L K (test code = 0752324253) 4.3 mmol/L 3.5-5 CL (test code = 2143288499) 99 mmol/L 98-108 CO2 TOTAL (test code = 6424861964) 26 mmol/L 23-31 AGAP (test code = 5597650252) 2-16 BUN (test code = 4477323484) 7 mg/dL 7-23 GLUCOSE (test code = 1792887434) 64 mg/dL 70-110 L CREATININE (test code = 8180816334) 0.71 mg/dL 0.5-1.04 CALCIUM (test code = 1327828572) 9.1 mg/dL 8.6-10.6 eGFR Calculation (Non-) (test code = 2120222665) mL/min/1.73m2 eGFR Calculation () (test code = 6712633281) mL/min/1.73m2 SYED (test code = SYED) Association [...] imaging tests). Lab Interpretation (test code = 54931-1) Abnormal [facility] (ID NOW RAPID TESTING)2020-07-06 19:44:00* Test Item Value Reference Range Interpretation Comme nts SARS-CoV-2 Rapid ID NOW (test code = 90014-2) Not Detected Not Detected SYED (test code = SYED) ID NOW COVID-19 As say is an isothermal nucleic acid amplification test intended for the qualitative detection of nucleic acid from SARS-CoV-2 viral RNA in nasopharyngeal (RESIDENT CARE AID) specimens. It is used under Emergency Use [...] clinically indicated. Lab Interpretation (test code = 71680-8) Normal [facility]2020-08-23 11:07:00* Test Item Value Reference Range Interpretation Comme nts PHOSPHORUS (test code = 2330066654) 3.9 mg/dL 2.5-5 Lab Interpretation (test cod e = 63921-6) Normal [facility]2020-08-23 11:07:00* Test Item Value Reference Range Interpretation Comme nts MAGNESIUM (test code = 3636605489) 1.8 mg/dL 1.7-2.4 Lab Interpretation (test cod e = 62324-3) Normal [facility]OLIC PANEL (NA, K, CL, CO2, GLUCOSE, BUN, CREATININE, CA)2020-07-06 11:07:00* Test Item Value Reference Range Interpretation Comme nts NA (test code = 3663690886) 132 mmol/L 135-145 L K (test code = 0970444288) 3.8 mmol/L 3.5-5 CL (test code = 3640299473) 100 mmol/L 98-108 CO2 TOTAL (test code = 8977818358) 27 mmol/L 23-31 AGAP (test code = 9376026798) 2-16 BUN (test code = 6685627896) 10 mg/dL 7-23 GLUCOSE (test code = 4010037031) 67 mg/dL 70-110 L CREATININE (test code = 8361145690) 0.66 mg/dL 0.5-1.04 CALCIUM (test code = 4913419130) 8.3 mg/dL 8.6-10.6 L eGFR Calculation (Non-) (test code = 1608684152) mL/min/1.73m2 eGFR Calculation () (test code = 6947961607) mL/min/1.73m2 SYED (test code = SYED) Association [...] imaging tests). Lab Interpretation (test code = 52196-3) Abnormal [facility] WITH [id number] 10:37:00* Test Item Value Reference Range Interpretation Comme nts WBC (test code = 6690-2) See_Comment H [Automated [employer]] The system which generated this result transmitted reference range: 4.30 - 11.10 10*3/?L. The reference range was not used to interpret this result as normal/abnormal. RBC (test code = 789-8) See_Comment L [Automated [employer]] The system which generated this result transmitted [...] 33.0 g/dL 31.6-35.1 RDW-SD (test code = 04119-6) 49.5 fL 39-49.9 RDW-CV (test code = 788-0) 13.9 % 12-15.5 PLT (test code = 777-3) See_Comment [Automated messa ge] The system which generated this result transmitted reference range: 166 - 358 10*3/?L. The reference range was not used to interpret this result as normal/abnormal. MPV (test code = 51355-3) 9.5 fL 9.5-12.9 NRBC/100 WBC (test code = 9108757037) See_Comment [Automated [employer]] The system which generated this result transmitted reference range: 0.0 - 10.0 /100 WBCs. The reference range was not used to interpret this result as normal/abnormal. NRBC x10^3 (test code = 6247820049) <0.01 See_Comment [Automated messa ge] The system which generated this result transmitted reference range: 10*3/?L. The reference range was not used to interpret this result as normal/abnormal. GRAN MAT (NEUT) % (test code = 770-8) 63.4 % IMM GRAN % (test code = 0302283333) 0.60 % LYMPH % (test code = 736-9) 23.0 % MONO % (test code = 5905-5) 10.2 % EOS % (test code = 713-8) 2.5 % BASO % (test code = 706-2) 0.3 % GRAN MAT x10^3(ANC) (test code = 4587963629) 7.41 10*3/uL 1.88-7.09 H IMM GRAN x10^3 (test code = 5448406691) 0.07 10*3/uL 0-0.06 H LYMPH x10^3 (test code = 731-0) 2.68 10*3/uL 1.32-3.29 MONO x10^3 (test code = 742-7) 1.19 10*3/uL 0.33-0.92 H EOS x10^3 (test code = 711-2) 0.29 10*3/uL 0.03-0.39 BASO x10^3 (test code = 704-7) 0.03 10*3/uL 0.01-0.07 Lab Interpretation (test code = 14547-6) [facility] (NA, K, CL, CO2, GLUCOSE, BUN, CREATININE, CA)2020-07-05 10:29:00* Test Item Value Reference Range Interpretation Comme nts NA (test code = 0850860723) 131 mmol/L 135-145 L K (test code = 7013642197) 3.9 mmol/L 3.5-5 CL (test code = 0881832094) 99 mmol/L 98-108 CO2 TOTAL (test code = 4271001929) 27 mmol/L 23-31 AGAP (test code = 8947077185) 2-16 BUN (test code = 5356601462) 9 mg/dL 7-23 GLUCOSE (test code = 9021922488) 63 mg/dL 70-110 L CREATININE (test code = 7786646878) 0.67 mg/dL 0.5-1.04 CALCIUM (test code = 9358438381) 8.4 mg/dL 8.6-10.6 L eGFR Calculation (Non-) (test code = 2470682442) mL/min/1.73m2 eGFR Calculation () (test code = 7187093879) mL/min/1.73m2 SYED (test code = SYED) Association [...] imaging tests). Lab Interpretation (test code = 31218-9) [facility] 10:29:00* Test Item Value Reference Range Interpretation Comme nts PHOSPHORUS (test code = 1441837155) 3.7 mg/dL 2.5-5 Lab Interpretation (test cod e = 66929-4) Normal [facility]2020-08-22 10:29:00* Test Item Value Reference Range Interpretation Comme nts MAGNESIUM (test code = 6710206302) 1.8 mg/dL 1.7-2.4 Lab Interpretation (test cod e = 69884-6) Normal [facility] 10:29:00* Test Item Value Reference Range Interpretation Comme nts LIPASE (test code = 9874396085) 146 U/L 0-220 Lab Interpretation (test cod e = 98818-5) [facility] WITH [id number] 10:00:00* Test Item Value Reference Range Interpretation [...] 33.1 g/dL 31.6-35.1 RDW-SD (test code = 49350-5) 49.5 fL 39-49.9 RDW-CV (test code = 788-0) 13.5 % 12-15.5 PLT (test code = 777-3) See_Comment L [Automated messa ge] The system which generated this result transmitted reference range: 166 - 358 10*3/?L. The reference range was not used to interpret this result as normal/abnormal. MPV (test code = 40735-3) 9.1 fL 9.5-12.9 L NRBC/100 WBC (test code = 8978864123) See_Comment [Automated EatWith ssage] The system which generated this result transmitted reference range: 0.0 - 10.0 /100 WBCs. The reference range was not used to interpret this result as normal/abnormal. NRBC x10^3 (test code = 3718114648) <0.01 See_Comment [Automated messa ge] The system which generated this result transmitted reference range: 10*3/?L. The reference range was not used to interpret this result as normal/abnormal. GRAN MAT (NEUT) % (test code = 770-8) 62.6 % IMM GRAN % (test code = 2229038227) 0.40 % LYMPH % (test code = 736-9) 24.8 % MONO % (test code = 5905-5) 9.6 % EOS % (test code = 713-8) 2.3 % BASO % (test code = 706-2) 0.3 % GRAN MAT x10^3(ANC) (test code = 2228925340) 7.00 10*3/uL 1.88-7.09 IMM GRAN x10^3 (test code = 4008087912) 0.05 10*3/uL 0-0.06 LYMPH x10^3 (test code = 731-0) 2.77 10*3/uL 1.32-3.29 MONO x10^3 (test code = 742-7) 1.07 10*3/uL 0.33-0.92 H EOS x10^3 (test code = 711-2) 0.26 10*3/uL 0.03-0.39 BASO x10^3 (test code = 704-7) 0.03 10*3/uL 0.01-0.07 Lab Interpretation (test code = 16433-3) [facility]normal [facility] W WO [id number] 14:09:24Distal pancreatic body/proximal pancreatic tail laceration, lessconspicuous [...] reviewed this study and agree with theabove rep ort.EXAM: CT ABDOMEN PELVIS W WO [...] fracture. Displaced L2 left transverse process fracture. [facility], Radiant Results Inft User - 07/04/2020 9:10 [...] reviewed this study and agree with theabove report.[facility] (NA, K, CL, CO2, GLUCOSE, BUN, CREATININE, CA)2020-07-04 09:31:00* Test Item Value Reference Range Interpretation Comme nts NA (test code = 9210710071) 133 mmol/L 135-145 L K (test code = 9583190632) 3.2 mmol/L 3.5-5 L CL (test code = 9297615536) 105 mmol/L 98-108 CO2 TOTAL (test code = 3108819747) 23 mmol/L 23-31 AGAP (test code = 1100557326) 2-16 BUN (test code = 3869537426) 10 mg/dL 7-23 GLUCOSE (test code = 3437606452) 59 mg/dL 70-110 L CREATININE (test code = 7236473027) 0.67 mg/dL 0.5-1.04 CALCIUM (test code = 8674502721) 7.5 mg/dL 8.6-10.6 L eGFR Calculation (Non-) (test code = 1965750630) mL/min/1.73m2 eGFR Calculation () (test code = 6931382053) mL/min/1.73m2 SYED (test code = SYED) Association [...] imaging tests). Lab Interpretation (test code = 44848-9) [facility]normal [facility]2020-08-21 09:31:00* Test Item Value Reference Range Interpretation Comme nts PHOSPHORUS (test code = 0193252564) 3.4 mg/dL 2.5-5 Lab Interpretation (test cod e = 54314-7) Normal [facility]2020-08-21 09:31:00* Test Item Value Reference Range Interpretation Comme nts MAGNESIUM (test code = 5463522041) 1.5 mg/dL 1.7-2.4 L Lab Interpretation (test cod e = 67612-0) [facility]normal [facility] 09:31:00* Test Item Value Reference Range Interpretation Comme nts LIPASE (test code = 7792651879) 109 U/L 0-220 Lab Interpretation (test cod e = 42011-3) Normal [facility] Hospital[facility] WITH [id number] 09:14:00* Test Item Value Reference Range Interpretation [...] 32.5 g/dL 31.6-35.1 RDW-SD (test code = 36555-3) 50.3 fL 39-49.9 H RDW-CV (test code = 788-0) 13.7 % 12-15.5 PLT (test code = 777-3) See_Comment L [Automated messa ge] The system which generated this result transmitted reference range: 166 - 358 10*3/?L. The reference range was not used to interpret this result as normal/abnormal. MPV (test code = 94383-2) 9.3 fL 9.5-12.9 L NRBC/100 WBC (test code = 1582132282) See_Comment [Automated EatWith ssage] The system which generated this result transmitted reference range: 0.0 - 10.0 /100 WBCs. The reference range was not used to interpret this result as normal/abnormal. NRBC x10^3 (test code = 1725048679) <0.01 See_Comment [Automated messa ge] The system which generated this result transmitted reference range: 10*3/?L. The reference range was not used to interpret this result as normal/abnormal. GRAN MAT (NEUT) % (test code = 770-8) 56.4 % IMM GRAN % (test code = 9741745486) 0.50 % LYMPH % (test code = 736-9) 30.2 % MONO % (test code = 5905-5) 8.6 % EOS % (test code = 713-8) 3.9 % BASO % (test code = 706-2) 0.4 % GRAN MAT x10^3(ANC) (test code = 4698395079) 4.65 10*3/uL 1.88-7.09 IMM GRAN x10^3 (test code = 3492615064) 0.04 10*3/uL 0-0.06 LYMPH x10^3 (test code = 731-0) 2.49 10*3/uL 1.32-3.29 MONO x10^3 (test code = 742-7) 0.71 10*3/uL 0.33-0.92 EOS x10^3 (test code = 711-2) 0.32 10*3/uL 0.03-0.39 BASO x10^3 (test code = 704-7) 0.03 10*3/uL 0.01-0.07 Lab Interpretation (test code = 96640-3) Abnormal [facility] HospitalANTIGEN TYPING [id number] 11:30:47* Test Item Value Reference Range Interpretation Comme nts ANTIGEN ID (test code = 1688) Fya Antigen Negative Performed at [facility] Laboratory Services - [place] [address]Toll Free: [phone] No. [id number] [facility] FNLMXIWVHBYYTR5436-10-16 11:27:31* Test Item Value Reference Range Interpretation Comme nts ANTIBODY ID (test code = 245) Negative Eluate negative with all cells testedPerformed at [facility] - [place] [address]Toll Free: [phone] No. [id number] [facility] [id number] 11:27:30* Test Item Value Reference Range Interpretation Comme nts ANTIBODY ID (test code = 245) Negative Eluate negative with all cells testedPerformed at [facility] - [place] [address]Toll Free: [phone] No. [id number] [facility] MONOSPECIFIC C3 [id number] 11:24:22 * Test Item Value Reference Range Interpretation Comme nts SLIM C3 (test code = 1421) Negative Performed at [facility] Laboratory Services - [place] [address]Toll Free: [phone] No. [id number] [facility] POLYSPECIFIC [id number] 11:23:39* Test Item Value Reference Range Interpretation Comme nts SLIM POLY (test code = 1610) Positive 2+ Performed at [facility] Laboratory Services - [place] [address]Toll Free: [phone] No. [id number] [facility] MONOSPECIFIC IGG [id number] 11:23:39 * Test Item Value Reference Range Interpretation Comme nts SLIM IGG (test code = 1422) Positive 2+ Performed at [facility] Laboratory Services - [place] [address]Toll Free: [phone] No. [id number] [facility] HospitalPANEL CZBDDPCSELWJUD6983-21-81 11:22:46* Test Item Value Reference Range Interpretation Comme nts ANTIBODY ID (test code = 245) Anti-Fya Performed at [facility] Laboratory Services - [address] Free: [phone] No. [id number] [facility] HospitalLIP[facility]2020-08-20 11:10:00* Test Item Value Reference Range Interpretation Comme nts LIPASE (test code = 1741448894) 71 U/L 0-220 Lab Interpretation (test cod e = 41967-0) Normal [facility] HospitalType and Screen - ONCE [id number] 09:59:40* Test Item Value Reference Range Interpretation Comme nts ABO & RH (test code = 20) A POSITIVE Performed at [facility] Laboratory Services - [address] Free: [phone] No. [id number] IAT (test code = 1185) Positive Performed at [facility] Laboratory Services - [address] Free: [phone] No. [id number] [facility] HospitalCBC WITH [id number] 09:10:00* Test Item Value Reference Range Interpretation [...] 32.0 g/dL 31.6-35.1 RDW-SD (test code = 95506-4) 51.6 fL 39-49.9 H RDW-CV (test code = 788-0) 13.7 % 12-15.5 PLT (test code = 777-3) See_Comment L [Automated messa ge] The system which generated this result transmitted reference range: 166 - 358 10*3/?L. The reference range was not used to interpret this result as normal/abnormal. MPV (test code = 23060-6) 9.3 fL 9.5-12.9 L NRBC/100 WBC (test code = 6852670236) See_Comment [Automated EatWith ssage] The system which generated this result transmitted reference range: 0.0 - 10.0 /100 WBCs. The reference range was not used to interpret this result as normal/abnormal. NRBC x10^3 (test code = 5671253898) <0.01 See_Comment [Automated messa ge] The system which generated this result transmitted reference range: 10*3/?L. The reference range was not used to interpret this result as normal/abnormal. GRAN MAT (NEUT) % (test code = 770-8) 54.0 % IMM GRAN % (test code = 0224789036) 0.40 % LYMPH % (test code = 736-9) 34.9 % MONO % (test code = 5905-5) 7.4 % EOS % (test code = 713-8) 2.9 % BASO % (test code = 706-2) 0.4 % GRAN MAT x10^3(ANC) (test code = 7835768538) 5.43 10*3/uL 1.88-7.09 IMM GRAN x10^3 (test code = 4387214173) 0.04 10*3/uL 0-0.06 LYMPH x10^3 (test code = 731-0) 3.50 10*3/uL 1.32-3.29 H MONO x10^3 (test code = 742-7) 0.74 10*3/uL 0.33-0.92 EOS x10^3 (test code = 711-2) 0.29 10*3/uL 0.03-0.39 BASO x10^3 (test code = 704-7) 0.04 10*3/uL 0.01-0.07 Lab Interpretation (test code = 68891-4) Abnormal [facility] METABOLIC PANEL (NA, K, CL, CO2, GLUCOSE, BUN, CREATININE, CA)2020-07-03 09:09:00* Test Item Value Reference Range Interpretation Comme nts NA (test code = 8005416096) 133 mmol/L 135-145 L K (test code = 5152526675) 4.5 mmol/L 3.5-5 CL (test code = 5104562974) 103 mmol/L 98-108 CO2 TOTAL (test code = 9837280766) 27 mmol/L 23-31 AGAP (test code = 4817045371) 2-16 BUN (test code = 1655704874) 15 mg/dL 7-23 GLUCOSE (test code = 5144506549) 73 mg/dL 70-110 CREATININE (test code = 6573463888) 0.77 mg/dL 0.5-1.04 CALCIUM (test code = 7109390860) 8.5 mg/dL 8.6-10.6 L eGFR Calculation (Non-) (test code = 7918783882) mL/min/1.73m2 eGFR Calculation () (test code = 7282605352) mL/min/1.73m2 SYED (test code = SYED) Association [...] imaging tests). Lab Interpretation (test code = 54795-3) Abnormal [facility] HospitalABORH [id number] 08:21:20* Test Item Value Reference Range Interpretation Comme nts ABO & RH (test code = 20) A Positive Performed at [facility] Laboratory Services [facility] Blood [address] [address] Free: [phone] No. [id number] [facility] HospitalPREGNANCY TEST, [id number] 07:34:00* Test Item Value Reference Range Interpretation Comme nts PREG URINE (test code = 7398592935) Negative SYED (test code = SYED) Less than 20 IU/L. ?If low titer or ectopic is suspected, resubmit specimen in 48-72 hours. [facility] HospitalCT ANKLE LEFT WO [id number] 16:48:07 Bimalleolar fractures with questionable involvement of [...] reviewed this study and agree with the abovereport.[facility] HospitalCT PELVIS WO [id number] 16:34:03Comminuted left sacral ala, superior and inferior [...] Female; Pelvic fx, known or suspected Please aumsqz3C recons COMPARISON: Pelvic radiographs 07/01/2020. TECHNIQUE: CT [...] years-old; Female; Pelvic fx, knownor suspected Please hzafkz5L reconsCOMPARISON: Pelvic radiographs 07/01/2020.TECHNIQUE: CT imaging of [...] reviewed this study and agree with the abovereport.[facility] HospitalLIPASE2020-08-19 14:24:00 * Test Item Value Reference Range Interpretation Comme nts LIPASE (test code = 2710403256) 64 U/L 0-220 Lab Interpretation (test cod e = 10964-1) Normal [facility] HospitalXR PELVIS 3+ [id number] 13:08:08Left lateral compression pelvic ring fracture with [...] the symphysis pubis.Preliminary Report Dictated by Resident: Barbraa Piper MD., have reviewed this study and agree with the abovereport. [facility] (NA, K, CL, CO2, GLUCOSE, BUN, CREATININE, CA)2020-07-02 11:53:00* Test Item Value Reference Range Interpretation Comme nts NA (test code = 7342849908) 132 mmol/L 135-145 L K (test code = 4887284365) 3.9 mmol/L 3.5-5 CL (test code = 5926161319) 104 mmol/L 98-108 CO2 TOTAL (test code = 1864533293) 23 mmol/L 23-31 AGAP (test code = 7938418010) 2-16 BUN (test code = 6749154871) 12 mg/dL 7-23 GLUCOSE (test code = 0239672532) 87 mg/dL 70-110 CREATININE (test code = 7943278801) 0.72 mg/dL 0.5-1.04 CALCIUM (test code = 3410416346) 8.7 mg/dL 8.6-10.6 eGFR Calculation (Non-) (test code = 8989430964) mL/min/1.73m2 eGFR Calculation () (test code = 2306622106) mL/min/1.73m2 SYED (test code = SYED) Association [...] imaging tests). Lab Interpretation (test code = 51504-1) Abnormal [facility] WITH [id number] 11:49:00* Test Item Value Reference Range Interpretation Comme nts WBC (test code = 6690-2) See_Comment [Automated CITYBIZLIST] The system which generated this result transmitted reference range: 4.30 - 11.10 10*3/?L. The reference range was not used to interpret this result as normal/abnormal. RBC (test code = 789-8) See_Comment L [Automated CITYBIZLIST] The system which generated this result transmitted [...] 33.0 g/dL 31.6-35.1 RDW-SD (test code = 81615-4) 51.8 fL 39-49.9 H RDW-CV (test code = 788-0) 14.0 % 12-15.5 PLT (test code = 777-3) See_Comment L [Automated [place] Grand [employer] Championship[employer] ge] The system which generated this result transmitted reference range: 166 - 358 10*3/?L. The reference range was not used to interpret this result as normal/abnormal. MPV (test code = 47640-2) 9.6 fL 9.5-12.9 IPF % (test code = 8987283350) 2.4 % 1.3-7.7 Platelet count measured by fluorescence method. NRBC/100 WBC (test code = 2671626503) See_Comment [Automated EatWith ssage] The system which generated this result transmitted reference range: 0.0 - 10.0 /100 WBCs. The reference range was not used to interpret this result as normal/abnormal. NRBC x10^3 (test code = 9369099712) <0.01 See_Comment [Automated [place] [employer] Championship[employer] ge] The system which generated this result transmitted reference range: 10*3/?L. The reference range was not used to interpret this result as normal/abnormal. GRAN MAT (NEUT) % (test code = 770-8) 60.1 % IMM GRAN % (test code = 4469510561) 0.40 % LYMPH % (test code = 736-9) 29.4 % MONO % (test code = 5905-5) 7.1 % EOS % (test code = 713-8) 2.6 % BASO % (test code = 706-2) 0.4 % GRAN MAT x10^3(ANC) (test code = 6325371301) 5.62 10*3/uL 1.88-7.09 IMM GRAN x10^3 (test code = 7691606289) 0.04 10*3/uL 0-0.06 LYMPH x10^3 (test code = 731-0) 2.75 10*3/uL 1.32-3.29 MONO x10^3 (test code = 742-7) 0.66 10*3/uL 0.33-0.92 EOS x10^3 (test code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 ERSDOB: 1985 X-Ray Number: [id number] Record Number: [id number] Hospital Number: [id number] Physician: MARIANGEL TRINHOrdertang Physician: ABEL VELAame: Chest [...] ALANA HIGUERA JR 2019-10-13 11:02:42CHEST 1 VIEW [id number] 07:30:[address] [address]LVGTCEKGYD IMAGING REPORTPatient Name: CRISTIAN Februaryate of Service: 41-44-4294Etz: 34 Sex: F Order #: 200 Room: [facility]: 1984 X-Ray Number: [id number] Record Number: [id number] Hospital Number: [id number] Physician: Sangeeta ORELLANA Physician: JASON ORELLANA ONE [place] 08/21/2019HISTORY: Tachycardia,hypertension, endocarditisCOMPARISON: 12/03/2018Left upper chest pacemaker remains in place. There is evidence of priorcardiac valve replacement.Cardiac, hilar, and mediastinal structures are within normal limits forsize. Lungs are fairly well-aerated and essentially clear. Minimal bluntingof the left costophrenic angle is probably due to scarring. No acute bonyor soft tissue abnormalities are identified.IMPRESSION:No definite acute process.The study was performed on an emergent basis and prelimi nary report faxedto the Emergency Department by the [facility] service nearthe time of the exam.Electronically Signed By: Timoteo Venegas M.D., 08/21/2019 10:47 AMLegally authenticated by RUBI VIEIRA 2019-08-21 10:47:23 PROBRAIN NATRIURETIC [id number] 06:35:00* Test Item Value Reference Range Interpretation Comme nts NT-PROBNP (test code = PROBNP) 382 pg/mL Exclusion for he art failure for patients of all ages is 300 pg/mL. Inclusion for heart failure for patients age <50 is 450 pg/mL; for patients age 50-75 is 900 pg/mL; for patients age >75 is 1800 pg/mL. [id number] 06:35:00* Test Item Value Reference Range Interpretation Comme nts %CKMB (test code = %MB) 2.6 % CKMB (test code = CKMB) 1.3 NG/ML 0.22-2.4 CK (test code = CK) 50 U/L 30-135 CKINTERP (test code = CKINTERP) NEGATIVE Negative TROPONIN I - [id number] 06:35:00* Test Item Value Reference Range Interpretation Comme nts TROP-I (test code = TROP-I) <0.012 ng/ml 0.012-0.033 INTERPRETI VE DATA A TROPONIN OF LESS THAN 0.034 NG/ML IS CONSIDERED NEGATIVE A TROPONIN OF 0.034 - 0.119 NG/ML IS CONSIDERED GRAYZONE A TROPONIN =/> 0.120 NG/ML IS CONSIDERED POSITIVE BMP, BASIC METABOLIC [id number] 06:23:00* Test Item Value Reference Range Interpretation Comme nts SODIUM (test code = NA) 139 MMOL/L 137-145 K+ (test code = KSERUM) 4.1 MMOL/L 3.5-5.1 PLEASE NOTE NEW REFERENCE RANGE(S) IN EFFECT EFFECTIVE 06/18/2010 - NEW ANALYZER (VITROS 5600) CHLORIDE (test code = CL) 108 MMOL/L 98-107 H CO2 (test code = CO2) 17 MMOL/L 22-30 L BUN (test code = BUN) 30 MG/DL 7-17 H CREA (test code = CREA) 1.3 MG/DL 0.7-1.2 H GLUCOSE (test code = GLUCOSE) 95 MG/DL 70-99 Fasting glucos e normal <100 MG/DL- [place] [employer] recommendation CALCIUM (test code = CABLOOD) 9.6 MG/DL 8.4-10.2 GFR (test code = GFR) 50 mL/min/1.73m2 A GFR of >90 mL/min/1.73m2 is considered normal. [id number] 06:01:00* Test Item Value Reference Range Interpretation [...] NEUT) 5.1 K/UL 1.2-7.2 CHEST 1 VIEW [id number] 13:55:[address] [address]SVBTAVOJLG IMAGING REPORTPatient Name: LUZ MARINA FOSTER NDate of Service: 04-13-5581Dgi: 33 Sex: F Order #: 900 [facility] 1985 [facility] Number: [id number] Record Number: [id number] Hospital Number: [id number] Physician: MARIANGEL TRINHOrdering Physician: Yusra KOWALSKI one view 12/03/2018History: Heart valve replacement, hypertensionComparison: 10/06/2017Left upper chest defibrillator remains in place. There is evidence of priorcardiac valve replacement.Cardiac, hilar, and mediastinal structures are within normal limits forsize. Lungs are well-aerated and clear. No acute bony or soft tissueabnormalitiesare identified.Impression:No acute process.Electronically Signed By: Timoteo Venegas M.D., 12/03/2018 1:52 PMLegally authenticated by RUBI VIEIRA 2018-12-03 13:52:52TROPONIN [id number] 13:35:00* Test Item Value Reference Range Interpretation Comme nts TROPER (test code = TROPER) 0.02 NG/ML 0.0-0.08 CULTURE, [id number] 07:22:00* Test Item Value Reference Range Interpretation Comme nts CULTURIN (test code = CULTURIN) CULTURIN (test code = [id number]) [facility] 2018-04-13 1007 >100,000 CFU/ML [facility] 2018-04-13 1008 OXIDASE NEGATIVE GRAM NEGATIVE BACILLI ISOLATED PRELIMINARY REPORT [facility] 2018-04-13 1009 ID AND/OR SENSITIVITY TO FOLLOW PRELIMINARY REPORT HEPATITIS C ANTIBODY [id number] 17:00:00* Test Item Value Reference Range Interpretation [...] and confirmation results will follow. URINE DRUG [id number] 14:13:00* Test Item Value Reference Range Interpretation [...] Item Value Reference Range Interpretation Comme nts HCGQUAL (test code = HCGQUAL) NEGATIVE NEGATIVE URINE: NEGATIVE = < 20 mIU/ML; POSITIVE= >/= 20 mIU/ML SERUM: NEGATIVE = < 10 mIU/ML; POSITIVE= >/= 10 mIU/ML SOURCE (test code = SOURCE) URINE HCG INTERNAL POSITIVE CNTRL (test code = HCGIPC) PASS PASS HCG LOT # (test code = UHCGLOT) [id number] HCG EXPIRATION DATE (test code = UHCGEXP) 06-13-2019 [id number] 13:24:00* Test Item Value Reference Range Interpretation [...] only. Not intended for non medical purposes. [id number] 12:45:00* Test Item Value Reference Range Interpretation Comme nts SODIUM (test code = NA) 138 MMOL/L 137-145 K+ (test code = KSERUM) 3.7 MMOL/L 3.5-5.1 PLEASE NOTE NEW REFERENCE RANGE(S) IN EFFECT EFFECTIVE 06/18/2010 - NEW ANALYZER ([employer] 5600) CHLORIDE (test code = CL) 105 MMOL/L 98-107 CO2 (test code = CO2) 23 MMOL/L 22-30 BUN (test code = BUN) 20 MG/DL 7-17 H CREA (test code = CREA) 1.1 MG/DL 0.7-1.2 GLUCOSE (test code = GLUCOSE) 64 MG/DL 70-99 L Fasting glucos e normal <100 MG/DL- [place] [employer] recommendation CALCIUM (test code = [...] of >90 mL/min/1.73m2 is considered normal. CREATINE [id number] 12:45:00* Test Item Value Reference Range Interpretation Comme nts CK (test code = CK) 52 U/L 30-135 [id number] 12:24:00* Test Item Value Reference Range Interpretation [...] Notes Date/Time Note Provider Source 2024-02-02 13:41:14 uNwCmgn0ojPN49tiCFNln34uOpx2IcSRqMv GJV6afEgt612TPkWeyJRw7dl6u+183328-0 3:41:14 Chief [facility]Patient [facility] referralJeri Hu Queenectronically signed by Kalina Queen LVN at 02/02/2024 2:49 PM AGP12141-0Yvbzo ZzfyIP0804-65-94I54:49:58Nurse NoteTXT1.2.840.947438.1.13.131.2.7. 2.604560|[id number] for patient stdc60414-9Swiul NoteLNNARRATIVEFormatted C-CDA narrative [facility] [facility].[id number] TA8625-78-15D91:49:581.2.840.517411 .1.72.3.15|1.2.840.700843.1.13.131. 2.7.2.727879_408200415 [facility] 2024-01-18 20:02:10 AbL4JcIQAeK71OL9Jlu7/BD8s06DfJDlhEP GvPBzZ9pUKjiVOTiCMLE5RZSJkQVd2922-0 01-17T20:02:10 Pt given printed and verbal discharge instructions.Prescriptions [...] with steady gait, in no apparent distress. [address] TqbrNY7792-30-96Q61:03:03[facility] NoteTXT1.2.840.965910.1.13.104.2.7. 2.894691|[id number] for patient vgcb02200-0BjfwDZBQQWFVXWQFnyakzvpf C-CDA narrative [id number] L Lolley RN[address] Vw[id number] 3GZGGPMKKRDWZLTSRASAPAB0464-98-22Q1 0:03:031.2.840.354224.1.72.3.15|1.2 .840.051619.1.13.104.2.7.2.727879_2 [id number] Cyn Abrams RN [facility] 2024-01-18 19:25:00 vEyhKvw0Wt4iIWgMv9OeqOQ0nvbQmc5XpYl 4Ukn5XAlPgJ35znM79lapUlh5ZkdH7893-7 01-17T19:25:00 Dr Blandon at bedside. [address]-6Sihzrlxoh[address] PkynCW3220-64-24W94:39:10[facility] NoteTXT1.2.840.123929.1.13.104.2.7. 2.820110|[id number] for patient nbsn69367-3EwwdABCWSLBHGKGUjhbckqxg C-CDA narrative [id number] 9TVQCYOJJLKSIVYUPOZWPCV4294-24-47S4 9:39:101.2.840.918282.1.72.3.15|1.2 .840.458560.1.13.104.2.7.2.727879_2 [id number] [facility] 2024-01-18 19:24:05 6UfoTsww26qlclwmT2qAySMrOT741muYUEC nW6eY5cI0XsIPp1U4fP5hG1rke2JX0856-8 9:24:05 Introduced self to pt. Pt resting in stretcher with call light in reach. Bed in lowest locked position, side rails up x2. Pt has no complaints at this time. Pt A/O x4, RR e/u, NAD noted at this time.Pt pending provider reevaluation. 41562-8Oxysgrqin department YkaxTF6894-93-50H31:24:41Emergency department NoteTXT1.2.840.180468.1.13.104.2.7. 2.331662|[id number] for patient iajy57158-6MoftMBKMATXVDCJAdgrcfusg C-CDA narrative [id number] 8NHFHEFGXBDDUJAMOIUJNJI9508-71-66I3 9:24:411.2.840.997590.1.72.3.15|1.2 .840.376491.1.13.104.2.7.2.727879_2 [id number] [facility] 2024-01-18 19:10:37 PgzPu9IsBrpjfQDJ5i1aoTyed5GFeDtgcNS X+dMpFIKpwc/pxhR8pHbf2Xqb5jlq6877-4 9:10:37 Received report from GITA Nolan.POC discussed. [address]24-0Oqijlxdyf[address] ObgbDI6437-11-27T42:11:02[facility] NoteTXT1.2.840.373232.1.13.104.2.7. 2.022599|[id number] for patient kjdq53706-8HznjFGNUSSZOHHGQqbjndqid C-CDA [id number] 3CALHBUFLCRRXIVUGKKCAFU3177-14-50T0 9:11:021.2.840.528731.1.72.3.15|1.2 .840.972191.1.13.104.2.7.2.727879_2 [id number] [facility] 2024-01-18 18:58:47 ce6Ni7T8QK/Qu1K+2rY8jToAsJ8CfEpnDWg OCcIgSkSn8jk9Bv3CGkShI3ZwigdV7536-2 8:58:47 Report to GITA [place] [address]-0Twyvwaqft department GixgVR9292-85-75D03:58:54[facility] NoteTXT1.2.840.578336.1.13.104.2.7. 2.187086|[id number] for patient zswx72575-9VkmwSVAOBWSIXVQEednasitj C-CDA narrative [id number] 9EXXBSSEQRVJNZLMMCNYWLK5556-59-99K7 8:58:541.2.840.317960.1.72.3.15|1.2 .840.779352.1.13.104.2.7.2.727879_2 [id number] [facility] 2024-01-18 18:38:24 40G88WN8rNQH8oaykraZaVdT4HcXxYmVWFS bPYF80PQ5AEpBtZHlq2wnxWnqE04j7770-6 8:38:[address], placed on monitors. [address] department OqlxSB3544-00-74Q22:38:39[facility] department NoteTXT1.2.840.973946.1.13.104.2.7. 2.010338|9873092489LNJliaoymws for patient gkcp66102-1NjdtXSRYBEAOSRSBsczudzka C-CDA narrative [id number] 3PPVSYBNLGAWOIAVMNFJCPG7589-92-32Q0 8:38:391.2.840.669614.1.72.3.15|1.2 .840.599679.1.13.104.2.7.2.727879_2 [id number] [facility] 2024-01-18 18:26:42 urYhQXsmqhkkkEsF6bi1VDS+UZKqMS7+La+ Qjm1QuY+bfPuuzGseDUcM7XWUq94J0373-6 8:26:[address] [address]-0Juivmvmqe department AmmvPC3124-17-77D17:26:50[facility] NoteTXT1.2.840.222622.1.13.104.2.7. 2.810776|[id number] for patient jqyd50160-3QcprUNAYIAPZLAVXnfctsvhe C-CDA narrative [id number] 8RRGNCBXZKTNMZBTOINSLIG7030-84-49W8 8:26:501.2.840.899258.1.72.3.15|1.2 .840.168952.1.13.104.2.7.2.727879_2 [id number] [facility] 2024-01-18 14:08:01 aCFjPbhDTAFS0j36NeJjjLOgX1Q3O39qy/Z eC80heHRXPvL0yVV39LLLcB3eA2z37268-3 4:08:01 Dr. Troncoso at bedside. 57370-2Sddacvyen department VfvtQE0955-26-34V11:08:10[facility] NoteTXT1.2.840.873122.1.13.104.2.7. 2.858122|[id number] for patient jlds47302-2AexwCDMOLCTDVKWQgborbxnz C-CDA narrative [id number] 2UABBENBANLDPHMPRTYJDDY1164-70-73H8 4:08:101.2.840.175565.1.72.3.15|1.2 .840.120399.1.13.104.2.7.2.727879_2 [id number] [facility] 2024-01-18 14:00:00 qJD+44W/0RGBAwq8rT9gm+yH9ivMvbrNWr8 I1Iz81OMCOsuIQ1WoNGVVx4U5fuW54230-6 4:00:00 Pt ambulated to room 139 with this RN. Pt placed on monitors. Will continue with plan of care. 62734-1Iuoedpqpw department ZeoyNM6023-75-02H87:41:29[facility] NoteTXT1.2.840.012994.1.13.104.2.7. 2.208727|[id number] for patient edut04940-4RhudHZNIZQUYEMZNagakkyqg C-CDA narrative text[address] SntbLhvjm[id number] 8NPNSNNEZRRYZDBGSFHEZWN3837-21-56H1 4:41:291.2.840.793138.1.72.3.15|1.2 .840.803112.1.13.104.2.7.2.727879_2 [id number] [facility] 2024-01-18 13:22:20 nUUr1XHAmfXdcH5WqpS/lMOOASnyVhgAcg9 ouxLEaG+imgwWVeubJ/4ndCnB3nUh7380-0 3:22:20 Luz Marina Foster is a 38 year old female Patient arrives ambulatory via personal means with complaint of constant sharp chest pain that radiates to left shoulder, nausea, SOB and diaphoretic. 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 Patient is alert and oriented times x4, even and unlabored respirations visualized. Skin warm and dry, EKG in triage. Green pool due to saturation. 21505-8Ogaphfshi department Triage uwthXI1060-52-48Z43:24:11[facility] Triage noteTXT1.2.840.497317.1.13.104.2.7. 2.179607|[id number] for patient xvvc75152-3Ptbavqnpt department NoteLNNARRATIVEFormatted C-CDA narrative [id number] H Dalton RNUT[address] Eb[id number] 6HNGJCMYEYAOGPCYRBSWXQB3861-24-51F8 3:24:111.2.840.908256.1.72.3.15|1.2 .840.903972.1.13.104.2.7.2.727879_2 [id number] Thea Shaw Dalton RN [facility] 2024-01-18 13:06:00 1y9IgKWaUMUsS6IkWIDXAffCuNn/Jam/PqG ZCp1mRlyKGAUhF542/63inNIQjR479242-6 06T13:06:00 No signs of drainable abscess on CT [...] 1.9 1.7 - 2.4 mg/dLCOMP. METABOLIC PANEL (83227)Collection Time: 01/18/24 2:01 PMResult Value Ref RangeNA [...] 105 (H) 13 - 40 U/LeGFR 81.4 mL/min/1.89g4RMOKFPNGABTzuzktgsfn Time: 01/18/24 2:01 PMResult Value Ref RangeAPPEARANCE [...] Blandon D.O.EM PhysicianRTI Billing ID #[id number] DO01/18/241951 09402-2Qacbzbpxa Emergency department MmsuBX2680-22-94M98:52:34Physician Emergency department NoteTXT1.2.840.259982.1.13.104.2.7. 2.529657|[id number] for patient wtle40138-1Rwdwrewhn department NoteLNNARRATIVEFormatted C-CDA narrative textEMCARE EMERGENCY PHYSICIAN STAFFEMCARE EMERGENCY PHYSICIAN STAFFUT[address] Ae[id number] 7MQPLJZYYHQSCLLOWKJFDLG0346-49-15H1 9:52:341.2.840.025293.1.72.3.15|1.2 .840.486574.1.13.104.2.7.2.727879_2 [id number] [facility] 2024-01-16 19:30:00 qwvqjD9Q3LYRuOFKUacFx2v0YEythtGzTuF zvKkqOJbJpmZR7EeOUT7qsbvxlgMQ4467-6 01-15T19:30:00 Patient not seen by triage, patient not roomed. No discharge instructions provided to patient. 97929-0Qjsoefhsc department NmknQE2430-27-14I89:41:27[facility] NoteTXT1.2.840.968304.1.13.104.2.7. 2.061335|[id number] for patient uggz70018-8JdehEARQUKNBDHUZsapujuaf C-CDA narrative odgw057918142Tbob McCreight RN[address] Bdor[id number] 6VOZJDYKTWFPMRYIDHGARGT7387-03-01J3 0:41:271.2.840.045859.1.72.3.15|1.2 .840.720212.1.13.104.2.7.2.727879_2 [id number] Keyana Santiago RN [facility] 2024-01-16 19:20:02 4J2yVhZFX6uKvbHTSYb55O1XGcF8c6EqIlB 4sSxarhdQa6sD1WzbHYh7kWFsq+Am1320-4 01-15T19:20:02 Unable to locate patient for triage, told by registration, provider had seen patient, talked to provider said she is getting ready to discharge patient 41193-9Ahmxgsuyu department DsauOD7873-49-84R04:21:46[facility] NoteTXT1.2.840.521534.1.13.104.2.7. 2.753692|0760354924VJVvvwthnuh for patient emxa45707-0CwmiIPCLDPXNPYPXiowqjfty C-CDA narrative text[address]TXTX[address] 4YALYVGPBWBSCDKCUFVOHYB7743-07-12Q5 9:21:461.2.840.100806.1.72.3.15|1.2 .840.174451.1.13.104.2.7.2.727879_2 [id number] [facility] 2024-01-16 19:02:00 HqR4uS8cugW/0dWcz6ySLxjd9UZtWZhaiiJ Ot2nfVRprHtIVuR+XVCg1xvaJfagW2163-2 01-15T19:02:00 Report received from Mariah PELAYO 68422-6Msgweavom department MynmKU3215-20-56A22:27:51[facility] NoteTXT1.2.840.678706.1.13.104.2.7. 2.460552|7120619951CGGmibsdwvs for patient cdrj91045-1OwbfQGARMWPWJNSRtxzgpbzc C-CDA narrative text[id number] 4HPJWANREONPKZKEDEMUMNX6465-80-05C1 0:27:511.2.840.624223.1.72.3.15|1.2 .840.843011.1.13.104.2.7.2.727879_2 [id number] [facility] 2023-11-11 20:16:27 56159216bS2MTw83zVx+ZX5ePWkjxVxjekv DdUn3msE/XMoJQu9THoShaWbY97kY7Ocwm0 Y6273-51-35B64:16:27+ +--------+ +- -----+-------+ +-------+- ---------+ +| DISCHARGE [...] + + ==+ + + + ========+| 51477-9 | LOINC | EKG study | ONE TIME | 0 | Stat | November 05, 2023 6:32:00 PM [facility] | BANKOLE OLLILIAN | [address] on November 05, 2023 6:32:00 PM UTC [...] | | |+ +-------- + +--------+ -----+ +16481-0Ucuc of TreatmentLNTREATMENT PLANTXT2.16.840.1.947625.3.1579.777 854756962.1.100|22286170|2.16.840.1 .060033.10.20.22.2.10AVAvailable for patient cjhkSawvjnhBcatzrpgiTTADe21 Section NarrativeNARRATIVEFormatted C-CDA narrative textLAFOL[facility]+1(893)043-439-34600331-2774401647-12-75G7 0:16:27 [facility] 2023-11-11 20:16:27 8149732ThJLJdfH5iBJr5M3i5tdoeIYtUSx PwfxNVls7tFVto1B+9NeHGx2EVB0RR18O8p c8645-74-13X76:16:27CARE TEAM+ + ---+--------+ + + +| Member | Role on Team | Status | Start Date | End Date | Updated By |+ + +--------+ ---------+ ---------+ +| NO PCP | Referring | normal | November 05, 2023 7:34:39 PM UTC | November 06, 2023 2:02:00 AM UTC | PMQ4PFM on November 05, 2023 7:34:39 PM UTC |+ + +--------+ ---------+ ---------+ +| DIANE Roblero | Attending | normal | November 05, 2023 7:34:39 PM UTC | November 06, 2023 2:02:00 AM UTC | EQW2DIH on November 05, 2023 7:34:39 PM UTC |+ + +--------+ ---------+ ---------+ +| DIANE Roblero | Admitting | normal | November 05, 2023 7:34:38 PM UTC | November 06, 2023 2:02:00 AM UTC | FTJ4PJX on November 05, 2023 7:34:39 PM UTC |+ + +--------+ ---------+ ---------+ +| NO PCP | PCP | normal | November 05, 2023 6:21:09 PM UTC | November 06, 2023 2:02:00 AM UTC | PMD5DUH on November 05, 2023 7:34:39 PM UTC |+ + +--------+ ---------+ ---------+ +09706-2Vudxbro Care team informationLNCARE TEAMTXT2.16.840.1.972966.3.1579.777 855277496.1.100|41239629|2.16.840.1 .066597.10.20.22.2.500AVAvailable for patient xcqcBlclxkyNncjurmzrWKGKi05 Section NarrativeNARRATIVEFormatted C-CDA narrative textLAFOLLETTE [facility]+2(378)663-139-17455568-0186000997-51-89B6 0:16:27 [facility] 2023-11-08 21:05:03 63954341gN8KNo32iMo+JE2uYMilbMttirq DiQe4vjM/IHzOLy7NGzUofKtX68rJ2Rsfb4 L2958-39-03R32:05:03+ +--------+ +- -----+-------+ +-------+- ---------+ +| DISCHARGE [...] + + ==+ + + + ========+| 04314-8 | WILBERT | EKG study | ONE TIME | 0 | Stat | November 05, 2023 6:32:00 PM [place] | ZIGGY AUGUST | [address] on November 05, 2023 6:32:00 PM UTC [...] | | |+ +-------- + +--------+ -----+ +78095-4Ccdk of TreatmentLNTREATMENT PLANTXT2.16.840.1.462671.3.1579.777 489693928.1.100|42450098|2.16.840.1 .834841.10.20.22.2.10AVAvailable for patient mjzqRqcunwqAigrrxjtcEKUGg87 Section NarrativeNARRATIVEFormatted C-CDA narrative textMARY IMOGEN[facility]OSPITALETFR[facility]EN[facility]+1(988)489-975-30591377-2830172567-06-67O1 1:05:03 [facility] 2023-11-08 21:05:03 3521104FeZMKgmH8oZHm6Y9a1vowgLSfENy KwnzLNbo6eLWfh1R+6QkGAe8JDG3IX49D0f b9468-45-31J05:05:03CARE TEAM+ + ---+--------+ + + +| Member | Role on Team | Status | Start Date | End Date | Updated By |+ + +--------+ ---------+ ---------+ +| NO PCP | Referring | normal | November 05, 2023 7:34:39 PM UTC | November 06, 2023 2:02:00 AM UTC | UCT9TBU on November 05, 2023 7:34:39 PM UTC |+ + +--------+ ---------+ ---------+ +| DIANE Roblero | Attending | normal | November 05, 2023 7:34:39 PM UTC | November 06, 2023 2:02:00 AM UTC | TQR7REM on November 05, 2023 7:34:39 PM UTC |+ + +--------+ ---------+ ---------+ +| DIANE Roblero | Admitting | normal | November 05, 2023 7:34:38 PM UTC | November 06, 2023 2:02:00 AM UTC | KYO3NSN on November 05, 2023 7:34:39 PM UTC |+ + +--------+ ---------+ ---------+ +| NO PCP | PCP | normal | November 05, 2023 6:21:09 PM UTC | November 06, 2023 2:02:00 AM UTC | ANT8OWE on November 05, 2023 7:34:39 PM UTC |+ + +--------+ ---------+ ---------+ +60642-7Agijkrl Care team informationLNCARE TEAMTXT2.16.840.1.739713.3.1579.777 643418652.1.100|11228106|2.16.840.1 .928411.10.20.22.2.500AVAvailable for patient qwckNaaokvhUnwtelcxwDFJHy37 Section NarrativeNARRATIVEFormatted C-CDA narrative textLAF[facility]E [facility]+1(880)127-297-91708188-5255030827-42-09O3 1:05:03 [facility] 2023-11-08 00:54:08 6358578mEsLKHabJa12Ry0ZYu0N+KWt8hQU X7d5rsVhdLNnyooWAvr1dOaT4Ukq4X/O7ah h6773-11-98F19:54:08+ +--------+ +- -----+-------+ +-------+- ---------+ +| DISCHARGE [...] + + ===+ + + + +| 64508-5 | LOINC | Natriuretic peptide B [Mass/volume] in Serum or | ONE TIME | 0 | Stat | November 04, 2023 1:27:00 AM [facility] | DIANE LINDER S | cqk3ipb on November 04, 2023 1:27:00 AM [facility] |+ +--------+-- + + ---+ + + + +| 12328-5 | LOINC | CBC W Auto Differential panel - Blood | ONE TIME | 0 | Stat | November 04, 2023 1:27:00 AM UTC | DIANE LINDER S | apr8eoe on November 04, 2023 1:27:00 AM UTC |+ +--------+-- + + ---+ + + + +| 10264-9 | LOINC | Creatine kinase.MB [Mass/volume] in Serum or Pl | ONE TIME | 0 | Stat | November 04, 2023 1:27:00 AM UTC | CONTRERASFRANKLYN LINDER S | tdw8xma on November 04, 2023 1:27:00 AM UTC |+ +--------+-- + + ---+ + + + +| 01429-8 | LOINC | Hepatitis C virus Ab [Presence] in Serum | ONE TIME | 0 | Stat | November 04, 2023 1:27:00 AM UTC | DIANE LINDER Annika | pzh6wup on November 04, 2023 1:27:00 AM UTC |+ +--------+-- + + ---+ + + + +| 67445-0 | LOINC | HIV 1+2 Ab [Units/volume] in Serum | ONE TIME | 0 | Stat | November 04, 2023 1:27:00 AM UTC | DIANE Roblero | bcz8zkc on November 04, 2023 1:27:00 AM UTC |+ +--------+-- + + ---+ + + + +| 49147-5 | LOINC | Magnesium [Mass/volume] in Serum or Plasma | ONE TIME | 0 | Stat | November 04, 2023 1:27:00 AM UTC | DIANE Roblero | zcs8rrc on November 04, 2023 1:27:00 AM UTC [...] | | |+ +-------- + +--------+ -----+ +04124-4Dxmg of TreatmentLNTREATMENT PLANTXT2.16.840.1.351093.3.1579.777 248429253.1.100|02472914|2.16.840.1 .513145.10.20.22.2.10AVAvailable for patient riuyPwpynzaNrxdokhjiPZNRo30 Section NarrativeNARRATIVEFormatted C-CDA narrative [facility]+7(617)803-455-49879613-7073154820-56-72H0 0:54:08 [facility] 2023-11-08 00:54:08 5306130wNtpXsYnc9JFOH1wcyZR16Y7t5WZ G/BqBUyUv8b1G33zwB5BvRU8aErb0MUy/ep v8539-92-34J48:54:08CARE TEAM+ +------- -------+--------+ + + +| Member | Role on Team | Status | Start Date | End Date | Updated By |+ + ----+--------+ + + +| NO PCP | Referring | normal | November 03, 2023 6:00:00 AM UTC | November 04, 2023 2:06:00 AM UTC | XNP8FUC on November 04, 2023 2:21:53 AM UTC |+ + ----+--------+ + + +| TAMIA HENDERSON | Attending | normal | November 03, 2023 6:00:00 AM UTC | November 04, 2023 2:06:00 AM UTC | FDJ3YZE on November 04, 2023 2:21:53 AM UTC |+ + ----+--------+ + + +| TAMIA HENDERSON | Admitting | normal | November 03, 2023 6:00:00 AM UTC | November 04, 2023 2:06:00 AM UTC | FAY3SWB on November 04, 2023 2:21:53 AM UTC |+ + ----+--------+ + + +| NO PCP | PCP | normal | November 04, 2023 1:16:04 AM UTC | November 04, 2023 2:06:00 AM UTC | XQJ4CGH on November 04, 2023 2:21:53 AM UTC |+ + ----+--------+ + + +25621-9Rwm ie Care team informationLNCARE TEAMTXT2.16.840.1.695507.3.1579.777 087877304.1.100|63896786|2.16.840.1 .187382.10.20.22.2.500AVAvailable for patient sbdjZlgbmnuPjngqaghbAXXVx23 Section NarrativeNARRATIVEFormatted C-CDA narrative textLA[facility]TT[facility]+1(912)287-18764558-0409976626-93-23B7 0:54:08 [facility] 2023-11-05 20:06:23 3014209aL7qdA05ZSI2nGGlsjy5MJHrFA+I mO5fBfJNnYYnHkXj7sWqxvp3SscmQl0n/nL M5207-27-54O90:06:23+ +--------+ +- -----+-------+ +-------+- ---------+ +| DISCHARGE [...] + +===== ========+ + + =====+ +| 30222-9 | LOINC | EKG study | ONE TIME | 0 | Stat | November 05, 2023 6:32:00 PM UTC | ZIGGY AUGUST | 10553 on November 05, 2023 6:32:00 PM UTC |+ +--------+-- + +----- --------+ + + -----+ +| 98014-9 | LOINC | CTA Chest vessels | ONE TIME | 0 | Stat | November 05, 2023 9:18:00 PM UTC | ZIGGY AUGUST | 17561 on November 05, 2023 9:18:00 PM UTC [...] | | |+ +-------- + +--------+ -----+ +70029-7Dbst of TreatmentLNTREATMENT PLANTXT2.16.840.1.755638.3.1579.777 992049279.1.100|92641360|2.16.840.1 .242590.10.20.22.2.10AVAvailable for patient rulrFkjyatrIhrkblsetOMUKi25 Section NarrativeNARRATIVEFormatted C-CDA [facility]+1(002)[id number] 0:06:23 [facility] 2023-11-05 20:06:23 6314286AzDMKvoG8xTTd9D8y2ewwoNPmNYo ZsxcASah9bTAtq5U+9LiHUq9MQP0RK79V4m a8903-80-51O03:06:23CARE TEAM+ + ---+--------+ + + +| Member | Role on Team | Status | Start Date | End Date | Updated By |+ + +--------+ ---------+ ---------+ +| NO PCP | Referring | normal | November 05, 2023 7:34:39 PM UTC | November 06, 2023 2:02:00 AM UTC | JQL0NWS on November 05, 2023 7:34:39 PM UTC |+ + +--------+ ---------+ ---------+ +| DIANE Roblero | Attending | normal | November 05, 2023 7:34:39 PM UTC | November 06, 2023 2:02:00 AM UTC | ZHI8ICZ on November 05, 2023 7:34:39 PM UTC |+ + +--------+ ---------+ ---------+ +| DIANE Roblero | Admitting | normal | November 05, 2023 7:34:38 PM UTC | November 06, 2023 2:02:00 AM UTC | [id number] on November 05, 2023 7:34:39 PM UTC |+ + +--------+ ---------+ ---------+ +| NO PCP | PCP | normal | November 05, 2023 6:21:09 PM UTC | November 06, 2023 2:02:00 AM UTC | [id number] on November 05, 2023 7:34:39 PM UTC |+ + +--------+ ---------+ ---------+ +06948-2Rtmlfke Care team informationLNCARE TEAMTXT2.16.840.1.925474.3.1579.777 [id number]|2.16.840.1 .064636.10.20.22.2.500AVAvailable for patient byutAxvezyvIsmyvkjzoDOMMd75 Section NarrativeNARRATIVEFormatted C-CDA narrative textLAFOLLETTE [facility]+[phone]256-56-76G9 0:06:23 [facility] 2023-11-05 15:18:00 YMuognijbhu475975L99mQIUR0AORJgKNnT qzYrVBuK3a3AL/lRX6Qubpnr1ra6D3E+pTz Eq4dvqUEIAs0980-17-18P24:18:00[id number] [place] [address] DIAGNOSTIC IMAGING REPORT Patient Name: CRISTIAN Februaryate of Service: 19-91-2289Nfl: 38 Sex: F Order #: [id number] Room: [facility]: 1985 X-Ray Number: [id number] Record Number: [id number] Hospital Number: [id number] Physician: KAILASH CONTRERAS Physician: KAILASH CONTRERAS PROCEDURE: CTA CHEST INDICATIONS: DX STATES CHEST PAINCHART STATES C/P, WEAKNESS, SOB, SWEATS,NAUSEATED , RAPID HEARTBEATPMHX PACEMAKERPER PATIENT PROTOCAL ISOVUE 538616WAFTOZ 1.5PSV CAF EXAM: CT Angiography Chest With [...] MD on11/05/2023 20:19:33 Legally authenticated by NICHELLE DRKAE 2023-11-05 15:18:33PTZrmysadzpabwwxwci46057REI SAUL FREIREKEYQHDIBCNOCSAZP2493-60-25U60:18:00 [id number], YUABKCKGWEDNQYTB0767-01-61L34:20:37 KALI BAIRD MIKE 2023-11-05 12:32:00 NByuqimiooj511487m8gJKHM8Rzr2iCOUyR Ve6XcfB87VLpswhrK0cY+jpob6ZNkeVHhjT 2pQaFXRFDqK8683-32-38K45:32:00[place] [address] DIAGNOSTIC IMAGING REPORT Patient Name: LUZ MARINA FOSTERDate of Service: 09-90-5833Cxy: 38 Sex: F Order #: [id number] Room: [facility]: 1985 X-Ray Number: [id number] Record Number: [id number] Hospital Number: [id number] Physician: ,Ordering Physician: MARIANGEL TRINH HISTORY:Chest Pain [...] CT Legally authenticated by BLANCA KONG 2023-11-05 12:32:58BTTqrnkijvmjenyldmk01462ZQE CHRISS RobleroMXBFFNCGXQHL4034-16-70N26:32:00ER51 [id number] 6593925WBPBXVWY67666OXCJ, FPHTVODPELZZPPHQ3104-05-42Z68:32:12 DILAN SMITH 2023-11-04 01:24:57 2985875x+Rb1EI8HUqWlAFsAoI0T0JStv5s mr11BBp6+AYGXixm9/PkTi7LLq8Pto07jkc j6966-83-42U85:24:57+ +--------+ +- -----+-------+ +-------+- ---------+ +| DISCHARGE [...] + + ===+ + + + +| 03002-1 | LOINC | Natriuretic peptide B [Mass/volume] in Serum or | ONE TIME | 0 | Stat | November 04, 2023 1:27:00 AM UTC | DIANE Roblero | wzz4xzd on November 04, 2023 1:27:00 AM UTC |+ +--------+-- + + ---+ + + + +| 19438-1 | LOINC | CBC W Auto Differential panel - Blood | ONE TIME | 0 | Stat | November 04, 2023 1:27:00 AM UTC | DIANE Roblero | hgc8epa on November 04, 2023 1:27:00 AM UTC |+ +--------+-- + + ---+ + + + +| 20384-3 | LOINC | Creatine kinase.MB [Mass/volume] in Serum or Pl | ONE TIME | 0 | Stat | November 04, 2023 1:27:00 AM UTC | DIANE LINDER S | edo1quh on November 04, 2023 1:27:00 AM UTC |+ +--------+-- + + ---+ + + + +| 91687-6 | LOINC | Hepatitis C virus Ab [Presence] in Serum | ONE TIME | 0 | Stat | November 04, 2023 1:27:00 AM UTC | DIANE LINDER S | jnp0saq on November 04, 2023 1:27:00 AM UTC |+ +--------+-- + + ---+ + + + +| 79859-0 | LOINC | HIV 1+2 Ab [Units/volume] in Serum | ONE TIME | 0 | Stat | November 04, 2023 1:27:00 AM UTC | DIANE LINDER S | vtn0chd on November 04, 2023 1:27:00 AM UTC |+ +--------+-- + + ---+ + + + +| 01864-4 | LOINC | Magnesium [Mass/volume] in Serum or Plasma | ONE TIME | 0 | Stat | November 04, 2023 1:27:00 AM UTC | DIANE LINDER S | tvx1bcy on November 04, 2023 1:27:00 AM UTC |+ +--------+-- + + ---+ + + + +| 47713-3 | LOINC | EKG study | ONE TIME | 0 | Stat | November 04, 2023 1:27:00 AM UTC | DIANE Roblero | qwn7cna on November 04, 2023 1:27:00 AM UTC [...] | | |+ +-------- + +--------+ -----+ +89117-7Nhac TreatmentLNTREATMENT PLANTXT2.16.840.1.048911.3.1579.777 720200816.1.100|[id number]|2.16.840.1 .593257.10.20.22.2.10AVAvailable for patient ieguTfblewpMmkvzpctbQMXUi75 Section NarrativeNARRATIVEFormatted C-CDA narrative textMARY IMOGENE [facility]ITALETFR[facility]+[phone])916-049-65969377-2988175175-19-44Z8 1:24:57 [facility] 2023-11-04 01:24:57 3812206yYocUeCtm7HNJR5zetYI99E8g1IH G/OdTIiLh0h4C43mrF0YzJT9fRup6OBt/ep h2535-45-81M87:24:57CARE TEAM+ +------- -------+--------+ + + +| Member | Role on Team | Status | Start Date | End Date | Updated By |+ + ----+--------+ + + +| NO PCP | Referring | normal | November 03, 2023 6:00:00 AM UTC | November 04, 2023 2:06:00 AM UTC | RRT4UTR on November 04, 2023 2:21:53 AM UTC |+ + ----+--------+ + + +| TAMIA HENDERSON | Attending | normal | November 03, 2023 6:00:00 AM UTC | November 04, 2023 2:06:00 AM UTC | [id number] on November 04, 2023 2:21:53 AM UTC |+ + ----+--------+ + + +| TAMIA HENDERSON | Admitting | normal | November 03, 2023 6:00:00 AM UTC | November 04, 2023 2:06:00 AM UTC | [id number] on November 04, 2023 2:21:53 AM UTC |+ + ----+--------+ + + +| NO PCP | PCP | normal | November 04, 2023 1:16:04 AM UTC | November 04, 2023 2:06:00 AM UTC | [id number] on November 04, 2023 2:21:53 AM UTC |+ + ----+--------+ + + +08057-4Djo ie Care team informationLNCARE TEAMTXT2.16.840.1.873834.3.1579.777 [id number]|[id number]|2.16.840.1 .842042.10.20.22.2.500AVAvailable for patient ffkkVassoipGwtopqwdtJFMMp83 Section NarrativeNARRATIVEFormatted C-CDA narrative textMARY IMOGEN[facility]T [facility]OSPITALETFR[facility]+1(758)[id number] 1:24:57 [facility] 2023-11-03 19:27:00 VToartvtgfh1236854+A+uJeWBZ7EeRso9p 9jxopKOhEXRaLRHyZYjpMiolo3Ly7hHkR1l OFC5oyrtYru6108-59-61S29:27:00pti [facility] [place] [address] DIAGNOSTIC IMAGING REPORT Patient Name: CRISTIAN FEBRUARYDate of Service: [id number]: 38 Sex: F Order #: [id number] [facility] 1985 [facility] Number: [id number] Record Number: [id number] Hospital Number: [id number] Physician: ,Ordering Physician: KAILASH CONTRERAS HISTORY:Chest Pain [...] CT Legally authenticated by BLANCA KONG 2023-11-03 19:27:07IONhwpmryeorudvclsg27050RES S, KBPLNSCIKTDE8768-17-76S53:27:00ER51 [id number] 2485467GRBJRIAT55585LOSZ, CXQGYXOCEZFFZYXJ4767-46-80G12:31:10 DILAN SMITH MIKE 2022-08-26 01:33:27 9135463MznjAhDE4UWK129l/FguI9CR18z2 JEJAW2E71Jm9GDPIq2fKa2pQflPNzagtgLL C6878-59-14P15:33:27+ +--------+ +- -----+-------+ +-------+- ---------+ +| DISCHARGE [...] + + ===+ + + + =======+| 02075-0 | LOINC | Natriuretic peptide B [Mass/volume] in Serum or | ONE TIME | 0 | Stat | August 23, 2022 3:24:00 PM UTC | REYNA CROFT | 96082 on August 23, 2022 3:24:00 PM UTC |+ +--------+-- + + ---+ + + + -------+| 23199-8 | LOINC | CBC W Auto Differential panel - Blood | ONE TIME | 0 | Stat | August 23, 2022 3:24:00 PM UTC | REYNA CROFT | 90503 on August 23, 2022 3:24:00 PM UTC |+ +--------+-- + + ---+ + + + -------+| 17232-7 | LOINC | Creatine kinase.MB [Mass/volume] in Serum or Pl | ONE TIME | 0 | Stat | August 23, 2022 3:24:00 PM UTC | REYNA CROFT | 66187 on August 23, 2022 3:24:00 PM UTC |+ +--------+-- + + ---+ + + + -------+| 17401-2 | LOINC | Hepatitis C virus Ab [Presence] in Serum | ONE TIME | 0 | Stat | August 23, 2022 3:24:00 PM UTC | ORELLANA GUERDA | 55460 on August 23, 2022 3:24:00 PM UTC |+ +--------+-- + + ---+ + + + -------+| 98743-4 | LOINC | HIV 1+2 Ab [Units/volume] in Serum | ONE TIME | 0 | Stat | August 23, 2022 3:24:00 PM UTC | ORELLANA GUERDA | 60463 on August 23, 2022 3:24:00 PM UTC [...] | | |+ +-------- + +--------+ -----+ +16076-4Tlon of TreatmentLNTREATMENT PLANTXT2.16.840.1.008103.3.1579.777 974229590.1.100|28666586|2.16.840.1 .826701.10.20.22.2.10AVAvailable for patient irsaZhzpgbbFbbwqsfuhBBBKp02 Section NarrativeNARRATIVEFormatted C-CDA narrative textLAFOLLETTE [facility]ICAL [facility]+6(839)[phone] 1:33:27 [facility] 2022-08-23 11:19:03 33939019419gP4Tvcw05LP90m4QWqrTe3hy AzUUC9kKIXbL3Ox4qpzzUStrHk5SQNVqzLj G4368-18-88A79:19:03+ +--------+ +- -----+-------+ +-------+- ---------+ +| DISCHARGE [...] + +========= ====+ + + + ========+| 85998-7 | LOINC | Natriuretic peptide B [Mass/volume] in Serum or | ONE TIME | 0 | Stat | August 23, 2022 3:24:00 PM UT | ORELLANA GUERDA | 23638 on August 23, 2022 3:24:00 PM UTC |+ +---------+- + +--------- ----+ + + + --------+| 51556-6 | LOINC | CBC W Auto Differential panel - Blood | ONE TIME | 0 | Stat | August 23, 2022 3:24:00 PM UTC | ORELLANA GUERDA | 22566 on August 23, 2022 3:24:00 PM UTC |+ +---------+- + +--------- ----+ + + + --------+| 94930-1 | LOINC | Creatine kinase.MB [Mass/volume] in Serum or Pl | ONE TIME | 0 | Stat | August 23, 2022 3:24:00 PM UTC | REYNA CROFT | 74183 on August 23, 2022 3:24:00 PM UTC |+ +---------+- + +--------- ----+ + + + --------+| 31512-5 | LOINC | Hepatitis C virus Ab [Presence] in Serum | ONE TIME | 0 | Stat | August 23, 2022 3:24:00 PM UTC | REYNA YEHON | 95111 on August 23, 2022 3:24:00 PM UTC |+ +---------+- + +--------- ----+ + + + --------+| 34489-5 | LOINC | HIV 1+2 Ab [Units/volume] in Serum | ONE TIME | 0 | Stat | August 23, 2022 3:24:00 PM UTC | ORELLANA GUERDA | 95428 on August 23, 2022 3:24:00 PM UTC |+ +---------+- + +--------- ----+ + + + --------+| EKGW | MED[facility] | EKG | ONE TIME | 0 | Stat | August 23, 2022 3:24:00 PM UTC | ORELLANA GUERDA | 66537 on August 23, 2022 3:24:00 PM UTC [...] | | |+ +-------- + +--------+ -----+ +55537-8Axkm of TreatmentLNTREATMENT PLANTXT2.16.840.1.111502.3.1579.777 875654470.1.100|63845358|2.16.840.1 .745346.10.20.22.2.10AVAvailable for patient wvehZsofzvwEaallzskrQONJs60 Section NarrativeNARRATIVEFormatted C-CDA narrative textMARY IMOGENE BASS[facility]T HOSPITALETFR[facility]ENI[facility]+1(253)[phone] 1:19:03 [facility] 2021-12-29 19:14:31 NArhhjwdzfx375549u1i8diB5wvUcUuy1lh BMY273tbEw38weMbBbtsgl152qPRKrOrFFz [facility]/llUBmcP3383-24-42D47:14:31 [place] [address] Patient Name: CRISTIAN February Patient#: [id number] Date: 11/17/2021 Date: 11/23/2021 Age/Gender: 36/FDate of : 1985[facility]BED: [facility]/319/AAdmitting Phys: Chris Sosa MD DISCHARGE SUMMARY DATE [...] NORRIS. No complications following that procedure. HOSPITAL COURSEThis is a 36-year-old female who is a [...] further plan of care, the patient opted [facility] against medical advice. She was instructed on [...] 2021-12-30 07:17:17DD: 12/29/2021 14:06:23TT: 12/29/2021 19:14:31DAE/MODLJob #: [id number] Authenticated by:Millie Henry M.D. on 12/30/2021 07:17 AM DENTAL RECEPTIONIST Legally authenticated by ELAINE PINTO 2021-12-30 07:17:17DSDischarge wwgyoln16065BVJJARJUVENTINO HENRYFHQCIRMEGLOSMYUA6120-22-69N08:14:31 [id number] 35395450820ATCBEJES42862VTOBNB, GXKSZOQVDCYBEEZGP3339-84-17H20:20:1 1 MILLIE HENRY M[facility]ITALET 2021-11-23 14:54:14 95230072ZEr0Vu20gST9jD6zFO/C2OERBCu bPjUDh0IvYNAcFxKCH7GNwC9Zfm8I8tRrQ3 m1770-65-24J64:54:14Fever ; Weakness present ; Substance abuse ; 56934-4HhckquetslmONTHIZJMKWDJXOPP8 .16.840.1.948815.3.1579.66574154784 5.1.100|17254683|2.16.840.1.273623. 10.20.22.2.8AVAvailable for patient rowfTkovvxlUdztxfrcoLCWBh16 Section [phone]: 54:14 [facility] 2021-11-23 14:54:14 5348633MqYUulSebaFZzjmZrFUFbv0Ed2mm WWpJcrXk0k7pNPMrlU06cJsQbxYf9rcz3Yb d7852-39-30V93:54:14+ +--------+ +- -----+-------+ +-------+- ---------+ +| DISCHARGE [...] Routine | November 14, 2021 5:59:00 AM [facility] | IAN WINTERS S | |+ +---------+- + +--------- ----+ + + -----+ +| ADMITTO | [facility] | ADMITTING MD AND DIAGNOSIS | ONE TIME | 0 | Routine | November 14, 2021 6:33:00 AM [facility] | JUJU WHARTON | |+ +---------+- + [...] Routine | November 14, 2021 6:36:00 AM UTC | JUJU BOOTHAAC | |+ +---------+- + +--------- ----+ + + -----+ +| PCSCREEN | [facility] | TEST SKEIN WINDER CONSULT | ONE TIME | 0 | Routine | November 14, 2021 8:03:00 AM UT | IAN WINTERS S | |+ +---------+- + +--------- ----+ + + -----+ +| 02027-6 | LOINC | Basic metabolic 2000 panel - Serum or Plasma | IN AM | 3 | Routine | November 16, 2021 9:00:00 AM [facility] | [facility] PERALTA [facility] | |+ +---------+- + +--------- ----+ + + -----+ +| 45102-8 | LOINC | Basic metabolic 2000 panel - Serum or Plasma | IN AM | 0 | Routine | November 16, 2021 9:00:00 AM [facility] | [facility] | |+ +---------+- + +--------- ----+ + + -----+ +| 96760-2 | LOINC | Basic metabolic 2000 panel - Serum or Plasma | IN AM | 0 | Routine | November 17, 2021 9:00:00 AM UTC | [facility] | |+ +---------+- + +--------- ----+ + + -----+ +| 68518-0 | LOINC | Basic metabolic 2000 panel - Serum or Plasma | IN AM | 0 | Routine | November 18, 2021 9:00:00 AM UTC | [facility] | |+ +---------+- + +--------- ----+ + + -----+ +| 63203-7 | LOINC | Magnesium [Mass/volume] in Serum or Plasma | IN AM | 1 | Routine | November 16, 2021 9:00:00 AM UTC | [facility] | |+ +---------+- + +--------- ----+ + + -----+ +| 26551-1 | LOINC | CBC W Auto Differential panel - Blood | IN AM | 3 | Routine | November 16, 2021 9:00:00 AM UTC | [facility] | |+ +---------+- + +--------- ----+ + + -----+ +| 57363-1 | LOINC | CBC W Auto Differential panel - Blood | IN AM | 0 | Routine | November 18, 2021 9:00:00 AM UTC | [facility] | |+ +---------+- + +--------- ----+ + [...] + +--------- ----+ + + -----+ +| 60188-3 | LOINC | CBC W Auto Differential panel - Blood | IN AM | 1 | Routine | November 17, 2021 9:00:00 AM UT | SANGEETA MULLER | |+ +---------+- + +--------- ----+ + + -----+ +| ADMINPT | [facility] | ADMIT TO INPATIENT STATUS | ONE TIME | 0 | Routine | November 17, 2021 3:05:00 PM UT | IAN WINTERS S | |+ +---------+- + +--------- ----+ + + -----+ +| 600-7 | LOINC | Bacteria identified in Blood by Culture | ONE TIME | 0 | Routine | November 17, 2021 6:44:00 PM UT | KATHIA LUCERO - RES | |+ +---------+- + +--------- ----+ + + -----+ +| CORONA3 | HUSSEIN | CORONA MOODY | ONE TIME | 0 | Routine | November 17, 2021 10:02:00 PM UT | SANGEETA MULLER | |+ +---------+- + +--------- ----+ + + -----+ +| 600-7 | LOINC | Bacteria identified in Blood by Culture | ONE TIME | 0 | Routine | November 18, 2021 9:00:00 AM [facility] | KATHIA LUCERO - RES | |+ [...] Routine | November 18, 2021 3:00:00 PM UT | IAN WINTERS S | |+ +---------+- + +--------- ----+ + + -----+ +| CONSENT | [facility] | PROCEDURE TO BE PERFORMED | ONE TIME | 0 | Routine | November 20, 2021 7:00:00 PM UTC | [facility] FABRIZIO [facility] | |+ +---------+- + +--------- ----+ + + -----+ +| 2111- | LOINC | Choriogonadotropin.beta subunit ( test | ONE TIME | 0 | DANIEL | November 20, 2021 3:22:00 PM UTC | RADHA KNOX | |+ +---------+- + +--------- ----+ + + -----+ +| CONSULT3 | HUSSEIN | CONSULT MD | ONE TIME | 0 | Routine | November 20, 2021 8:50:00 PM UTC | BOBAnnika BRADEN | |+ +---------+- + +--------- ----+ + + -----+ +| 82046-7 | LOINC | CBC W Auto Differential panel - Blood | IN AM | 3 | Routine | November 21, 2021 9:00:00 AM UTC | BOBAnnika ASIYA | |+ +---------+- + +--------- ----+ + + -----+ +| 92241-0 | LOINC | Comprehensive metabolic 2000 panel - Serum or P | IN AM | 3 | Routine | November 21, 2021 9:00:00 AM UTC | RAEGANMANRUDYOLIVERAnnika BRADEN | |+ +---------+- + +--------- ----+ + + -----+ +| REG | MED[facility] | REGULAR DIET | ONE TIME | 0 | Timed | November 21, 2021 12:40:00 AM UTC | RADHA LISETTE | |+ +---------+- + +--------- ----+ + + -----+ +| USGUIDIV | MED[facility] | US GUIDED PERIPHERAL IV | ONE TIME | 0 | Routine | November 22, 2021 3:55:00 PM UTC | IAN Roblero | |+ +---------+- + +--------- ----+ + + -----+ +| MIDLINE | MEDHOST | MIDLINE CATHETER | ONE TIME | 0 | Routine | November 22, 2021 7:32:00 PM UTC | CHIARA CHO [facility] | |+ +---------+- + +--------- ----+ + + -----+ +| CMCONS | MED[facility] | LOGISTICS ENGINEERING MANAGER CONSULT | ONE TIME | 0 | [...] | | |+ +-------- + +--------+ -----+ +52366-5Tpor of TreatmentLNTREATMENT PLANTXT2.16.840.1.226694.3.1579.777 805374459.1.100|45881787|2.16.840.1 .349105.10.20.22.2.10AVAvailable for patient zcgfUmsazoxBlfmihlokOVJYr24 Section NarrativeNARRATIVEFormatted C-CDA narrative textMoses [facility] HospitalPers[facility] [id number]: 54:14 [facility] 2021-11-23 14:54:14 29751977hUSYdBF8/vc8E4pKdmoYngmZ4Iq iRPJ5PGO8CxI340tkQlYLyPsqoxJdKEfvCi +3519-17-44F76:54:14PATIENT GOALS+ + --+ +| Goal | Assigned [...] WITHOUT DIFFICULTY. | | |+ + +- +96941-4LgpdiANKDSBUKXL8 .16.840.1.343083.3.1579.91992793174 5.1.100|37780786|2.16.840.1.394825. 10.20.22.2.60AVAvailable for patient dirgJfzueftFaqsltpwyXOKQb00 Section NarrativeNARRATIVEFormatted C-CDA narrative textV[facility](096)286-37760952-8901124895-26-37T38: 54:14 [facility] 2021-11-23 13:54:43 RLasfnjnndd166241ttE17DMJqFKbUh9k9c M24UJ18WikcP2DA7zpLSaGFDqk5nGtCdtJO BHDVH69OR9Y6142-52-96S98:54:43 [facility] [place] [address] Patient Name: CRISTIAN February Patient#: [id number] Date: 11/17/2021 of : 1985 Age/Gender: 36/FHSSV/RM/BED: TEL/319/AAdmitting Phys: Chris Sosa MD CONSULTATION NOTE DATE OF CONSULTATION: 11/21/2021 ATTENDING PHYSICIAN: Chris Sosa MD REFERRING PHYSICIAN: PCP NO SUBJECTIVEMs. Cristian is a 36-year-old female with a history of IV drug abuse, now withrecurrent endocarditis. 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 She now re-presentswith a bioprosthetic vegetation with [...] S4 gallop.LUNGS: Clear to auscultation bilaterally.ABDOMEN: Soft, nontender.WIRE COINER: No focal deficits.SKIN: Multiple scarring throughout. LABORATORY [...] explantation svetlana-implantation, and she will also need Mending Carrier consult as well. DICTATED BY: Erin Ackerman NPElectronically Signed By: MEKA ABBOTT 2021-11-23 14:48:00 Arsen Monaco MD TT: 11/23/2021 13:54:43LB/MODLJob #: [id number] Electronically Signed By: MEKA ABBOTT 2021-11-23 14:48:25DYEtfljggusrcg71108SYIQY, ZPQVTBJQFYYLLEPROPKUHVQNV5278-54-75 T13:54:15X0796227401336944664928O06 61478081809323769623JHSZPHQN34113HP WAYLON SNDACIXTOBUTDQQRRQS9895-82-10A78:48 :14 ERIN ACKERMAN [facility] 2021-11-20 20:04:04 30914639DBl2Qw59lCG7uD1aJA/V2QLTJHc nGoLBn1MzBZPtCnBNY5QPyM7Qpd8C9cFeQ9 l7359-08-23O65:04:04Fever ; Weakness present ; Substance abuse ; 49524-2DxzjtkzzramXPHVSRPKEQKDVFED3 .16.840.1.201009.3.1579.27363325221 5.1.100|52582041|2.16.840.1.077802. 10.20.22.2.8AVAvailable for patient ryzjDwfmhomSwcgznwjqCSQIw29 Section [facility](053)983-28492352-6270953926-25-76J97: 04:04 [facility] 2021-11-20 20:04:04 60983576orLvdyxQyp3LAT3NhpzQMxG1S/I ZoF7MNKx7qOIoiV41/u3k9oa89b9gJQ6YL2 16633-18-19L40:04:04+ +--------+ +- -----+-------+ +-------+- ---------+ +| DISCHARGE [...] Routine | November 14, 2021 5:59:00 AM [facility] | IAN WINTERS S | |+ +---------+- [...] Routine | November 14, 2021 6:33:00 AM [facility] | JUJU WHARTON | |+ +---------+- + + -+ + + ---+ +| VANCCON | MED[facility] | PHARMACY VANCOMYCIN CONSULT | ONE TIME | 0 | Routine | November 14, 2021 6:36:00 AM [facility] | JUJU WHARTON | |+ +---------+- + + -+ + + ---+ +| BENOITEN | HUSSEIN | CHAPLAIN JETER | ONE TIME | 0 | Routine | November 14, 2021 8:03:00 AM UTC | IAN WINTERS S | |+ +---------+- + + -+ + + ---+ +| 66879-9 | LOINC | Basic metabolic 2000 panel - Serum or Plasma | IN AM | 3 | Routine | November 16, 2021 9:00:00 AM UTC | [facility] | |+ +---------+- + + -+ + + ---+ +| 31883-9 | LOINC | Basic metabolic 2000 panel - Serum or Plasma | IN AM | 0 | Routine | November 16, 2021 9:00:00 AM UTC | [facility] | |+ +---------+- + + -+ + + ---+ +| 46649-0 | LOINC | Basic metabolic 2000 panel - Serum or Plasma | IN AM | 0 | Routine | November 17, 2021 9:00:00 AM UTC | [facility] | |+ +---------+- + + -+ + + ---+ +| 03902-9 | LOINC | Basic metabolic 2000 panel - Serum or Plasma | IN AM | 0 | Routine | November 18, 2021 9:00:00 AM UTC | [facility] | |+ +---------+- + + -+ + + ---+ +| 82970-9 | LOINC | Magnesium [Mass/volume] in Serum or Plasma | IN AM | 1 | Routine | November 16, 2021 9:00:00 AM UTC | [facility] | |+ +---------+- + + -+ + + ---+ +| 28059-8 | LOINC | CBC W Auto Differential panel - Blood | IN AM | 3 | Routine | November 16, 2021 9:00:00 AM UTC | [facility] VILLAOTROOAH [facility] | |+ +---------+- + + -+ + + ---+ +| 18817-2 | LOINC | CBC W Auto Differential panel - Blood | IN AM | 0 | Routine | November 18, 2021 9:00:00 AM UTC | [facility] VILLATOROOAH [facility] | |+ +---------+- + + -+ + + ---+ +| CONSULT3 | HUSSEIN | CONSULT MD | ONE TIME | 0 | Routine | November 16, 2021 6:34:00 PM UT | SANGEETA MULLER | |+ +---------+- + + -+ + + ---+ +| 600-7 | LOINC | Bacteria identified in Blood by Culture | ONE TIME | 0 | Routine | November 16, 2021 10:06:00 PM [facility] | SANGEETA MULLER | |+ +---------+- + + -+ + + ---+ +| 600-7 | LOINC | Bacteria identified in Blood by Culture | ONE TIME | 0 | Routine | November 16, 2021 10:06:00 PM UT | SANGEETA MULLER | |+ +---------+- + + -+ + + ---+ +| 61641-6 | LOINC | CBC W Auto Differential panel - Blood | IN AM | 1 | Routine | November 17, 2021 9:00:00 AM [facility] | SANGEETA MULLER | |+ +---------+- + + -+ + + ---+ +| ADMINPT | MEDHOST | ADMIT TO INPATIENT STATUS | ONE TIME | 0 | Routine | November 17, 2021 3:05:00 PM UT | IAN Roblero | |+ +---------+- + + -+ + + ---+ +| 600-7 | LOINC | Bacteria identified in Blood by Culture | ONE TIME | 0 | Routine | November 17, 2021 6:44:00 PM UTC | KATHIA HOLBROOKD - RES | |+ +---------+- + + -+ + + ---+ +| 600-7 | LOINC | Bacteria identified in Blood by Culture | ONE TIME | 0 | Routine | November 17, 2021 6:44:00 PM UTC | QAISAR LUCERO - RES | |+ +---------+- + + -+ + + ---+ +| CONSULT3 | HUSSEIN | CORONA MOODY | ONE TIME | 0 | Routine | November 17, 2021 10:02:00 PM [facility] | SANGEETA MULLER | |+ +---------+- + + -+ + + ---+ +| 600-7 | LOINC | Bacteria identified in Blood by Culture | ONE TIME | 0 | Routine | November 18, 2021 9:00:00 AM [facility] | KATHIA LUCERO - COOKIE | |+ +---------+- + + -+ + + ---+ +| 600-7 | LOINC | Bacteria identified in Blood by Culture | ONE TIME | 0 | Routine | November 18, 2021 9:00:00 AM UT | KATHIA LUCERO - RES | |+ [...] 2021 1:00:00 PM UTC | [facility] DINH [facility] | |+ +---------+- + + -+ + + ---+ +| CONSENT | MEDHOST | PROCEDURE TO BE PERFORMED | ONE TIME | 0 | Routine | November 20, 2021 7:00:00 PM UTC | [facility] SMITHN [facility] | |+ +---------+- + + -+ + [...] 20, 2021 1:50:00 PM UTC | RADHA KNOX | |+ +---------+- + + -+ + + ---+ +| 2104- | LOINC | Choriogonadotropin [Moles/volume] in Semen | ONE TIME | 0 | DANIEL | November 20, 2021 1:52:00 PM [facility] | KENTON BARRIOS [facility] | |+ +---------+- + + -+ + + ---+ ++ -------+--------+ +---- ----+ + + | SCHEDULED PROCEDURES | | | | | || Code | System | Description | Status | Scheduled Date | Updated By |+ +======== + +========+ =====+ +| Patient scheduled procedure information is not available. | | | | | |+ +-------- + +--------+ -----+ +02121-6Mqgb of TreatmentLNTREATMENT PLANTXT2.16.840.1.757422.3.1579.777 055537698.1.100|80833352|2.16.840.1 .286481.10.20.22.2.10AVAvailable for patient zxgvXxqvatsIrimnjcdlYZOVk37 Section NarrativeNARRATIVEFormatted C-CDA narrative textGenelima [facility] hospital [facility]762-82927468-2141564320-53-98L10: 04:04 [facility] 2021-11-20 20:04:04 74307313xSETeUY5/zl4M6wOxfmOptaI9Ax gMVF5DDH7ZnZ324leEnJPcGtzjrDoAQooLa +5064-28-80W93:04:04PATIENT GOALS+ + --+ +| Goal | Assigned [...] WITHOUT DIFFICULTY. | | |+ + +- +36241-8KpupeVCYVFRQKTR6 .16.840.1.291731.3.1579.23779621165 5.1.100|88949848|2.16.840.1.434454. 10.20.22.2.60AVAvailable for patient shsjRojbwctOdzasrkwyIWSDj43 Section NarrativeNARRATIVEFormatted C-CDA narrative textV[facility](295)709-91757519-4273018248-44-54J82: 04:04 [facility] 2021-11-20 15:07:40 UMjitgogoql414511tcXHayRIlWDd/5UQxc ylbvH98KgUh2a+/9YXrFDZKmKDk8WwEQG98 da/D4nTP2L93132-20-79V38:07:[address] [address] Patient Name: CRISTIAN February Patient#: [id number] Date: 11/17/2021 of : 1985 Age/Gender: 36/FHSSV/RM/BED: [place] [address]/AAdmitting Phys: Chris Sosa MD OPERATIVE NOTE DATE OF SURGERY: 11/20/2021 SURGEON: LISETTE GARCIA, PROCEDURE PERFORMEDTransesophageal echocardiogram. HISTORY OF PRESENTING ILLNESSMs. [...] of thedevice [place] likely require [place] to [place]. We will consult theCardiovascular surgeons here for evaluation of the tricuspid valve andtemporarypacing catheters if this is able to be achieved at this institution.Legally authenticated by RADHA KNOX 2021-11-21 03:04:09 LISETTE GARCIA DO TT: 11/20/2021 15:07:40/BROLChase #: [id number] Authenticated by:Lisette Garcia D.O. on 11/21/2021 03:04 PM DENTAL RECEPTIONIST Legally authenticated by RADHA KNOX 2021-11-21 03:04:09OPOperative iovuuf98163OMUJBJ, THSAMOAMHDQHEKVL6002-34-33F16:07:40 [id number] 69554011902HZEIPMTV55168EDZEOD, UIGSARIEBHKKALJAN1713-77-26V80:05:5 3 LISETTE GARCIA 2021-11-19 18:15:25 GEtzajgqpyd098915a5bM+4nK8HLrkcRwiB 7izexS5D9idJSdMPcTySobhUvKAqviZIIM5 EsHfuwK4r8M1153-50-76E11:15:25 [facility] [place] [address] Patient Name: LUZ MARINA FOSTER Patient#: [id number] Date: 11/17/2021 of : 1985 Age/Gender: 36/FHSSV/RM/[place] [facility] [place]/AAdmitting Phys: Chris Sosa MD CONSULTATION NOTE DATE [...] LISETTE GARCIA DO TT: 11/19/2021 18:15:25AM/MODLJob #: [id number] Authenticated by:Lisette Garcia D.O. on 11/21/2021 03:02 PM DENTAL RECEPTIONIST Legally authenticated by RADHA KNOX 2021-11-21 03:02:71TXQllgbyacnhkk93369JMUJUI, OXBTIRVRDTYYDOMR6634-25-63Q67:15:25 [id number], NOZTNKRUIPGPLHWMJ4580-23-27T70:04:0 5 LISETTE GARCIA MIKE 2021-11-17 18:27:35 TTbzxfalkia5486697/rr8Fd4G+x5vrA8it nOOngSnCbgRV0yq6d8MDghnfYZf4HBbplrv NXVp9X0ap1g8336-53-35T82:27:35BAI [address] [address] DIAGNOSTIC IMAGING REPORT Patient Name: February NDate of Service: 43-43-7637Uqo: 36 Sex: F Order #: [id number] Room: [address] [place] [address]: 1985 X-Ray Number: [id number] Record Number: [id number] Hospital Number: [id number] Physician: CHRIS SOSA Physician: PUNEET LOGAN Abdominal [...] PM Legally authenticated by RUBI VIEIRA 2021-11-17 18:27:19CSSuxnkacnrhmagwcln88767OXI ANA MURPHYDBJDSRWUBDRQM9860-22-83G40:27:35ER4 [id number], MDYYMFXWODXQXIGR3857-91-82G42:30:02 TIMOTEO VENEGAS [facility] 2021-11-15 11:53:58 NBqxgwpszpj024710oEQC8X4Q5QsKxCpzLo 0d21SgU9+Jgyd37E6fDZuEw2VznlRtOjs7t cTa25ppUWyG5959-13-08P20:53:58[place] [address] DIAGNOSTIC IMAGING REPORT Patient Name: CRISTIAN, Februaryate of Service: 17-56-2661Fqu: 36 Sex: F Order #: [id number] Room: [facility] 2NWDOB: 1985 X-Ray Number: [id number] Record Number: [id number] Hospital Number: [id number] Physician: CHRIS SOSA SOrdertang Physician: KATHRYN VIDAL - CHEST 1 VIEW [...] AM Legally authenticated by ARELI IRBY 2021-11-15 11:53:11NALazgmltcwdqaerqup15958APR [place] ANDRADEOPGTCNIXEVHAHWYXMHQX8418-73-58I76:5 3:[id number] [id number] SUREKHA MenjivarKTWNYXWLROKUPCSVFT8854-23-28F54:56: 15 [facility] 2021-11-13 19:20:00 ZQkcjsqpsxg7610602jFP7YqPi3VA4VRQrb 0wRp2Ie8u1P1eDRmUpK+gwNqm7FA9NsM/6Y brew/2qx5x/6824-80-32L41:20:00[facility] [place] [address] DIAGNOSTIC IMAGING REPORT Patient Name: Februaryate of Service: 34-49-7312Nil: 36 Sex: F Order #: [id number] [facility] 1985 [facility] Number: [id number] Record Number: [id number] Hospital Number: [id number] Physician: Adriana MATUTE Physician: ARTHUR MATUTE PROCEDURE: [...] 21:21:20 Legally authenticated by MARCO MILLS 2021-11-13 19:20:54BWDczalsnianhzctrrc76041IXT SERINA WUVYKFBCJITRRGOLFU4143-09-07M44:20:00 [id number], HNHPKUETZNYKYZSNU1686-99-46P14:22:3 8 LINA LARA MIKE 2020-06-30 18:07:47 NMxsaqkcgfq806303CYwJ6KTG7DTei1XPg3 8SHCBmT7Ap/yj2Qo1+C/smxFVJX/g679uls m3ycwrvnUW89466-31-91G81:07:47BAPTI [place], [place] [address] DIAGNOSTIC IMAGING REPORT Patient Name: CRISTIAN FEBRUARY NDate of Service: 94-81-3763Cif: 35 Sex: F Order #: 1500 [facility] 1985 [facility] Number: [id number] Record Number: [id number] Hospital Number: [id number] Physician: Sangeeta ORELLANA Physician: LULA COFFEY HIP [...] PM Legally authenticated by ARELI IRBY 2020-06-30 18:07:40HPWmgjbjkqziyffwfdp51522OTU AMAYA ANDRADERFWVRYDSLOYZLGEAXSNK3465-32-27M19:0 7:[id number] [id number] SUREKHA MenjivarVTVVANRYRHABJHUGEV3178-90-19A23:10: 29 SUREKHA [facility] 2020-06-30 18:06:55 VNgihodwitr967971G4nmdCpsPomKefzQIH +YmDY2OJl5DOIunwU7lGoehmr6C6eTvcdHB MjsLEtrL+oF1531-47-67Z53:06:55[place] [address] DIAGNOSTIC IMAGING REPORT Patient Name: CRISTIAN FEBRUARY NDate of Service: 04-65-1001Fmv: 35 Sex: F Order #: 1200 Room: [facility]: 1985 X-Ray Number: [id number] Record Number: [id number] Hospital Number: [id number] Physician: Sangeeta ORELLANA Physician: LULA COFFEY CHEST [...] PM Legally authenticated by ARELI IRBY 2020-06-30 18:06:15ZZKsojfvtmbtlnyiosd94696LDW [place] ANDRADEMIWSGJFRXERKDEIGSJIO9161-22-22L28:0 6:90QZ195702702258624276470XZ658652 [id number] N, JGANTHSAJXHMQBECSR6613-25-86R56:10: 14 [facility] 2020-06-30 17:47:25 GIxupfqjyvl704235dFKCiawAS5HfqtB4O6 xeIK+aFL08XsyXect8+dCe2uRBOu0nN2HUY lOaSeKK9AiD1503-14-09O95:47:25[place] [address] DIAGNOSTIC IMAGING REPORT Patient Name: February NDate of Service: 60-19-4744Ube: 35 Sex: F Order #: 900 Room: [facility]: 1985 X-Ray Number: [id number] Record Number: [id number] Hospital Number: [id number] Physician: Sangeeta ORELLANA Physician: LULA COFFEY CT [...] PM Legally authenticated by ARELI IRBY 2020-06-30 17:47:69WMNgmxxlrggyruaqtlg77419KVQ [place] ANDRADEQOZOZYLRTTCXYSSWJNDC4177-13-54E42:4 7:[id number] [id number] OttoSUREKHAGZJCQGLHPPYJQVFNUE2107-98-72D61:49: 41 SUREKHA [facility] 2020-06-30 17:47:25 RVqpwwpesab860508Spu24Zjm4fhnEr/ead Gv1IN+T7W9Y41PT1bOfLNlA+Z5cbQcl/U1I d6X0szgzGBT3472-12-11Q95:47:25[place] [address] DIAGNOSTIC IMAGING REPORT Patient Name: February NDate of Service: 36-37-6588Zwq: 35 Sex: F Order #: 800 [facility] 1985 [facility] Number: [id number] Record Number: [id number] Hospital Number: [id number] Physician: Sangeeta ORELLANA Physician: LULA COFFEY CT [...] PM Legally authenticated by ARELI IRBY 2020-06-30 17:47:29DDKizyjlmhlowcpcnbg75580GDP [place] ANDRADEOSBSUOYLHSBDOJLEVXGB0367-72-77Y05:4 7:[id number] [id number] SUREKHA MenjivarLNYLWSYPRNELVICZYV0714-55-16A26:50: 02 [facility] 2020-06-30 17:36:19 TCewyyynqdx8781448YW6O1H7VquBbSSaEz suHaLAQ6Lw/TJvMSjd//YTXRr8ZfYOQ5J04 6HZRQmN3fEn1784-66-91Q20:36:19[place] [address] DIAGNOSTIC IMAGING REPORT Patient Name: February NDate of Service: 75-22-2281Dbs: 35 Sex: F Order #: 700 Room: [facility]: 1985 X-Ray Number: [id number] Record Number: [id number] Hospital Number: [id number] Physician: Sangeeta ORELLANA Physician: LULA COFFEY CT [...] PM Legally authenticated by ARELI IRBY 2020-06-30 17:36:36DODmbuzttegcbhesqpk96509VDE [place] ANDRADEEMEQNYJPAWHRSELDJMMJ1407-66-37Z97:3 6:[id number] [id number] SUREKHA MenjivarQCEAJIXAFPFJIVNGIG3988-27-19M55:38: 50 SUREKHA [facility] 2020-06-30 17:36:19 VBszixcgbhz0395024CD/+R5jCA9W1EHZt3 9/3S2bPjr/eLdNsm/tqNGMEGTUD8vCkkrnl Yd9H//qlS/C8529-17-04L23:36:19BAPTI [address] [address] DIAGNOSTIC IMAGING REPORT Patient Name: February NDate of Service: 44-47-3192Ctd: 35 Sex: F Order #: 600 Room: [facility]: 1985 X-Ray Number: [id number] Record Number: [id number] Hospital Number: [id number] Physician: Sangeeta ORELLANA Physician: LULA COFFEY CT [...] PM Legally authenticated by ARELI IRBY 2020-06-30 17:36:64DXZshpbtbnvxlcyhtol22916GPY [place] ANDRADENVARMYTQALXVYJCNZZSM3209-66-24P22:3 6:[id number] [id number] OttoSUREKHACUTCSXYOTERJALFVXZ4630-92-19Q84:38: 50 SUREKHA [facility] 2020-03-31 10:11:23 NHohydezjgn705152YJz/FLZQqkGi3+/k/w M1BrPdi0wGqxufDIwnYacbNjNPCVe7wMZym TNS1SOzZVKq5759-96-00P61:11:23[place] [address] DIAGNOSTIC IMAGING REPORT Patient Name: February NDate of Service: 72-13-2280Wgy: 35 Sex: F Order #: 200 Room: [facility]: 1985 X-Ray Number: [id number] Record Number: [id number] Hospital Number: [id number] Physician: AUNDREA KOWALSKIOrdering Physician: AUNDREA KOWALSKI HISTORY: [...] AM Legally authenticated by ARELI IRBY 2020-03-31 10:11:35USNzacldgyakbozkvqr72927RJE SUREKHA ANDRADEMDTCQPBJYTRFHVQMQZBF9195-48-36J02:1 1:[id number] [id number] N, PHTQLUVQGDKOLMNNKT5428-70-77D03:13: 56 ARELI [facility] 2020-03-25 13:17:54 RSgxcnqeiri351078zmHLoWDvxmLNrsw3xX uBBIbokXOi1rjx+rOfNO7Gtud0plkTx+RXA oO59CHF5f3f8881-39-13O63:17:54[place] [address] DIAGNOSTIC IMAGING REPORT Patient Name: CRISTIAN Februaryate of Service: 96-44-4184Eqj: 35 Sex: F Order #: 600 Room: [facility]: 1985 X-Ray Number: [id number] Record Number: [id number] Hospital Number: [id number] Physician: HOMERO PARRAOrdertang Physician: HOMERO PARRA CHEST 1 VIEW PORTABLE [...] PM Legally authenticated by ARMANI LANE 2020-03-25 13:17:52CYTbpdyjrcfbllhaxqz79336YMA BHARTI KrugerSHYJSRQGKMVSCKQRWB8910-63-53Q16:17: [id number], KOBMNUFPXKPQXFDTHQS4844-08-55Z94:20 :28 ARIANA LOMELI IMKE 2018-04-13 14:04:11 KJtnkvzpecv84808+i8E1biZGzqytTSx+6k TGl0fSmKsGsSj/hTkAjPimuVUJXTKcD6VdM +9R1IEyIeL7641-46-75W17:04:11 [place] [address] Patient Name: CRISTIAN February Patient#: [id number] Date: 04/12/2018 Date: 04/13/2018 Age/Gender: 33/FDate of : 1985S//BED: [facility]FAdmitting Phys: Cl Marino MD DISCHARGE SUMMARY DATE [...] a friend. [facility] or other providers, stating she does not want medication. She also had no prescriptions in her time here. She is agreeable to this plan.DICTATED BY: IMAN Vann MD TT: 04/13/2018 14:04:11/MODLJob #: [id number] Authenticated by:Cl Marino M.D. On 04/13/2018 03:49 PM CDT Legally authenticated by JOE CHACON 2018-04-13 03:49:35DSDischar ueuqvjh13231VSQT, SRXMVBQIBEZJMLEXMV4225-66-24V27:04: [id number], ZEXTBRLWTYYZOLNZKJG7238-19-43K69:01 :17 BALJIT PABON
[2024-02-09] MEDS ORDERED: MORPHINE 2 MG/ML SYR ONE ×3 (12:47→22:14)
[2024-02-09] MEDS ORDERED: FUROSEMIDE 40 MG/4 ML VIAL ONE (12:47)
[2024-02-09 13:16] LABS: Absolute Basophils 0.1 K/uL (0-0.5); Absolute Eosinophils 0.3 K/uL (0-0.5); Absolute Lymphocytes (CBC) 3.6 K/uL (0.7-4.9); Absolute Neutrophil 4.8 K/uL (1.8-8.0); Basophils % 1.1 % (0-1.3); Eosinophils % 2.8 % (0-4.4); Hematocrit 46.9 % (36.0-45.0); Hemoglobin 15.7 g/dL (12.0-15.0); Lymphocytes % 37.1 % (15.3-44.8); MCH 33.3 pg (27.0-35.0); MCHC 33.6 g/dL (32.0-36.0); MCV 99.2 fL (80-100); MPV 8.2 fL (7.6-11.3); Monocytes % 9.9 % (3.3-12.3); Neutrophils % 49.1 % (41.7-73.7); Platelets 207 thou/uL (152-406); RBC Red Blood Cell Count 4.72 M/uL (3.86-4.86); Red Cell Distribution Width 13.3 % (12.1-15.2)
[2024-02-09 13:36] LABS: Albumin 3.6 g/dL (3.4-5.0); Albumin/Globulin Ratio 0.6 (1.1-1.8); Bilirubin Direct 0.2 mg/dL (0-0.2); Bilirubin Indirect, Calculated 0.2 mg/dL (0.2-0.8); Bilirubin Total 0.4 mg/dL (0.2-1.0); Globulin 5.9 g/dL (2.3-3.5); Magnesium 2.1 mg/dL (1.6-2.4); Protein, Total 9.5 g/dL (6.4-8.2); Troponin High Sensitivity 5.6 pg/mL (<58.9)
--- NOTE | 2024-02-09 13:39 | RAD REPORT ---
EXAM DESCRIPTION: RADChest Single View02/09/2024 1:15 pm CLINICAL HISTORY: CHEST PAIN COMPARISON: Chest Single View dated 02/08/2024 TECHNIQUE: Portable AP view of the chest. FINDINGS: The lungs are clear. No pneumothorax or effusion. The cardiomediastinal contours are unre markable. 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 IMPRESSION: No acute cardiopulmonary process.
--- NOTE | 2024-02-09 14:59 | RAD REPORT ---
EXAM DESCRIPTION: CT - Abdomen Pelvis W Contrast - 02/09/2024 2:08 pm CLINICAL HISTORY: transaminitis COMPARISON: No comparisons TECHNIQUE: Thin cut axial CT imaging of the abdomen and pelvis was performed following intravenous a dministration of 100 mL Isovue 300. Multiplanar reformats were generated and reviewed. All CT scans are performed using dose optimization technique as appropriate and may include automated exposure control or mA/KV adjustment according to patient size. FINDINGS: Small layering left pleural effusion. Healing/healed left eighth rib fracture. The liver, spleen, adrenal glands, and pancreas show no suspicious findings. Gallbladder was surgical ly removed. Symmetric renal function is seen with no hydronephrosis or suspicious renal mass. No dilated bowel loops or bowel wall thickening. No free air, free fluid or inflammatory stranding. N o hernia, mass or bulky lymphadenopathy. The urinary bladder is without significant finding. No suspicious bony findings. Pelvic hardware in place. Tubal occlusion devices in place. IMPRESSION: No acute intra-abdominal process. Small layering left pleural effusion.
--- NOTE | 2024-02-09 15:14 | ER ---
Nurse's Notes [facility] Young Name: Luz Marina Foster Age: 39 yrs Sex: Female : 1985 Arrival Date: 02/09/2024 Time: 11:37 Bed IW10 Private MD: Mariela Estevez Diagnosis: Chest pain, unspecified;Transaminitis Presentation: 02/08 11:46 Chief complaint: Patient states: chest pain, was seen yesterday, has a prescription for ko1 lasix but has not got it filled. Chest still hurts. Coronavirus screen: At this time, the client does not indicate any symptoms associated with coronavirus-19. Ebola Screen: No symptoms or risks identified at this time. Initial Sepsis Screen: Does the patient meet any 2 criteria? No. Patient's initial sepsis screen is negative. Does the patient have a suspected source of infection? No. Patient's initial sepsis screen is negative. Risk Assessment: Do you want to hurt yourself or someone else? Patient reports no desire to harm self or others. Onset of symptoms was February 09, 2024. 11:46 Method Of Arrival: Ambulatory ko1 11:46 Acuity: RAUL 3 ko1 Triage Assessment: 11:49 General: Appears distressed, Behavior is cooperative, appropriate for age, anxious. ko1 Pain: Complains of pain in chest. Cardiovascular: Reports chest pain. HIMS CODER: 11:49 LMP 01/20/2024, unknown ko1 Historical: - Allergies: 11:49 No Known Allergies; ko1 - Home Meds: 11:49 Metoprolol Tartrate Oral [Active]; ko1 - PMHx: 11:49 Hypertensive disorder; ko1 - PSHx: 11:49 pacemaker; ko1 - Immunization history:: Adult Immunizations unknown. - Social history:: Smoking status: Patient reports the use of cigarette tobacco products, smokes one-half pack cigarettes per day. - Family history:: not pertinent. Screenin:29 [facility] ED Fall Risk Assessment (Adult) History of falling in the last 3 months, kd3 including since admission No falls in past 3 months (0 pts) Confusion or Disorientation No (0 pts) Intoxicated or Sedated No (0 pts) Impaired Gait No (0 pts) Mobility Assist Device Used No (0 pt) Altered Elimination No (0 pt) Score/Fall Risk Level 0 - 2 = Low Risk Oriented to surroundings. Abuse screen: Denies threats or abuse. Denies injuries from another. Nutritional screening: No deficits noted. Tuberculosis screening: No symptoms or risk factors identified. Assessment: 12:01 General: Appears in no apparent distress. uncomfortable, Behavior is calm, cooperative. rs5 Pain: Complains of pain in chest Pain currently is 8 out of 10 on a pain scale. Quality of pain is described as aching, Is continuous. Neuro: Level of Consciousness is awake, alert, obeys commands, Oriented to person, place, time, situation. Cardiovascular: Patient's skin is warm and dry. Rhythm is regular. Respiratory: Respiratory effort is even, unlabored, Respiratory pattern is regular, symmetrical. GI: Abdomen is round non-distended, Abd is soft and non tender X 4 quads. : No signs and/or symptoms were reported regarding the genitourinary system. EENT: No signs and/or symptoms were reported regarding the EENT system. Derm: Skin is intact, Skin is pink, warm \T\ dry. Musculoskeletal: Range of motion: intact in all extremities. 13:01 Reassessment: Patient is alert, oriented x 3, equal unlabored respirations, skin rs5 warm/dry/pink. Patient is alert/active/playful, equal unlabored respirations, skin warm/dry/pink. Patient denies pain at this time. Patient states feeling better. 13:25 General: Appears in no apparent distress. Behavior is calm, cooperative. General: Pt kd3 educated on how to disconnect herself from monitor . Neuro: Level of Consciousness is awake, alert, obeys commands, Oriented to person, place, time, situation. Respiratory: Airway is patent Trachea midline Respiratory effort is even, unlabored, Respiratory pattern is regular, symmetrical. 13:29 Pain: Pain does not radiate. Pain began 1 day ago. kd3 14:05 Reassessment: No changes from previously documented assessment. rs5 15:30 Pain: Complains of pain in chest Pain currently is 6 out of 10 on a pain scale. Is rs5 continuous. Cardiovascular: Rhythm is regular. Respiratory: Respiratory effort is even, unlabored. 15:35 Reassessment: provider notified pt is experiencing pain. rs5 16:40 Reassessment: Patient and/or family updated on plan of care and expected duration. Pain rs5 level reassessed. Patient is alert, oriented x 3, equal unlabored respirations, skin warm/dry/pink. Patient denies pain at this time. Patient states feeling better. Patient states symptoms have improved. 17:55 Reassessment: No changes from previously documented assessment. rs5 18:40 Pain: Complains of pain in chest Pain currently is 7 out of 10 on a pain scale. Quality rs5 of pain is described as aching, Is continuous. 18:42 Reassessment: provider notified pt is experiencing pain. rs5 18:42 Cardiovascular: Rhythm is regular. Respiratory: Respiratory effort is even, unlabored, rs5 Respiratory pattern is regular, symmetrical. 19:43 General: Appears in no apparent distress. uncomfortable, Behavior is calm, cooperative. lg3 Pain: Complains of pain in chest Pain does not radiate. Pain currently is 6 out of 10 on a pain scale. Quality of pain is described as aching, pressure, Is continuous. Pain: Alleviated by nothing. Also complains of no other associated symptoms. Neuro: No deficits noted. Carrasco Agitation-Sedation Scale (RASS): 0 - Alert and Calm Level of Consciousness is awake, alert, obeys commands, Oriented to person, place, time, situation. Cardiovascular: No deficits noted. Reports chest pain, Capillary refill < 3 seconds Clubbing of nail beds is absent JVD is absent Patient's skin is warm and dry. Respiratory: No deficits noted. Airway is patent Trachea midline Respiratory effort is even, unlabored, Respiratory pattern is regular, symmetrical, Breath sounds are clear bilaterally. GI: No deficits noted. No signs and/or symptoms were reported involving the gastrointestinal system. Abdomen is round non-distended. : No deficits noted. No signs and/or symptoms were reported regarding the genitourinary system. EENT: No deficits noted. No signs and/or symptoms were reported regarding the EENT system. Derm: No deficits noted. No signs and/or symptoms reported regarding the dermatologic system. Skin is intact, is healthy with good turgor, Skin is dry, Skin is normal, Skin temperature is warm. Musculoskeletal: No deficits noted. No signs and/or symptoms reported regarding the musculoskeletal system. Circulation, motion, and sensation intact. Range of motion: intact in all extremities. 02/09 00:18 Reassessment: Patient appears in no apparent distress at this time. No changes from lg3 previously documented assessment. Patient and/or family updated on plan of care and expected duration. Pain level reassessed. Patient is alert, oriented x 3, equal unlabored respirations, skin warm/dry/pink. Vital Signs: 02/08 11:46 BP 122 / 80; Pulse 85; Resp 19; Temp 97.2; Pulse Ox 97% on R/A; ko1 13:28 BP 128 / 75; Pulse 73; Resp 19; Pulse Ox 100% on R/A; kd3 15:53 BP 134 / 88; Pulse 78; Resp 18; Pulse Ox 99% on R/A; rs5 18:24 BP 137 / 87; Pulse 75; Resp 18; Pulse Ox 99% on R/A; rs5 19:43 BP 109 / 72; Pulse 73; Resp 17 S; Pulse Ox 99% on R/A; lg3 02/09 00:18 BP 121 / 79; Pulse 76; Resp 18 S; Temp 97.8(O); Pulse Ox 100% on R/A; lg3 ED Course: 02/08 11:40 Patient arrived in ED. mr 11:40 Mariela Estevez is Private Physician. mr 11:49 Triage completed. ko1 11:49 Arm band placed on right wrist. Patient placed in an exam room, on a stretcher, on ko1 senior research project manager, on pulse oximetry, Patient notified of wait time. 11:59 Will Curry MD is Attending Physician. rt 12:05 Patient has correct armband on for positive identification. Bed in low position. Call rs5 light in reach. Side rails up X2. 12:44 Thai Kowalski, GITA is Primary Nurse. rs5 13:16 XRAY Chest (1 view) In Process Unspecified. EDMS 13:29 Client placed on continuous cardiac and pulse oximetry monitoring. NIBP monitoring kd3 applied. manufacturing assembler on. Pulse ox on. NIBP on. 13:29 No provider procedures requiring assistance completed. Inserted saline lock: 20 gauge kd3 in right forearm, using aseptic technique. Patient maintains SpO2 saturation greater than 95% on room air. 14:10 CT Abd/Pelvis - IV Contrast Only In Process Unspecified. EDMS 15:14 Chepe Dorman MD is Hospitalizing Provider. rt 16:43 transfer initiated with [facility] transfer center. em1 19:43 Door closed. Noise minimized. Warm blanket given. Family accompanied patient. lg3 02/09 00:17 Patient transferred, IV remains in place. lg3 Administered Medications: 02/08 13:25 Drug: Furosemide IVP 40 mg IVP once; give over 2 minutes Route: IVP; Site: right kd3 forearm; 14:00 Follow up: Response: No adverse reaction rs5 13:25 Drug: morphine IVP or IV 2 mg IVP once over 4 mins Route: IVP; Infused Over: 4 mins; kd3 Site: right forearm; 14:00 Follow up: Response: No adverse reaction; Pain is decreased rs5 15:40 Drug: traMADol PO 50 mg PO once Route: PO; rs5 16:20 Follow up: Response: No adverse reaction rs5 18:52 Drug: morphine IVP or IV 2 mg IVP once over 4 mins Route: IVP; Infused Over: 4 mins; rs5 Site: left antecubital; 19:43 Follow up: Response: No adverse reaction; No change in condition lg3 22:23 Drug: morphine IVP or IV 2 mg IVP once over 4 mins Route: IVP; Infused Over: 4 mins; lg3 Site: right forearm; 02/09 00:17 Follow up: Response: No adverse reaction lg3 Medication: 02/08 13:30 VIS not applicable for this client. kd3 Outcome: 15:14 Decision to Hospitalize by Provider. rt 17:52 ER care complete, transfer ordered by . rt 02/09 00:17 Transferred by ground EMS to [facility], Transfer form completed. lg3 Condition: stable Instructed on the need for admit, Demonstrated understanding of instructions, 00:18 Patient left the ED. lg3 Signatures: Dispatcher [employer] EDMS Bora Bailey, Reg Reg mr LaboySean em1 Sally Santos RN RN lg3 An Garcia RN RN kd3 Taylor Garza RN RN ko1 Will Curry MD MD rt Thai Kowalski RN RN rs5
--- NOTE | 2024-02-09 15:15 | EDPHYS ---
Physician Documentation [facility] [place] Name: Luz Marina Foster Age: 39 yrs Sex: Female : 1985 Arrival Date: 02/09/2024 Time: 11:37 Bed IW10 Private MD: Mariela Estevez ED Physician Will Curry HPI: 02/08 13:55 This 39 yrs old Female presents to ER via Ambulatory with complaints of Chest Pain. rt 13:55 Patient presents to the ED with a chest pain. Patient was in the ED yesterday for chest rt pain, negative workup, subsequently discharged. States that the pain has persisted. She has not yet filled her Lasix. She denies other acute complaints at this time, symptoms are moderate in severity, no other aggravating or alleviating factors.. 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 - Social history:: Smoking status: Patient reports the use of cigarette tobacco products, smokes one-half pack cigarettes per day. - Family history:: not pertinent. ROS: 13:55 Constitutional: Negative for fever, chills, and weight loss, Respiratory: Negative for rt shortness of breath, cough, wheezing, and pleuritic chest pain, Abdomen/GI: Negative for abdominal pain, nausea, vomiting, diarrhea, and constipation, MS/Extremity: Negative for injury and deformity, Skin: Negative for injury, rash, and discoloration, Neuro: Negative for headache, weakness, numbness, tingling, and seizure, 13:55 Cardiovascular: Positive for chest pain, Negative for edema, Exam: 13:55 ECG was reviewed by the Attending Physician. rt 13:55 Constitutional: This is a well developed, well nourished patient who is awake, alert, rt and in no acute distress. Head/Face: Normocephalic, atraumatic. Chest/axilla: Normal chest wall appearance and motion. Nontender with no deformity. No lesions are appreciated. Cardiovascular: Regular rate and rhythm with a normal S1 and S2. No gallops, murmurs, or rubs. Normal PMI, no JVD. No pulse deficits. Respiratory: Lungs have equal breath sounds bilaterally, clear to auscultation and percussion. No rales, rhonchi or wheezes noted. No increased work of breathing, no retractions or nasal flaring. Abdomen/GI: Soft, non-tender, with normal bowel sounds. No distension or tympany. No guarding or rebound. No evidence of tenderness throughout. Skin: Warm, dry with normal turgor. Normal color with no rashes, no lesions, and no evidence of cellulitis. MS/ Extremity: Pulses equal, no cyanosis. Neurovascular intact. Full, normal range of motion. Neuro: Awake and alert, GCS 15, oriented to person, place, time, and situation. Cranial nerves II-XII grossly intact. Motor strength 5/5 in all extremities. Sensory grossly intact. Cerebellar exam normal. Normal gait. Vital Signs: 11:46 BP 122 / 80; Pulse 85; Resp 19; Temp 97.2; Pulse Ox 97% on R/A; ko1 13:28 BP 128 / 75; Pulse 73; Resp 19; Pulse Ox 100% on R/A; kd3 15:53 BP 134 / 88; Pulse 78; Resp 18; Pulse Ox 99% on R/A; rs5 18:24 BP 137 / 87; Pulse 75; Resp 18; Pulse Ox 99% on R/A; rs5 19:43 BP 109 / 72; Pulse 73; Resp 17 S; Pulse Ox 99% on R/A; lg3 02/09 00:18 BP 121 / 79; Pulse 76; Resp 18 S; Temp 97.8(O); Pulse Ox 100% on R/A; lg3 MDM: 02/08 12:36 Patient medically screened. rt 15:14 Differential diagnosis:. rt 15:20 HEART Score: History: Moderately Suspicious (1), ECG: Non specific repolarization rt disturbance / LBTB / PM (1), Age: < or = 45 years (0), Risk Factors: > or = 3 Risk factors for atherosclerotic disease (2), Troponin: < or = 1 x Normal Limit (0), Total Score = 4. Data reviewed: vital signs, nurses notes, lab test result(s), EKG, radiologic studies. Consideration of Admission/Observation Patient was admitted/placed on observation. I considered the following discharge prescriptions or medication management in the emergency department Medications were administered in the Emergency Department. See MAR. Independent interpretation of the following test(s) in the Emergency Department CT Scan: My interpretation is No bowel obstruction seen on my interpretation of CT scan images. Test considered but Not performed: Ultrasound Remote cholecystectomy, ultrasound is not indicated. Care significantly affected by the following chronic conditions: Hypertension. Counseling: I had a detailed discussion with the patient and/or guardian regarding the historical points, exam findings, and any diagnostic results supporting the discharge/admit diagnosis, lab results, radiology results, the need for further work-up and treatment in the hospital. Response to treatment: the patient's symptoms have markedly improved after treatment. 18:02 ED course: After evaluation, hospitalist recommends transfer. I discussed with the rt disintegrator at [facility]. Patient was informed of positive hepatitis C finding.. 02/08 12:41 Order name: Basic Metabolic Panel; Complete Time: 13:47 rt 02/08 12:41 Order name: CBC with Diff; Complete Time: 13:47 rt 02/08 12:41 Order name: LFT's; Complete Time: 13:47 rt 02/08 12:41 Order name: Magnesium; Complete Time: 13:47 rt 02/08 12:41 Order name: NT PRO-BNP; Complete Time: 13:47 rt 02/08 12:41 Order name: Troponin HS; Complete Time: 13:47 rt 02/08 12:41 Order name: Test, Serum; Complete Time: 13:47 rt 02/08 15:11 Order name: Hep Panel; Complete Time: 17:58 rt 02/08 15:11 Order name: Acetaminophen; Complete Time: 16:21 rt 02/08 16:22 Order name: Blood Culture* rt 02/08 12:41 Order name: XRAY Chest (1 view); Complete Time: 13:47 rt 02/08 13:54 Order name: CT Abd/Pelvis - IV Contrast Only; Complete Time: 15:00 02/08 12:41 Order name: EKG; Complete Time: 12:42 rt 02/08 12:41 Order name: Cardiac monitoring; Complete Time: 12:49 rt 02/08 12:41 Order name: EKG - Nurse/Tech; Complete Time: 12:49 rt 02/08 12:41 Order name: IV Saline Lock; Complete Time: 13:45 rt 02/08 12:41 Order name: Labs collected and sent; Complete Time: 13:45 rt 02/08 12:41 Order name: O2 Per Protocol; Complete Time: 12:49 rt 02/08 12:41 Order name: O2 Sat Monitoring; Complete Time: 12:49 rt EC:55 Rate is 78 beats/min. Rhythm is regular, Paced with ST, T waves, conduction consistent rt with ventricularly paced rhythm. Left axis deviation noted. No Q waves. Administered Medications: 13:25 Drug: Furosemide IVP 40 mg IVP once; give over 2 minutes Route: IVP; Site: right kd3 forearm; 14:00 Follow up: Response: No adverse reaction rs5 13:25 Drug: morphine IVP or IV 2 mg IVP once over 4 mins Route: IVP; Infused Over: 4 mins; kd3 Site: right forearm; 14:00 Follow up: Response: No adverse reaction; Pain is decreased rs5 15:40 Drug: traMADol PO 50 mg PO once Route: PO; rs5 16:20 Follow up: Response: No adverse reaction rs5 18:52 Drug: morphine IVP or IV 2 mg IVP once over 4 mins Route: IVP; Infused Over: 4 mins; rs5 Site: left antecubital; 19:43 Follow up: Response: No adverse reaction; No change in condition lg3 22:23 Drug: morphine IVP or IV 2 mg IVP once over 4 mins Route: IVP; Infused Over: 4 mins; lg3 Site: right forearm; 02/09 00:17 Follow up: Response: No adverse reaction lg3 Disposition Summary: 02/09/24 17:52 Transfer Ordered Notes: Transfer Location: [facility] rt Reason: Higher level of care rt Condition: Stable(02/09/24 17:52) rt Problem: new(02/09/24 17:52) rt Symptoms: have improved(02/09/24 17:52) rt Accepting Physician: (02/10/24 00:18) lg3 Diagnosis - Chest pain, unspecified rt - Transaminitis rt Forms: - Medication Reconciliation Form rt - SBAR form rt Signatures: Dispatcher [employer] EDBinh Chao, DIRECTOR OF MUSIC THERAPY-C DIRECTOR OF MUSIC THERAPY-Cla1 Sally Santos, RN RN lg3 An Garcia, RN RN kd3 Taylor Garza, RN RN ko1 Will Curry MD MD rt Thai Kowalski, RN RN rs5 Corrections: (The following items were deleted from the chart) 02/08 17:51 15:14 Observation rt rt 17: 15:14 Chepe Dorman rt rt 17: 15:14 Telemetry/MedSurg (observation) rt rt 17: 15:14 Stable rt rt 17: 15:14 new rt rt 17: 15:14 have improved rt rt 17:51 15:14 Standard rt rt 17:51 15:14 rt rt 17:51 15:14 Chest pain rt rt 17:51 15:14 Transaminitis rt rt 02/09 00:18 02/08 17:52 DrNola rt lg3
[2024-02-09] MEDS ORDERED: TRAMADOL HCL 50 MG TAB ONE (15:42)
[2024-02-09 17:52] LABS: Hepatitis B Core IgM Nonreactive (Nonreactive); Hepatitis B surface AG Interp. Nonreactive (Nonreactive); Hepatitis C Virus Ab Reactive (Nonreactive)
[2024-02-09 17:53] LABS: HBsAG Nonreactive Report Report
[2024-02-10 01:15] VITALS: BP 121/79; TEMP 97.8; O2SAT 100
--- NOTE | 2024-02-10 11:54 | EKG ---
Test Date: 2024-02-09 Test Time: 11:02:31 Bead Flipper: SHANNA MEASUREMENT RESULTS: Intervals: Rate: 78 SD: 194 QRSD: 180 QT: 460 QTc: 524 [place]: P: 30 SD: 194 QRS: -58 T: 115 INTERPRETIVE STATEMENTS: Normal sinus rhythm Left axis deviation Left ventricular hypertrophy with QRS widening and repolarization abnormality Abnormal ECG Compared to ECG 02/08/2024 09:31:31 Left-axis deviation now present Left ventricular hypertrophy now present Early repolarization now present Ventricular-paced complex(es) or rhythm no longer present Atrial-sensed ventricular-paced complex(es) or rhythm no longer present Electronically Signed On 02-10-24 11:49:39 CDT by Pedro Pablo Martniez
== END 2024-02-10 00:18 | disposition short-term general hospital (02) ==
LOC: ER 11:37
DX: R07.9 Chest pain, unspecified (principal); R74.01 Elevation of levels of liver transaminase levels; I10 Essential (primary) hypertension; F17.210 Nicotine dependence, cigarettes, uncomplicated; Z95.0 Presence of cardiac pacemaker
CPT/HCPCS: 93005; 87040 ×2; 85025; 80048; 36415; 83735; 84703; 80076; 84484; 83880; 80074; 74177; 71045; 99285; 80143; Q9967; J1940; J2270 ×3

== ENCOUNTER 2024-04-12 14:50 | Observation (INO) | payer OTHER ==
[2024-04-12] MEDS ORDERED: NITROGLYCERIN 0.4 MG/TAB SL ONE (15:51)
[2024-04-12] MEDS ORDERED: ASPIRIN 81 MG CHEWABLE TABLET ONE (15:51)
[2024-04-12 16:32] LABS: Absolute Basophils 0.1 K/uL (0-0.5); Absolute Eosinophils 0.3 K/uL (0-0.5); Absolute Lymphocytes (CBC) 3.4 K/uL (0.7-4.9); Absolute Monocytes 0.8 K/uL (0.1-1.3); Absolute Neutrophil 4.7 K/uL (1.8-8.0); Basophils % 0.8 % (0-1.3); Eosinophils % 3.5 % (0-4.4); Hematocrit 43.8 % (36.0-45.0); Hemoglobin 14.6 g/dL (12.0-15.0); Lymphocytes % 36.7 % (15.3-44.8); MCH 32.7 pg (27.0-35.0); MCHC 33.3 g/dL (32.0-36.0); MCV 98.2 fL (80-100); MPV 8.4 fL (7.6-11.3); Monocytes % 8.4 % (3.3-12.3); Neutrophils % 50.6 % (41.7-73.7); Platelets 206 thou/uL (152-406); RBC Red Blood Cell Count 4.46 M/uL (3.86-4.86); Red Cell Distribution Width 13.8 % (12.1-15.2)
--- NOTE | 2024-04-12 16:56 | RAD REPORT ---
EXAM DESCRIPTION: RAD - Chest Single View - 04/12/2024 4:46 pm CLINICAL HISTORY: CHEST PAIN Chest pain. COMPARISON: <Comparisons> FINDINGS: Portable technique limits examination quality. The lungs are grossly clear. The heart is normal in size. Multi lead pacer device. Sternotomy wires. IMPRESSION: No acute intrathoracic process suspected.
--- NOTE | 2024-04-12 18:36 | EDPHYS ---
Physician Documentation [facility] [place] Name: Luz Marina Cristian Age: 39 yrs Sex: Female : 1985 Arrival Date: 04/12/2024 Time: 14:50 Bed 5 Private MD: ED Physician Will Curry HPI: 04/12 16:36 This 39 yrs old Female presents to ER via Ambulatory with complaints of Chest Pain. rt 16:36 Patient with history of pacemaker placement presents to the ED with a left-sided chest rt pain starting about an hour prior to arrival. This was not with exertion. Patient denies dyspnea, lightheadedness. Denies other acute complaints, symptoms are moderate in severity, no other aggravating or alleviating factors.. 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 - Infectious Disease History:: Denies. - Social history:: Smoking status: Patient reports the use of cigarette tobacco products, smokes one-half pack cigarettes per day. - Family history:: not pertinent. ROS: 16:36 Constitutional: Negative for fever, chills, and weight loss, Respiratory: Negative for rt shortness of breath, cough, wheezing, and pleuritic chest pain, Abdomen/GI: Negative for abdominal pain, nausea, vomiting, diarrhea, and constipation, MS/Extremity: Negative for injury and deformity, Skin: Negative for injury, rash, and discoloration, Neuro: Negative for headache, weakness, numbness, tingling, and seizure, Psych: Negative for depression, anxiety, suicide ideation, homicidal ideation, and hallucinations, 16:36 Cardiovascular: Positive for chest pain, Negative for edema, Exam: 16:36 Constitutional: This is a well developed, well nourished patient who is awake, alert, rt and in no acute distress. Head/Face: Normocephalic, atraumatic. Chest/axilla: Normal chest wall appearance and motion. Nontender with no deformity. No lesions are appreciated. Cardiovascular: Regular rate and rhythm with a normal S1 and S2. No gallops, murmurs, or rubs. Normal PMI, no JVD. No pulse deficits. Respiratory: Lungs have equal breath sounds bilaterally, clear to auscultation and percussion. No rales, rhonchi or wheezes noted. No increased work of breathing, no retractions or nasal flaring. Abdomen/GI: Soft, non-tender, with normal bowel sounds. No distension or tympany. No guarding or rebound. No evidence of tenderness throughout. Skin: Warm, dry with normal turgor. Normal color with no rashes, no lesions, and no evidence of cellulitis. MS/ Extremity: Pulses equal, no cyanosis. Neurovascular intact. Full, normal range of motion. 16:36 ECG was reviewed by the Attending Physician. Vital Signs: 15:35 BP 150 / 116; Pulse 90; Resp 16; Temp 97.1(TE); Pulse Ox 94% on R/A; Height 5 ft. 2 in. db ; 16:33 BP 159 / 100; Pulse 84; Resp 16; Pulse Ox 98% ; ko1 17:37 BP 155 / 105; Pulse 89; Resp 18; Pulse Ox 97% on R/A; ld1 18:55 BP 174 / 113; Pulse 86; Resp 18; Pulse Ox 100% on R/A; ld1 MDM: 15:38 Patient medically screened. rt 18:36 Differential diagnosis: ACS, abnormal EKG, chest wall pain. HEART Score: History: rt Moderately Suspicious (1), ECG: Non specific repolarization disturbance / LBTB / PM (1), Age: > 45 and < 65 years (1), Risk Factors: > or = 3 Risk factors for atherosclerotic disease (2), Troponin: Total Score = 4. The patient was not given aspirin in the Emergency Department. Data reviewed: vital signs, nurses notes, lab test result(s), EKG, radiologic studies. Consideration of Admission/Observation Patient was admitted/placed on observation. Management of patient was discussed with the following: Hospitalist: Agrees to admit. Independent interpretation of the following test(s) in the Emergency Department X-Ray: My interpretation is No pneumonia seen on interpretation of x-ray images. Care significantly affected by the following chronic conditions: Hypertension. Counseling: I had a detailed discussion with the patient and/or guardian regarding the historical points, exam findings, and any diagnostic results supporting the discharge/admit diagnosis, lab results, radiology results, the need for further work-up and treatment in the hospital. Response to treatment: the patient's symptoms have mildly improved after treatment. 04/12 15:38 Order name: Basic Metabolic Panel rt 04/12 15:38 Order name: CBC with Diff; Complete Time: 17:01 rt 04/12 15:38 Order name: LFT's rt 04/12 15:38 Order name: Magnesium rt 04/12 15:38 Order name: Troponin HS rt 04/12 19:55 Order name: Urinalysis w/ reflexes EDMS 04/12 19:55 Order name: CBC with Automated Diff EDMS 04/12 19:55 Order name: CBC with Automated Diff EDMS 04/12 19:55 Order name: Comprehensive Metabolic Panel EDMS 04/12 19:55 Order name: Comprehensive Metabolic Panel EDMS 04/12 19:55 Order name: Troponin High Sensitivity EDMS 04/12 19:55 Order name: Troponin High Sensitivity EDMS 04/12 19:55 Order name: Troponin High Sensitivity EDMS 04/12 19:55 Order name: Troponin High Sensitivity EDMS 04/12 15:38 Order name: XRAY Chest (1 view); Complete Time: 17:01 rt 04/12 20:55 Order name: CT EDMS 04/12 15:38 Order name: EKG; Complete Time: 15:39 rt 04/12 19:55 Order name: CONS Physician Consult EDMS 04/12 15:38 Order name: Cardiac monitoring; Complete Time: 15:47 rt 04/12 15:38 Order name: EKG - Nurse/Tech; Complete Time: 15:47 rt 04/12 15:38 Order name: IV Saline Lock; Complete Time: 18:56 rt 04/12 15:38 Order name: Labs collected and sent; Complete Time: 16:25 rt 04/12 15:38 Order name: O2 Per Protocol; Complete Time: 15:47 rt 04/12 15:39 Order name: O2 Sat Monitoring; Complete Time: 15:47 rt 04/12 16:39 Order name: Labs - recollect needed: green; Complete Time: 17:38 bc6 04/12 17:17 Order name: Labs - recollect needed: green ; Complete Time: 18:55 bc6 EC:36 Rate is 85 beats/min. Rhythm is regular, Paced with No ectopy, LVH present, rt bifascicular block noted. Left axis deviation noted. NC interval is normal. QT interval is normal. No Q waves. Administered Medications: 15:56 Drug: Aspirin PO Chewable Tablet 324 mg PO once; 81 mg tablets x 4 Route: PO; ko1 16:15 Follow up: Response: No adverse reaction ko1 15:56 Drug: Nitroglycerin Sublingual 0.4 mg Sublingual once; every five minute if needed x3 ko1 Route: Sublingual; 16:15 Follow up: Response: No adverse reaction; Pain is decreased ko1 Disposition Summary: 04/12/24 18:36 Hospitalization Ordered Notes: Hospitalization Status: Observation rt Provider: Parker Pierce rt Location: Telemetry/MedSurg (observation) rt Condition: Stable rt Problem: new rt Symptoms: are unchanged rt Bed/Room Type: Standard rt Room Assignment: 222(04/12/24 20:00) vc1 Diagnosis - Chest pain, unspecified rt Forms: - Medication Reconciliation Form rt - SBAR form rt - Leadership Thank You Letter rt Signatures: Dispatcher [employer] EDMS Radha Gee RN RN vc1 Taylor Garza RN RN ko1 Eveline Nelson, RN RN db Will Curry MD MD rt Susan Matthew bc6 Corrections: (The following items were deleted from the chart) 16:49 16:36 Rate is 85 beats/min. Rhythm is regular, Normal Sinus Rhythm with No ectopy, LVH rt present, bifascicular block noted. Left axis deviation noted. NC interval is normal. QT interval is normal. No Q waves. rt 20:00 18:36 rt vc1
--- NOTE | 2024-04-12 18:36 | ER ---
Nurse's Notes [facility] Young Name: Luz Marina Foster Age: 39 yrs Sex: Female : 1985 Arrival Date: 04/12/2024 Time: 14:50 Bed 5 Private MD: Diagnosis: Chest pain, unspecified Presentation: 04/12 15:35 Chief complaint: Patient states: CHEST PAIN X 1.5 HRS STARTED TODAY HX OF PACEMAKER. db Coronavirus screen: Client denies travel out of the [place] in the last 14 days. At this time, the client does not indicate any symptoms associated with coronavirus-19. Ebola Screen: Patient negative for fever greater than or equal to 101.5 degrees Fahrenheit, and additional compatible Ebola Virus Disease symptoms Patient denies exposure to infectious person. Patient denies travel to an Ebola-affected area in the 21 days before illness onset. No symptoms or risks identified at this time. Initial Sepsis Screen: Does the patient meet any 2 criteria? No. Patient's initial sepsis screen is negative. Does the patient have a suspected source of infection? No. Patient's initial sepsis screen is negative. Risk Assessment: Do you want to hurt yourself or someone else? Patient reports no desire to harm self or others. Onset of symptoms was April 12, 2024. Care prior to arrival:. 15:35 Method Of Arrival: Ambulatory db 15:35 Acuity: RAUL 2 db Triage Assessment: 15:38 General: Appears uncomfortable, Behavior is cooperative. Pain: Complains of pain in db chest. 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 - Infectious Disease History:: Denies. - Social history:: Smoking status: Patient reports the use of cigarette tobacco products, smokes one-half pack cigarettes per day. - Family history:: not pertinent. Screenin:00 [facility] ED Fall Risk Assessment (Adult) History of falling in the last 3 months, ko1 including since admission No falls in past 3 months (0 pts) Confusion or Disorientation No (0 pts) Intoxicated or Sedated No (0 pts) Impaired Gait No (0 pts) Mobility Assist Device Used No (0 pt) Altered Elimination No (0 pt) Score/Fall Risk Level 0 - 2 = Low Risk Oriented to surroundings, Maintained a safe environment, Educated pt \T\ family on fall prevention, incl call for assistance when getting out of bed, Assessed \T\ reinforced patient's understanding of fall precautions, Provided non-skid footwear, Hourly rounding (assess needs \T\ fall precautionary measures) done, Used ambulatory aids as needed (educated on \T\ assisted with), Used gait belt as appropriate. Abuse screen: Denies injuries from another. Abuse screen: Denies threats or abuse. Nutritional screening: No deficits noted. Tuberculosis screening: No symptoms or risk factors identified. Assessment: 16:00 General: Appears in no apparent distress. uncomfortable, Behavior is calm, cooperative, ko1 appropriate for age. Pain: Complains of pain in chest Pain does not radiate. Pain began 2 hours ago. Neuro: No deficits noted. Cardiovascular: Reports chest pain. Respiratory: No deficits noted. GI: No deficits noted. : No deficits noted. EENT: No deficits noted. Derm: No deficits noted. Musculoskeletal: No deficits noted. Vital Signs: 15:35 BP 150 / 116; Pulse 90; Resp 16; Temp 97.1(TE); Pulse Ox 94% on R/A; Height 5 ft. 2 in. db ; 16:33 BP 159 / 100; Pulse 84; Resp 16; Pulse Ox 98% ; ko1 17:37 BP 155 / 105; Pulse 89; Resp 18; Pulse Ox 97% on R/A; ld1 18:55 BP 174 / 113; Pulse 86; Resp 18; Pulse Ox 100% on R/A; ld1 ED Course: 14:54 Patient arrived in ED. mg5 14:57 Will Curry MD is Attending Physician. rt 15:38 Triage completed. db 15:38 Arm band placed on. db 15:48 EKG done, reviewed by Wlil Curry MD. db 16:00 Patient has correct armband on for positive identification. Bed in low position. Call ko1 light in reach. Side rails up X2. Provided Education on: call light. Client placed on continuous cardiac and pulse oximetry monitoring. NIBP monitoring applied. clinical research monitor on. Door closed. Noise minimized. Lights dimmed. Warm blanket given. Pillow given. 16:00 No provider procedures requiring assistance completed. O2 via RA. ko1 16:00 Missed attempt(s): 20 gauge in right antecubital area. ld1 16:00 Missed attempt(s): 22 gauge in right forearm. ld1 16:33 Taylor Garza, RN is Primary Nurse. ko1 16:48 XRAY Chest (1 view) In Process Unspecified. EDMS 18:12 Inserted saline lock: 20 gauge in right upper arm, using aseptic technique. Blood nj1 collected. Ultrasound guided. Catheter tip well visualized within vasculature during placement. 18:36 Parker Pierce MD is Hospitalizing Provider. rt 20:[address] km8 Administered Medications: 15:56 Drug: Aspirin PO Chewable Tablet 324 mg PO once; 81 mg tablets x 4 Route: PO; ko1 16:15 Follow up: Response: No adverse reaction ko1 15:56 Drug: Nitroglycerin Sublingual 0.4 mg Sublingual once; every five minute if needed x3 ko1 Route: Sublingual; 16:15 Follow up: Response: No adverse reaction; Pain is decreased ko1 Medication: 16:00 VIS not applicable for this client. ko1 Outcome: 18:36 Decision to Hospitalize by Provider. rt 20:59 Patient left the ED. sp Signatures: Dispatcher [employer] EDMS Cecilia Cool sp Ana Gerber RN RN ld1 Taylor Garza, RN RN ko1 Eveline Nelson RN RN Will Al MD MD rt Ilene Harper RN RN driss1 Sarah Bolanos 5 Samantha Garnica, GITA RN km8
[2024-04-12 19:11] LABS: ALT/SGPT 149 U/L (13-56); AST/SGOT 105 U/L (15-37); Albumin 3.3 g/dL (3.4-5.0); Albumin/Globulin Ratio 0.6 (1.1-1.8); Alkaline Phosphatase 117 U/L (45-117); Anion Gap 5.9 mEq/L (5.0-15.0); BUN Blood Urea Nitrogen 24 mg/dL (7-18); Bicarbonate 28 mEq/L (21-32); Bilirubin Total 0.3 mg/dL (0.2-1.0); Globulin 5.5 g/dL (2.3-3.5); Glomerular Filtration Rate 54 ml/min (=/>90); Glucose Level 79 mg/dL (74-106); Magnesium 1.9 mg/dL (1.6-2.4); Potassium 3.9 mEq/L (3.5-5.1); Protein, Total 8.8 g/dL (6.4-8.2); Sodium Level 134 mEq/L (136-145); Troponin High Sensitivity 6.1 pg/mL (<58.9)
[2024-04-12 19:12] LABS: Bilirubin Direct < 0.2 mg/dL (0-0.2); Bilirubin Indirect, Calculated 0.1 mg/dL (0.2-0.8)
--- NOTE | 2024-04-12 19:48 | P.HP ---
Certification for Inpatient Patient admitted to: Observation With expected LOS: <2 Midnights Practitioner: I am a practitioner with admitting privileges, knowledge of patient current condition, hospital course, and medical plan of care. Services: Services provided to patient in accordance with Admission requirements found in Title 42 Section 412.3 of the Code of Federal Regulations Patient History Date of Service: 04/12/24 Reason for admission: Chest Pain History of Present Illness: 39 yrs old Female with past medical history of hypertension, history of infective endocarditis status post surgery, pacemaker placement who presents to ER with complaints of Chest Pain. Pain is located left-sided chest started today. No relationship with exercise. Denies any shortness of breath. No fever or chills. No nausea vomiting or diarrhea. Dull aching type, 3 out of 10 in severity. Denies any trauma. Patient was assessed in the ER and is admitted for further management of chest pain to rule out ACS Allergies No Known Allergies Allergy (Verified 04/12/24 21:03) Home medications list reviewed: Yes Home Medications: Metoprolol Succinate 25 mg PO DAILY 04/12/24 - Past Medical/Surgical History Past Medical History: Reviewed- Non-Contributory Past Surgical History: Reviewed- Non-Contributory - Family History Father -: Heart disease Mother -: Diabetes, Cancer - Social History Smoking Status: Never smoker Review of Systems 10-point ROS is otherwise unremarkable Physical Examination - Vital Signs Temperature: 97.1 F Blood Pressure: 150/116 Pulse: 88 Respirations: 18 Pulse Ox (%): 94 - Physical Exam General: Alert, In no apparent distress, Oriented x3 HEENT: Atraumatic, Normocephalic Neck: Supple, 2+ carotid pulse no bruit Respiratory: Clear to auscultation bilaterally, Normal air movement Cardiovascular: Regular rate/rhythm, Normal S1 S2 Capillary refill: <2 Seconds Gastrointestinal: Normal bowel sounds, Non-distended, W/out succussion splash, W/out hepatosplenomegaly Musculoskeletal: No clubbing, No swelling Integumentary: No rashes, No breakdown Neurological: Normal speech, Normal strength at 5/5 x4 extr, Cranial nerves 3-12 intact, Normal reflexes 2+ Lymphatics: No axilla or inguinal lymphadenopathy - Studies Laboratory Data (last 24 hrs) 04/12/24 04/12/24 18:12 16:24 WBC 9.20 Hgb 14.6 Hct 43.8 Plt Count 206 Sodium 134 L Potassium 3.9 BUN 24 H Creatinine 1.28 H Glucose 79 Magnesium 1.9 Total Bilirubin 0.3 AST 105 H ALT 149 H Alkaline Phosphatase 117 Assessment and Plan - Problems (Diagnosis) (1) Unstable angina Current Visit: Yes Status: Acute Plan: Unstable Angina Will trend cardiac enzymes Will monitor telemetry Started on aspirin and statin EKG did not show any acute changes suggestive of ischemia Patient denies any chest pain Will get an echocardiogram Cardiology consult Hypertension Antihypertensives titrated Continue home medications and titrate as needed Hyperlipidemia Continue statin ANASTASIIA Monitor renal parameters Electrolytes monitor and replace accordingly Elevated LFTs Will trend LFTs Will get an ultrasound of the abdomen GI/DVT prophylaxis Advanced directive full code Discharge Plan: Home Plan to discharge in: 48 Hours - Advance Directives Does patient have a Living Will: No Does patient have a Durable POA for Healthcare: No - Code Status/Comfort Care Code Status: Full Code Time Spent Managing Pts Care (In Minutes): 48
[2024-04-12] MEDS ORDERED: ACETAMINOPHEN 325 MG TABLET PO PRN (19:49)
[2024-04-12] MEDS ORDERED: ONDANSETRON 4 MG/2 ML VIAL ONE (20:32)
[2024-04-12] MEDS ORDERED: MORPHINE 4 MG/ML SYR ONE (20:32)
[2024-04-12] MEDS: MORPHINE 2 MG/ML SYR IV PRN (20:34)
[2024-04-12] MEDS: ONDANSETRON 4 MG/2 ML VIAL IV PRN (20:35)
--- NOTE | 2024-04-12 20:55 | RAD REPORT ---
EXAM DESCRIPTION: CT - Chest For Pe Angio - 04/12/2024 8:42 pm CLINICAL HISTORY: Chest pain. PE protocol COMPARISON: <Comparisons> TECHNIQUE: CT angiogram of the pulmonary arteries was performed with MIP. All CT scans are performed using dose optimization technique as appropriate and may include automated exposure control or mA/KV adjustment according to patient size. FINDINGS: No evidence of pulmonary thromboembolism. No acute aortic finding demonstrated. Mild interstitial pulmonary edema is seen. Trace left pleural effusion. No concerning bony finding. IMPRESSION: No evidence of pulmonary thromboembolism. Mild interstitial pulmonary edema.
[2024-04-12 21:06] VITALS: BMI 29.2
[2024-04-12] MEDS: ASPIRIN EC 81 MG TAB PO SCH (21:19)
[2024-04-12] MEDS: ATORVASTATIN 40 MG TAB PO SCH (21:19)
[2024-04-12] MEDS: METOPROLOL XL 25 MG TAB PO SCH (22:28)
[2024-04-13] MEDS: MORPHINE 4 MG/ML SYR ONE ×2 (00:25→05:05)
[2024-04-13 03:29] LABS: Absolute Basophils 0.1 K/uL (0-0.5); Absolute Eosinophils 0.3 K/uL (0-0.5); Absolute Lymphocytes (CBC) 3.9 K/uL (0.7-4.9); Absolute Monocytes 0.7 K/uL (0.1-1.3); Absolute Neutrophil 3.3 K/uL (1.8-8.0); Basophils % 0.7 % (0-1.3); Eosinophils % 3.6 % (0-4.4); Hematocrit 41.8 % (36.0-45.0); MCH 32.3 pg (27.0-35.0); MCHC 33.4 g/dL (32.0-36.0); MCV 96.8 fL (80-100); MPV 8.8 fL (7.6-11.3); Neutrophils % 40.7 % (41.7-73.7); Nucleated Red Blood Cells % 0.1 % (0-0); Platelets 174 thou/uL (152-406); RBC Red Blood Cell Count 4.32 M/uL (3.86-4.86); Red Cell Distribution Width 13.5 % (12.1-15.2)
[2024-04-13 03:54] LABS: Albumin/Globulin Ratio 0.7 (1.1-1.8); Anion Gap 6.8 mEq/L (5.0-15.0); Bilirubin Total 0.3 mg/dL (0.2-1.0); Globulin 4.6 g/dL (2.3-3.5); Potassium 3.8 mEq/L (3.5-5.1); Protein, Total 7.6 g/dL (6.4-8.2); Troponin High Sensitivity 5.4 pg/mL (<58.9)
--- NOTE | 2024-04-13 07:32 | RAD REPORT ---
EXAM DESCRIPTION: US - Abdomen Exam Limited - 04/12/2024 11:36 pm CLINICAL HISTORY: Elevated liver enzymes COMPARISON: None. FINDINGS: Cholecystectomy The biliary tree is normal caliber. The liver has a normal echotexture. A lesion not visualized. Hepatopetal flow. IMPRESSION: No significant abnormality displayed
[2024-04-13] MEDS: POTASSIUM CL SA 10 MEQ TAB PO ONE (08:31)
[2024-04-13] MEDS: ENOXAPARIN 40 MG/0.4 ML SQ SCH (08:32)
[2024-04-13] MEDS: HYDROCODONE/APAP 10/325 TAB PO PRN (08:34)
[2024-04-13] MEDS: predniSONE 20 MG TAB PO SCH (09:19)
--- NOTE | 2024-04-13 10:22 | P.PN ---
Date of Service: 04/13/24 Subjective ROS 10 point ROS as noted above, otherwise negative Physical Exam General: Alert and oriented x 3, NAD HEENT: Atraumatic, Normocephalic Neck: Supple, 2+ carotid pulse no bruit Respiratory: Clear to auscultation bilaterally, Normal air movement Cardiovascular: RRR, Normal S1 S2 Capillary refill: <2 Seconds Gastrointestinal: Normal bowel sounds, Non-distended, W/out succussion splash, W/out hepatosplenomegaly Musculoskeletal: No clubbing, No swelling, 2+ peripheral pulses Integumentary: No rashes, No breakdown Neurological: Normal speech, Normal strength at 5/5 x4 extr, Cranial nerves 3-12 intact, Normal reflexes 2+ Lymphatics: No axilla or inguinal lymphadenopathy Vitals Reviewed Problem list Unstable Angina Hypertension Hyperlipidemia ANASTASIIA Elevated LFTs Assessment and Plan Unstable Angina troponin 6.1/5.4/5.4 continuous telemetry Started on aspirin and statin EKG did not show any acute changes suggestive of ischemia Patient denies any chest pain echocardiogram results pending Cardiology consult-awaiting recommendations Hypertension Continue home medications and titrate as needed Hyperlipidemia Continue statin ANASTASIIA BUN/creatinine 26/1.24,GFR 56 Electrolytes monitor and replace accordingly Elevated LFTs AST 101, ALT 133 Ultrasound abdomen reports "Cholecystectomy. The biliary tree is normal caliber. The liver has a normal echotexture. A lesion not visualized. Hepatopetal flow. IMPRESSION: No significant abnormality displayed." DVT PPx Lovenox Full code LOS 2 days Discharge Plan: Home
[2024-04-13] MEDS ORDERED: MORPHINE 4 MG/ML SYR IV PRN (10:27)
[2024-04-13 10:30] LABS: Specific Gravity > 1.030 (1.005-1.030); Sqamous Epithelial 20-50 /HPF (None Seen); Urine Bacteria <20 /HPF (<20); Urine Bilirubin NEGATIVE (Negative); Urine Blood Trace (Negative); Urine Clarity Extremely Turbid (Clear); Urine Color Yellow (Yellow); Urine Culture Reflex Order NOT NEEDED; Urine Glucose NEGATIVE (Negative); Urine Ketones NEGATIVE (Negative); Urine Microscopic Reflex YN ORDER UMIC; Urine Mucus Slight /HPF (None Seen); Urine Nitrite NEGATIVE (Negative); Urine Protein TRACE (Negative); Urine RBC 21-50 /HPF (None Seen); Urine Urobilinogen 1+ (Normal); Urine WBC >50 /HPF (<5)
[2024-04-13 10:31] LABS: Barbiturates NEGATIVE (NEGATIVE); Benzodiazepines NEGATIVE (NEGATIVE); Cocaine NEGATIVE (NEGATIVE); METHAMPHETAM NEGATIVE (NEGATIVE); Methadone NEGATIVE (NEGATIVE); Opiates POSITIVE (NEGATIVE); Phencyclidine NEGATIVE (NEGATIVE); THC Cannibis NEGATIVE (NEGATIVE)
[2024-04-13 11:29] LABS: HBsAG Nonreactive Report Report; Hepatitis B Core IgM Nonreactive (Nonreactive); Hepatitis B surface AG Interp. Nonreactive (Nonreactive); Hepatitis C Virus Ab Reactive (Nonreactive)
[2024-04-13] MEDS: ALBUTEROL 2.5 MG/3 ML NEB SOL IH SCH (14:00)
--- NOTE | 2024-04-13 16:04 | P.DS ---
Admission Date: 04/12/24 Discharge Date: 04/13/24 Disposition: ROUTINE DISCHARGE Discharge Condition: GOOD Reason for Admission: Chest Pain Brief History of Present Illness: Diagnosis Unstable angina rule out ACS Hypertension Hyperlipidemia ANASTASIIA Elevated LFT Luz Marina Foster is a 39 yrs old Female with past medical history of hypertension, history of infective endocarditis status post surgery, pacemaker placement who presents to ER with complaints of Chest Pain. Pain is located left-sided chest started today. No relationship with exercise. Denies any shortness of breath. No fever or chills. No nausea vomiting or diarrhea. Dull aching type, 3 out of 10 in severity. Denies any trauma. Patient was assessed in the ER and is admitted for further management of chest pain to rule out ACS Hospital Course: Luz Marina Foster is a pleasant 39 year old female with a past medical history significant for infective endocarditis status post valve replacement and pacemaker placement who was admitted to the [facility] on 04/12/2024 for chest pain. Luz Marina Foster presented to the ED with chief complaint of left sided chest pain. Troponin has trended flat, EKG negative, Dr. Martinez has cleared for discharge with outpatient stress test soon. She is tolerating p.o. diet, ambulating independently, hemodynamically stable for discharge. On 04/13/2024, Luz Marina was seen on morning rounds and deemed medically stable for discharge. Luz Marina was discharged with instructions to schedule follow-up appointments with PCP and Dr. Martinez. Luz Marina was provided prescriptions for aspirin and Lipitor. The patient and family members were given the opportunity to ask questions and reported no further questions. Furthermore, all questions were answered to the best of my ability. A copy of this discharge summary will be sent to the above providers to facilitate continuity of care. Physical Exam General: Alert and oriented x 3, NAD HEENT: Atraumatic, Normocephalic Neck: Supple, 2+ carotid pulse no bruit Respiratory: Clear to auscultation bilaterally, Normal air movement Cardiovascular: RRR, Normal S1 S2 Capillary refill: <2 Seconds Gastrointestinal: Normal bowel sounds, Non-distended, W/out succussion splash, W/out hepatosplenomegaly Musculoskeletal: No clubbing, No swelling, 2+ peripheral pulses Integumentary: No rashes, No breakdown Neurological: Normal speech, Normal strength at 5/5 x4 extr, Cranial nerves 3-12 intact, Normal reflexes 2+ Lymphatics: No axilla or inguinal lymphadenopathy Vital Signs/Physical Exam: Temp Pulse Resp BP Pulse Ox 97.3 F 72 15 119/84 96 04/13/24 12:00 04/13/24 12:10 04/13/24 12:06 04/13/24 12:10 04/13/24 12:06 Laboratory Data at Discharge: WBC 8.20 thou/uL (4.3-10.9) 04/13/24 02:44 Hgb 14.0 g/dL (12.0-15.0) 04/13/24 02:44 Hct 41.8 % (36.0-45.0) 04/13/24 02:44 Plt Count 174 thou/uL (152-406) 04/13/24 02:44 Sodium Cancelled 04/13/24 05:00 Potassium Cancelled 04/13/24 05:00 BUN Cancelled 04/13/24 05:00 Creatinine Cancelled 04/13/24 05:00 Glucose Cancelled 04/13/24 05:00 Magnesium 1.9 mg/dL (1.6-2.4) 04/12/24 18:12 Total Bilirubin Cancelled 04/13/24 05:00 AST Cancelled 04/13/24 05:00 ALT Cancelled 04/13/24 05:00 Alkaline Phosphatase Cancelled 04/13/24 05:00 Home Medications: Metoprolol Succinate 25 mg PO DAILY 04/12/24 Aspirin [Adult Aspirin Regimen] 81 mg PO DAILY 30 Days #30 tab 04/13/24 Atorvastatin Calcium [Lipitor] 40 mg PO BEDTIME 30 Days #30 tab 04/13/24 New Medications: Aspirin [Adult Aspirin Regimen] 81 mg PO DAILY 30 Days #30 tab Atorvastatin Calcium [Lipitor] 40 mg PO BEDTIME 30 Days #30 tab Physician Discharge Instructions: February presented to the ED with chief complaint of left sided chest pain. Troponin has trended flat, EKG negative, Dr. Martinez has cleared for discharge with outpatient stress test soon. Please call and schedule a stress test with Dr. Martinez in one week. Continue with aspirin and lipitor daily for protection of your heart. 1. Please call and schedule a follow-up appointment with your PCP in 3-5 days - Please follow-up with your PCP for medication refills/adjustments 2. Please call and schedule a follow-up appointment with Dr. Mesa for outpatient stress test 3. Continue heart healthy diet 4. No activity restrictions 5. Return to the ED if symptoms worsen New medications Aspirin 81 mg p.o. daily Lipitor 40 mg p.o. daily Diet: AHA Activity: Ad jevon Followup: Suresh Barrios DO [Primary Care Provider] - Pedro Pablo Martinez MD [ACTIVE - CAN ADMIT] -
[2024-04-13 16:41] VITALS: BP 143/65; TEMP 98; O2SAT 98
--- NOTE | 2024-04-13 16:50 | EKG ---
Test Date: 2024-04-12 Test Time: 15:43:40 Small Craft Operator: ELIZABETH MEASUREMENT RESULTS: Intervals: Rate: 85 [place]: 200 QRSD: 180 QT: 454 QTc: 540 [place]: P: 45 [place]: 200 QRS: -67 T: 104 INTERPRETIVE STATEMENTS: Normal sinus rhythm Biatrial enlargement Right bundle branch block Left anterior fascicular block Bifascicular block Left ventricular hypertrophy with repolarization abnormality Possible Lateral infarct, age undetermined Abnormal ECG Compared to ECG 04/12/2024 15:42:59 No significant changes Electronically Signed On 04-13-24 16:47:55 CDT by Pedro Pablo Martinez
--- NOTE | 2024-04-13 16:50 | EKG ---
Test Date: 2024-04-12 Test Time: 15:42:59 City Administrator: ELIZABETH MEASUREMENT RESULTS: Intervals: Rate: 84 MN: 202 QRSD: 178 QT: 452 QTc: 534 [place]: P: 34 MN: 202 QRS: -63 T: 106 INTERPRETIVE STATEMENTS: V paced. Electronically Signed On 04-13-24 16:48:21 CDT by Pedro Pablo Martinez
--- NOTE | 2024-04-13 17:04 | CON ---
Date of Consultation: 04/13/2024 Reason For Consultation: Chest pain. History Of Present Illness: 39-year-old female, history of hypertension, history of infective endoca rditis, status post surgery in the past, presented with chest pain, left side, no radiation, not rela george to exertion. No shortness of breath. She is an active smoker about half a pack per day. No act kevan chest pain since she was admitted. Past Medical History: As outlined above in the HPI. Medications: Refer to reconciliation sheet for detailed list. Allergies: NO KNOWN DRUG ALLERGIES. Family History: No premature coronary artery disease or cancer. Social History: Active smoker. Does not drink or use any drugs. Review of Systems: All systems were reviewed and they were negative except as mentioned in the HPI. Physical Examination: Vital Signs: Reviewed. Head and Neck: Pupils are equal, reactive to light. Intact eye movements. No JVD. No cervical lym phadenopathy. Neck is supple. Thyroid is not enlarged. Lungs: Clear to auscultation bilaterally. No rhonchi, wheezing, or crackles. No accessory muscle u se. Heart: Regular rate and rhythm. No extra sounds. Abdomen: Soft, nontender. Bowel sounds positive. No organomegaly. No masses or hernia. No rigidi ty or rebound. Extremities: No edema, clubbing, or cyanosis. Intact pulses. Skin: No rash. No nodule. Neurologic: Alert, awake, oriented x3. No acute focal deficits appreciated. Investigations: BUN 26, creatinine 1.24, and hemoglobin is 14. Assessment And Recommendations: 1.Chest pain. It is atypical. Cardiac enzymes x3 are negative. She probably had cardiac catheteri zation when she had the endocarditis surgery. At this point, since she has been chest pain free, she can be released. Follow up as an outpatient for stress test and to take baby aspirin 81 mg, and she was counseled to quit smoking. 2.Dyslipidemia. Continue statin. 3.Smoker. She was counseled to quit. 4.Hypertension. Blood pressure is controlled. From Cardiology standpoint, patient can be released to follow up as an outpatient. SR/MODL Voice ID: [id number] Report ID: [id number]
--- NOTE | 2024-04-16 07:36 | ECHO ---
HEIGHT: 5 ft 2 in WEIGHT: 160 lb 0 oz DATE OF STUDY: 04/13/[address]: Eleuterio Pierce DO 2-DIMENSIONAL: YES M.MODE: YES DOPPLER: YES COLOR FLOW: YES TDS: PORTABLE: YES DEFINITY: BUBBLE STUDY: DIAGNOSIS: CHEST PAIN CARDIAC HISTORY: CATHERIZATION: NO SURGERY: YES PROSTHETIC VALVE: YES PACEMAKER: YES MEASUREMENTS (cm) DIASTOLIC (NORMALS) SYSTOLIC (NORMALS) IVSd 1.2 (0.6-1.2) LA Diam 2.9 (1.9-4.0) LVEF 60% LVIDd 2.9 (3.5-5.7) LVIDs 2.0 (2.0-3.5) %FS 31% LVPWd 1.1 (0.6-1.2) Ao Diam 2.7 (2.0-3.7) 2 DIMENSIONAL ASSESSMENT: RIGHT ATRIUM: NORMAL LEFT ATRIUM: NORMAL RIGHT VENTRICLE: NORMAL LEFT VENTRICLE: NORMAL TRICUSPID VALVE: CALCIFIED MITRAL VALVE: APPEARS NORMAL PULMONIC VALVE: NOT SEEN AORTIC VALVE: NORMAL PERICARDIAL EFFUSION: NONE AORTIC ROOT: NORMAL LEFT VENTRICULAR WALL MOTION: UNABLE TO EVALUATE DOPPLER/COLOR FLOW: SEE BELOW COMMENTS: 1. POOR ECHOCARDIOGRAM DUE TO LIMITED WINDOWS 2. OVERALL, LEFT VENTRICULAR EJECTION FRACTION APPREARS NORMAL 3. MODERATE TRICUSPID REGURGITATION AND LIKELY TRICUSPID STENOSIS IS PRESENT BUT IMAGES QUALITY ARE LIMITED. TECHNOLOGIST: SHARA VELÁSQUEZ
== END 2024-04-13 17:00 | disposition home or self-care (01) ==
LOC: ER 14:50 → ERHOLD 19:49 → 2ND 20:41
PROVIDERS: ADMIT Family Medicine; ATTEND Internal Medicine Sleep Medicine
DX: I20.0 Unstable angina (principal); I10 Essential (primary) hypertension; E78.5 Hyperlipidemia, unspecified; N17.9 Acute kidney failure, unspecified; R79.89 Other specified abnormal findings of blood chemistry; F17.210 Nicotine dependence, cigarettes, uncomplicated; Z95.0 Presence of cardiac pacemaker; Z71.6 Tobacco abuse counseling
CPT/HCPCS: 93005 ×2; 93306; 85025 ×2; 81001; 80048; 36415; 83735; 80076; 84484 ×4; 80053; 80307; 80074; 71275; 71045; 76705; 94640; 99285; Q9967; J7512; J7613; J1650; J2405; G0378

== ENCOUNTER 2024-07-05 11:50 | Emergency (ER) | payer OTHER ==
--- NOTE | 2024-07-05 12:19 | RAD REPORT ---
EXAM DESCRIPTION: Meri Single View07/05/2024 12:12 pm CLINICAL HISTORY: Chest pain COMPARISON: March 2024 FINDINGS: The lungs appear clear of acute infiltrate. The heart is mildly to moderately enlarged Small left pleural effusion is present Postsurgical changes involve the chest. Pacemaker leads in place
[2024-07-05] MEDS ORDERED: KETOROLAC 30 MG/ML INJ ONE ×2 (12:24→14:21)
[2024-07-05 12:54] LABS: Absolute Basophils 0.1 K/uL (0-0.5); Absolute Eosinophils 0.2 K/uL (0-0.5); Absolute Monocytes 0.7 K/uL (0.1-1.3); Absolute Neutrophil 4.1 K/uL (1.8-8.0); Basophils % 0.9 % (0-1.3); Eosinophils % 2.5 % (0-4.4); Hematocrit 45.8 % (36.0-45.0); Hemoglobin 15.1 g/dL (12.0-15.0); Lymphocytes % 36.9 % (15.3-44.8); MCH 32.2 pg (27.0-35.0); MCHC 32.9 g/dL (32.0-36.0); MCV 97.7 fL (80-100); MPV 8.5 fL (7.6-11.3); Monocytes % 8.8 % (3.3-12.3); Neutrophils % 50.9 % (41.7-73.7); Platelets 159 thou/uL (152-406); RBC Red Blood Cell Count 4.69 M/uL (3.86-4.86); Red Cell Distribution Width 13.8 % (12.1-15.2)
[2024-07-05 13:59] LABS: Troponin High Sensitivity 4.3 pg/mL (<58.9)
--- NOTE | 2024-07-05 16:20 | EDPHYS ---
Physician Documentation [facility] Young Name: Luz Marina Cristian Age: 39 yrs Sex: Female : 1985 Arrival Date: 07/05/2024 Time: 11:50 Bed 20 Private MD: ED Physician Alfonso Cervantes HPI: 07/05 12:15 This 39 yrs old Female presents to ER via Unassigned with complaints of Chest ec2 Pain, Arm Problem. 12:15 Patient with history of substance abuse, history of endocarditis, arrives today for ec2 left-sided chest pain going into the arm. Patient reports no exertional component, pain started approximately 30 minutes prior to arrival. Reports no vomiting, no diarrhea. Patient reports some subjective shortness of breath as well.. CLOTH COLORS EXAMINER: 15:51 LMP N/A - , Not mb9 Historical: - Allergies: 15:12 No Known Allergies; mb9 - Home Meds: 15:12 None [Active]; mb9 - PMHx: 12:28 Hypertensive disorder; ar6 - PSHx: 12:28 pacemaker; ar6 - Immunization history:: Adult Immunizations up to date. - Infectious Disease History:: Denies. - Social history:: Smoking status: Patient reports the use of cigarette tobacco products, smokes one pack cigarettes per day. Patient uses street drugs, pt. reports iv drug use. - Coronavirus screen:: The patient has NOT traveled to [place] in the past 14 days. The patient has NOT had contact with known/suspected case of Coronavirus? The patient has NOT traveled to [place] in the past 14 days. Proceed with normal triage process as indicated. The patient has NOT had contact with known/suspected case of Coronavirus? Proceed with normal triage procedures. - Ebola Screening: : Patient negative for fever greater than or equal to 101.5 degrees Fahrenheit, and additional compatible Ebola Virus Disease symptoms Patient denies exposure to infectious person Patient denies travel to an Ebola-affected area in the 21 days before illness onset No symptoms or risks identified at this time. ROS: 12:15 Constitutional: as per hpi ec2 Exam: 12:15 Constitutional: GEN: NAD Head: atraumatic Eyes: EOMI Ears: External ears are ec2 normal. CV: regular rate LUNGS: no respiratory distress ABD: non-distended SKIN: no evidence of rashes MSK: no evidence of trauma Vital Signs: 12:05 BP 167 / 100; Pulse 79; Resp 18; Temp 97.9; Pulse Ox 100% on R/A; Weight 72.57 kg; ar6 Height 5 ft. 2 in. ; Pain 9/10; 13:00 BP 156 / 101; Pulse 86; Resp 18; Pulse Ox 100% on R/A; ar6 13:00 BP 164 / 107; Pulse 88; Resp 18; Pulse Ox 100% on R/A; ar6 14:00 BP 160 / 110; Pulse 91; Resp 20; Pulse Ox 100% on R/A; ar6 16:19 BP 160 / 96; Pulse 90; Resp 18; Pulse Ox 100% ; mb9 12:05 Body Mass Index 29.26 (72.57 kg, 157.48 cm) ar6 12:05 Pain Scale: Adult ar6 13:00 provider notified of bp; no orders at this time ar6 13:00 provider notified of bp; no orders at this time ar6 14:00 provider notified of bp; no orders at this time ar6 MDM: 11:56 Patient medically screened. ec2 12:15 Data reviewed: vital signs. ec2 12:18 ED course: Patient arrives today for evaluation of left-sided chest pain. Examination ec2 remarkable for well-appearing nontoxic dividual's otherwise in no acute distress with a reassuring examination. Will obtain EKG, chest x-ray, lab work. Differential includes ACS, doubt PE or dissection. Additionally patient without infectious symptoms, lower suspicion for recurrent endocarditis.. 12:18 ED course: EKG independently reviewed and interpreted by me, shows ventricular paced ec2 rhythm, rate of 85.. 14:00 ED course: Metabolic profile reassuring, troponin within normal ranges.. ec2 15:58 ED course: Repeat EKG independently reviewed and interpreted by me, shows paced rhythm, ec2 no changes when compared to initial, rate of 86.. 16:18 ED course: Repeat troponin is static. Will discharge home. Return precautions given. ec2 Instructed follow-up primary care.. 07/05 11:56 Order name: Basic Metabolic Panel; Complete Time: 14:00 ec2 07/05 11:56 Order name: CBC with Diff; Complete Time: 13:03 ec2 07/05 11:56 Order name: Troponin HS; Complete Time: 14:00 ec2 07/05 11:56 Order name: Test, Serum; Complete Time: 13:51 ec2 07/05 15:47 Order name: Troponin High Sensitivity; Complete Time: 16:18 cm10 07/05 11:56 Order name: XRAY Chest (1 view); Complete Time: 13:03 ec2 07/05 11:56 Order name: EKG; Complete Time: 11:57 ec2 07/05 11:56 Order name: Cardiac monitoring; Complete Time: 12:00 ec2 07/05 11:56 Order name: EKG - Nurse/Tech; Complete Time: 12:00 ec2 07/05 11:56 Order name: IV Saline Lock; Complete Time: 12:49 ec2 07/05 11:56 Order name: Labs collected and sent; Complete Time: 12:49 ec2 07/05 11:56 Order name: O2 Per Protocol; Complete Time: 12:00 ec2 07/05 11:56 Order name: O2 Sat Monitoring; Complete Time: 12:00 ec2 07/05 12:58 Order name: Labs - recollect needed: green; Complete Time: 13:16 bc6 07/05 13:25 Order name: Labs - recollect needed: green; Complete Time: 13:39 bc6 07/05 15:07 Order name: Misc. Order: repeat ekg/trop 1545; Complete Time: 15:49 ec2 Administered Medications: 12:58 Drug: Ketorolac IVP 15 mg IVP once Route: IVP; Site: left forearm; mb9 13:14 Follow up: Response: No adverse reaction ar6 13:21 Follow up: Response: No adverse reaction ar6 14:31 Drug: Ketorolac IM 15 mg IM once Route: IM; Site: left deltoid; mb9 15:22 Follow up: Response: No adverse reaction ar6 Disposition Summary: 07/05/24 16:19 Discharge Ordered Notes: Location: Home ec2 Condition: Stable ec2 Diagnosis - Chest pain, unspecified ec2 Followup: ec2 - With: Private Physician - When: - Reason: Re-evaluation by your physician Discharge Instructions: - Discharge Summary Sheet ec2 - Nonspecific Chest Pain, Adult, [id number] ec2 Forms: - Medication Reconciliation Form ec2 - Antibiotic Education ec2 - Prescription Opioid Use ec2 - Patient Portal Instructions ec2 - Leadership Thank You Letter ec2 Signatures: Dispatcher [employer] Paris Trujillo PA-C PA-C sb4 Bailey Witt RN RN mb9 Susan Matthew6 Alfonso Cervantes MD MD ec2 Nisreen Hsu RN RN ar6 Corrections: (The following items were deleted from the chart) 15:12 12:28 Home Meds: Metoprolol Tartrate Oral [Inactive]; ar6 mb9
--- NOTE | 2024-07-05 16:20 | ER ---
Nurse's Notes [facility] Name: Luz Marina Foster Age: 39 yrs Sex: Female : 1985 Arrival Date: 07/05/2024 Time: 11:50 Bed 20 Private MD: Diagnosis: Chest pain, unspecified Presentation: 07/05 12:05 Chief complaint: Patient states: left sided chest pain; pt. reports radiates to arm ar6 with numbness to fingers. Coronavirus screen: Client denies travel out of the [place] in the last 14 days. At this time, the client does not indicate any symptoms associated with coronavirus-19. Ebola Screen: Patient negative for fever greater than or equal to 101.5 degrees Fahrenheit, and additional compatible Ebola Virus Disease symptoms Patient denies exposure to infectious person. Patient denies travel to an Ebola-affected area in the 21 days before illness onset. No symptoms or risks identified at this time. Initial Sepsis Screen: Does the patient meet any 2 criteria? No. Patient's initial sepsis screen is negative. Does the patient have a suspected source of infection? No. Patient's initial sepsis screen is negative. Risk Assessment: Do you want to hurt yourself or someone else? Patient reports no desire to harm self or others. Onset of symptoms was July 05, 2024 at 11:30. 12:05 Method Of Arrival: Ambulatory ar6 12:05 Acuity: RAUL 3 ar6 Triage Assessment: 12:00 General: Appears in no apparent distress. uncomfortable, Behavior is cooperative, ar6 appropriate for age, anxious. Pain: Complains of pain in chest Pain radiates to left hand and left arm Pain currently is 9 out of 10 on a pain scale. Quality of pain is described as dull, pressure, Pain began 30 min ago. 12:00 EENT: Oral mucosa is moist. Neuro: Level of Consciousness is awake, alert, obeys ar6 commands, Oriented to person, place, time, situation. Cardiovascular: Capillary refill < 3 seconds. Respiratory: Airway is patent. GI: Abdomen is round non-distended. : No signs and/or symptoms were reported regarding the genitourinary system. Derm: Skin is intact, is healthy with good turgor, Skin is dry, Skin is pink, warm \T\ dry. Musculoskeletal: No signs and/or symptoms reported regarding the musculoskeletal system. 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 - Infectious Disease History:: Denies. - Social history:: Smoking status: Patient reports the use of cigarette tobacco products, smokes one pack cigarettes per day. Patient uses street drugs, pt. reports iv drug use. - Coronavirus screen:: The patient has NOT traveled to [place] in the past 14 days. The patient has NOT had contact with known/suspected case of Coronavirus? The patient has NOT traveled to [place] in the past 14 days. Proceed with normal triage process as indicated. The patient has NOT had contact with known/suspected case of Coronavirus? Proceed with normal triage procedures. - Ebola Screening: : Patient negative for fever greater than or equal to 101.5 degrees Fahrenheit, and additional compatible Ebola Virus Disease symptoms Patient denies exposure to infectious person Patient denies travel to an Ebola-affected area in the 21 days before illness onset No symptoms or risks identified at this time. Screenin:05 [facility] ED Fall Risk Assessment (Adult) History of falling in the last 3 months, ar6 including since admission No falls in past 3 months (0 pts) Confusion or Disorientation No (0 pts) Intoxicated or Sedated No (0 pts) Impaired Gait No (0 pts) Mobility Assist Device Used No (0 pt) Altered Elimination No (0 pt) Score/Fall Risk Level 0 - 2 = Low Risk. Abuse screen: Denies threats or abuse. Denies injuries from another. Nutritional screening: No deficits noted. Tuberculosis screening: No symptoms or risk factors identified. Assessment: 12:05 Reassessment: No changes from previously documented assessment. Patient and/or family ar6 updated on plan of care and expected duration. Pain level reassessed. see triage assessment. Pain: Complains of pain in chest Pain radiates to left hand and left arm Pain currently is 9 out of 10 on a pain scale. Quality of pain is described as dull, pressure, Pain began 30 min ago. 13:00 Reassessment: Charge nurseRashida, at bedside attempting IV access. mb9 13:00 Reassessment: No changes from previously documented assessment. Patient and/or family mb9 updated on plan of care and expected duration. Pain level reassessed. Patient is alert, oriented x 3, equal unlabored respirations, skin warm/dry/pink. 13:39 Reassessment: Delay in labs due to pt being hard stick and multiple recollects needed mb9 per lab. 14:22 Reassessment: No changes from previously documented assessment. Patient and/or family mb9 updated on plan of care and expected duration. Pain level reassessed. Patient is alert, oriented x 3, equal unlabored respirations, skin warm/dry/pink. 15:51 Reassessment: No changes from previously documented assessment. Patient and/or family mb9 updated on plan of care and expected duration. Pain level reassessed. Patient is alert, oriented x 3, equal unlabored respirations, skin warm/dry/pink. Vital Signs: 12:05 BP 167 / 100; Pulse 79; Resp 18; Temp 97.9; Pulse Ox 100% on R/A; Weight 72.57 kg; ar6 Height 5 ft. 2 in. ; Pain 9/10; 13:00 BP 156 / 101; Pulse 86; Resp 18; Pulse Ox 100% on R/A; ar6 13:00 BP 164 / 107; Pulse 88; Resp 18; Pulse Ox 100% on R/A; ar6 14:00 BP 160 / 110; Pulse 91; Resp 20; Pulse Ox 100% on R/A; ar6 16:19 BP 160 / 96; Pulse 90; Resp 18; Pulse Ox 100% ; mb9 12:05 Body Mass Index 29.26 (72.57 kg, 157.48 cm) ar6 12:05 Pain Scale: Adult ar6 13:00 provider notified of bp; no orders at this time ar6 13:00 provider notified of bp; no orders at this time ar6 14:00 provider notified of bp; no orders at this time ar6 ED Course: 11:52 Patient arrived in ED. im 11:55 Alfonso Cervantes MD is Attending Physician. ec2 12:00 EKG done, by ED staff, reviewed by Alfonso Cervantes MD. mb9 12:00 Arm band placed on left wrist. EKG completed in triage. Results shown to MD. ar6 12:00 Placed in gown. Bed in low position. Call light in reach. Side rails up X 1. Client mb9 placed on continuous cardiac and pulse oximetry monitoring. NIBP monitoring applied. bed maker on. 12:00 Provided Education on: press call light if needing anything. Door closed. Noise mb9 minimized. Warm blanket given. Pillow given. 12:02 Nisreen Hsu, RN is Primary Nurse. ar6 12:14 XRAY Chest (1 view) In Process Unspecified. EDMS 12:28 Triage completed. ar6 12:30 Missed attempt(s): 20 gauge in right forearm. Bleeding controlled, band aid applied, mb9 catheter tip intact. 12:38 Missed attempt(s): 24 gauge in right foot. Bleeding controlled, band aid applied, mb9 catheter tip intact. 12:38 No provider procedures requiring assistance completed. mb9 12:49 Initial lab(s) drawn, by me, sent to lab. Inserted saline lock: 22 gauge in left wrist, iw using aseptic technique. Blood collected. Flushed with 10 mL NS. 13:16 Missed attempt(s): 24 gauge in right index and middle finger.. Bleeding controlled, cm10 band aid applied, catheter tip intact. 13:40 IV discontinued, intact, bleeding controlled, No redness/swelling at site. Pressure mb9 dressing applied, IV infiltrated. 15:49 Troponin High Sensitivity Sent. mb9 15:51 EKG done, by ED staff, reviewed by Alfonso Cervantes MD. mb9 Administered Medications: 12:58 Drug: Ketorolac IVP 15 mg IVP once Route: IVP; Site: left forearm; mb9 13:14 Follow up: Response: No adverse reaction ar6 13:21 Follow up: Response: No adverse reaction ar6 14:31 Drug: Ketorolac IM 15 mg IM once Route: IM; Site: left deltoid; mb9 15:22 Follow up: Response: No adverse reaction ar6 Medication: 12:34 VIS not applicable for this client. ar6 Outcome: 16:19 Discharge ordered by . ec2 16:20 Discharged to home ambulatory, with family, prabhu 16:20 Condition: stable 16:20 Discharge instructions given to patient, Instructed on discharge instructions, follow up and referral plans. Demonstrated understanding of instructions, follow-up care, 16:24 Patient left the ED. prabhu Signatures: Dispatcher [employer] Rashida Velazquez RN RN iw Wilkerson, Mary Beth, RN RN mb9 Dorota Huynh Clarissa, RN RN cm10 Alfonso Cervantes MD MD ec2 Nisreen Hsu RN RN ar6 Corrections: (The following items were deleted from the chart) 15:12 12:28 Home Meds: Metoprolol Tartrate Oral [Inactive]; ar6 mb9 15:24 12:00 BP 156 / 101; Pulse 86bpm; Resp 18bpm; Pulse Ox 100% RA; ar6 ar6
[2024-07-05 16:49] VITALS: TEMP 97.9; O2SAT 100
[2024-07-05 16:54] VITALS: BP 160/96
--- NOTE | 2024-07-06 13:28 | EKG ---
Test Date: 2024-07-05 Test Time: 15:55:53 [employer]: YOVANI MEASUREMENT RESULTS: Intervals: Rate: 86 MA: 206 QRSD: 182 QT: 454 QTc: 543 [place]: P: 51 MA: 206 QRS: -57 T: 111 INTERPRETIVE STATEMENTS: Normal sinus rhythm Biatrial enlargement Left axis deviation Left ventricular hypertrophy with QRS widening and repolarization abnormality Possible Lateral infarct, age undetermined Abnormal ECG Compared to ECG 07/05/2024 11:58:27 Atrial abnormality now present Left-axis deviation now present Left ventricular hypertrophy now present Early repolarization now present Myocardial infarct finding now present Ventricular-paced complex(es) or rhythm no longer present Electronically Signed On 07-06-24 13:26:36 CDT by Son Parson
--- NOTE | 2024-07-06 13:30 | EKG ---
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: MB MEASUREMENT RESULTS: Intervals: Rate: 85 IN: 206 QRSD: 176 QT: 428 QTc: 509 [place]: P: 57 IN: 206 QRS: -57 T: 112 INTERPRETIVE STATEMENTS: Electronic ventricular pacemaker Compared to ECG 04/12/2024 15:43:40 Sinus rhythm no longer present Atrial abnormality no longer present Right bundle-branch block no longer present Left anterior fascicular block no longer present Bifascicular block no longer present Left ventricular hypertrophy no longer present Early repolarization no longer present Myocardial infarct finding no longer present Electronically Signed On 07-06-24 13:27:54 CDT by Son Parson
== END 2024-07-05 16:24 | disposition home or self-care (01) ==
LOC: ER 11:50
DX: R07.89 Other chest pain (principal); I10 Essential (primary) hypertension; Z95.0 Presence of cardiac pacemaker
CPT/HCPCS: 36415; 71045; 80048; 84484; 84703; 85025; 93005; 96372; 96374; 99285